=== PATIENT | female | born 1945 | race American Indian/Alaskan Native ===

== ENCOUNTER 2018-08-23 14:18 | Inpatient (IN) | payer MEDICARE ==
[2018-08-23] MEDS ORDERED: NACL 0.9% 1000 ML 1,000 ML IV ONE (15:11)
[2018-08-23] MEDS ORDERED: ZOFRAN IV ONE (15:11)
--- NOTE | 2018-08-23 15:31 | Emergency Department Report ---
HPI - General Chief Complaint: Weakness Time Seen by Provider: 08/23/18 15:10 - HPI HPI: Room 24 The patient is a 73-year-old female presenting with chief complaint of weakness. She states she has a history of taking hydrocodone for the past 30 years se condary to chronic back pain. The patient states in April 2018 she took herself off of the hydrocodone the final alternative methods of pain control. The patient states since then she has had nausea vomiting and diarrhea. Patient states the vomiting stopped approximately 3 weeks ago but she continues to have nausea occasionally. Patient states she has approximately 15 bloody stools daily. The patient saw a pillowcase sewer last week was given a stool kit and she states they were planning on performing a colonoscopy. The patient states she has been feeling progressively weaker since her symptoms began in April Location: [facility] Duration: [See above] Quality: [See above] Severity: [See above] Modifying factors: [see above] Context: [see above] Mode of transportation: [not driving] ED Past Medical Hx - Past Medical History Hx Hypertension: Yes Additional medical history: Graves' disease - Surgical History Additional Surgical History: Rectal polyp removal, cervical fusion, herniorrhaphy, thyroid biopsy, bilateral tubal ligation - Family History Family history: no significant - Social History Smoking Status: Former Smoker Substance Use Type: None - Medications Home Medications: Home Medications Medication Instructions Recorded Confirmed Last Taken Type DULoxetine [Cymbalta] 60 mg PO DAILY 08/23/18 08/23/18 Unknown History Levothyroxine [Synthroid] 125 mcg PO DAILY 08/23/18 08/23/18 Unknown History Loperamide [Imodium] 2 mg PO DAILY PRN 08/23/18 08/23/18 Unknown History Losartan/Hydrochlorothiazide 1 each PO DAILY 08/23/18 08/23/18 Unknown History [Losartan-Hctz 100-25 mg Tab] Sulindac 200 mg PO BID 08/23/18 08/23/18 Unknown History tiZANidine [Zanaflex] 4 mg PO BID 08/23/18 08/23/18 Unknown History ED Review of Systems ROS: Stated complaint: WEAK/DIZZY/FATIGUE Other details as noted in HPI Constitutional: weakness Eyes: denies: eye pain ENT: denies: throat pain Respiratory: no symptoms reported Cardiovascular: denies: chest pain Endocrine: no symptoms reported Gastrointestinal: nausea, vomiting, diarrhea, hematochezia. denies: abdominal pain Genitourinary: denies: dysuria Musculoskeletal: back pain (chronic) Neurological: denies: headache Physical Exam - Physical Exam Physical Exam: GENERAL: The patient is well-developed well-nourished female lying on stretcher not appear to be in acute distress. [] HEENT: Normocephalic. Atraumatic. Extraocular motions are intact. Patient has moist mucous membranes. NECK: Supple. Trachea midline CHEST/LUNGS: Clear to auscultation. There is no respiratory distress noted. HEART/CARDIOVASCULAR: Regular. There is no tachycardia. There is no gallop rub or murmur. ABDOMEN: Abdomen is soft, nontender. Patient has normal bowel sounds. There is no abdominal distention. SKIN: There is no rash. There is no edema. There is no diaphoresis. NEURO: The patient is awake, alert, and oriented. The patient is cooperative. The patient has normal speech MUSCULOSKELETAL: There is no evidence of acute injury. ED Course - Consultations Consultation #1: 08/23/18 16:51 GI paged 08/23/18 17:[address] Antoine - /Peripheral Line Neck L Time Out Performed: No Indications: nurses unable to establis Skin Cleansed in Sterile Fashion: Yes Size: 20 Dressing Placed: Tegaderm, tape Patient Tolerated Procedure: no complications ED Medical Decision Making - Lab Data Result diagrams: 08/23/18 15:29 08/23/18 15:29 Laboratory Tests 08/23/18 08/23/18 08/23/18 15:29 15:29 15:29 WBC 9.5 RBC 2.74 L Hgb 7.6 L Hct 22.3 L MCV 81 MCH 28 MCHC 34 RDW 16.8 H Plt Count 429 Lymph % (Auto) 14.2 [place] % (Auto) 11.6 H Eos % (Auto) 1.3 Baso % (Auto) 0.4 Lymph # 1.3 [place] # 1.1 H Eos # 0.1 Baso # 0.0 Seg Neutrophils % 72.5 H Seg Neutrophils # 6.9 PT INR APTT Sodium 133 L Potassium 3.3 L Chloride 96.4 L Carbon Dioxide 22 Anion Gap 18 BUN 32 H Creatinine 2.4 H Estimated GFR 24 BUN/Creatinine Ratio 13 Glucose 96 Calcium 7.7 L Total Bilirubin 0.40 AST 17 ALT 12 Alkaline Phosphatase 67 Total Protein 5.7 L Albumin 2.2 L Albumin/Globulin Ratio 0.6 Lipase 5 L Blood Type O NEGATIVE Antibody Screen Negative Crossmatch See Detail 08/23/18 15:36 WBC RBC Hgb Hct MCV MCH MCHC RDW Plt Count Lymph % (Auto) [place] % (Auto) Eos % (Auto) Baso % (Auto) Lymph # [place] # Eos # Baso # Seg Neutrophils % Seg Neutrophils # PT 14.1 INR 1.03 APTT 32.0 Sodium Potassium Chloride Carbon Dioxide Anion Gap BUN Creatinine Estimated GFR BUN/Creatinine Ratio Glucose Calcium Total Bilirubin AST ALT Alkaline Phosphatase Total Protein Albumin Albumin/Globulin Ratio Lipase Blood Type Antibody Screen Crossmatch - Differential Diagnosis opiate withdrawal, colitis, symptomatic anemia, dehydration Critical care attestation.: If time is entered above; I have spent that time in minutes in the direct care of this critically ill patient, excluding procedure time. ED Disposition Clinical Impression: Hematochezia, Symptomatic anemia, Nausea vomiting and diarrhea, Dehydration, Acute renal failure Disposition: OP ADMIT IP TO THIS HOSP Is pt being admited?: Yes Does the pt Need Aspirin: No Condition: Fair [facility]errals: [facility] SEL[facility] [Primary Care Provider] - 3-5 Days Time of Disposition: 16:50 (hospitalist paged (Dr Chester))
[2018-08-23 15:44] LABS: Basophils % (Auto) 0.4 % (0.0-1.8); Eosinophils # (Auto) 0.1 K/mm3 (0.0-0.4); Eosinophils % (Auto) 1.3 % (0.0-4.3); Hematocrit 22.3 % (30.3-42.9); Hemoglobin 7.6 gm/dl (10.1-14.3); Lymphocytes # (Auto) 1.3 K/mm3 (1.2-5.4); Lymphocytes % (Auto) 14.2 % (13.4-35.0); Mean Corpuscular HGB Conc 34 % (30-34); Mean Corpuscular Volume 81 fl (79-97); Monocytes # (Auto) 1.1 K/mm3 (0.0-0.8); Monocytes % (Auto) 11.6 % (0.0-7.3); Platelet Count 429 K/mm3 (140-440); Red Blood Count 2.74 M/mm3 (3.65-5.03); Red Cell Distribution Width 16.8 % (13.2-15.2)
[2018-08-23 15:55] LABS: INR 1.03 (0.87-1.13)
[2018-08-23] MEDS ORDERED: NACL 0.9% 500 ML 500 ML IV ONE (15:59)
[2018-08-23 16:07] LABS: Albumin 2.2 g/dL (3.9-5); Calcium 7.7 mg/dL (8.4-10.2)
[2018-08-23 18:15] LABS: Bacteria,Urine 2+ /HPF (Negative); Bilirubin,Urine NEG (Negative); Blood,Urine SM (Negative); Color,Urine Yellow (Yellow); Protein,Urine <15 mg/dL mg/dL (Negative); Urobilinogen,Urine < 2.0 mg/dL (<2.0)
[2018-08-23] MEDS ORDERED: NACL 0.9% 500 ML 500 ML ONE (18:24)
[2018-08-23] MEDS ORDERED: XYLOCAINE 1% 20 mL ONE (19:58)
[2018-08-23] MEDS ORDERED: LEVOPHED DRIP 4 MG/NS 250 ML 4 MG/250 ML BAG IV ONE (20:13)
[2018-08-23] MEDS ORDERED: GOLYTELY PO ONE (20:58)
[2018-08-24 00:25] LABS: Basophils # (Auto) 0.1 K/mm3 (0.0-0.1); Basophils % (Auto) 1.3 % (0.0-1.8); Eosinophils # (Auto) 0.3 K/mm3 (0.0-0.4); Eosinophils % (Auto) 2.7 % (0.0-4.3); Hematocrit 23.5 % (30.3-42.9); Hemoglobin 8.5 gm/dl (10.1-14.3); Lymphocytes # (Auto) 1.2 K/mm3 (1.2-5.4); Lymphocytes % (Auto) 13.3 % (13.4-35.0); Mean Corpuscular HGB Conc 36 % (30-34); Mean Corpuscular Volume 82 fl (79-97); Monocytes # (Auto) 1.1 K/mm3 (0.0-0.8); Monocytes % (Auto) 11.4 % (0.0-7.3); Platelet Count 416 K/mm3 (140-440); Red Blood Count 2.88 M/mm3 (3.65-5.03); Red Cell Distribution Width 16.7 % (13.2-15.2)
--- NOTE | 2018-08-24 00:54 | Event Note ---
Date: 08/23/18 See H/p in reports GI Bleed Hypotension Hypothyroidism arthritis
[2018-08-24] MEDS ORDERED: SODIUM CHLORIDE FLUSH SYRINGE 10 ML IV PRN (00:56)
[2018-08-24] MEDS ORDERED: DILAUDID IV PRN (00:56)
[2018-08-24] MEDS ORDERED: ZOFRAN IV PRN (00:56)
[2018-08-24] MEDS ORDERED: D5NS 1,000 ML IV SCH (01:00)
[2018-08-24] MEDS ORDERED: PROTONIX IV SCH (01:00)
[2018-08-24 01:44] LABS: Hematocrit 24.4 % (30.3-42.9); Hemoglobin 8.8 gm/dl (10.1-14.3)
--- NOTE | 2018-08-24 01:59 | History and Physical Report ---
CHIEF COMPLAINT: Bloody stools for the last 2 months. There is severe weakness today for one day. HISTORY OF PRESENT ILLNESS: A 73-year-old female with history of hypertension, hypothyroidism, arthritis, depression, chronic pain, comes in for severe weakness and also has been having nausea, vomiting, and diarrhea for the past 8 weeks. Vomiting stopped about 3 weeks ago. Diarrhea is persisting and bloody stools for the last couple of weeks. The patient was due for colonoscopy by [facility]. The patient states that she has been feeling progressively weaker since her symptoms began about 8 weeks ago. The patient attributes to stopping opiates. The patient is on sulindac for pain. NSAIDs are exacerbating factors. PAST MEDICAL HISTORY: Past medical history is significant for hypertension, hypothyroidism, arthritis, depression, Grave's disease. PAST SURGICAL HISTORY: Rectal polyp removal, cervical fusion, herniorrhaphy, thyroid biopsy, bilateral tubal ligation. FAMILY HISTORY: No hypertension. SOCIAL HISTORY: Former smoker. REVIEW OF SYSTEMS: Review of system is significant for feeling very weak, dizzy and lightheaded. Chronic diarrhea and vomiting. Vomiting subsided 3 weeks ago. Also, blood in the stools for the last couple of weeks. Occasionally, bright red blood per rectum. Intestinal cramps present. PHYSICAL EXAMINATION: GENERAL: Elderly female, cooperative during examination. VITAL SIGNS: Blood pressure was 87/45, temperature 98, pulse 86, respirations 17, sats are 99%. HEENT: Unremarkable. Mucous membranes are pale. NECK: Supple, no lymphadenopathy, no thyromegaly. LUNGS: Clear to auscultation and percussion. Good air entry. CARDIOVASCULAR: S1, S2 heard. No gallop, no murmur, no rub. Apical impulse in left fifth intercostal space and midclavicular line. ABDOMEN: Soft, slightly tender in the suprapubic region. Bowel sounds are normal. Occult blood is positive on the stool. CENTRAL NERVOUS SYSTEM: Alert and oriented x 4. Nonfocal examination. SKIN: Normal. LABORATORY DATA: White count is 9500, H and H is 7.6 and 22.3, platelet count is 432082. Sodium is 133, potassium is 3.3, chloride is 96.4, BUN and creatinine is ____ and 2.4, total protein 5.7, albumin is 2.2. Urine is negative. ASSESSMENT AND PLAN: 1. Acute anemia secondary to blood loss. Transfused 2 units of packed red blood cells. Check hemoglobin and hematocrit q. 6 hours for at least 4 times. 2. Hypokalemia, supplemented. 3. Gastrointestinal bleed. The patient to get colonoscopy tomorrow. Transfuse as necessary. IV Protonix initiated. 4. Chronic diarrhea, possible Clostridium difficile colitis. Clostridium difficile ordered. IV Flagyl ordered. 5. Hypertension. The patient is hypotensive with IV fluids. No antihypertensives. 6. Hypothyroidism. IV Synthroid. 7. Depression. We will hold the sertraline. 8. Arthritis. We will hold the sulindac. 9. Deep venous thrombosis prophylaxis. Sequential compression devices only. 10. In summary, the patient has gastrointestinal bleed, possible colitis, hypotension, hypothyroidism, arthritis, and depression. Off nonsteroidal antiinflammatory drugs. Transfuse as necessary. JOB# [id number] RONEL/ELISE
--- NOTE | 2018-08-24 03:43 | Consultation ---
REFERRING PHYSICIAN: Biju Chester MD INDICATION: Rectal bleeding. HISTORY OF PRESENT ILLNESS: The patient is a 73-year-old black female presents who for rectal bleeding. The patient has a history of hydrocodone use for years with chronic back pain and was stopped back in April. The patient reports she did have intermittent nausea, vomiting, diarrhea. The patient reports that she started having rectal bleeding with multiple bouts of bright red maroon stools today. She reports no hematemesis. She denies any epigastric pain. Denies any weight loss. The patient reports that she was due for colonoscopy. Denies any weight loss. Patient subsequently came to Emergency Room where she was evaluated and admitted and GI consulted. PAST MEDICAL HISTORY: Graves disease. MEDICATIONS: Reviewed, updated in chart. ALLERGIES: No known drug allergies. SOCIAL HISTORY: Denies alcohol, tobacco, or IV drug abuse. FAMILY HISTORY: Negative for colon cancer, IBD, or liver disease. REVIEW OF SYSTEMS: GENERAL: Reports mild weakness. HEENT: No visual complaints or tinnitus. PULMONARY: No shortness of breath or chest pain. GASTROINTESTINAL: Reports rectal bleeding. All points of a 13-point review of systems otherwise negative. PHYSICAL EXAMINATION: VITAL SIGNS: Temperature of 98.5, pulse 90, respirations 20, blood pressure 100/42. GENERAL: Fairly nourished female in mild distress. HEENT: Pupils equal, round, react to light and accommodation. Extraocular movements are intact. PULMONARY: Clear to auscultation bilaterally. CARDIOVASCULAR: Regular rate and rhythm. Normal S1 and S2. ABDOMEN: Positive bowel sounds, soft. SKIN: No rashes. LABORATORY DATA: Labs pertinent for white count of 9.5, hemoglobin and hematocrit of 7.6 and 22.3, platelet count of 429. Coags within normal limits. Chem-7, sodium of 133, potassium 3.3, chloride 96, CO2 24, BUN and creatinine of 32 and 2.4. LFTs within normal limits. ASSESSMENT: This is a 73-year-old black female with a history of Graves disease, now presents with one day of rectal bleeding. The patient does report occasional NSAID use. Most likely lower but cannot exclude upper gastrointestinal bleed. PLAN: 1. Follow hematocrit and transfuse as ordered. 2. Avoid NSAIDs and aspirin. 3. NPO after midnight. 4. We will plan for EGD, colonoscopy, and make further recommendation based on progress and results of the above. JOB# [id number] RENO/ELISE
[2018-08-24] MEDS: FLAGYL 500 MG/100 ML 500 MG/100 ML BAG IV SCH ×3 (07:16→23:02)
[2018-08-24] MEDS: SYNTHROID IV SCH (07:17)
[2018-08-24 07:33] LABS: Hematocrit 25.4 % (30.3-42.9); Hemoglobin 8.8 gm/dl (10.1-14.3)
[2018-08-24] MEDS: LEVOPHED DRIP 4 MG/NS 250 ML 4 MG/250 ML BAG IV SCH ×3 (07:34→23:03)
[2018-08-24] MEDS ORDERED: WATER FOR IRRIG STERILE IR ONE (08:20)
[2018-08-24] MEDS ORDERED: WATER FOR IRRIG STERILE ONE (08:21)
--- NOTE | 2018-08-24 08:28 | Progress Note ---
Assessment and Plan Assessment and plan: Patient is a 73 yo woman with a history of chronic pain syndome for LBP, Graves disease (then ?hypothyroidism), depression, OA and hypertension who presented to [facility] ED with n/v/d/bloody stools and weakness. Hypotension: treated with IVFs which did not work, now on Levophed 6mcg IV drip Normocytic Anemia with BRBPR/rectal bleeding: transfused 2 units of PRBC, for EGD/Colonoscopy, GI following, monitor h/h closely Hyponatremia hypovolemia: IVF with nss and monitor closely Hypokalemia; replete and daily bmp ARF, atn, no prior Cr in EMR: treat with IVF H/o hypertension: hold bp med h/o depression: antidepressant on hold due to NPO status, watch for withdrawals Severe Malnutrition, albumin 2.2; consult Nuclear Medical Technologist Chronic diarrhea: GI is following, for c-scopy Hypothyroidism/Graves: order TSH, free t4 Morbid obesity, bmi 43.5: lifestyle modifications discussed Right groin nickel size swallow ulcer, poa: consult Wound care Right Femoral TLC placed in ED 08/23/18: remove once stable DVT ppx with scd Full code CCT 32 minutes History Interval history: Patient was seen and examined. Follow-up on current diagnosis of GIB and hypot ension. Overnight uneventful. Patient denies any chest pain, shortness breath, nausea/vomiting or severe headaches. Imaging, nursing note, chart, labs and old chart reviewed. Discussed with patient. Hospitalist Physical - Physical exam Narrative exam: Gen: ill appearing NAD, Awake, Alert, Orientated x 3, bmi 43.5 HEENT: NCAT, EOMI, PERRL, OP Clear Neck: supple, no adenopathy, no thyromegaly, no JVD CVS/Heart: RRR, normal S1S2, pulses present bilaterally Chest/Lungs: CTA B, Symmetrical chest expansion, good air entry bilaterally GI/Abdomen: soft, NTND, good bowel sounds, no guarding or rebound /Bladder: no suprapubic tenderness, no CVA or paraspinal tenderness Extermity/Skin: leg edema bilateral, right nickel size swallow groin ulceration MSK: FROM x 4 Neuro: CN 2-12 grossly intact, no new focal deficits Psych: calm - Constitutional Vitals: Temp Pulse Resp BP Pulse Ox 98.6 F 93 H 15 92/42 100 08/24/18 04:00 08/24/18 06:00 08/24/18 06:00 08/24/18 06:00 08/24/18 06:00 Results - Labs CBC & Chem 7: 08/24/18 07:07 08/23/18 15:29 Labs: Laboratory Last Values WBC 9.2 K/mm3 (4.5-11.0) 08/24/18 00:08 RBC 2.88 M/mm3 (3.65-5.03) L 08/24/18 00:08 Hgb 8.8 gm/dl (10.1-14.3) L 08/24/18 07:07 Hct 25.4 % (30.3-42.9) L 08/24/18 07:07 MCV 82 fl (79-97) 08/24/18 00:08 MCH 30 pg (28-32) 08/24/18 00:08 MCHC 36 % (30-34) H 08/24/18 00:08 RDW 16.7 % (13.2-15.2) H 08/24/18 00:08 Plt Count 416 K/mm3 (140-440) 08/24/18 00:08 Lymph % (Auto) 13.3 % (13.4-35.0) L 08/24/18 00:08 [place] % (Auto) 11.4 % (0.0-7.3) H 08/24/18 00:08 Eos % (Auto) 2.7 % (0.0-4.3) 08/24/18 00:08 Baso % (Auto) 1.3 % (0.0-1.8) 08/24/18 00:08 Lymph # 1.2 K/mm3 (1.2-5.4) 08/24/18 00:08 [place] # 1.1 K/mm3 (0.0-0.8) H 08/24/18 00:08 Eos # 0.3 K/mm3 (0.0-0.4) 08/24/18 00:08 Baso # 0.1 K/mm3 (0.0-0.1) 08/24/18 00:08 Seg Neutrophils % 71.3 % (40.0-70.0) H 08/24/18 00:08 Seg Neutrophils # 6.6 K/mm3 (1.8-7.7) 08/24/18 00:08 PT 14.1 Sec. (12.2-14.9) 08/23/18 15:36 INR 1.03 (0.87-1.13) 08/23/18 15:36 APTT 32.0 Sec. (24.2-36.6) 08/23/18 15:36 Sodium 133 mmol/L (137-145) L 08/23/18 15:29 Potassium 3.3 mmol/L (3.6-5.0) L 08/23/18 15:29 Chloride 96.4 mmol/L (98-107) L 08/23/18 15:29 Carbon Dioxide 22 mmol/L (22-30) 08/23/18 15:29 Anion Gap 18 mmol/L 08/23/18 15:29 BUN 32 mg/dL (7-17) H 08/23/18 15:29 Creatinine 2.4 mg/dL (0.7-1.2) H 08/23/18 15:29 Estimated GFR 24 ml/min 08/23/18 15:29 BUN/Creatinine Ratio 13 % 08/23/18 15:29 Glucose 96 mg/dL (65-100) 08/23/18 15:29 Hemoglobin A1c 5.3 % (4-6) 08/24/18 00:08 Calcium 7.7 mg/dL (8.4-10.2) L 08/23/18 15:29 Total Bilirubin 0.40 mg/dL (0.1-1.2) 08/23/18 15:29 AST 17 units/L (5-40) 08/23/18 15:29 ALT 12 units/L (7-56) 08/23/18 15:29 Alkaline Phosphatase 67 units/L (35-129) 08/23/18 15:29 Total Protein 5.7 g/dL (6.3-8.2) L 08/23/18 15:29 Albumin 2.2 g/dL (3.9-5) L 08/23/18 15:29 Albumin/Globulin Ratio 0.6 % 08/23/18 15:29 Lipase 5 units/L (13-60) L 08/23/18 15:29 Urine Color Yellow (Yellow) 08/23/18 17:45 Urine Turbidity Clear (Clear) 08/23/18 17:45 Urine pH 5.0 (5.0-7.0) 08/23/18 17:45 Ur Specific [place] 1.008 (1.003-1.030) 08/23/18 17:45 Urine Protein <15 mg/dl mg/dL (Negative) 08/23/18 17:45 Urine Glucose (UA) Neg mg/dL (Negative) 08/23/18 17:45 Urine Ketones Neg mg/dL (Negative) 08/23/18 17:45 Urine Blood Sm (Negative) 08/23/18 17:45 Urine Nitrite Neg (Negative) 08/23/18 17:45 Urine Bilirubin Neg (Negative) 08/23/18 17:45 Urine Urobilinogen < 2.0 mg/dL (<2.0) 08/23/18 17:45 Ur Leukocyte Esterase Neg (Negative) 08/23/18 17:45 Urine WBC (Auto) 1.0 /HPF (0.0-6.0) 08/23/18 17:45 Urine RBC (Auto) 1.0 /HPF (0.0-6.0) 08/23/18 17:45 U Epithel Cells (Auto) 2.0 /HPF (0-13.0) 08/23/18 17:45 Urine Bacteria (Auto) 2+ /HPF (Negative) 08/23/18 17:45 Blood Type O NEGATIVE 08/23/18 15:29 Antibody Screen Negative 08/23/18 15:29 Crossmatch See Detail 08/23/18 15:29 Active Medications - Current Medications Current Medications: Generic Name Dose Route Start Last Admin Trade Name Freq PRN Reason Stop Dose Admin Acetaminophen 650 mg 08/24/18 00:56 Tylenol PO Q4H PRN Pain MILD(1-3)/Fever >100.5/VILLARREAL Hydromorphone HCl 0.5 mg 08/24/18 00:56 Dilaudid IV Q3H PRN Pain , Severe (7-10) Norepinephrine 4 mg in 250 mls @ 7.5 mls/hr 08/23/18 23:00 08/24/18 07:37 Levophed Drip 4 Mg/Ns 250 Ml IV 7 mcg/min TITR LAZARO 26.25 mls/hr Titration Protocol 2 MCG/MIN Dextrose/Sodium Chloride 1,000 mls @ 100 mls/hr 08/24/18 01:00 08/24/18 01:49 D5ns IV 100 mls/hr DIRECT LAZARO Administration Metronidazole 500 mg in 100 mls @ 100 mls/hr 08/24/18 06:00 08/24/18 07:16 Flagyl 500 Mg/100 Ml IV 100 mls/hr Q8HR LAZARO Administration Protocol Levothyroxine Sodium 100 mcg 08/24/18 06:00 08/24/18 07:17 Synthroid IV 100 mcg DAILY@0600 LAZARO Administration Ondansetron HCl 4 mg 08/24/18 00:56 Zofran IV Q8H PRN Nausea And Vomiting Pantoprazole Sodium 40 mg 08/24/18 01:00 08/24/18 01:49 Protonix IV 40 mg BID LAZARO Administration Sodium Chloride 10 ml 08/24/18 10:00 Sodium Chloride Flush Syringe 10 Ml IV BID LAZARO Sodium Chloride 10 ml 08/24/18 00:56 Sodium Chloride Flush Syringe 10 Ml IV PRN PRN LINE FLUSH
[2018-08-24] MEDS ORDERED: DIPRIVAN 10 MG/ML IV ONE ×2 (08:57)
--- NOTE | 2018-08-24 09:03 | Gastroenterology Consultation ---
History of Present Illness - Reason for Consult Consult date: 08/24/18 GI Bleed Requesting physician: JANIS BRICE - History of Present Illness The patient was recently seen in our clinic for acute onset diarrhea, with some trace rectal bleeding. This was in the setting of recent d/c of home narcotics (on for several years) because the patient wanted to "detox" and the diarrhea was presumed from withdrawal. She was scheduled for a colonoscopy and labwork (not completed). She came to the ER for weakness with diarrhea and worsened hematochezia over the last 48 hours. She denies severe abdominal pain (more c/o chronic back pain). She had no emesis nor hematemesis. Of note, she is now on chronic NSAIDs (sulindac) per home meds for her back pain; she is not sure of the date of her last narcotic pill. She has no hx of PUD and no hx of significant GI bleeding. She does have chronic constipation, and is unable to quantify how frequent her BMs are. Past History Past Medical History: hypertension, other (Graves; depression; obesity) Past Surgical History: Other (Neck (cervical); Tubal ligation) Social history: prescription drug abuse. denies: smoking, alcohol abuse Family history: no significant family history Medications and Allergies Allergies Allergy/AdvReac Type Severity Reaction Status Date / Time codeine Allergy Unknown Verified 08/23/18 17:07 Home Medications Medication Instructions Recorded Confirmed Last Taken Type DULoxetine [Cymbalta] 60 mg PO DAILY 08/23/18 08/23/18 Unknown History Levothyroxine [Synthroid] 125 mcg PO DAILY 08/23/18 08/23/18 Unknown History Loperamide [Imodium] 2 mg PO DAILY PRN 08/23/18 08/23/18 Unknown History Losartan/Hydrochlorothiazide 1 each PO DAILY 08/23/18 08/23/18 Unknown History [Losartan-Hctz 100-25 mg Tab] Sulindac 200 mg PO BID 08/23/18 08/23/18 Unknown History tiZANidine [Zanaflex] 4 mg PO BID 08/23/18 08/23/18 Unknown History Active Meds: Active Medications Acetaminophen (Tylenol) 650 mg PO Q4H PRN PRN Reason: Pain MILD(1-3)/Fever >100.5/VILLARREAL Hydromorphone HCl (Dilaudid) 0.5 mg IV Q3H PRN PRN Reason: Pain , Severe (7-10) Norepinephrine (Levophed Drip 4 Mg/Ns 250 Ml) 4 mg in 250 mls @ 7.5 mls/hr IV TITR [facility]; Protocol Last Titration: 08/24/18 08:30 Dose: 6 mcg/min, 22.5 mls/hr Documented by: Dextrose/Sodium Chloride (D5ns) 1,000 mls @ 100 mls/hr IV DIRECT [facility] Last Admin: 08/24/18 01:49 Dose: 100 mls/hr Documented by: Metronidazole (Flagyl 500 Mg/100 Ml) 500 mg in 100 mls @ 100 mls/hr IV Q8HR [facility]; Protocol Last Admin: 08/24/18 07:16 Dose: 100 mls/hr Documented by: Sodium Chloride (Nacl 0.9% 1000 Ml) 1,000 mls @ 50 mls/hr IV DIRECT [facility] Levothyroxine Sodium (Synthroid) 100 mcg IV DAILY@0600 [facility] Last Admin: 08/24/18 07:17 Dose: 100 mcg Documented by: Ondansetron HCl (Zofran) 4 mg IV Q8H PRN PRN Reason: Nausea And Vomiting Pantoprazole Sodium (Protonix) 40 mg IV BID [facility] Last Admin: 08/24/18 01:49 Dose: 40 mg Documented by: Sodium Chloride (Sodium Chloride Flush Syringe 10 Ml) 10 ml IV BID [facility] Sodium Chloride (Sodium Chloride Flush Syringe 10 Ml) 10 ml IV PRN PRN PRN Reason: LINE FLUSH I HAVE REVIEWED AND RECONCILED MEDICATIONS Review of Systems - Review of Systems All systems: negative (as noted in the HPI) Exam - Constitutional Vital Signs: Temp Pulse Resp BP Pulse Ox 98.6 F 93 H 15 92/42 100 08/24/18 04:00 08/24/18 06:00 08/24/18 06:00 08/24/18 06:00 08/24/18 06:00 General appearance: no acute distress - EENT Eyes: PERRL, EOM intact ENT: hearing intact, clear oral mucosa, no thrush, edentulous - Neck Neck: supple, normal ROM - Respiratory Respiratory effort: normal Respiratory: bilateral: CTA - Cardiovascular Rhythm: regular Heart Sounds: Present: S1 & S2 Extremities: no ischemia Extremity abnormal: edema (2+ pitting bilateral lower extremeties) - Gastrointestinal General gastrointestinal: Present: soft, non-tender, non-distended - Integumentary Integumentary: Present: warm (Groin ulcer as noted) - Neurologic Neurological: alert and oriented x3 - Labs CBC & Chem 7: 08/24/18 07:07 08/23/18 15:29 Lab Results: Laboratory Results - last 24 hr 08/23/18 08/23/18 08/23/18 15:29 15:29 15:29 WBC 9.5 RBC 2.74 L Hgb 7.6 L Hct 22.3 L MCV 81 MCH 28 MCHC 34 RDW 16.8 H Plt Count 429 Lymph % (Auto) 14.2 [place] % (Auto) 11.6 H Eos % (Auto) 1.3 Baso % (Auto) 0.4 Lymph # 1.3 [place] # 1.1 H Eos # 0.1 Baso # 0.0 Seg Neutrophils % 72.5 H Seg Neutrophils # 6.9 PT INR APTT Sodium 133 L Potassium 3.3 L Chloride 96.4 L Carbon Dioxide 22 Anion Gap 18 BUN 32 H Creatinine 2.4 H Estimated GFR 24 BUN/Creatinine Ratio 13 Glucose 96 Hemoglobin A1c Calcium 7.7 L Total Bilirubin 0.40 AST 17 ALT 12 Alkaline Phosphatase 67 Total Protein 5.7 L Albumin 2.2 L Albumin/Globulin Ratio 0.6 Lipase 5 L Urine Color Urine Turbidity Urine pH Ur Specific [place] Urine Protein Urine Glucose (UA) Urine Ketones Urine Blood Urine Nitrite Urine Bilirubin Urine Urobilinogen Ur Leukocyte Esterase Urine WBC (Auto) Urine RBC (Auto) U Epithel Cells (Auto) Urine Bacteria (Auto) Blood Type O NEGATIVE Antibody Screen Negative Crossmatch See Detail 08/23/18 08/23/18 08/24/18 15:36 17:45 00:08 WBC 9.2 RBC 2.88 L Hgb 8.5 L Hct 23.5 L MCV 82 MCH 30 MCHC 36 H RDW 16.7 H Plt Count 416 Lymph % (Auto) 13.3 L [place] % (Auto) 11.4 H Eos % (Auto) 2.7 Baso % (Auto) 1.3 Lymph # 1.2 [place] # 1.1 H Eos # 0.3 Baso # 0.1 Seg Neutrophils % 71.3 H Seg Neutrophils # 6.6 PT 14.1 INR 1.03 APTT 32.0 Sodium Potassium Chloride Carbon Dioxide Anion Gap BUN Creatinine Estimated GFR BUN/Creatinine Ratio Glucose Hemoglobin A1c Calcium Total Bilirubin AST ALT Alkaline Phosphatase Total Protein Albumin Albumin/Globulin Ratio Lipase Urine Color Yellow Urine Turbidity Clear Urine pH 5.0 Ur Specific [place] 1.008 Urine Protein <15 mg/dl Urine Glucose (UA) Neg Urine Ketones Neg Urine Blood Sm Urine Nitrite Neg Urine Bilirubin Neg Urine Urobilinogen < 2.0 Ur Leukocyte Esterase Neg Urine WBC (Auto) 1.0 Urine RBC (Auto) 1.0 U Epithel Cells (Auto) 2.0 Urine Bacteria (Auto) 2+ Blood Type Antibody Screen Crossmatch 08/24/18 08/24/18 08/24/18 00:08 01:31 07:07 WBC RBC Hgb 8.8 L 8.8 L Hct 24.4 L 25.4 L MCV MCH MCHC RDW Plt Count Lymph % (Auto) [place] % (Auto) Eos % (Auto) Baso % (Auto) Lymph # [place] # Eos # Baso # Seg Neutrophils % Seg Neutrophils # PT INR APTT Sodium Potassium Chloride Carbon Dioxide Anion Gap BUN Creatinine Estimated GFR BUN/Creatinine Ratio Glucose Hemoglobin A1c 5.3 Calcium Total Bilirubin AST ALT Alkaline Phosphatase Total Protein Albumin Albumin/Globulin Ratio Lipase Urine Color Urine Turbidity Urine pH Ur Specific [place] Urine Protein Urine Glucose (UA) Urine Ketones Urine Blood Urine Nitrite Urine Bilirubin Urine Urobilinogen Ur Leukocyte Esterase Urine WBC (Auto) Urine RBC (Auto) U Epithel Cells (Auto) Urine Bacteria (Auto) Blood Type Antibody Screen Crossmatch Assessment and Plan - Patient Problems (1) Acute blood loss anemia Current Visit: Yes Status: Acute Plan to address problem: - Given NSAID use, upper or lower ulcer most likely; no recent endoscopy so malignancy also in differential. - Will continue protonix, and plan EGD/colonoscopy. - Continue to transfuse. - Given hypotension and stable anemia, with edema, would consider TTE if no active bleeding noted at endoscopy. - MVI therapy.
--- NOTE | 2018-08-24 09:06 | Anesthesia Consultation ---
Anesthesia Consult and Med Hx Date of service: 08/24/18 - Airway Anesthetic Teeth Evaluation: Good Mental/Hyoid Distance: Adequate Mallampati Class: Class II Intubation Access Assessment: Good - Pulmonary Exam CTA: Yes - Cardiac Exam Cardiac Exam: RRR - Pre-Operative Health Status ASA Pre-Surgery Classification: ASA3 Proposed Anesthetic Plan: Sedation, Conscious, MAC - Pulmonary Hx Smoking: No Hx Asthma: No - Cardiovascular System Hx Hypertension: Yes Hx Coronary Artery Disease: No - Gastrointestinal Hx Ulcer: No Hx Gastroesophageal Reflux Disease: No - Other Systems Hx Alcohol Use: No Hx Substance Use: No Hx Cancer: No Hx Obesity: No - Additional Comments Anesthesia Medical History Comments: 73 yo woman with a history of chronic pain syndome for LBP, Graves disease (then ?hypothyroidism), depression, OA and hypertension who presented to [facility] ED with n/v/d/bloody stools and weakness. On contact precautions - C.diff r/o. Hypotension: treated with IVFs which did not work, now on Levophed 6mcg IV drip. Normocytic Anemia with BRBPR/rectal bleeding: transfused 1 units of PRBC, for EGD/Colonoscopy, GI following, monitor h/h closely. Hyponatremia hypovolemia: IVF with nss and monitor closely. Hypokalemia; replete and daily bmp ARF, atn, no prior Cr in EMR: treat with IVF. H/o hypertension: hold bp med. h/o depression: antidepressant on hold due to NPO status, watch for withdrawals. Severe Malnutrition, albumin 2.2; consult [facility] [employer]. Chronic diarrhea: GI is following, for c-scopy. Hypothyroidism/Graves: order TSH, free t4. Morbid obesity, bmi 43.5: lifestyle modifications discussed. Right groin nickel size swallow ulcer, poa: consult Wound care. Right Femoral TLC placed in ED 08/23/18: remove once stable. DVT p px with scd. Full code. Patient was seen and examined. Follow-up on current diagnosis of GIB and hypotension. Overnight uneventful. Imaging, nursing note, chart, labs and old chart reviewed. Psych: calm
--- NOTE | 2018-08-24 09:07 | Anesthesia Day of Surgery ---
Anesthesia Day of Surgery - Day of Surgery Patient Examined: Yes Patient H&P Reviewed: Yes Patient is NPO: Yes Beta Blockers: No Cardiac Clearance: No Pulmonary Clearance: No Jorgito's Test: N/A
[2018-08-24] MEDS ORDERED: SENOKOT S PO PRN (09:39)
[2018-08-24] MEDS ORDERED: LEVAQUIN 500MG/100ML 500 MG/100 ML BAG IV SCH (10:00)
--- NOTE | 2018-08-24 10:07 | Post Operative Note ---
Pre-op diagnosis: GI Bleed Post-op diagnosis: other (Colitis) Findings: 1. Normal upper GI tract without ulcer 2. Severe colitis in rectum/rectosigmoid; above the rectosigmoid the mucosa was normal, with copious solid brown stool; no bleeding noted proximal to the rectosigmoid; cold bx of rectum 3. Small hemorrhoids Procedure: EGD; Flex sig (incomplete colon 2nd prep) to mid-sigmoid with cold biopsy Anesthesia: MAC Surgeon: DAVIDSON TRUONG Estimated blood loss: minimal Pathology: list (1. Rectal mucosa) Specimen disposition: to lab Condition: stable Disposition: ICU (Recs: 1. The appearance would be most consistent with stercoral colitis given hx of narcotics/chronic constipation. IBD, ischemia of SONAL and infectious process (?STD) also in differential. 2. Will advance diet to full liquids, and start a bowel prep with miralax and senna. 3. Avoid all narcotics. 4. Empiric abx for colitis, and check RPR. 5. Convert protonix to PO, and avoid NSAIDs for now (tylenol only for pain).)
[2018-08-24] MEDS: SODIUM CHLORIDE FLUSH SYRINGE 10 ML IV SCH ×2 (10:14→23:07)
[2018-08-24] MEDS: PROTONIX PO SCH (10:14)
[2018-08-24] MEDS: MIRALAX 3350 PO SCH ×2 (10:14→23:02)
[2018-08-24] MEDS: THERAGRAN-M Tab PO SCH (10:14)
[2018-08-24] MEDS: NACL 0.9% 1000 ML 1,000 ML IV SCH (10:15)
[2018-08-24] MEDS ORDERED: NACL 0.9% 1000 ML 1,000 ML ONE (10:24)
[2018-08-24] MEDS ORDERED: LEVAQUIN 500MG/100ML 500 MG/100 ML BAG IV ONE (10:30)
--- NOTE | 2018-08-24 10:39 | Operative Report ---
PROCEDURE PERFORMED: Esophagogastroduodenoscopy and flexible sigmoidoscopy (aborted colonoscopy secondary to prep) to the midsigmoid colon with cold biopsy. PREOPERATIVE DIAGNOSIS: Acute blood loss anemia/gastrointestinal bleeding. POSTOPERATIVE DIAGNOSES: Focal colitis, but otherwise normal. ENDOSCOPIST: Alfred Rizvi MD INSTRUMENT: Dexterran video endoscope. MEDICATIONS: MAC anesthesia by Anesthesia [facility]. COMPLICATIONS: No apparent complications. ESTIMATED BLOOD LOSS: Minimal. SPECIMENS: Rectal mucosa, rule out inflammation. IMPLANTS: None. ASSISTANTS: None. CONDITION ON COMPLETION: Stable. TECHNIQUE: The patient was informed of the risks and benefits of the procedure. She signed the informed consent to proceed. She was placed in left lateral decubitus position. The above sedative medications were given. Her vital signs remained stable throughout the procedure. The instrument was advanced from the mouth to the second portion of the duodenum under direct visualization. At that point, the bowel was insufflated and the endoscope was slowly withdrawn. We then advanced the endoscope from the rectum to the midsigmoid colon. Under direct visualization, the procedure was terminated in the midst of the sigmoid colon due to poor preparation with copious amounts of solid green stool present. The endoscope was then withdrawn and the quality of preparation was poor. FINDINGS: 1. Normal upper GI tract without any evidence of mucosal disease, varices, or active gastrointestinal bleeding. 2. Severe colitis noted in the rectum/rectosigmoid area of the colon. Proximal to the rectosigmoid area, the mucosa was normal with copious amount of solid brown stool. A. No bleeding was noted proximal to the rectosigmoid, but there was significant friable mucosa in the rectum. B. Cold biopsy was taken of the rectal tissue. 3. Small hemorrhoids, but not well evaluated due to poor preparation. 4. The procedure was initially planned as a colonoscopy, but was aborted in the mid sigmoid colon due to poor preparation. RECOMMENDATIONS: 1. The appearance of the inflammation of the colon will be most consistent with stercoral colitis given the patient's history of narcotic use and chronic constipation. Inflammatory bowel disease, ischemia of the inferior mesenteric artery, and an infectious process such as a sexually transmitted disease, would also be in the differential. 2. We will advance the patient to a full liquid diet and start a bowel prep with MiraLax and Senokot. 3. Avoid all narcotics and nonsteroidal anti-inflammatory drugs. 4. Tylenol only for pain. 5. Empiric antibiotics for colitis and check on RPR. 6. Oral Protonix. 7. I would continue SCD hose for DVT prophylaxis and avoid heparin or Lovenox for the next [address] scan of the abdomen and pelvis when the patient's creatinine improves to assess the vasculature. JOB# [id number] DEVI/NTS
[2018-08-24] MEDS ORDERED: NACL 0.9% 500 ML 500 ML IV ONE (12:03)
--- NOTE | 2018-08-24 12:54 | Consultation ---
History of Present Illness - Reason for Consult Consult date: 08/24/18 GI Bleed Requesting physician: ESTHER MENDOZA - History of Present Illness 73 y/o female admitted with GI bleed. Given one unit of PRBC's overnight. Currently on vasopressor therapy as well. Scoped by GI this am and found to have severe colitis but no active bleeding. Patient currently sitting up in chair at bedside about to drink full liquids. No family present. Past History Past Medical History: hypertension, other (Graves; depression; obesity) Past Surgical History: Other (Neck (cervical); Tubal ligation) Social history: prescription drug abuse. denies: smoking, alcohol abuse Family history: no significant family history Medications and Allergies Allergies Allergy/AdvReac Type Severity Reaction Status Date / Time codeine Allergy Unknown Verified 08/23/18 17:07 Home Medications Medication Instructions Recorded Confirmed Last Taken Type DULoxetine [Cymbalta] 60 mg PO DAILY 08/23/18 08/23/18 Unknown History Levothyroxine [Synthroid] 125 mcg PO DAILY 08/23/18 08/23/18 Unknown History Loperamide [Imodium] 2 mg PO DAILY PRN 08/23/18 08/23/18 Unknown History Losartan/Hydrochlorothiazide 1 each PO DAILY 08/23/18 08/23/18 Unknown History [Losartan-Hctz 100-25 mg Tab] Sulindac 200 mg PO BID 08/23/18 08/23/18 Unknown History tiZANidine [Zanaflex] 4 mg PO BID 08/23/18 08/23/18 Unknown History Active Meds: Active Medications Acetaminophen (Tylenol) 650 mg PO Q4H PRN PRN Reason: Pain MILD(1-3)/Fever >100.5/VILLARREAL Norepinephrine (Levophed Drip 4 Mg/Ns 250 Ml) 4 mg in 250 mls @ 7.5 mls/hr IV TITR [facility]; Protocol Last Titration: 08/24/18 10:45 Dose: 10 mcg/min, 37.5 mls/hr Documented by: Dextrose/Sodium Chloride (D5ns) 1,000 mls @ 100 mls/hr IV DIRECT [facility] Last Admin: 08/24/18 01:49 Dose: 100 mls/hr Documented by: Metronidazole (Flagyl 500 Mg/100 Ml) 500 mg in 100 mls @ 100 mls/hr IV Q8HR [facility]; Protocol Last Admin: 08/24/18 07:16 Dose: 100 mls/hr Documented by: Sodium Chloride (Nacl 0.9% 1000 Ml) 1,000 mls @ 50 mls/hr IV DIRECT [facility] Last Admin: 08/24/18 10:15 Dose: 50 mls/hr Documented by: Levofloxacin/Dextrose (Levaquin 250mg/50ml) 250 mg in 50 mls @ 50 mls/hr IV Q24HR [facility] Levothyroxine Sodium (Synthroid) 100 mcg IV DAILY@0600 [facility] Last Admin: 08/24/18 07:17 Dose: 100 mcg Documented by: Multivitamins/Minerals (Theragran-M Tab) 1 each PO QDAY [facility] Last Admin: 08/24/18 10:14 Dose: 1 each Documented by: Ondansetron HCl (Zofran) 4 mg IV Q8H PRN PRN Reason: Nausea And Vomiting Pantoprazole Sodium (Protonix) 40 mg PO QDAY [facility] Last Admin: 08/24/18 10:14 Dose: 40 mg Documented by: Polyethylene Glycol (Miralax [id number]) 17 gm PO BID [facility] Last Admin: 08/24/18 10:14 Dose: 17 gm Documented by: Senna/Docusate Sodium (Senokot S) 2 tab PO Q12H PRN PRN Reason: Laxative Effect Sodium Chloride (Sodium Chloride Flush Syringe 10 Ml) 10 ml IV BID [facility] Last Admin: 08/24/18 10:14 Dose: 10 ml Documented by: Sodium Chloride (Sodium Chloride Flush Syringe 10 Ml) 10 ml IV PRN PRN PRN Reason: LINE FLUSH Review of Systems All systems: negative Exam - Constitutional Vitals: Temp Pulse Resp BP Pulse Ox 98.1 F 99 H 18 104/32 95 08/24/18 10:14 08/24/18 10:14 08/24/18 10:14 08/24/18 10:14 08/24/18 10:14 General appearance: Present: no acute distress, well-nourished, obese - EENT Eyes: Present: PERRL, EOM intact ENT: hearing intact, clear oral mucosa - Neck Neck: Present: supple, normal ROM - Respiratory Respiratory effort: normal Respiratory: bilateral: CTA - Cardiovascular Rhythm: regular (sinus tach secondary to vasopressor use) Results - Labs CBC & Chem 7: 08/24/18 07:07 08/23/18 15:29 Labs: Abnormal lab results 08/23/18 08/23/18 08/23/18 Range/Units 15:29 15:29 15:29 RBC 2.74 L (3.65-5.03) M/mm3 Hgb 7.6 L (10.1-14.3) gm/dl Hct 22.3 L (30.3-42.9) % MCHC (30-34) % RDW 16.8 H (13.2-15.2) % Lymph % (Auto) (13.4-35.0) % [place] % (Auto) 11.6 H (0.0-7.3) % [place] # 1.1 H (0.0-0.8) K/mm3 Seg Neutrophils % 72.5 H (40.0-70.0) % Sodium 133 L (137-145) mmol/L Potassium 3.3 L (3.6-5.0) mmol/L Chloride 96.4 L (98-107) mmol/L BUN 32 H (7-17) mg/dL Creatinine 2.4 H (0.7-1.2) mg/dL Calcium 7.7 L (8.4-10.2) mg/dL Total Protein 5.7 L (6.3-8.2) g/dL Albumin 2.2 L (3.9-5) g/dL Lipase 5 L (13-60) units/L Free T4 (0.76-1.46) ng/dL Crossmatch See Detail 08/24/18 08/24/18 08/24/18 Range/Units 00:08 01:31 07:07 RBC 2.88 L (3.65-5.03) M/mm3 Hgb 8.5 L 8.8 L 8.8 L (10.1-14.3) gm/dl Hct 23.5 L 24.4 L 25.4 L (30.3-42.9) % MCHC 36 H (30-34) % RDW 16.7 H (13.2-15.2) % Lymph % (Auto) 13.3 L (13.4-35.0) % [place] % (Auto) 11.4 H (0.0-7.3) % [place] # 1.1 H (0.0-0.8) K/mm3 Seg Neutrophils % 71.3 H (40.0-70.0) % Sodium (137-145) mmol/L Potassium (3.6-5.0) mmol/L Chloride (98-107) mmol/L BUN (7-17) mg/dL Creatinine (0.7-1.2) mg/dL Calcium (8.4-10.2) mg/dL Total Protein (6.3-8.2) g/dL Albumin (3.9-5) g/dL Lipase (13-60) units/L Free T4 (0.76-1.46) ng/dL Crossmatch 08/24/18 Range/Units Unknown RBC (3.65-5.03) M/mm3 Hgb (10.1-14.3) gm/dl Hct (30.3-42.9) % MCHC (30-34) % RDW (13.2-15.2) % Lymph % (Auto) (13.4-35.0) % [place] % (Auto) (0.0-7.3) % [place] # (0.0-0.8) K/mm3 Seg Neutrophils % (40.0-70.0) % Sodium (137-145) mmol/L Potassium (3.6-5.0) mmol/L Chloride (98-107) mmol/L BUN (7-17) mg/dL Creatinine (0.7-1.2) mg/dL Calcium (8.4-10.2) mg/dL Total Protein (6.3-8.2) g/dL Albumin (3.9-5) g/dL Lipase (13-60) units/L Free T4 1.90 H (0.76-1.46) ng/dL Crossmatch Assessment and Plan 73 y/o female admitted with lower GI Bleed, found to have severe colitis thought secondary to narcotic and pain med use with chronic constipation. 1. Appreciate GI help and recs. Bowel regimen 2. Will transfuse 2 more Units of PRBC's to see if this can help to wean down the pressors to off 3. Full liquid diet per GI 4. Hold all BP meds and narcotic pain meds as well as NSAIDs. Tylenol only. CCT 31 minutes.
[2018-08-25 04:30] LABS: Basophils % (Auto) 0.2 % (0.0-1.8); Eosinophils % (Auto) 0.4 % (0.0-4.3); Hematocrit 29.3 % (30.3-42.9); Lymphocytes # (Auto) 1.1 K/mm3 (1.2-5.4); Lymphocytes % (Auto) 15.1 % (13.4-35.0); Mean Corpuscular HGB Conc 34 % (30-34); Mean Corpuscular Volume 82 fl (79-97); Monocytes % (Auto) 13.4 % (0.0-7.3); Platelet Count 414 K/mm3 (140-440); Red Blood Count 3.56 M/mm3 (3.65-5.03); Red Cell Distribution Width 16.9 % (13.2-15.2)
[2018-08-25 04:42] LABS: Calcium 7.6 mg/dL (8.4-10.2)
[2018-08-25] MEDS: SYNTHROID IV SCH (07:37)
[2018-08-25] MEDS: FLAGYL 500 MG/100 ML 500 MG/100 ML BAG IV SCH ×3 (07:37→22:05)
[2018-08-25] MEDS: LEVOPHED DRIP 4 MG/NS 250 ML 4 MG/250 ML BAG IV SCH ×2 (08:30→18:15)
[2018-08-25] MEDS ORDERED: POTASSIUM CHLORIDE PO ONE (08:56)
[2018-08-25] MEDS: PROTONIX PO SCH (09:00)
[2018-08-25] MEDS: THERAGRAN-M Tab PO SCH (09:00)
[2018-08-25] MEDS: LEVAQUIN 250MG/50ML 250 MG/50 ML BAG IV SCH (09:01)
[2018-08-25] MEDS: MIRALAX 3350 PO SCH ×2 (09:01→22:06)
--- NOTE | 2018-08-25 09:02 | Progress Note ---
Assessment and Plan Assessment and plan: Patient is a 73 yo woman with a history of chronic pain syndome for LBP, Graves disease (then ?hypothyroidism), depression, OA and hypertension who presented to [facility] ED with n/v/d/bloody stools and weakness. Hypotension: treated with IVFs which did not work, now on Levophed 6mcg IV drip Normocytic Anemia with BRBPR/rectal bleeding with severe Colitis, proctitis: transfused 2 units of PRBC, for complete Colonoscopy on Sunday, GI following, monitor h/h closely Hyponatremia hypovolemia: IVF with nss and monitor closely Hypokalemia; replete and daily bmp ARF, atn, no prior Cr in EMR: treat with IVF, cr went from 2.4 to 1.2 H/o hypertension: hold bp med h/o depression: antidepressant on hold due to NPO status, watch for withdrawals Severe Malnutrition, albumin 2.2; consult [employer] Chronic diarrhea: GI is following, for c-scopy Hypothyroidism/Graves: order TSH, free t4==>with normal TSH and slightly high free T4, continue management Morbid obesity, bmi 43.5: lifestyle modifications discussed Right groin nickel size swallow ulcer, poa: consult Wound care Right Femoral TLC placed in ED 08/23/18: remove once stable DVT ppx with scd Full code 08/25/18: still on 8mcg of levophed, trying to wean down, on nss at 50ml/hr but ECHO pending, received blood transfusion overnight, will replace potassium, tolerating liquid diet, still leg edema and ECHO pending (denies history of chf), c.diffe still pending, patient says she has diarrhea CCT 31 minutes History Interval history: Patient was seen and examined. Follow-up on current diagnosis of GIB and hypotension. Overnight uneventful. Patient denies any chest pain, shortness br eath, nausea/vomiting or severe headaches. Imaging, nursing note, chart, labs and old chart reviewed. Discussed with patient. Hospitalist Physical - Physical exam Narrative exam: Gen: ill appearing NAD, Awake, Alert, Orientated x 3, bmi 43.5 HEENT: NCAT, EOMI, PERRL, OP Clear Neck: supple, no adenopathy, no thyromegaly, no JVD CVS/Heart: RRR, normal S1S2, pulses present bilaterally Chest/Lungs: CTA B, Symmetrical chest expansion, good air entry bilaterally GI/Abdomen: soft, NTND, good bowel sounds, no guarding or rebound /Bladder: no suprapubic tenderness, no CVA or paraspinal tenderness Extermity/Skin: leg edema bilateral, right nickel size swallow groin ulceration MSK: FROM x 4 Neuro: CN 2-12 grossly intact, no new focal deficits Psych: calm - Constitutional Vitals: Temp Pulse Resp BP Pulse Ox 98.0 F 84 15 109/58 99 08/25/18 08:00 08/25/18 08:21 08/25/18 08:21 08/25/18 08:21 08/25/18 08:21 General appearance: Present: no acute distress, well-nourished, obese Results - Labs CBC & Chem 7: 08/25/18 03:45 08/25/18 03:45 Labs: Laboratory Last Values WBC 7.5 K/mm3 (4.5-11.0) 08/25/18 03:45 RBC 3.56 M/mm3 (3.65-5.03) L 08/25/18 03:45 Hgb 10.0 gm/dl (10.1-14.3) L 08/25/18 03:45 Hct 29.3 % (30.3-42.9) L 08/25/18 03:45 MCV 82 fl (79-97) 08/25/18 03:45 MCH 28 pg (28-32) 08/25/18 03:45 MCHC 34 % (30-34) 08/25/18 03:45 RDW 16.9 % (13.2-15.2) H 08/25/18 03:45 Plt Count 414 K/mm3 (140-440) 08/25/18 03:45 Lymph % (Auto) 15.1 % (13.4-35.0) 08/25/18 03:45 [place] % (Auto) 13.4 % (0.0-7.3) H 08/25/18 03:45 Eos % (Auto) 0.4 % (0.0-4.3) 08/25/18 03:45 Baso % (Auto) 0.2 % (0.0-1.8) 08/25/18 03:45 Lymph # 1.1 K/mm3 (1.2-5.4) L 08/25/18 03:45 [place] # 1.0 K/mm3 (0.0-0.8) H 08/25/18 03:45 Eos # 0.0 K/mm3 (0.0-0.4) 08/25/18 03:45 Baso # 0.0 K/mm3 (0.0-0.1) 08/25/18 03:45 Seg Neutrophils % 70.9 % (40.0-70.0) H 08/25/18 03:45 Seg Neutrophils # 5.3 K/mm3 (1.8-7.7) 08/25/18 03:45 PT 14.1 Sec. (12.2-14.9) 08/23/18 15:36 INR 1.03 (0.87-1.13) 08/23/18 15:36 APTT 32.0 Sec. (24.2-36.6) 08/23/18 15:36 Sodium 141 mmol/L (137-145) D 08/25/18 03:45 Potassium 3.0 mmol/L (3.6-5.0) L 08/25/18 03:45 Chloride 104.7 mmol/L (98-107) 08/25/18 03:45 Carbon Dioxide 24 mmol/L (22-30) 08/25/18 03:45 Anion Gap 15 mmol/L 08/25/18 03:45 BUN 18 mg/dL (7-17) H 08/25/18 03:45 Creatinine 1.2 mg/dL (0.7-1.2) 08/25/18 03:45 Estimated GFR 53 ml/min 08/25/18 03:45 BUN/Creatinine Ratio 15 % 08/25/18 03:45 Glucose 141 mg/dL (65-100) H 08/25/18 03:45 POC Glucose 127 (70-105) H 08/24/18 23:14 Hemoglobin A1c 5.3 % (4-6) 08/24/18 00:08 Calcium 7.6 mg/dL (8.4-10.2) L 08/25/18 03:45 Total Bilirubin 0.70 mg/dL (0.1-1.2) 08/25/18 03:45 AST 13 units/L (5-40) 08/25/18 03:45 ALT 12 units/L (7-56) 08/25/18 03:45 Alkaline Phosphatase 65 units/L (35-129) 08/25/18 03:45 Total Protein 5.1 g/dL (6.3-8.2) L 08/25/18 03:45 Albumin 2.0 g/dL (3.9-5) L 08/25/18 03:45 Albumin/Globulin Ratio 0.6 % 08/25/18 03:45 Lipase 5 units/L (13-60) L 08/23/18 15:29 TSH 0.547 mlU/mL (0.270-4.200) 08/24/18 Unknown Free T4 1.90 ng/dL (0.76-1.46) H 08/24/18 Unknown Urine Color Yellow (Yellow) 08/23/18 17:45 Urine Turbidity Clear (Clear) 08/23/18 17:45 Urine pH 5.0 (5.0-7.0) 08/23/18 17:45 Ur Specific [place] 1.008 (1.003-1.030) 08/23/18 17:45 Urine Protein <15 mg/dl mg/dL (Negative) 08/23/18 17:45 Urine Glucose (UA) Neg mg/dL (Negative) 08/23/18 17:45 Urine Ketones Neg mg/dL (Negative) 08/23/18 17:45 Urine Blood Sm (Negative) 08/23/18 17:45 Urine Nitrite Neg (Negative) 08/23/18 17:45 Urine Bilirubin Neg (Negative) 08/23/18 17:45 Urine Urobilinogen < 2.0 mg/dL (<2.0) 08/23/18 17:45 Ur Leukocyte Esterase Neg (Negative) 08/23/18 17:45 Urine WBC (Auto) 1.0 /HPF (0.0-6.0) 08/23/18 17:45 Urine RBC (Auto) 1.0 /HPF (0.0-6.0) 08/23/18 17:45 U Epithel Cells (Auto) 2.0 /HPF (0-13.0) 08/23/18 17:45 Urine Bacteria (Auto) 2+ /HPF (Negative) 08/23/18 17:45 Blood Type O NEGATIVE 08/23/18 15:29 Antibody Screen Negative 08/23/18 15:29 Crossmatch See Detail 08/23/18 15:29 Active Medications - Current Medications Current Medications: Generic Name Dose Route Start Last Admin Trade Name Freq PRN Reason Stop Dose Admin Acetaminophen 650 mg 08/24/18 00:56 Tylenol PO Q4H PRN Pain MILD(1-3)/Fever >100.5/VILLARREAL Norepinephrine 4 mg in 250 mls @ 7.5 mls/hr 08/23/18 23:00 08/25/18 08:30 Levophed Drip 4 Mg/Ns 250 Ml IV 8 mcg/min TITR LAZARO 30 mls/hr Administration Protocol 2 MCG/MIN Metronidazole 500 mg in 100 mls @ 100 mls/hr 08/24/18 06:00 08/25/18 07:37 Flagyl 500 Mg/100 Ml IV 100 mls/hr Q8HR LAZARO Administration Protocol Sodium Chloride 1,000 mls @ 50 mls/hr 08/24/18 10:00 08/24/18 10:15 Nacl 0.9% 1000 Ml IV 50 mls/hr DIRECT LAZARO Administration Levofloxacin/Dextrose 250 mg in 50 mls @ 50 mls/hr 08/25/18 10:00 Levaquin 250mg/50ml IV Q24HR LAZARO Levothyroxine Sodium 100 mcg 08/24/18 06:00 08/25/18 07:37 Synthroid IV 100 mcg DAILY@0600 LAZARO Administration Multivitamins/Minerals 1 each 08/24/18 10:00 08/24/18 10:14 Theragran-M Tab PO 1 each QDAY LAZARO Administration Ondansetron HCl 4 mg 08/24/18 00:56 Zofran IV Q8H PRN Nausea And Vomiting Pantoprazole Sodium 40 mg 08/24/18 10:00 08/24/18 10:14 Protonix PO 40 mg QDAY LAZARO Administration Polyethylene Glycol 17 gm 08/24/18 10:00 08/24/18 23:02 Miralax 3350 PO 17 gm BID LAZARO Administration Potassium Chloride 60 meq 08/25/18 08:56 Potassium Chloride PO 08/25/18 08:57 ONCE ONE Senna/Docusate Sodium 2 tab 08/24/18 09:39 08/24/18 19:09 Senokot S PO 2 tab Q12H PRN Administration Laxative Effect Sodium Chloride 10 ml 08/24/18 10:00 08/24/18 23:07 Sodium Chloride Flush Syringe 10 Ml IV 10 ml BID LAZARO Administration Sodium Chloride 10 ml 08/24/18 00:56 Sodium Chloride Flush Syringe 10 Ml IV PRN PRN LINE FLUSH
--- NOTE | 2018-08-25 09:51 | Gastroenterology Progress Note ---
Assessment and Plan - Patient Problems (1) Acute blood loss anemia Current Visit: Yes Status: Acute Plan to address problem: - Chronic NSAID use, but EGD 08/24 negative. - Flex sig with severe proctitis (see below) but mucosa in sigmoid (obscured by stool) appeared normal. - Will complete colonoscopy tomorrow and offer further recs. - Continue MVI and daily protonix. - Patient to avoid all narcotics at present. (2) Proctitis Current Visit: Yes Status: Acute Plan to address problem: - Unclear if stercoral, ischemic (SONAL), infections, IBD. - Will plan full colonoscopy tomorrow after completing prep. - Continue current abx regimen. - C diff collected yesterday at flex sig. Subjective Date of service: 08/25/18 Principal diagnosis: GI Bleed Interval history: The patient has clinically improved; multiple liquid and solid BMs, and only a trace of blood in the stool. BP is also much improved. No N/V/abdominal pain with liquids. Objective - Constitutional Vitals: Temp Pulse Resp BP Pulse Ox 98.0 F 84 15 109/58 99 08/25/18 08:00 08/25/18 08:21 08/25/18 08:21 08/25/18 08:21 08/25/18 08:21 General appearance: no acute distress - Respiratory Respiratory effort: normal Respiratory: bilateral: CTA - Cardiovascular Rhythm: regular Heart Sounds: Present: S1 & S2 - Gastrointestinal General gastrointestinal: Present: soft, non-tender, non-distended - Labs CBC & Chem 7: 08/25/18 03:45 08/25/18 03:45 Labs: Laboratory Results - last 24 hr 08/23/18 08/24/18 08/24/18 15:29 23:14 Unknown WBC RBC Hgb Hct MCV MCH MCHC RDW Plt Count Lymph % (Auto) [place] % (Auto) Eos % (Auto) Baso % (Auto) Lymph # [place] # Eos # Baso # Seg Neutrophils % Seg Neutrophils # Sodium Potassium Chloride Carbon Dioxide Anion Gap BUN Creatinine Estimated GFR BUN/Creatinine Ratio Glucose POC Glucose 127 H Calcium Total Bilirubin AST ALT Alkaline Phosphatase Total Protein Albumin Albumin/Globulin Ratio Free T4 1.90 H Blood Type O NEGATIVE Antibody Screen Negative Crossmatch See Detail 08/25/18 08/25/18 03:45 03:45 WBC 7.5 RBC 3.56 L Hgb 10.0 L Hct 29.3 L MCV 82 MCH 28 MCHC 34 RDW 16.9 H Plt Count 414 Lymph % (Auto) 15.1 [place] % (Auto) 13.4 H Eos % (Auto) 0.4 Baso % (Auto) 0.2 Lymph # 1.1 L [place] # 1.0 H Eos # 0.0 Baso # 0.0 Seg Neutrophils % 70.9 H Seg Neutrophils # 5.3 Sodium 141 D Potassium 3.0 L Chloride 104.7 Carbon Dioxide 24 Anion Gap 15 BUN 18 H Creatinine 1.2 Estimated GFR 53 BUN/Creatinine Ratio 15 Glucose 141 H POC Glucose Calcium 7.6 L Total Bilirubin 0.70 AST 13 ALT 12 Alkaline Phosphatase 65 Total Protein 5.1 L Albumin 2.0 L Albumin/Globulin Ratio 0.6 Free T4 Blood Type Antibody Screen Crossmatch
--- NOTE | 2018-08-25 13:33 | Progress Note ---
Assessment and Plan 73 y/o female admitted with lower GI Bleed, found to have severe colitis thought secondary to narcotic and pain med use with chronic constipation, now with persistent hypotension of unknown etiology 1. Blood helped some but still on pressors. Will given a liter bolus now. 2. No evidence of further bleeding. Hold on further transfusions for now. 3. Diet is now advanced 4. Hold all BP meds and narcotic pain meds as well as NSAIDs. Tylenol only. 5. Agree with echo and await read. If low EF, may be able to except lower MAPS for weaning CCT 31 minutes. Subjective Date of service: 08/25/18 Principal diagnosis: GI Bleed Interval history: patient remains hypotensive. down to 8 mcgs of levophed. Still sitting up in chair. Diet has been advanced. Objective - Constitutional Vitals: Vital Signs - 12hr 08/25/18 08/25/18 08/25/18 01:31 01:41 01:51 Temperature Pulse Rate 66 67 62 Pulse Rate [ From Monitor] Respiratory 19 16 16 Rate Blood Pressure 126/42 126/42 110/44 O2 Sat by Pulse 98 97 98 Oximetry 08/25/18 08/25/18 08/25/18 02:00 02:11 02:21 Temperature Pulse Rate 63 63 63 Pulse Rate [ From Monitor] Respiratory 15 16 15 Rate Blood Pressure 130/45 130/44 126/42 O2 Sat by Pulse 96 96 97 Oximetry 08/25/18 08/25/18 08/25/18 02:31 02:41 02:51 Temperature Pulse Rate 62 64 63 Pulse Rate [ From Monitor] Respiratory 12 16 15 Rate Blood Pressure 135/48 135/48 128/46 O2 Sat by Pulse 97 96 97 Oximetry 08/25/18 08/25/18 08/25/18 03:01 03:11 03:21 Temperature Pulse Rate 62 62 62 Pulse Rate [ From Monitor] Respiratory 13 15 14 Rate Blood Pressure 135/50 135/50 136/49 O2 Sat by Pulse 96 96 96 Oximetry 08/25/18 08/25/18 08/25/18 03:31 03:41 03:51 Temperature Pulse Rate 62 64 121 H Pulse Rate [ From Monitor] Respiratory 14 17 21 Rate Blood Pressure 138/49 138/49 138/49 O2 Sat by Pulse 96 97 97 Oximetry 08/25/18 08/25/18 08/25/18 04:00 04:01 04:11 Temperature 98.6 F Pulse Rate 110 H 107 H Pulse Rate [ 96 H From Monitor] Respiratory 15 12 13 Rate Blood Pressure 138/49 138/49 O2 Sat by Pulse 99 100 99 Oximetry 08/25/18 08/25/18 08/25/18 04:21 04:31 04:41 Temperature Pulse Rate 104 H 105 H 107 H Pulse Rate [ From Monitor] Respiratory 13 13 14 Rate Blood Pressure 138/49 138/49 138/49 O2 Sat by Pulse 99 98 98 Oximetry 08/25/18 08/25/18 08/25/18 04:51 05:01 05:11 Temperature Pulse Rate 106 H 105 H 114 H Pulse Rate [ From Monitor] Respiratory 10 L 12 15 Rate Blood Pressure 138/49 138/49 138/49 O2 Sat by Pulse 99 98 99 Oximetry 08/25/18 08/25/18 08/25/18 05:21 05:31 05:40 Temperature Pulse Rate 101 H 102 H 116 H Pulse Rate [ From Monitor] Respiratory 15 11 L 25 H Rate Blood Pressure 138/49 138/49 116/79 O2 Sat by Pulse 99 99 100 Oximetry 08/25/18 08/25/18 08/25/18 05:51 06:00 06:11 Temperature Pulse Rate 65 64 64 Pulse Rate [ From Monitor] Respiratory 13 16 15 Rate Blood Pressure 99/34 99/34 112/37 O2 Sat by Pulse 100 100 98 Oximetry 08/25/18 08/25/18 08/25/18 06:21 06:31 06:41 Temperature Pulse Rate 63 63 62 Pulse Rate [ From Monitor] Respiratory 13 14 15 Rate Blood Pressure 121/41 121/42 121/42 O2 Sat by Pulse 98 98 98 Oximetry 08/25/18 08/25/18 08/25/18 06:51 07:01 07:11 Temperature Pulse Rate 63 65 100 H Pulse Rate [ From Monitor] Respiratory 14 13 14 Rate Blood Pressure 124/42 127/41 127/41 O2 Sat by Pulse 99 98 98 Oximetry 08/25/18 08/25/18 08/25/18 07:21 07:30 07:40 Temperature Pulse Rate 98 H 96 H 74 Pulse Rate [ From Monitor] Respiratory 10 L 14 15 Rate Blood Pressure 55/25 67/29 95/34 O2 Sat by Pulse 100 100 100 Oximetry 0408/25/18 08/25/18 07:51 08:00 08:01 Temperature 98.0 F Pulse Rate 98 H 90 Pulse Rate [ 90 From Monitor] Respiratory 23 13 13 Rate Blood Pressure 115/44 110/50 O2 Sat by Pulse 99 100 100 Oximetry 08/25/18 08/25/18 08/25/18 08:11 08:21 08:31 Temperature Pulse Rate 96 H 84 95 H Pulse Rate [ From Monitor] Respiratory 13 15 14 Rate Blood Pressure 110/50 109/58 91/55 O2 Sat by Pulse 99 99 98 Oximetry 08/25/18 08/25/18 08/25/18 08:41 08:51 09:01 Temperature Pulse Rate 94 H 108 H 99 H Pulse Rate [ From Monitor] Respiratory 12 11 L 17 Rate Blood Pressure 91/55 99/48 106/76 O2 Sat by Pulse 99 98 100 Oximetry 08/25/18 08/25/18 08/25/18 09:11 09:21 09:30 Temperature Pulse Rate 95 H 105 H 99 H Pulse Rate [ From Monitor] Respiratory 14 14 14 Rate Blood Pressure 106/76 96/50 83/46 O2 Sat by Pulse 100 98 100 Oximetry 08/25/18 08/25/18 08/25/18 09:41 09:51 10:01 Temperature Pulse Rate 103 H 124 H 106 H Pulse Rate [ From Monitor] Respiratory 12 17 15 Rate Blood Pressure 99/48 89/49 75/47 O2 Sat by Pulse 99 99 96 Oximetry 08/25/18 08/25/18 08/25/18 10:11 10:21 10:31 Temperature Pulse Rate 106 H 102 H 109 H Pulse Rate [ From Monitor] Respiratory 8 L 15 15 Rate Blood Pressure 75/47 94/52 86/53 O2 Sat by Pulse 99 99 98 Oximetry 08/25/18 08/25/18 08/25/18 10:41 10:51 11:01 Temperature Pulse Rate 129 H 108 H 108 H Pulse Rate [ From Monitor] Respiratory 26 H 17 20 Rate Blood Pressure 86/53 77/54 78/45 O2 Sat by Pulse 98 98 99 Oximetry 08/25/18 08/25/18 08/25/18 11:11 11:21 11:30 Temperature Pulse Rate 101 H 98 H 94 H Pulse Rate [ From Monitor] Respiratory 11 L 18 16 Rate Blood Pressure 86/53 85/41 88/49 O2 Sat by Pulse 99 98 98 Oximetry 08/25/18 08/25/18 08/25/18 11:41 11:51 12:00 Temperature 97.9 F Pulse Rate 98 H 100 H 96 H Pulse Rate [ 92 H From Monitor] Respiratory 16 12 17 Rate Blood Pressure 78/45 97/49 106/49 O2 Sat by Pulse 90 97 100 Oximetry General appearance: Present: no acute distress, well-nourished, obese - EENT Eyes: PERRL ENT: hearing intact, clear oral mucosa - Neck Neck: supple, normal ROM - Respiratory Respiratory effort: normal Respiratory: bilateral: CTA - Breasts Breasts: deferred - Cardiovascular Rhythm: regular Heart Sounds: Present: S1 & S2 - Gastrointestinal General gastrointestinal: Present: soft, non-tender, normal bowel sounds - Labs CBC & Chem 7: 08/25/18 03:45 08/25/18 03:45 Labs: Abnormal lab results 08/23/18 08/24/18 08/25/18 Range/Units 15:29 23:14 03:45 RBC (3.65-5.03) M/mm3 Hgb (10.1-14.3) gm/dl Hct (30.3-42.9) % RDW (13.2-15.2) % Carbon % (Auto) (0.0-7.3) % Lymph # (1.2-5.4) K/mm3 Carbon # (0.0-0.8) K/mm3 Seg Neutrophils % (40.0-70.0) % Potassium 3.0 L (3.6-5.0) mmol/L BUN 18 H (7-17) mg/dL Glucose 141 H (65-100) mg/dL POC Glucose 127 H (70-105) Calcium 7.6 L (8.4-10.2) mg/dL Total Protein 5.1 L (6.3-8.2) g/dL Albumin 2.0 L (3.9-5) g/dL Crossmatch See Detail 08/25/18 Range/Units 03:45 RBC 3.56 L (3.65-5.03) M/mm3 Hgb 10.0 L (10.1-14.3) gm/dl Hct 29.3 L (30.3-42.9) % RDW 16.9 H (13.2-15.2) % Carbon % (Auto) 13.4 H (0.0-7.3) % Lymph # 1.1 L (1.2-5.4) K/mm3 Carbon # 1.0 H (0.0-0.8) K/mm3 Seg Neutrophils % 70.9 H (40.0-70.0) % Potassium (3.6-5.0) mmol/L BUN (7-17) mg/dL Glucose (65-100) mg/dL POC Glucose (70-105) Calcium (8.4-10.2) mg/dL Total Protein (6.3-8.2) g/dL Albumin (3.9-5) g/dL Crossmatch Medications & Allergies - Medications Allergies/Adverse Reactions: Allergies codeine Allergy (Verified 08/23/18 17:07) Unknown Home Medications: Home Medications Medication Instructions Recorded Confirmed Last Taken Type DULoxetine [Cymbalta] 60 mg PO DAILY 08/23/18 08/23/18 Unknown History Levothyroxine [Synthroid] 125 mcg PO DAILY 08/23/18 08/23/18 Unknown History Loperamide [Imodium] 2 mg PO DAILY PRN 08/23/18 08/23/18 Unknown History Losartan/Hydrochlorothiazide 1 each PO DAILY 08/23/18 08/23/18 Unknown History [Losartan-Hctz 100-25 mg Tab] Sulindac 200 mg PO BID 08/23/18 08/23/18 Unknown History tiZANidine [Zanaflex] 4 mg PO BID 08/23/18 08/23/18 Unknown History Active Medications: Generic Name Dose Route Start Last Admin Trade Name Freq PRN Reason Stop Dose Admin Acetaminophen 650 mg 08/24/18 00:56 Tylenol PO Q4H PRN Pain MILD(1-3)/Fever >100.5/VILLARREAL Norepinephrine 4 mg in 250 mls @ 7.5 mls/hr 08/23/18 23:00 08/25/18 12:00 Levophed Drip 4 Mg/Ns 250 Ml IV 8 mcg/min TITR LAZARO 30 mls/hr Titration Protocol 2 MCG/MIN Metronidazole 500 mg in 100 mls @ 100 mls/hr 08/24/18 06:00 08/25/18 07:37 Flagyl 500 Mg/100 Ml IV 100 mls/hr Q8HR LAZARO Administration Protocol Sodium Chloride 1,000 mls @ 50 mls/hr 08/24/18 10:00 08/24/18 10:15 Nacl 0.9% 1000 Ml IV 50 mls/hr DIRECT LAZARO Administration Levofloxacin/Dextrose 250 mg in 50 mls @ 50 mls/hr 08/25/18 10:00 08/25/18 09:01 Levaquin 250mg/50ml IV 50 mls/hr Q24HR LAZARO Administration Sodium Chloride 1,000 mls @ 999 mls/hr 08/25/18 13:28 Nacl 0.9% 1000 Ml IV 08/25/18 14:28 BOLUS ONE Levothyroxine Sodium 100 mcg 08/24/18 06:00 08/25/18 07:37 Synthroid IV 100 mcg DAILY@0600 LAZARO Administration Multivitamins/Minerals 1 each 08/24/18 10:00 08/25/18 09:00 Theragran-M Tab PO 1 each QDAY LAZARO Administration Ondansetron HCl 4 mg 08/24/18 00:56 Zofran IV Q8H PRN Nausea And Vomiting Pantoprazole Sodium 40 mg 08/24/18 10:00 08/25/18 09:00 Protonix PO 40 mg QDAY LAZARO Administration Polyethylene Glycol 17 gm 08/24/18 10:00 08/25/18 09:01 Miralax 3350 PO 17 gm BID LAZARO Administration Senna/Docusate Sodium 2 tab 08/24/18 09:39 08/24/18 19:09 Senokot S PO 2 tab Q12H PRN Administration Laxative Effect Sodium Chloride 10 ml 08/24/18 10:00 08/24/18 23:07 Sodium Chloride Flush Syringe 10 Ml IV 10 ml BID LAZARO Administration Sodium Chloride 10 ml 08/24/18 00:56 Sodium Chloride Flush Syringe 10 Ml IV PRN PRN LINE FLUSH
--- NOTE | 2018-08-25 14:03 | Consultation ---
History of Present Illness Consult date: 08/25/18 Requesting physician: ESTHER MENDOZA Consult reason: hypotension History of present illness: The patient claims that she has chronic low back pain for which she was on hydrocodone for many years. She claims that she took herself off the analgesic on 05/23/2018. Since about that time, she has been experiencing nausea, vomiting and diarrhea. She also describes chronic intermittent rectal bleeding since she had a polypectomy a while ago. She claims that initially, the rectal bleeding consisted of intermittent passage of blood clots. However, since her diarrhea began, it has become more liquid. Over the past few weeks, she has experienced generalized weakness with intermittent presyncope. She also describes worsening of chronic mild leg edema over the past 1 week. She presented to the emergency department due to generalized weakness and worsening of rectal bleeding. She was noted to be hypotensive at presentation with evidence of ELISEO. She had an EGD and flexible sigmoidoscopy which revealed normal upper GI tract with severe colitis. Past History Past Medical History: arthritis (lumbar spine), hypertension, hypothyroidism, other (Graves disease, status post radioiodine thyroid ablation) Past Surgical History: Other (cervical fusion) Social history: prescription drug abuse. denies: smoking, alcohol abuse Family history: no significant family history Medications and Allergies Allergies Allergy/AdvReac Type Severity Reaction Status Date / Time codeine Allergy Unknown Verified 08/23/18 17:07 Home Medications Medication Instructions Recorded Confirmed Last Taken Type DULoxetine [Cymbalta] 60 mg PO DAILY 08/23/18 08/23/18 Unknown History Levothyroxine [Synthroid] 125 mcg PO DAILY 08/23/18 08/23/18 Unknown History Loperamide [Imodium] 2 mg PO DAILY PRN 08/23/18 08/23/18 Unknown History Losartan/Hydrochlorothiazide 1 each PO DAILY 08/23/18 08/23/18 Unknown History [Losartan-Hctz 100-25 mg Tab] Sulindac 200 mg PO BID 08/23/18 08/23/18 Unknown History tiZANidine [Zanaflex] 4 mg PO BID 08/23/18 08/23/18 Unknown History Active Meds: Active Medications Acetaminophen (Tylenol) 650 mg PO Q4H PRN PRN Reason: Pain MILD(1-3)/Fever >100.5/VILLARREAL Norepinephrine (Levophed Drip 4 Mg/Ns 250 Ml) 4 mg in 250 mls @ 7.5 mls/hr IV TITR [facility]; Protocol Last Titration: 08/25/18 12:00 Dose: 8 mcg/min, 30 mls/hr Documented by: Metronidazole (Flagyl 500 Mg/100 Ml) 500 mg in 100 mls @ 100 mls/hr IV Q8HR [facility]; Protocol Last Admin: 08/25/18 07:37 Dose: 100 mls/hr Documented by: Sodium Chloride (Nacl 0.9% 1000 Ml) 1,000 mls @ 50 mls/hr IV DIRECT [facility] Last Admin: 08/24/18 10:15 Dose: 50 mls/hr Documented by: Levofloxacin/Dextrose (Levaquin 250mg/50ml) 250 mg in 50 mls @ 50 mls/hr IV Q24HR [facility] Last Admin: 08/25/18 09:01 Dose: 50 mls/hr Documented by: Sodium Chloride (Nacl 0.9% 1000 Ml) 1,000 mls @ 999 mls/hr IV BOLUS ONE Stop: 08/25/18 15:28 Levothyroxine Sodium (Synthroid) 100 mcg IV DAILY@0600 [facility] Last Admin: 08/25/18 07:37 Dose: 100 mcg Documented by: Multivitamins/Minerals (Theragran-M Tab) 1 each PO QDAY [facility] Last Admin: 08/25/18 09:00 Dose: 1 each Documented by: Ondansetron HCl (Zofran) 4 mg IV Q8H PRN PRN Reason: Nausea And Vomiting Pantoprazole Sodium (Protonix) 40 mg PO QDAY [facility] Last Admin: 08/25/18 09:00 Dose: 40 mg Documented by: Polyethylene Glycol (Miralax 3350) 17 gm PO BID [facility] Last Admin: 08/25/18 09:01 Dose: 17 gm Documented by: Senna/Docusate Sodium (Senokot S) 2 tab PO Q12H PRN PRN Reason: Laxative Effect Last Admin: 08/24/18 19:09 Dose: 2 tab Documented by: Sodium Chloride (Sodium Chloride Flush Syringe 10 Ml) 10 ml IV BID [facility] Last Admin: 08/24/18 23:07 Dose: 10 ml Documented by: Sodium Chloride (Sodium Chloride Flush Syringe 10 Ml) 10 ml IV PRN PRN PRN Reason: LINE FLUSH Review of Systems Constitutional: no fever, no chills Ears, nose, mouth and throat: no ear pain, no ear discharge, no sore throat Cardiovascular: edema, lightheadedness, no chest pain, no orthopnea, no palpitations, no shortness of breath Respiratory: no cough, no hemoptysis, no shortness of breath Gastrointestinal: nausea, vomiting, diarrhea, BRBPR, no abdominal pain Genitourinary Female: no dysuria, no urinary frequency Rectal: bleeding, no pain Musculoskeletal: no neck stiffness, no neck pain, no myalgias Integumentary: no rash, no pruritis Neurological: no parathesias, no numbness, no headaches Endocrine: no cold intolerance, no heat intolerance Hematologic/Lymphatic: no easy bruising, no easy bleeding Allergic/Immunologic: no urticaria, no angioedema Physical Examination Vital Signs Last Vital Signs Temp 97.9 F 08/25/18 12:00 Pulse 92 H 08/25/18 12:00 Resp 16 08/25/18 12:00 BP 106/49 08/25/18 12:00 Pulse Ox 99 08/25/18 12:00 General appearance: no acute distress HEENT: Positive: EOMI, Normocephaly, Mucus Membranes Moist Neck: Positive: neck supple, trachea midline Cardiac: Positive: Reg Rate and Rhythm, S1/S2 Lungs: Positive: clear to auscultation Neuro: Positive: Grossly Intact Abdomen: Positive: Soft, Active Bowel Sounds. Negative: Tender Skin: Positive: Clear. Negative: Rash Musculoskeletal: Normal Range of Motion Extremities: Present: +3 Edema (bilateral leg edema) Results 08/25/18 03:45 08/25/18 03:45 Cardiac Enzymes 08/25/18 Range/Units 03:45 AST 13 (5-40) units/L CBC 08/25/18 Range/Units 03:45 WBC 7.5 (4.5-11.0) K/mm3 RBC 3.56 L (3.65-5.03) M/mm3 Hgb 10.0 L (10.1-14.3) gm/dl Hct 29.3 L (30.3-42.9) % Plt Count 414 (140-440) K/mm3 Lymph # 1.1 L (1.2-5.4) K/mm3 Iron # 1.0 H (0.0-0.8) K/mm3 Eos # 0.0 (0.0-0.4) K/mm3 Baso # 0.0 (0.0-0.1) K/mm3 Comprehensive Metabolic Panel 08/25/18 Range/Units 03:45 Sodium 141 D (137-145) mmol/L Potassium 3.0 L (3.6-5.0) mmol/L Chloride 104.7 (98-107) mmol/L Carbon Dioxide 24 (22-30) mmol/L BUN 18 H (7-17) mg/dL Creatinine 1.2 (0.7-1.2) mg/dL Glucose 141 H (65-100) mg/dL Calcium 7.6 L (8.4-10.2) mg/dL AST 13 (5-40) units/L ALT 12 (7-56) units/L Alkaline Phosphatase 65 (35-129) units/L Total Protein 5.1 L (6.3-8.2) g/dL Albumin 2.0 L (3.9-5) g/dL - Imaging and Cardiology EKG: pending Assessment and Plan I agree with her current regimen utilizing levophed drip/PRBCs/IVF. Obtain echocardiogram. - Patient Problems (1) Rectal bleeding Current Visit: Yes Status: Acute (2) Hypotension Current Visit: Yes Status: Acute Qualifiers: Hypotension type: hypotension due to hypovolemia Qualified Code(s): I95.89 - Other hypotension; E86.1 - Hypovolemia (3) Acute blood loss anemia Current Visit: Yes Status: Acute (4) ELISEO (acute kidney injury) Current Visit: Yes Status: Acute (5) Nausea vomiting and diarrhea Current Visit: Yes Status: Acute (6) Colitis Current Visit: Yes Status: Acute (7) Leg edema Current Visit: Yes Status: Acute (8) Hypoalbuminemia Current Visit: Yes Status: Acute
[2018-08-25] MEDS ORDERED: NACL 0.9% 1000 ML 1,000 ML IV ONE (14:28)
--- NOTE | 2018-08-25 17:29 | XRay Report ---
PROCEDURE: XR CHEST 1V AP TECHNIQUE: Chest radiograph , single frontal view. HISTORY: PICC line placement COMPARISONS: None . FINDINGS: Heart: Enlarged. Mediastinum/Vessels: Normal. Lungs/Pleural space: Normal. Bony thorax: No acute osseous abnormality. Plate and screw device is present in the lower cervical sp ine Life support devices: Right subclavian venous catheter terminates in the proximal superior vena cava. IMPRESSION: No acute cardiopulmonary abnormality. Cardiomegaly. Satisfactory PICC line placement This document is electronically signed by Courtney Pena MD., August 25 2018 05:27:19 PM ET
[2018-08-25] MEDS: SODIUM CHLORIDE FLUSH SYRINGE 10 ML IV SCH (22:00)
[2018-08-26] MEDS: NACL 0.9% 1000 ML 1,000 ML IV SCH (03:03)
[2018-08-26] MEDS: SYNTHROID IV SCH (05:57)
[2018-08-26] MEDS: FLAGYL 500 MG/100 ML 500 MG/100 ML BAG IV SCH ×3 (05:57→21:32)
[2018-08-26] MEDS: LEVOPHED DRIP 4 MG/NS 250 ML 4 MG/250 ML BAG IV SCH (05:58)
[2018-08-26 06:02] LABS: BUN/Creatinine Ratio 12; Blood Urea Nitrogen 11 mg/dL (7-17); Hemolysis Index 4
[2018-08-26 06:03] LABS: Hematocrit 27.2 % (30.3-42.9); Hemoglobin 9.4 gm/dl (10.1-14.3); Mean Platelet Volume 7.3 fl (6-12); Red Blood Count 3.29 M/mm3 (3.65-5.03); Red Cell Distribution Width 17.2 % (13.2-15.2)
[2018-08-26] MEDS ORDERED: NACL 0.9% 1000 ML 1,000 ML IV ONE (08:41)
--- NOTE | 2018-08-26 08:41 | Progress Note ---
Assessment and Plan Assessment and plan: Patient is a 73 yo woman with a history of chronic pain syndome due to OA/LBP, Graves disease then hypothyroidism, depression, OA and hypertension who presented to [facility] ED with n/v/d/bloody stools and weakness. Hypotension: treated with IVFs which did not work, now on Levophed 6mcg IV drip Normocytic Anemia with BRBPR/rectal bleeding with severe Colitis, proctitis: transfused 2 units of PRBC, for complete Colonoscopy on Sunday, GI following, monitor h/h closely Hyponatremia hypovolemia: IVF with nss and monitor closely Hypokalemia; replete and daily bmp ARF, atn, no prior Cr in EMR: treat with IVF, cr went from 2.4 to 1.2 H/o hypertension: hold bp med h/o depression: antidepressant on hold due to NPO status, watch for withdrawals Severe Malnutrition, albumin 2.2; consult Tax Accounting Assistant Chronic diarrhea: GI is following, for c-scopy Hypothyroidism/Graves: order TSH, free t4==>with normal TSH and slightly high free T4, continue management Morbid obesity, bmi 43.5: lifestyle modifications discussed Right groin nickel size swallow ulcer, poa: consult Wound care Right Femoral TLC placed in ED 08/23/18: remove once stable DVT ppx with scd Full code 08/25/18: still on 8mcg of levophed, trying to wean down, on nss at 50ml/hr but ECHO pending, received blood transfusion overnight, will replace potassium, tolerating liquid diet, still leg edema and ECHO pending (denies history of chf), c.diffe still pending, patient says she has diarrhea 08/26/18: 2D ECHO is trace TR, estimated EF 60-65%, right ventricle not well visulized, normal diastolic filling, back on 8mcg Levophed. Will increase NS and give boluses, repeat Colonoscopy today CCT 33 minutes History Interval history: Patient was seen and examined. Follow-up on current diagnosis of GIB and hypotension, she feel better but still weak. Overnight uneventful. Patient den ies any chest pain, shortness breath, nausea/vomiting or severe headaches. Imaging, nursing note, chart, labs and old chart reviewed. Discussed with patient. Hospitalist Physical - Physical exam Narrative exam: Gen: ill appearing NAD, Awake, Alert, Orientated x 3, bmi 43.5 HEENT: NCAT, EOMI, PERRL, OP Clear Neck: supple, no adenopathy, no thyromegaly, no JVD CVS/Heart: RRR, normal S1S2, pulses present bilaterally Chest/Lungs: CTA B, Symmetrical chest expansion, good air entry bilaterally GI/Abdomen: soft, NTND, good bowel sounds, no guarding or rebound /Bladder: no suprapubic tenderness, no CVA or paraspinal tenderness Extermity/Skin: leg edema bilateral reduced, right nickel size swallow groin ulceration MSK: FROM x 4 Neuro: CN 2-12 grossly intact, no new focal deficits Psych: calm - Constitutional Vitals: Temp Pulse Resp BP Pulse Ox 97.8 F 101 H 13 126/81 78 L 08/26/18 08:00 08/26/18 06:31 08/26/18 06:31 08/26/18 06:31 08/26/18 06:31 General appearance: Present: no acute distress Results - Labs CBC & Chem 7: 08/26/18 04:45 08/26/18 04:45 Labs: Laboratory Last Values WBC 6.4 K/mm3 (4.5-11.0) 08/26/18 04:45 RBC 3.29 M/mm3 (3.65-5.03) L 08/26/18 04:45 Hgb 9.4 gm/dl (10.1-14.3) L 08/26/18 04:45 Hct 27.2 % (30.3-42.9) L 08/26/18 04:45 MCV 83 fl (79-97) 08/26/18 04:45 MCH 29 pg (28-32) 08/26/18 04:45 MCHC 35 % (30-34) H 08/26/18 04:45 RDW 17.2 % (13.2-15.2) H 08/26/18 04:45 Plt Count 386 K/mm3 (140-440) 08/26/18 04:45 Lymph % (Auto) 15.1 % (13.4-35.0) 08/25/18 03:45 [place] % (Auto) 13.4 % (0.0-7.3) H 08/25/18 03:45 Eos % (Auto) 0.4 % (0.0-4.3) 08/25/18 03:45 Baso % (Auto) 0.2 % (0.0-1.8) 08/25/18 03:45 Lymph # 1.1 K/mm3 (1.2-5.4) L 08/25/18 03:45 [place] # 1.0 K/mm3 (0.0-0.8) H 08/25/18 03:45 Eos # 0.0 K/mm3 (0.0-0.4) 08/25/18 03:45 Baso # 0.0 K/mm3 (0.0-0.1) 08/25/18 03:45 Seg Neutrophils % 70.9 % (40.0-70.0) H 08/25/18 03:45 Seg Neutrophils # 5.3 K/mm3 (1.8-7.7) 08/25/18 03:45 PT 14.1 Sec. (12.2-14.9) 08/23/18 15:36 INR 1.03 (0.87-1.13) 08/23/18 15:36 APTT 32.0 Sec. (24.2-36.6) 08/23/18 15:36 Sodium 143 mmol/L (137-145) 08/26/18 04:45 Potassium 3.1 mmol/L (3.6-5.0) L 08/26/18 04:45 Chloride 109.8 mmol/L (98-107) H 08/26/18 04:45 Carbon Dioxide 22 mmol/L (22-30) 08/26/18 04:45 Anion Gap 14 mmol/L 08/26/18 04:45 BUN 11 mg/dL (7-17) 08/26/18 04:45 Creatinine 0.9 mg/dL (0.7-1.2) 08/26/18 04:45 Estimated GFR > 60 ml/min 08/26/18 04:45 BUN/Creatinine Ratio 12 % 08/26/18 04:45 Glucose 119 mg/dL (65-100) H 08/26/18 04:45 POC Glucose 127 (70-105) H 08/24/18 23:14 Hemoglobin A1c 5.3 % (4-6) 08/24/18 00:08 Calcium 7.0 mg/dL (8.4-10.2) L 08/26/18 04:45 Magnesium 1.60 mg/dL (1.7-2.3) L 08/25/18 13:53 Total Bilirubin 0.70 mg/dL (0.1-1.2) 08/25/18 03:45 AST 13 units/L (5-40) 08/25/18 03:45 ALT 12 units/L (7-56) 08/25/18 03:45 Alkaline Phosphatase 65 units/L (35-129) 08/25/18 03:45 Total Protein 5.1 g/dL (6.3-8.2) L 08/25/18 03:45 Albumin 2.0 g/dL (3.9-5) L 08/25/18 03:45 Albumin/Globulin Ratio 0.6 % 08/25/18 03:45 Lipase 5 units/L (13-60) L 08/23/18 15:29 TSH 0.547 mlU/mL (0.270-4.200) 08/24/18 Unknown Free T4 1.90 ng/dL (0.76-1.46) H 08/24/18 Unknown Urine Color Yellow (Yellow) 08/23/18 17:45 Urine Turbidity Clear (Clear) 08/23/18 17:45 Urine pH 5.0 (5.0-7.0) 08/23/18 17:45 Ur Specific [place] 1.008 (1.003-1.030) 08/23/18 17:45 Urine Protein <15 mg/dl mg/dL (Negative) 08/23/18 17:45 Urine Glucose (UA) Neg mg/dL (Negative) 08/23/18 17:45 Urine Ketones Neg mg/dL (Negative) 08/23/18 17:45 Urine Blood Sm (Negative) 08/23/18 17:45 Urine Nitrite Neg (Negative) 08/23/18 17:45 Urine Bilirubin Neg (Negative) 08/23/18 17:45 Urine Urobilinogen < 2.0 mg/dL (<2.0) 08/23/18 17:45 Ur Leukocyte Esterase Neg (Negative) 08/23/18 17:45 Urine WBC (Auto) 1.0 /HPF (0.0-6.0) 08/23/18 17:45 Urine RBC (Auto) 1.0 /HPF (0.0-6.0) 08/23/18 17:45 U Epithel Cells (Auto) 2.0 /HPF (0-13.0) 08/23/18 17:45 Urine Bacteria (Auto) 2+ /HPF (Negative) 08/23/18 17:45 RPR Nonreactive (Nonreactive) 08/25/18 03:45 Blood Type O NEGATIVE 08/23/18 15:29 Antibody Screen Negative 08/23/18 15:29 Crossmatch See Detail 08/23/18 15:29 Active Medications - Current Medications Current Medications: Generic Name Dose Route Start Last Admin Trade Name Freq PRN Reason Stop Dose Admin Acetaminophen 650 mg 08/24/18 00:56 Tylenol PO Q4H PRN Pain MILD(1-3)/Fever >100.5/VILLARREAL Norepinephrine 4 mg in 250 mls @ 7.5 mls/hr 08/23/18 23:00 08/26/18 05:58 Levophed Drip 4 Mg/Ns 250 Ml IV 7 mcg/min TITR [facility] 26.25 mls/hr Administration Protocol 2 MCG/MIN Metronidazole 500 mg in 100 mls @ 100 mls/hr 08/24/18 06:00 08/26/18 05:57 Flagyl 500 Mg/100 Ml IV 100 mls/hr Q8HR [facility] Administration Protocol Sodium Chloride 1,000 mls @ 50 mls/hr 08/24/18 10:00 08/26/18 03:03 Nacl 0.9% 1000 Ml IV 50 mls/hr DIRECT [facility] Administration Levofloxacin/Dextrose 250 mg in 50 mls @ 50 mls/hr 08/25/18 10:00 08/25/18 09:01 Levaquin 250mg/50ml IV 50 mls/hr Q24HR [facility] Administration Levothyroxine Sodium 100 mcg 08/24/18 06:00 08/26/18 05:57 Synthroid IV 100 mcg DAILY@0600 [facility] Administration Multivitamins/Minerals 1 each 08/24/18 10:00 08/25/18 09:00 Theragran-M Tab PO 1 each QDAY [facility] Administration Ondansetron HCl 4 mg 08/24/18 00:56 Zofran IV Q8H PRN Nausea And Vomiting Pantoprazole Sodium 40 mg 08/24/18 10:00 08/25/18 09:00 Protonix PO 40 mg QDAY [facility] Administration Polyethylene Glycol 17 gm 08/24/18 10:00 08/25/18 22:06 Miralax 3350 PO 17 gm BID [facility] Administration Senna/Docusate Sodium 2 tab 08/24/18 09:39 08/24/18 19:09 Senokot S PO 2 tab Q12H PRN Administration Laxative Effect Sodium Chloride 10 ml 08/24/18 10:00 08/25/18 22:00 Sodium Chloride Flush Syringe 10 Ml IV 10 ml BID [facility] Administration Sodium Chloride 10 ml 08/24/18 00:56 Sodium Chloride Flush Syringe 10 Ml IV PRN PRN LINE FLUSH
[2018-08-26] MEDS: SODIUM CHLORIDE FLUSH SYRINGE 10 ML IV SCH ×2 (09:26→11:03)
--- NOTE | 2018-08-26 09:29 | Progress Note ---
Assessment and Plan Suspected lower GI bleeding, severe colitis thought secondary to narcotic and pain med use with chronic constipation Hypotension on pressors. Improved Recommendations Serial BP monitoring Keep MAP > 65 Monitor UO, keep > 30 cc/ hr NSS bolus 500 cc as needed to keep MAP > 65 or to max. of 2 L. Reportedly getting only 1 L so far PRBC if Hgb < 7 monitor for any bleeding Scheduled for follow-up colonoscopy today by GI Discussed with patient detail. All questions answered. Critical care time was 31 minutes of [id number] evaluation and coordination of care Subjective Date of service: 08/26/18 Principal diagnosis: GI Bleed Interval history: No respiratory complaints. All minimal pressors, being weaned. Able to sit up in bed without difficulty Objective Vital Signs - 12hr 08/25/18 08/25/18 08/25/18 21:31 21:41 21:51 Temperature Pulse Rate 90 94 H 89 Respiratory 18 14 20 Rate Blood Pressure 96/43 92/42 79/50 O2 Sat by Pulse 91 87 99 Oximetry 08/25/18 08/25/18 08/25/18 22:00 22:01 22:11 Temperature Pulse Rate 104 H 97 H 100 H Respiratory 18 18 Rate Blood Pressure 83/50 97/41 O2 Sat by Pulse 96 99 Oximetry 08/25/18 08/25/18 08/25/18 22:21 22:31 22:41 Temperature Pulse Rate 104 H 113 H 104 H Respiratory 25 H 20 18 Rate Blood Pressure 94/46 96/38 96/38 O2 Sat by Pulse 99 85 98 Oximetry 08/25/18 08/25/18 08/25/18 22:51 23:01 23:11 Temperature Pulse Rate 109 H 100 H 102 H Respiratory 19 20 14 Rate Blood Pressure 94/45 99/43 94/45 O2 Sat by Pulse 98 69 L 95 Oximetry 08/25/18 08/25/18 08/25/18 23:12 23:16 23:21 Temperature 98.8 F Pulse Rate 103 H 101 H Respiratory 17 12 Rate Blood Pressure 94/45 99/42 O2 Sat by Pulse 96 100 Oximetry 08/25/18 08/25/18 08/25/18 23:29 23:31 23:41 Temperature Pulse Rate 104 H 101 H 108 H Respiratory 12 17 18 Rate Blood Pressure 99/42 90/45 99/42 O2 Sat by Pulse 98 90 100 Oximetry 08/25/18 08/26/18 08/26/18 23:51 00:01 00:11 Temperature Pulse Rate 105 H 105 H 101 H Respiratory 22 21 19 Rate Blood Pressure 85/44 93/48 93/48 O2 Sat by Pulse 100 97 98 Oximetry 08/26/18 08/26/18 08/26/18 00:21 00:31 00:41 Temperature Pulse Rate 100 H 91 H 93 H Respiratory 16 16 17 Rate Blood Pressure 107/58 98/48 93/48 O2 Sat by Pulse 83 L 100 98 Oximetry 08/26/18 08/26/18 08/26/18 00:51 01:01 01:11 Temperature Pulse Rate 89 107 H 74 Respiratory 15 25 H 16 Rate Blood Pressure 93/49 70/47 92/29 O2 Sat by Pulse 100 88 95 Oximetry 08/26/18 08/26/18 08/26/18 01:21 01:31 01:41 Temperature Pulse Rate 75 73 72 Respiratory 17 17 19 Rate Blood Pressure 98/32 93/39 93/39 O2 Sat by Pulse 97 98 98 Oximetry 08/26/18 08/26/18 08/26/18 01:51 02:01 02:11 Temperature Pulse Rate 83 79 72 Respiratory 17 16 17 Rate Blood Pressure 104/48 97/42 97/42 O2 Sat by Pulse 98 99 98 Oximetry 08/26/18 08/26/18 08/26/18 02:21 02:31 02:41 Temperature Pulse Rate 71 68 69 Respiratory 17 18 15 Rate Blood Pressure 101/32 102/40 102/40 O2 Sat by Pulse 98 98 97 Oximetry 08/26/18 08/26/18 08/26/18 02:51 03:01 03:04 Temperature 97.8 F Pulse Rate 69 115 H Respiratory 14 17 Rate Blood Pressure 104/35 94/43 O2 Sat by Pulse 96 78 L Oximetry 08/26/18 08/26/18 08/26/18 03:11 03:21 03:31 Temperature Pulse Rate 96 H 95 H 92 H Respiratory 13 13 14 Rate Blood Pressure 94/43 93/44 89/46 O2 Sat by Pulse 94 96 79 L Oximetry 08/26/18 08/26/18 08/26/18 03:41 03:51 04:01 Temperature Pulse Rate 107 H 70 69 Respiratory 21 12 17 Rate Blood Pressure 89/46 97/52 111/41 O2 Sat by Pulse 78 L 100 99 Oximetry 08/26/18 08/26/18 08/26/18 04:11 04:21 04:31 Temperature Pulse Rate 67 66 65 Respiratory 14 14 13 Rate Blood Pressure 111/41 112/41 117/42 O2 Sat by Pulse 98 99 97 Oximetry 08/26/18 08/26/18 08/26/18 04:40 04:50 05:01 Temperature Pulse Rate 66 66 66 Respiratory 15 15 14 Rate Blood Pressure 117/42 114/40 115/41 O2 Sat by Pulse 99 99 99 Oximetry 08/26/18 08/26/18 08/26/18 05:11 05:21 05:31 Temperature Pulse Rate 67 66 65 Respiratory 13 14 13 Rate Blood Pressure 115/41 114/40 114/44 O2 Sat by Pulse 97 99 96 Oximetry 08/26/18 08/26/18 08/26/18 05:41 05:51 06:01 Temperature Pulse Rate 67 65 65 Respiratory 14 13 13 Rate Blood Pressure 114/44 116/43 116/39 O2 Sat by Pulse 97 100 99 Oximetry 08/26/18 08/26/18 08/26/18 06:11 06:21 06:31 Temperature Pulse Rate 67 106 H 101 H Respiratory 14 16 13 Rate Blood Pressure 116/39 116/53 126/81 O2 Sat by Pulse 98 100 78 L Oximetry 08/26/18 08:00 Temperature 97.8 F Pulse Rate Respiratory Rate Blood Pressure O2 Sat by Pulse Oximetry Constitutional: no acute distress, appears uncomfortable, other (obese) Eyes: non-icteric ENT: oropharynx moist Neck: supple Ascultation: Bilateral: clear Cardiovascular: regular rate and rhythm Gastrointestinal: normoactive bowel sounds, tender (mild), non-distended Integumentary: normal Extremities: no cyanosis, no cyanosis, no cyanosis Neurologic: normal mental status, non-focal exam, pupils equal and round, CN II- XII normal CBC and BMP: 08/27/18 04:34 08/27/18 04:34 ABG, PT/INR, D-dimer: PT/INR, D-dimer PT 14.1 Sec. (12.2-14.9) 08/23/18 15:36 INR 1.03 (0.87-1.13) 08/23/18 15:36 Abnormal lab findings: Abnormal Labs 08/23/18 08/23/18 08/23/18 15:29 15:29 15:29 RBC 2.74 L Hgb 7.6 L Hct 22.3 L MCHC RDW 16.8 H Lymph % (Auto) [place] % (Auto) 11.6 H Lymph # [place] # 1.1 H Seg Neutrophils % 72.5 H Sodium 133 L Potassium 3.3 L Chloride 96.4 L BUN 32 H Creatinine 2.4 H Glucose POC Glucose Calcium 7.7 L Magnesium Total Protein 5.7 L Albumin 2.2 L Lipase 5 L Free T4 Crossmatch See Detail 08/24/18 08/24/18 08/24/18 00:08 01:31 07:07 RBC 2.88 L Hgb 8.5 L 8.8 L 8.8 L Hct 23.5 L 24.4 L 25.4 L MCHC 36 H RDW 16.7 H Lymph % (Auto) 13.3 L [place] % (Auto) 11.4 H Lymph # [place] # 1.1 H Seg Neutrophils % 71.3 H Sodium Potassium Chloride BUN Creatinine Glucose POC Glucose Calcium Magnesium Total Protein Albumin Lipase Free T4 Crossmatch 08/24/18 08/24/18 08/25/18 23:14 Unknown 03:45 RBC Hgb Hct MCHC RDW Lymph % (Auto) [place] % (Auto) Lymph # [place] # Seg Neutrophils % Sodium Potassium 3.0 L Chloride BUN 18 H Creatinine Glucose 141 H POC Glucose 127 H Calcium 7.6 L Magnesium Total Protein 5.1 L Albumin 2.0 L Lipase Free T4 1.90 H Crossmatch 08/25/18 08/25/18 08/26/18 03:45 13:53 04:45 RBC 3.56 L 3.29 L Hgb 10.0 L 9.4 L Hct 29.3 L 27.2 L MCHC 35 H RDW 16.9 H 17.2 H Lymph % (Auto) [place] % (Auto) 13.4 H Lymph # 1.1 L [place] # 1.0 H Seg Neutrophils % 70.9 H Sodium Potassium Chloride BUN Creatinine Glucose POC Glucose Calcium Magnesium 1.60 L Total Protein Albumin Lipase Free T4 Crossmatch 08/26/18 04:45 RBC Hgb Hct MCHC RDW Lymph % (Auto) [place] % (Auto) Lymph # [place] # Seg Neutrophils % Sodium Potassium 3.1 L Chloride 109.8 H BUN Creatinine Glucose 119 H POC Glucose Calcium 7.0 L Magnesium Total Protein Albumin Lipase Free T4 Crossmatch
[2018-08-26] MEDS ORDERED: MAGNESIUM SULFATE 4GM/100ML 4 GM/100 ML BAG IV ONE (10:00)
[2018-08-26] MEDS: KCL 20MEQ/100ML 20 MEQ/100 ML BAG IV SCH ×3 (10:00→12:40)
[2018-08-26] MEDS ORDERED: WATER FOR IRRIG STERILE IR ONE (10:26)
[2018-08-26] MEDS ORDERED: WATER FOR IRRIG STERILE ONE (10:27)
--- NOTE | 2018-08-26 10:55 | Progress Note ---
Assessment and Plan Agree with present regimen of levophed drip/PRBCs/IVF. Wean levophed as tolerated. Replete electrolytes. Await echocardiogram. F/u GI recs - pt for colonoscopy today. The patient has been seen in conjunction with Dr. Abebe who agrees with the assessment and plan of care. - Patient Problems (1) GI bleed Current Visit: Yes Status: Acute (2) Rectal bleeding Current Visit: Yes Status: Acute (3) Hypotension Current Visit: Yes Status: Acute Qualifiers: Hypotension type: hypotension due to hypovolemia Qualified Code(s): I95.89 - Other hypotension; E86.1 - Hypovolemia (4) Symptomatic anemia Current Visit: Yes Status: Acute (5) ELISEO (acute kidney injury) Current Visit: Yes Status: Acute (6) Nausea vomiting and diarrhea Current Visit: Yes Status: Acute (7) Colitis Current Visit: Yes Status: Acute (8) Leg edema Current Visit: Yes Status: Acute (9) Hypoalbuminemia Current Visit: Yes Status: Acute (10) Hypokalemia Current Visit: Yes Status: Acute (11) Hypomagnesemia Current Visit: Yes Status: Acute Subjective Date of service: 08/26/18 Principal diagnosis: hypotension; GIB; ELISEO Interval history: pt resting in bed, no current cardiac complaints. c/o diarrhea overnight. in SR on tele. on levophed gtt. Objective Last Vital Signs Temp 97.8 F 08/26/18 08:00 Pulse 68 08/26/18 09:31 Resp 10 L 08/26/18 09:31 BP 123/48 08/26/18 09:31 Pulse Ox 99 08/26/18 09:31 - Physical Examination General: No Apparent Distress HEENT: Positive: EOMI, Normocephaly, Mucus Membranes Moist Neck: Positive: neck supple, trachea midline Cardiac: Positive: Reg Rate and Rhythm, S1/S2 Lungs: Positive: Decreased Breath Sounds Neuro: Positive: Grossly Intact Abdomen: Positive: Soft, Active Bowel Sounds. Negative: Tender Skin: Positive: Clear. Negative: Rash Musculoskeletal: Normal Range of Motion Extremities: Present: +3 Edema (bilateral leg edema) - Labs and Meds CBC 08/26/18 Range/Units 04:45 WBC 6.4 (4.5-11.0) K/mm3 RBC 3.29 L (3.65-5.03) M/mm3 Hgb 9.4 L (10.1-14.3) gm/dl Hct 27.2 L (30.3-42.9) % Plt Count 386 (140-440) K/mm3 Comprehensive Metabolic Panel 08/26/18 Range/Units 04:45 Sodium 143 (137-145) mmol/L Potassium 3.1 L (3.6-5.0) mmol/L Chloride 109.8 H (98-107) mmol/L Carbon Dioxide 22 (22-30) mmol/L BUN 11 (7-17) mg/dL Creatinine 0.9 (0.7-1.2) mg/dL Glucose 119 H (65-100) mg/dL Calcium 7.0 L (8.4-10.2) mg/dL - Imaging and Cardiology EKG: report reviewed, image reviewed Echo: pending - Telemetry EKG Rhythm: Sinus Rhythm - EKG Sinus rhythms and dysrhythmias: sinus rhythm
[2018-08-26] MEDS: LEVAQUIN 250MG/50ML 250 MG/50 ML BAG IV SCH (11:00)
[2018-08-26] MEDS ORDERED: NACL 0.9% 1000 ML 1,000 ML IV SCH (11:00)
[2018-08-26] MEDS: MIRALAX 3350 PO SCH ×2 (11:02→21:33)
[2018-08-26] MEDS: THERAGRAN-M Tab PO SCH (11:03)
[2018-08-26] MEDS: PROTONIX PO SCH (11:06)
[2018-08-26] MEDS: TYLENOL PO PRN ×2 (11:35→21:32)
[2018-08-26] MEDS ORDERED: PROTONIX IV ONE (12:00)
--- NOTE | 2018-08-26 12:53 | Anesthesia Consultation ---
Anesthesia Consult and Med Hx Date of service: 08/26/18 - Airway Anesthetic Teeth Evaluation: Good ROM Head & Neck: Adequate Mental/Hyoid Distance: Adequate Mallampati Class: Class II Intubation Access Assessment: Probably Good - Pulmonary Exam CTA: Yes - Cardiac Exam Cardiac Exam: RRR - Pre-Operative Health Status ASA Pre-Surgery Classification: ASA4 Proposed Anesthetic Plan: MAC - Cardiovascular System Hx Hypertension: Yes - Gastrointestinal Hx Ulcer: No Hx Gastroesophageal Reflux Disease: No - Endocrine Hx Hypothyroidism: Yes - Other Systems Hx Alcohol Use: No Hx Substance Use: No Hx Cancer: No Hx Obesity: Yes - Additional Comments Anesthesia Medical History Comments: 73 yo woman with a history of chronic pain syndome for LBP, Graves disease (then ?hypothyroidism), depression, OA and hypertension who presented to [facility] ED with n/v/d/bloody stools and weakness. On contact precautions - C.diff r/o. Hypotension: treated with IVFs which did not work, now on Levophed 6mcg IV drip. Normocytic Anemia with BRBPR/rectal bleeding: transfused 1 units of PRBC, for EGD/Colonoscopy, GI following, monitor h/h closely. Hyponatremia hypovolemia: IVF with nss and monitor closely. Hypokalemia; replete and daily bmp ARF, atn, no prior Cr in EMR: treat with IVF. H/o hypertension: hold bp med. h/o depression: antidepressant on hold due to NPO status, watch for withdrawals. Severe Malnutrition, albumin 2.2; consult [facility]. Chronic diarrhea: GI is following, for c-scopy. Hypothyroidism/Graves: order TSH, free t4. Morbid obesity, bmi 43.5: lifestyle modifications discussed. Right groin nickel size swallow ulcer, poa: consult Wound care. Right Femoral TLC placed in ED 08/23/18: remove once stable. DVT ppx with scd. Full code. Patient was seen and examined. Follow-up on current diagnosis of GIB and hypotension. Overnight uneventful. Imaging, nursing note, chart, labs and old chart reviewed. Psych: calm
[2018-08-26] MEDS ORDERED: NACL 0.9% 1000 ML 1,000 ML ONE (14:04)
--- NOTE | 2018-08-26 16:05 | Progress Note ---
Assessment and Plan 1. Colitis - on incomplete colonoscopy. Stool + for WBCs. On empiric abx. Light pinkish tinge on wiping, but stool looks liquid brown. - colonoscopy cancelled due to need for ongoing pressor support. - await stool studies - may consider CT - if continues to improve, and no ongoing bleed, may delay colonoscopy for several weeks. Subjective Date of service: 08/26/18 Principal diagnosis: hypotension; GIB; ELISEO Interval history: Pt states she feels much better, still has lower abd cramping and gas. Attempting to wean off Levophed, but still on it. Objective - Constitutional Vitals: Vital Signs - 12hr 08/26/18 08/26/18 08/26/18 04:11 04:21 04:31 Temperature Pulse Rate 67 66 65 Respiratory 14 14 13 Rate Blood Pressure 111/41 112/41 117/42 O2 Sat by Pulse 98 99 97 Oximetry 08/26/18 08/26/18 08/26/18 04:40 04:50 05:01 Temperature Pulse Rate 66 66 66 Respiratory 15 15 14 Rate Blood Pressure 117/42 114/40 115/41 O2 Sat by Pulse 99 99 99 Oximetry 08/26/18 08/26/18 08/26/18 05:11 05:21 05:31 Temperature Pulse Rate 67 66 65 Respiratory 13 14 13 Rate Blood Pressure 115/41 114/40 114/44 O2 Sat by Pulse 97 99 96 Oximetry 08/26/18 08/26/18 08/26/18 05:41 05:51 06:01 Temperature Pulse Rate 67 65 65 Respiratory 14 13 13 Rate Blood Pressure 114/44 116/43 116/39 O2 Sat by Pulse 97 100 99 Oximetry 08/26/18 08/26/18 08/26/18 06:11 06:21 06:31 Temperature Pulse Rate 67 106 H 101 H Respiratory 14 16 13 Rate Blood Pressure 116/39 116/53 126/81 O2 Sat by Pulse 98 100 78 L Oximetry 08/26/18 08/26/18 08/26/18 06:41 06:51 07:01 Temperature Pulse Rate 86 92 H 93 H Respiratory 10 L 10 L 12 Rate Blood Pressure 126/81 126/81 126/81 O2 Sat by Pulse 99 99 99 Oximetry 08/26/18 08/26/18 08/26/18 07:11 07:21 07:30 Temperature Pulse Rate 103 H 116 H 93 H Respiratory 10 L 17 16 Rate Blood Pressure 126/81 92/52 85/47 O2 Sat by Pulse 99 76 L 84 Oximetry 08/26/18 08/26/18 08/26/18 07:41 07:51 08:00 Temperature 97.8 F Pulse Rate 94 H 79 Respiratory 10 L 14 Rate Blood Pressure 85/47 86/50 O2 Sat by Pulse 99 99 100 Oximetry 08/26/18 08/26/18 08/26/18 08:01 08:11 08:21 Temperature Pulse Rate 73 77 80 Respiratory 15 16 13 Rate Blood Pressure 115/57 115/57 117/52 O2 Sat by Pulse 98 98 95 Oximetry 08/26/18 08/26/18 08/26/18 08:31 08:41 08:51 Temperature Pulse Rate 73 72 73 Respiratory 13 14 13 Rate Blood Pressure 131/53 131/53 134/52 O2 Sat by Pulse 100 98 99 Oximetry 08/26/18 08/26/18 08/26/18 09:01 09:11 09:21 Temperature Pulse Rate 86 82 67 Respiratory 14 15 15 Rate Blood Pressure 133/55 133/55 111/44 O2 Sat by Pulse 97 100 Oximetry 08/26/18 08/26/18 08/26/18 09:31 09:41 09:51 Temperature Pulse Rate 68 79 77 Respiratory 10 L 13 12 Rate Blood Pressure 123/48 123/48 110/44 O2 Sat by Pulse 99 98 89 Oximetry 08/26/18 08/26/18 08/26/18 10:00 10:01 10:11 Temperature Pulse Rate 83 91 H 88 Respiratory 14 12 Rate Blood Pressure 110/44 78/59 O2 Sat by Pulse 100 100 Oximetry 08/26/18 08/26/18 08/26/18 10:21 10:31 10:41 Temperature Pulse Rate 89 89 89 Respiratory 17 14 9 L Rate Blood Pressure 90/47 96/50 96/50 O2 Sat by Pulse 99 100 97 Oximetry 08/26/18 08/26/18 08/26/18 10:51 11:01 11:11 Temperature Pulse Rate 106 H 91 H 90 Respiratory 11 L 16 14 Rate Blood Pressure 92/53 86/51 86/51 O2 Sat by Pulse 99 98 98 Oximetry 08/26/18 08/26/18 08/26/18 11:21 11:31 11:41 Temperature Pulse Rate 102 H 64 63 Respiratory 17 13 13 Rate Blood Pressure 88/52 109/49 109/49 O2 Sat by Pulse 58 L 100 100 Oximetry 08/26/18 08/26/18 08/26/18 11:51 12:00 12:11 Temperature 97.4 F L Pulse Rate 62 62 68 Respiratory 14 14 15 Rate Blood Pressure 110/51 110/51 113/48 O2 Sat by Pulse 100 100 100 Oximetry 08/26/18 08/26/18 08/26/18 12:21 12:31 12:41 Temperature Pulse Rate 81 92 H 82 Respiratory 13 14 16 Rate Blood Pressure 113/45 112/62 112/62 O2 Sat by Pulse 99 Oximetry 08/26/18 08/26/18 08/26/18 12:51 13:01 13:11 Temperature Pulse Rate 72 70 69 Respiratory 12 12 12 Rate Blood Pressure 97/49 97/48 97/48 O2 Sat by Pulse Oximetry 08/26/18 08/26/18 08/26/18 13:21 13:30 13:41 Temperature Pulse Rate 80 60 64 Respiratory 14 13 12 Rate Blood Pressure 89/45 110/50 97/49 O2 Sat by Pulse Oximetry 08/26/18 08/26/18 08/26/18 13:51 14:00 14:11 Temperature Pulse Rate 85 84 118 H Respiratory 16 15 25 H Rate Blood Pressure 113/50 113/50 110/50 O2 Sat by Pulse Oximetry 08/26/18 08/26/18 08/26/18 14:21 14:31 14:41 Temperature Pulse Rate 78 83 72 Respiratory 13 20 12 Rate Blood Pressure 106/51 104/56 111/57 O2 Sat by Pulse 100 96 100 Oximetry 08/26/18 08/26/18 14:51 15:00 Temperature Pulse Rate 72 71 Respiratory 15 13 Rate Blood Pressure 96/50 107/49 O2 Sat by Pulse 99 100 Oximetry General appearance: Present: no acute distress - EENT Eyes: PERRL, EOM intact ENT: hearing intact - Respiratory Respiratory effort: normal - Gastrointestinal General gastrointestinal: Present: soft, non-tender - Labs CBC & Chem 7: 08/26/18 04:45 08/26/18 04:45 Labs: Abnormal lab results 08/25/18 08/26/18 08/26/18 Range/Units 13:53 04:45 04:45 RBC 3.29 L (3.65-5.03) M/mm3 Hgb 9.4 L (10.1-14.3) gm/dl Hct 27.2 L (30.3-42.9) % MCHC 35 H (30-34) % RDW 17.2 H (13.2-15.2) % Potassium 3.1 L (3.6-5.0) mmol/L Chloride 109.8 H (98-107) mmol/L Glucose 119 H (65-100) mg/dL Calcium 7.0 L (8.4-10.2) mg/dL Magnesium 1.60 L (1.7-2.3) mg/dL Medications & Allergies - Medications Allergies/Adverse Reactions: Allergies codeine Allergy (Verified 08/23/18 17:07) Unknown Home Medications: Home Medications Medication Instructions Recorded Confirmed Last Taken Type DULoxetine [Cymbalta] 60 mg PO DAILY 08/23/18 08/23/18 Unknown History Levothyroxine [Synthroid] 125 mcg PO DAILY 08/23/18 08/23/18 Unknown History Loperamide [Imodium] 2 mg PO DAILY PRN 08/23/18 08/23/18 Unknown History Losartan/Hydrochlorothiazide 1 each PO DAILY 08/23/18 08/23/18 Unknown History [Losartan-Hctz 100-25 mg Tab] Sulindac 200 mg PO BID 08/23/18 08/23/18 Unknown History tiZANidine [Zanaflex] 4 mg PO BID 08/23/18 08/23/18 Unknown History Active Medications: Generic Name Dose Route Start Last Admin Trade Name Kwesi PRN Reason Stop Dose Admin Acetaminophen 650 mg 08/24/18 00:56 08/26/18 11:35 Tylenol PO 650 mg Q4H PRN Administration Pain MILD(1-3)/Fever >100.5/VILLARREAL Norepinephrine 4 mg in 250 mls @ 7.5 mls/hr 08/23/18 23:00 08/26/18 14:15 Levophed Drip 4 Mg/Ns 250 Ml IV 2 mcg/min TITR LAZARO 7.5 mls/hr Titration Protocol 2 MCG/MIN Metronidazole 500 mg in 100 mls @ 100 mls/hr 08/24/18 06:00 08/26/18 15:12 Flagyl 500 Mg/100 Ml IV 100 mls/hr Q8HR LAZARO Administration Protocol Levofloxacin/Dextrose 250 mg in 50 mls @ 50 mls/hr 08/25/18 10:00 08/26/18 11:00 Levaquin 250mg/50ml IV 50 mls/hr Q24HR LAZARO Administration Levothyroxine Sodium 100 mcg 08/24/18 06:00 08/26/18 05:57 Synthroid IV 100 mcg DAILY@0600 [facility] Administration Multivitamins/Minerals 1 each 08/24/18 10:00 08/26/18 11:03 Theragran-M Tab PO Not Given QDAY [facility] Ondansetron HCl 4 mg 08/24/18 00:56 Zofran IV Q8H PRN Nausea And Vomiting Pantoprazole Sodium 40 mg 08/24/18 10:00 08/26/18 11:06 Protonix PO Not Given QDAY [facility] Polyethylene Glycol 17 gm 08/24/18 10:00 08/26/18 11:02 Miralax 3350 PO Not Given BID [facility] Senna/Docusate Sodium 2 tab 08/24/18 09:39 08/24/18 19:09 Senokot S PO 2 tab Q12H PRN Administration Laxative Effect Sodium Chloride 10 ml 08/24/18 10:00 08/26/18 11:03 Sodium Chloride Flush Syringe 10 Ml IV 10 ml BID LAZARO Administration Sodium Chloride 10 ml 08/24/18 00:56 Sodium Chloride Flush Syringe 10 Ml IV PRN PRN LINE FLUSH
[2018-08-27 05:25] LABS: Hemoglobin 9.9 gm/dl (10.1-14.3); Mean Corpuscular HGB Conc 34 % (30-34); Mean Corpuscular Volume 83 fl (79-97); Platelet Count 382 K/mm3 (140-440); Red Blood Count 3.48 M/mm3 (3.65-5.03); Red Cell Distribution Width 17.4 % (13.2-15.2)
[2018-08-27 05:40] LABS: Alanine Aminotransferase 15 units/L (7-56); Albumin 2.1 g/dL (3.9-5); BUN/Creatinine Ratio 10; Blood Urea Nitrogen 9 mg/dL (7-17); Calcium 7.7 mg/dL (8.4-10.2); Hemolysis Index 2
[2018-08-27] MEDS: SYNTHROID IV SCH (06:38)
[2018-08-27] MEDS: FLAGYL 500 MG/100 ML 500 MG/100 ML BAG IV SCH ×3 (06:40→22:43)
[2018-08-27] MEDS: LEVOPHED DRIP 4 MG/NS 250 ML 4 MG/250 ML BAG IV SCH (07:35)
[2018-08-27] MEDS: SODIUM CHLORIDE FLUSH SYRINGE 10 ML IV SCH ×3 (09:00→22:29)
[2018-08-27] MEDS: PROTONIX PO SCH (09:23)
[2018-08-27] MEDS: THERAGRAN-M Tab PO SCH (09:23)
[2018-08-27] MEDS: MIRALAX 3350 PO SCH ×2 (09:23→22:26)
--- NOTE | 2018-08-27 09:44 | Progress Note ---
Assessment and Plan Suspected lower GI bleeding, severe colitis. Could not get follow-up colonoscopy yesterday. CGI recommendations Hypotension on pressors. Improved. No Sx's,MAP's adequate Recommendations Serial BP monitoring Keep MAP > 60-65 Monitor UO, keep > 30 cc/ hr wean,DC Levophed Increase PO fluid,monitor diarrhea PRBC if Hgb < 7 monitor for any bleeding We'll schedule CT versus follow-up colonoscopy, depending on GI recommendations if off pressors, could be moved out with monitoring Discussed with patient detail. All questions answered. Critical care time was 31 minutes of [id number] evaluation and coordination of care Subjective Date of service: 08/27/18 Principal diagnosis: GI Bleed Interval history: No complains. Used commode earlier- no dizziness Objective Vital Signs - 12hr 08/26/18 08/26/18 08/26/18 22:01 22:13 22:31 Temperature Pulse Rate 86 75 73 Respiratory 16 13 13 Rate Blood Pressure 104/47 104/47 103/41 O2 Sat by Pulse 100 100 88 Oximetry 08/26/18 08/26/18 08/26/18 22:37 23:01 23:31 Temperature Pulse Rate 70 63 94 H Respiratory 17 13 15 Rate Blood Pressure 104/47 100/42 58/43 O2 Sat by Pulse 99 99 95 Oximetry 08/27/18 08/27/18 08/27/18 00:00 00:01 00:31 Temperature 98.8 F Pulse Rate 69 67 Respiratory 13 18 Rate Blood Pressure 99/40 96/40 O2 Sat by Pulse 99 99 Oximetry 08/27/18 08/27/18 08/27/18 01:01 01:31 02:00 Temperature Pulse Rate 76 61 64 Respiratory 23 12 12 Rate Blood Pressure 88/37 103/37 103/37 O2 Sat by Pulse 99 100 99 Oximetry 08/27/18 08/27/18 08/27/18 02:31 03:01 03:12 Temperature 98.4 F Pulse Rate 67 69 Respiratory 12 12 Rate Blood Pressure 104/40 108/36 O2 Sat by Pulse 97 98 Oximetry 08/27/18 08/27/18 08/27/18 03:31 04:01 04:31 Temperature Pulse Rate 64 116 H 103 H Respiratory 11 L 15 24 Rate Blood Pressure 102/42 104/66 102/79 O2 Sat by Pulse 99 97 100 Oximetry 08/27/18 08/27/18 08/27/18 05:01 05:31 06:00 Temperature Pulse Rate 84 72 74 Respiratory 14 11 L 12 Rate Blood Pressure 102/72 96/47 102/55 O2 Sat by Pulse 100 100 99 Oximetry 08/27/18 08/27/18 08/27/18 06:31 07:01 07:31 Temperature Pulse Rate 74 73 73 Respiratory 12 13 15 Rate Blood Pressure 101/49 122/61 110/53 O2 Sat by Pulse 100 99 99 Oximetry 08/27/18 08/27/18 08/27/18 08:00 08:01 08:31 Temperature 98.0 F Pulse Rate 82 85 Respiratory 17 16 Rate Blood Pressure 110/53 102/56 O2 Sat by Pulse 100 100 Oximetry Constitutional: no acute distress, appears uncomfortable, other (obese) Eyes: non-icteric ENT: oropharynx moist Neck: supple Ascultation: Bilateral: clear, diminished breath sounds Cardiovascular: regular rate and rhythm Gastrointestinal: normoactive bowel sounds, tender (mild), non-distended Integumentary: normal Extremities: no cyanosis, no cyanosis, no cyanosis Neurologic: normal mental status, non-focal exam, pupils equal and round, CN II- XII normal CBC and BMP: 08/27/18 04:34 08/27/18 04:34 ABG, PT/INR, D-dimer: PT/INR, D-dimer PT 14.1 Sec. (12.2-14.9) 08/23/18 15:36 INR 1.03 (0.87-1.13) 08/23/18 15:36 Abnormal lab findings: Abnormal Labs 08/23/18 08/23/18 08/23/18 15:29 15:29 15:29 RBC 2.74 L Hgb 7.6 L Hct 22.3 L MCHC RDW 16.8 H Lymph % (Auto) Wayne % (Auto) 11.6 H Lymph # Wayne # 1.1 H Seg Neutrophils % 72.5 H Sodium 133 L Potassium 3.3 L Chloride 96.4 L BUN 32 H Creatinine 2.4 H Glucose POC Glucose Calcium 7.7 L Magnesium Total Protein 5.7 L Albumin 2.2 L Lipase 5 L Free T4 Crossmatch See Detail 08/24/18 08/24/18 08/24/18 00:08 01:31 07:07 RBC 2.88 L Hgb 8.5 L 8.8 L 8.8 L Hct 23.5 L 24.4 L 25.4 L MCHC 36 H RDW 16.7 H Lymph % (Auto) 13.3 L Wayne % (Auto) 11.4 H Lymph # Wayne # 1.1 H Seg Neutrophils % 71.3 H Sodium Potassium Chloride BUN Creatinine Glucose POC Glucose Calcium Magnesium Total Protein Albumin Lipase Free T4 Crossmatch 08/24/18 08/24/18 08/25/18 23:14 Unknown 03:45 RBC Hgb Hct MCHC RDW Lymph % (Auto) Wayne % (Auto) Lymph # Wayne # Seg Neutrophils % Sodium Potassium 3.0 L Chloride BUN 18 H Creatinine Glucose 141 H POC Glucose 127 H Calcium 7.6 L Magnesium Total Protein 5.1 L Albumin 2.0 L Lipase Free T4 1.90 H Crossmatch 08/25/18 08/25/18 08/26/18 03:45 13:53 04:45 RBC 3.56 L 3.29 L Hgb 10.0 L 9.4 L Hct 29.3 L 27.2 L MCHC 35 H RDW 16.9 H 17.2 H Lymph % (Auto) Wayne % (Auto) 13.4 H Lymph # 1.1 L Wayne # 1.0 H Seg Neutrophils % 70.9 H Sodium Potassium Chloride BUN Creatinine Glucose POC Glucose Calcium Magnesium 1.60 L Total Protein Albumin Lipase Free T4 Crossmatch 08/26/18 08/27/18 08/27/18 04:45 04:34 04:34 RBC 3.48 L Hgb 9.9 L Hct 29.0 L MCHC RDW 17.4 H Lymph % (Auto) Wayne % (Auto) Lymph # Wayne # Seg Neutrophils % Sodium Potassium 3.1 L Chloride 109.8 H 109.8 H BUN Creatinine Glucose 119 H POC Glucose Calcium 7.0 L 7.7 L Magnesium Total Protein 5.0 L Albumin 2.1 L Lipase Free T4 Crossmatch
[2018-08-27] MEDS ORDERED: LEVAQUIN 500MG/100ML 500 MG/100 ML BAG IV SCH (10:00)
[2018-08-27] MEDS: PROAMATINE PO SCH ×3 (11:04→20:20)
--- NOTE | 2018-08-27 11:07 | Progress Note ---
Assessment and Plan Echo reviewed - trace TR, EF 60-65%. Currently stable cardiac status. Levophed weaned off, BPs low normal. Pt in ST on tele - suspect sinus tachycardia is physiologic secondary to anemia, dehydration, etc. Cont IVF per primary. Per GI team, colonoscopy cancelled due to need for ongoing pressor support, stool studies pending, if continues to improve, and no ongoing bleed, may delay colonoscopy for several weeks. The patient has been seen in conjunction with Dr. Abebe who agrees with the assessment and plan of care. - Patient Problems (1) GI bleed Current Visit: Yes Status: Acute (2) Rectal bleeding Current Visit: Yes Status: Acute (3) Hypotension Current Visit: Yes Status: Acute Qualifiers: Hypotension type: hypotension due to hypovolemia Qualified Code(s): I95.89 - Other hypotension; E86.1 - Hypovolemia (4) Symptomatic anemia Current Visit: Yes Status: Acute (5) ELISEO (acute kidney injury) Current Visit: Yes Status: Acute (6) Nausea vomiting and diarrhea Current Visit: Yes Status: Acute (7) Colitis Current Visit: Yes Status: Acute (8) Leg edema Current Visit: Yes Status: Acute (9) Hypoalbuminemia Current Visit: Yes Status: Acute (10) Hypokalemia Current Visit: Yes Status: Acute (11) Hypomagnesemia Current Visit: Yes Status: Acute Subjective Date of service: 08/27/18 Principal diagnosis: GI Bleed Interval history: pt sitting up in chair, no current cardiac complaints. states diarrhea is slight ly improved. in ST on tele with HR 115. weaned off levophed. Objective Last Vital Signs Temp 98.0 F 08/27/18 08:00 Pulse 85 08/27/18 08:31 Resp 16 08/27/18 08:31 BP 102/56 08/27/18 08:31 Pulse Ox 100 08/27/18 08:31 - Physical Examination General: No Apparent Distress HEENT: Positive: EOMI, Normocephaly, Mucus Membranes Moist Neck: Positive: neck supple, trachea midline Cardiac: Positive: Regular Rhythm, S1/S2, Tachycardia Lungs: Positive: Decreased Breath Sounds Neuro: Positive: Grossly Intact Abdomen: Positive: Soft, Active Bowel Sounds. Negative: Tender Skin: Positive: Clear. Negative: Rash Musculoskeletal: Normal Range of Motion Extremities: Present: +3 Edema (bilateral leg edema) - Labs and Meds Cardiac Enzymes 08/27/18 Range/Units 04:34 AST 17 (5-40) units/L CBC 08/27/18 Range/Units 04:34 WBC 5.2 (4.5-11.0) K/mm3 RBC 3.48 L (3.65-5.03) M/mm3 Hgb 9.9 L (10.1-14.3) gm/dl Hct 29.0 L (30.3-42.9) % Plt Count 382 (140-440) K/mm3 Comprehensive Metabolic Panel 08/27/18 Range/Units 04:34 Sodium 143 (137-145) mmol/L Potassium 4.0 D (3.6-5.0) mmol/L Chloride 109.8 H (98-107) mmol/L Carbon Dioxide 23 (22-30) mmol/L BUN 9 (7-17) mg/dL Creatinine 0.9 (0.7-1.2) mg/dL Glucose 87 (65-100) mg/dL Calcium 7.7 L (8.4-10.2) mg/dL AST 17 (5-40) units/L ALT 15 (7-56) units/L Alkaline Phosphatase 58 (35-129) units/L Total Protein 5.0 L (6.3-8.2) g/dL Albumin 2.1 L (3.9-5) g/dL - Imaging and Cardiology EKG: report reviewed, image reviewed Echo: pending - EKG Sinus rhythms and dysrhythmias: sinus rhythm
--- NOTE | 2018-08-27 12:21 | Gastroenterology Progress Note ---
<KARLA MICHAEL - Last Filed: 08/27/18 12:24> Assessment and Plan 1. Colitis -afebrile -WBC WNL -stool + for WBCs -stool culture and C-diff pending -H/H stable (9.9/29.0) -s/p EGD with negative results -s/p flex sig (incomplete colonoscopy) with severe proctitis -bx result pending -etiology unclear- stercoral vs ischemic vs infection vs IBD -clinically, patient is now weaned off pressor support with BP low normal. Reports BMs x3 overnight this am with liquid blood tinged stool. Admits to intermittent abd cramping but no N/V. Tolerating clears. -continue empiric antibiotics and supportive care -consider CT based on progress -if continues to improve, may delay colonoscopy for several weeks -further recommendations to follow Subjective Date of service: 08/27/18 Principal diagnosis: GI Bleed Interval history: Patient w/o acute distress. Levophed now weaned off with BP low normal. Reports BMs x 2 overnight and 1 this am with liquid blood tinged stool. Admits to intermittent abd cramping. No N/V. Objective - Constitutional Vitals: Temp Pulse Resp BP Pulse Ox 98.0 F 85 16 102/56 100 08/27/18 08:00 08/27/18 08:31 08/27/18 08:31 08/27/18 08:31 08/27/18 08:31 General appearance: no acute distress - Respiratory Respiratory: bilateral: diminished - Cardiovascular Rhythm: other (tachycardia) - Gastrointestinal General gastrointestinal: Present: soft, non-tender, non-distended, normal bowel sounds - Neurologic Neurological: alert and oriented x3 - Labs CBC & Chem 7: 08/27/18 04:34 08/27/18 04:34 Labs: Laboratory Results - last 24 hr 08/27/18 08/27/18 04:34 04:34 WBC 5.2 RBC 3.48 L Hgb 9.9 L Hct 29.0 L MCV 83 MCH 28 MCHC 34 RDW 17.4 H Plt Count 382 Sodium 143 Potassium 4.0 D Chloride 109.8 H Carbon Dioxide 23 Anion Gap 14 BUN 9 Creatinine 0.9 Estimated GFR > 60 BUN/Creatinine Ratio 10 Glucose 87 Calcium 7.7 L Magnesium 1.80 Total Bilirubin 0.30 AST 17 ALT 15 Alkaline Phosphatase 58 Total Protein 5.0 L Albumin 2.1 L Albumin/Globulin Ratio 0.7 <GARCÍA COLBERT R - Last Filed: 08/27/18 15:38> Assessment and Plan Pt feels better. Still has diarrhea, but much improved, with 3 loose urgent squirty BMs over the last 8 hours. No abd pain. - continue empiric abx - f/u labs and biopsy - august D/C to home soon on oral abx, and do outpatient colonoscopy after resolution. Objective - Constitutional Vitals: Temp Pulse Resp BP Pulse Ox 97.1 F L 84 16 100/53 100 08/27/18 12:00 08/27/18 15:01 08/27/18 15:01 08/27/18 15:01 08/27/18 15:01 - Labs CBC & Chem 7: 08/27/18 04:34 08/27/18 04:34 Labs: Laboratory Results - last 24 hr 08/27/18 08/27/18 04:34 04:34 WBC 5.2 RBC 3.48 L Hgb 9.9 L Hct 29.0 L MCV 83 MCH 28 MCHC 34 RDW 17.4 H Plt Count 382 Sodium 143 Potassium 4.0 D Chloride 109.8 H Carbon Dioxide 23 Anion Gap 14 BUN 9 Creatinine 0.9 Estimated GFR > 60 BUN/Creatinine Ratio 10 Glucose 87 Calcium 7.7 L Magnesium 1.80 Total Bilirubin 0.30 AST 17 ALT 15 Alkaline Phosphatase 58 Total Protein 5.0 L Albumin 2.1 L Albumin/Globulin Ratio 0.7
--- NOTE | 2018-08-27 14:58 | Consultation ---
History of Present Illness - Reason for Consult Consult date: 08/27/18 sepsis Requesting physician: NICHOLAS WOOD - History of Present Illness 73 y/o female with history of chronic lower back pain syndrome, Graves disease, depression, OA and hypertension; admitted on due to 2-month history of bloody diarrhea, most recently associated with nausea, worsening bloody stools, generalized weakness and dizziness for 48 hours. Blood in stool was initially minimal, but several times a day. She stopped oral opioids meds 2 months ago and she thought that diarrhea was part of opioids withdraw syndrome. She was seen by GI med as an outpatient and scheduled for a colonoscopy and labwork (not completed). She also reports crampy abdominal pain daily. Also states worsening bilateral leg edema. In the ED, temp 97.7, HR 87, R 15, O2 sat 100%, BP 74/31. WBC 9.5, Hg 7.6, Plat 429. Creat 2.4. LFTs normal. Blood culture 08/26/2018 no growth today. CXR showed no acute cardiopulmonary process. Stool WBC many. Underwent flex sigmoidoscopy with severe proctitis, showed marked colitis with ulceration, atypia with focal dysplasia no granuloma, no malignancy. EGD with negative results. Initially on IV pressors. Review of Systems: General: no fever, chills, nightsweats, unintentional weight change, +generalized weakness Cutaneous: no rash, pruritus Head: no headaches or injury Eyes: no changes in vision, eye pain, double vision Ears: no ear pain, ear discharge, ringing or hearing loss Nose: no nose bleeding, stuffiness Mouth & throat: no bleeding gums, no horseness, no dental problems, or swollen glands Neck: no pain, node enlargement/lumps, tyroid enlargement or tenderness Respiratory: no cough, wheezing, sputum, hemoptysis, pleuritic chest pain Cardiovascular: no chest pain, leg edema, cyanosis, [place], orthopnea Musculoskeletal: + bilateral leg edema Gastrointestinal: no nausea, vomiting, hematemesis, +diarrhea, +constipation, + abdominal pain. Genitourinary/Reproductive: no frequent urination, dysuria, hematuria, incontinence Neurogical: no seizures, no headaches, no weakness, no paresthesias, no loss of speech or vision; no memory loss, no vertigo, no tremors, no numbness Psychiatric: stable mood; no excessive anxiety, sadness or moodiness Past History Past Medical History: arthritis (lumbar spine), hypertension, hypothyroidism, other (Graves disease, status post radioiodine thyroid ablation) Past Surgical History: Other (cervical fusion) Social history: prescription drug abuse. denies: smoking, alcohol abuse Family history: no significant family history Medications and Allergies Allergies Allergy/AdvReac Type Severity Reaction Status Date / Time codeine Allergy Unknown Verified 08/23/18 17:07 Home Medications Medication Instructions Recorded Confirmed Last Taken Type DULoxetine [Cymbalta] 60 mg PO DAILY 08/23/18 08/23/18 Unknown History Levothyroxine [Synthroid] 125 mcg PO DAILY 08/23/18 08/23/18 Unknown History Loperamide [Imodium] 2 mg PO DAILY PRN 08/23/18 08/23/18 Unknown History Losartan/Hydrochlorothiazide 1 each PO DAILY 08/23/18 08/23/18 Unknown History [Losartan-Hctz 100-25 mg Tab] Sulindac 200 mg PO BID 08/23/18 08/23/18 Unknown History tiZANidine [Zanaflex] 4 mg PO BID 08/23/18 08/23/18 Unknown History Active Meds: Active Medications Acetaminophen (Tylenol) 650 mg PO Q4H PRN PRN Reason: Pain MILD(1-3)/Fever >100.5/VILLARREAL Last Admin: 08/26/18 21:32 Dose: 650 mg Documented by: Norepinephrine (Levophed Drip 4 Mg/Ns 250 Ml) 4 mg in 250 mls @ 7.5 mls/hr IV TITR LAZARO; Protocol Last Titration: 08/27/18 09:28 Dose: 0 mcg/min, 0 mls/hr Documented by: Metronidazole (Flagyl 500 Mg/100 Ml) 500 mg in 100 mls @ 100 mls/hr IV Q8HR LAZARO; Protocol Last Admin: 08/27/18 13:52 Dose: 100 mls/hr Documented by: Levofloxacin/Dextrose (Levaquin 500mg/100ml) 500 mg in 100 mls @ 100 mls/hr IV Q24HR LAZARO; Protocol Last Admin: 08/27/18 09:23 Dose: 100 mls/hr Documented by: Levothyroxine Sodium (Synthroid) 100 mcg IV DAILY@0600 LAZARO Last Admin: 08/27/18 06:38 Dose: 100 mcg Documented by: Midodrine (Proamatine) 5 mg PO TID [facility] [place] Last Admin: 08/27/18 11:04 Dose: 5 mg Documented by: Multivitamins/Minerals (Theragran-M Tab) 1 each PO QDAY [facility] [place] Last Admin: 08/27/18 09:23 Dose: 1 each Documented by: Ondansetron HCl (Zofran) 4 mg IV Q8H PRN PRN Reason: Nausea And Vomiting Pantoprazole Sodium (Protonix) 40 mg PO QDAY [facility] [place] Last Admin: 08/27/18 09:23 Dose: 40 mg Documented by: Polyethylene Glycol (Miralax [id number]) 17 gm PO BID [facility] [place] Last Admin: 08/27/18 09:23 Dose: 17 gm Documented by: Senna/Docusate Sodium (Senokot S) 2 tab PO Q12H PRN PRN Reason: Laxative Effect Last Admin: 08/24/18 19:09 Dose: 2 tab Documented by: Sodium Chloride (Sodium Chloride Flush Syringe 10 Ml) 10 ml IV BID [facility] [place] Last Admin: 08/27/18 09:23 Dose: 10 ml Documented by: Sodium Chloride (Sodium Chloride Flush Syringe 10 Ml) 10 ml IV PRN PRN PRN Reason: LINE FLUSH Physical Examination - Physical Exam Narrative exam: General appearance: Alert in NAD, conversant, obese Eyes: anicteric sclerae, moist conjunctivae; no lid-lag; PERRLA HENT: Atraumatic; oropharynx clear with moist mucous membranes and no mucosal ulcerations/no oral thrush; normal hard and soft palate. Normal external ears. Neck: Trachea midline; supple, no thyromegaly or lymphadenopathy Lungs: CTA CV: RRR Abdomen: Soft, obese, mild tenderness Extremities: bilateral marked bilateral leg edema Skin: Normal temperature, turgor and texture; no rash, ulcers or subcutaneous nodules Psych: Appropriate affect, alert and oriented to person, place and time. Neuro: alert and oriented x 3. Moving all extermities - Constitutional Vitals: Vital Signs Temp Pulse Resp BP Pulse Ox 98.0 F 96 H 13 105/63 88 08/27/18 08:00 08/27/18 14:31 08/27/18 14:31 08/27/18 14:31 08/27/18 14:31 Temperature -Last 24 Hours Temperature 98.0 F Temperature 98.4 F Temperature 98.8 F Temperature 97.9 F Temperature 97.6 F Results - Labs CBC & Chem 7: 08/27/18 04:34 08/27/18 04:34 Labs: Abnormal lab results 08/27/18 08/27/18 Range/Units 04:34 04:34 RBC 3.48 L (3.65-5.03) M/mm3 Hgb 9.9 L (10.1-14.3) gm/dl Hct 29.0 L (30.3-42.9) % RDW 17.4 H (13.2-15.2) % Chloride 109.8 H (98-107) mmol/L Calcium 7.7 L (8.4-10.2) mg/dL Total Protein 5.0 L (6.3-8.2) g/dL Albumin 2.1 L (3.9-5) g/dL Assessment and Plan Cultures: Blood culture 08/26/2018 no growth today Assessment: 73 y/o female with history of chronic lower back pain syndrome, Graves disease, depression, OA and hypertension; admitted on due to 2-month history of bloody diarrhea, most recently associated with nausea, worsening bloody stools, generalized weakness and dizziness for 48 hours: 1) Shock ?hemorragic ?: Present on admission, manifested by hypotension not responding to IV fluids, placed on pressors and received blood transfusion. Etiology most likely GI bleed. Blood cultures negative. UA negative. CXR negative. 2) GI bleed: unclear etiology, likely colitis. EGD negative. Stool WBC many. Underwent flex sigmoidoscopy with severe proctitis, showed marked colitis with u lceration, atypia with focal dysplasia no granuloma, no malignancy. EGD with negative results. Colitis DDx. inflammatory (IBD) v/s infectious less likely including C diff. RPR negative. 3) Anemia: s/p transfusion 4) Bilateral leg edema. Recommendations: - follow-up blood cultures and C diff. - obtain procalcitonin, C-reactive protein (CRP) - agree with CT abdomen when stable - agree with colonscopy when stable - stop levaquin - continue IV flagyl - add po vancomycin until C diff is ruled out Will follow. Audrey Fritz MD Infectious Diseases Graphic Manager [facility], [place], [facility] M [phone] O [phone]
--- NOTE | 2018-08-27 15:34 | Progress Note ---
<MATTIE MANDEL - Last Filed: 08/27/18 15:55> Assessment and Plan Assessment and plan: 73 yo -[place] woman with a history of chronic pain syndome due to OA/LBP, Graves disease then hypothyroidism, depression, OA and hypertension who presented to [facility] ED with n/v/d/bloody stools and weakness. Hypotension-resolving Weaned off Levophed gtt On by mouth Midodrine Normocytic Anemia with BRBPR/rectal bleeding with severe Colitis, proctitis Hemoglobin on admission 7.6 Transfused 2 units of PRBC Hemoglobin this a.m. 9.9 S/P flex sig (incomplete colonoscopy) with severe proctitis- per GI if patient continues to improve may delay colonoscopy for several weeks stool positive for WBCs stool culture and C-diff pending GI following and managing Chronic diarrhea stool culture and C-diff pending On Levaquin and Flagyl ID consulted GI following and managing History of Hypertension Continue to monitor BP Continue to hold antihypertensive medicine History of Depression Resume Cymbalta 60 mg daily- previously held antidepressant due to NPO status Hyponatremia hypovolemia-resolved Treated with IVF Hypokalemia- resolved Repleted Potassium this a.m. 4.0 Monitor electrolytes History of Hypothyroidism/Graves: TSH 0.57, Free T4 1.90 slightly elevated Continue Synthroid 125mcg daily Severe Malnutrition Albumin 2.2 Compensation And Benefits Analyst consult dependant Morbid obesity, bmi 43.5 Lifestyle modifications discussed Benefit from outpatient weight management program History Interval history: Pt is seen today in ICU. She is sitting up in chair and pressors have been weaned off. There were no acute overnight events. Hospitalist Physical - Constitutional Vitals: Temp Pulse Resp BP Pulse Ox 97.1 F L 84 16 100/53 100 08/27/18 12:00 08/27/18 15:01 08/27/18 15:01 08/27/18 15:01 08/27/18 15:01 General appearance: Present: no acute distress, well-nourished - EENT Eyes: Present: PERRL, EOM intact ENT: hearing intact, clear oral mucosa - Neck Neck: Present: supple, normal ROM - Respiratory Respiratory effort: normal Respiratory: bilateral: diminished (bases) - Cardiovascular Heart rate: 84 (beats per minute) Rhythm: regular Heart Sounds: Present: S1 & S2. Absent: rub, click - Extremities Extremities: pulses intact, pulses symmetrical, normal temperature Extremity abnormal: edema - Peripheral Assessment Lower Extremity Edema Degree: 2+ Capillary Refill: < 3 seconds Skin Temperature: Warm - Abdominal General gastrointestinal: soft, non-tender, normal bowel sounds - Integumentary Integumentary: Present: warm, dry - Psychiatric Psychiatric: appropriate mood/affect, cooperative - Neurologic Neurologic: CNII-XII intact - Allied Health Allied health notes reviewed: nursing, case management Results - Labs CBC & Chem 7: 08/27/18 04:34 08/27/18 04:34 Labs: Laboratory Last Values WBC 5.2 K/mm3 (4.5-11.0) 08/27/18 04:34 RBC 3.48 M/mm3 (3.65-5.03) L 08/27/18 04:34 Hgb 9.9 gm/dl (10.1-14.3) L 08/27/18 04:34 Hct 29.0 % (30.3-42.9) L 08/27/18 04:34 MCV 83 fl (79-97) 08/27/18 04:34 MCH 28 pg (28-32) 08/27/18 04:34 MCHC 34 % (30-34) 08/27/18 04:34 RDW 17.4 % (13.2-15.2) H 08/27/18 04:34 Plt Count 382 K/mm3 (140-440) 08/27/18 04:34 Lymph % (Auto) 15.1 % (13.4-35.0) 08/25/18 03:45 [place] % (Auto) 13.4 % (0.0-7.3) H 08/25/18 03:45 Eos % (Auto) 0.4 % (0.0-4.3) 08/25/18 03:45 Baso % (Auto) 0.2 % (0.0-1.8) 08/25/18 03:45 Lymph # 1.1 K/mm3 (1.2-5.4) L 08/25/18 03:45 [place] # 1.0 K/mm3 (0.0-0.8) H 08/25/18 03:45 Eos # 0.0 K/mm3 (0.0-0.4) 08/25/18 03:45 Baso # 0.0 K/mm3 (0.0-0.1) 08/25/18 03:45 Seg Neutrophils % 70.9 % (40.0-70.0) H 08/25/18 03:45 Seg Neutrophils # 5.3 K/mm3 (1.8-7.7) 08/25/18 03:45 PT 14.1 Sec. (12.2-14.9) 08/23/18 15:36 INR 1.03 (0.87-1.13) 08/23/18 15:36 APTT 32.0 Sec. (24.2-36.6) 08/23/18 15:36 Sodium 143 mmol/L (137-145) 08/27/18 04:34 Potassium 4.0 mmol/L (3.6-5.0) D 08/27/18 04:34 Chloride 109.8 mmol/L (98-107) H 08/27/18 04:34 Carbon Dioxide 23 mmol/L (22-30) 08/27/18 04:34 Anion Gap 14 mmol/L 08/27/18 04:34 BUN 9 mg/dL (7-17) 08/27/18 04:34 Creatinine 0.9 mg/dL (0.7-1.2) 08/27/18 04:34 Estimated GFR > 60 ml/min 08/27/18 04:34 BUN/Creatinine Ratio 10 % 08/27/18 04:34 Glucose 87 mg/dL (65-100) 08/27/18 04:34 POC Glucose 127 (70-105) H 08/24/18 23:14 Hemoglobin A1c 5.3 % (4-6) 08/24/18 00:08 Calcium 7.7 mg/dL (8.4-10.2) L 08/27/18 04:34 Magnesium 1.80 mg/dL (1.7-2.3) 08/27/18 04:34 Total Bilirubin 0.30 mg/dL (0.1-1.2) 08/27/18 04:34 AST 17 units/L (5-40) 08/27/18 04:34 ALT 15 units/L (7-56) 08/27/18 04:34 Alkaline Phosphatase 58 units/L (35-129) 08/27/18 04:34 Total Protein 5.0 g/dL (6.3-8.2) L 08/27/18 04:34 Albumin 2.1 g/dL (3.9-5) L 08/27/18 04:34 Albumin/Globulin Ratio 0.7 % 08/27/18 04:34 Lipase 5 units/L (13-60) L 08/23/18 15:29 TSH 0.547 mlU/mL (0.270-4.200) 08/24/18 Unknown Free T4 1.90 ng/dL (0.76-1.46) H 08/24/18 Unknown Urine Color Yellow (Yellow) 08/23/18 17:45 Urine Turbidity Clear (Clear) 08/23/18 17:45 Urine pH 5.0 (5.0-7.0) 08/23/18 17:45 Ur Specific [place] 1.008 (1.003-1.030) 08/23/18 17:45 Urine Protein <15 mg/dl mg/dL (Negative) 08/23/18 17:45 Urine Glucose (UA) Neg mg/dL (Negative) 08/23/18 17:45 Urine Ketones Neg mg/dL (Negative) 08/23/18 17:45 Urine Blood Sm (Negative) 08/23/18 17:45 Urine Nitrite Neg (Negative) 08/23/18 17:45 Urine Bilirubin Neg (Negative) 08/23/18 17:45 Urine Urobilinogen < 2.0 mg/dL (<2.0) 08/23/18 17:45 Ur Leukocyte Esterase Neg (Negative) 08/23/18 17:45 Urine WBC (Auto) 1.0 /HPF (0.0-6.0) 08/23/18 17:45 Urine RBC (Auto) 1.0 /HPF (0.0-6.0) 08/23/18 17:45 U Epithel Cells (Auto) 2.0 /HPF (0-13.0) 08/23/18 17:45 Urine Bacteria (Auto) 2+ /HPF (Negative) 08/23/18 17:45 RPR Nonreactive (Nonreactive) 08/25/18 03:45 Blood Type O NEGATIVE 08/23/18 15:29 Antibody Screen Negative 08/23/18 15:29 Crossmatch See Detail 08/23/18 15:29 Active Medications - Current Medications Current Medications: Generic Name Dose Route Start Last Admin Trade Name Freq PRN Reason Stop Dose Admin Acetaminophen 650 mg 08/24/18 00:56 08/26/18 21:32 Tylenol PO 650 mg Q4H PRN Administration Pain MILD(1-3)/Fever >100.5/VILLARREAL Norepinephrine 4 mg in 250 mls @ 7.5 mls/hr 08/23/18 23:00 08/27/18 09:28 Levophed Drip 4 Mg/Ns 250 Ml IV 0 mcg/min TITR LAZARO 0 mls/hr Titration Protocol 2 MCG/MIN Metronidazole 500 mg in 100 mls @ 100 mls/hr 08/24/18 06:00 08/27/18 13:52 Flagyl 500 Mg/100 Ml IV 100 mls/hr Q8HR LAZARO Administration Protocol Levofloxacin/Dextrose 500 mg in 100 mls @ 100 mls/hr 08/27/18 10:00 08/27/18 09:23 Levaquin 500mg/100ml IV 100 mls/hr Q24HR LAZARO Administration Protocol Levothyroxine Sodium 100 mcg 08/24/18 06:00 08/27/18 06:38 Synthroid IV 100 mcg DAILY@0600 LAZARO Administration Midodrine 5 mg 08/27/18 11:00 08/27/18 11:04 Proamatine PO 5 mg TID LAZARO Administration Multivitamins/Minerals 1 each 08/24/18 10:00 08/27/18 09:23 Theragran-M Tab PO 1 each QDAY LAZARO Administration Ondansetron HCl 4 mg 08/24/18 00:56 Zofran IV Q8H PRN Nausea And Vomiting Pantoprazole Sodium 40 mg 08/24/18 10:00 08/27/18 09:23 Protonix PO 40 mg QDAY LAZARO Administration Polyethylene Glycol 17 gm 08/24/18 10:00 08/27/18 09:23 Miralax 3350 PO 17 gm BID LAZARO Administration Senna/Docusate Sodium 2 tab 08/24/18 09:39 08/24/18 19:09 Senokot S PO 2 tab Q12H PRN Administration Laxative Effect Sodium Chloride 10 ml 08/24/18 10:00 08/27/18 09:23 Sodium Chloride Flush Syringe 10 Ml IV 10 ml BID LAZARO Administration Sodium Chloride 10 ml 08/24/18 00:56 Sodium Chloride Flush Syringe 10 Ml IV PRN PRN LINE FLUSH Temazepam 15 mg 08/27/18 22:00 Restoril PO QHS [facility] Nutrition/Malnutrition Assess - Dietary Evaluation Nutrition/Malnutrition Findings: Nutrition Notes Start: 08/27/18 13:40 Freq: Status: Active Protocol: Document 08/27/18 13:40 EB (Rec: 08/27/18 14:03 EB [id number]) Co-Sign 08/27/18 13:40 RM Nutrition Notes 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 Pt sitting up in chair at bedside at time of visit. Pt on cl liq diet and consumed about 25% of meal this am. Pt complains of consistent diarrhea, and mentioned she is trying to drink as much as she can of the cl liq diet. Pt stated she was not interested in Ensure Clear to supplement her diet. Percent of energy/protein needs met: 8%/4% Burn Absent Trauma Absent GI Symptoms Diarrhea Current % PO Poor (25-49%) #1 Nutrition Diagnosis Inadequate oral intake Etiology colitis As Evidenced by Signs and Symptoms on cl liq diet Is patient on ventilator? No Is Patient Ambulatory and/or Out of Bed Yes REE-([facility]-ambulatory/OOB) [ 1924.884 NUTR.MSJOOB] Kcal/Kg value to use for calculation 14 Approximate Energy Requirements Using 1461 kcal/Kg Calculation Used for Recommendations Kcal/kg Additional Notes PRO: 2.5 g/kg IBW of 47.72 kg (119 g/day) Fluid: 1 mL/kcal Nutrition Intervention Change Diet Order: advance when medically feasible Goal #1 advance diet when medically feasible Anticipated Discharge Needs: unable to determine at this time Follow-Up By: 08/29/18 Additional Comments F/u: PO intake and diet advancement <NICHOLAS WOOD M - Last Filed: 08/30/18 14:02> Assessment and Plan Assessment and plan: I saw and evaluated the patient. I agree with the findings and the plan of care as documented in the Nurse Practitioner's~note, with the following corrections and additions. The patient has fluid overload with bilateral lower extremity edema, but due to hypotension unable to tolerate diuretics at this time Colonoscopy was negative, Antibiotics per ID -Continue pressors, wean as tolerated Critical care time 35 minutes History Interval history: Patient denies diarrhea, denies shortness of breath presently She is complaining of bilateral lower extremity edema Hospitalist Physical - Constitutional Vitals: Temp Pulse Resp BP Pulse Ox 98.0 F 59 L 14 100/45 98 08/30/18 12:00 08/30/18 08:00 08/30/18 08:00 08/30/18 08:00 08/30/18 08:00 Results - Labs CBC & Chem 7: 08/29/18 13:15 08/29/18 13:15 Labs: Laboratory Last Values WBC 6.7 K/mm3 (4.5-11.0) 08/29/18 13:15 RBC 3.09 M/mm3 (3.65-5.03) L 08/29/18 13:15 Hgb 8.7 gm/dl (10.1-14.3) L 08/29/18 13:15 Hct 25.9 % (30.3-42.9) L 08/29/18 13:15 MCV 84 fl (79-97) 08/29/18 13:15 MCH 28 pg (28-32) 08/29/18 13:15 MCHC 34 % (30-34) 08/29/18 13:15 RDW 18.5 % (13.2-15.2) H 08/29/18 13:15 Plt Count 279 K/mm3 (140-440) 08/29/18 13:15 Lymph % (Auto) 11.9 % (13.4-35.0) L 08/29/18 13:15 [place] % (Auto) 11.3 % (0.0-7.3) H 08/29/18 13:15 Eos % (Auto) 1.1 % (0.0-4.3) 08/29/18 13:15 Baso % (Auto) 0.2 % (0.0-1.8) 08/29/18 13:15 Lymph # 0.8 K/mm3 (1.2-5.4) L 08/29/18 13:15 [place] # 0.8 K/mm3 (0.0-0.8) 08/29/18 13:15 Eos # 0.1 K/mm3 (0.0-0.4) 08/29/18 13:15 Baso # 0.0 K/mm3 (0.0-0.1) 08/29/18 13:15 Seg Neutrophils % 75.5 % (40.0-70.0) H 08/29/18 13:15 Seg Neutrophils # 5.1 K/mm3 (1.8-7.7) 08/29/18 13:15 PT 14.1 Sec. (12.2-14.9) 08/23/18 15:36 INR 1.03 (0.87-1.13) 08/23/18 15:36 APTT 32.0 Sec. (24.2-36.6) 08/23/18 15:36 Sodium 141 mmol/L (137-145) 08/29/18 13:15 Potassium 3.6 mmol/L (3.6-5.0) 08/29/18 13:15 Chloride 111.0 mmol/L (98-107) H 08/29/18 13:15 Carbon Dioxide 23 mmol/L (22-30) 08/29/18 13:15 Anion Gap 11 mmol/L 08/29/18 13:15 BUN 11 mg/dL (7-17) 08/29/18 13:15 Creatinine 1.0 mg/dL (0.7-1.2) 08/29/18 13:15 Estimated GFR > 60 ml/min 08/29/18 13:15 BUN/Creatinine Ratio 11 % 08/29/18 13:15 Glucose 115 mg/dL (65-100) H 08/29/18 13:15 POC Glucose 127 (70-105) H 08/24/18 23:14 Hemoglobin A1c 5.3 % (4-6) 08/24/18 00:08 Calcium 7.2 mg/dL (8.4-10.2) L 08/29/18 13:15 Phosphorus 2.70 mg/dL (2.5-4.5) 08/29/18 13:15 Magnesium 1.60 mg/dL (1.7-2.3) L 08/29/18 13:15 Total Bilirubin 0.30 mg/dL (0.1-1.2) 08/27/18 04:34 AST 17 units/L (5-40) 08/27/18 04:34 ALT 15 units/L (7-56) 08/27/18 04:34 Alkaline Phosphatase 58 units/L (35-129) 08/27/18 04:34 C-Reactive Protein 6.60 mg/dL (0.00-1.30) H 08/27/18 18:30 Total Protein 5.0 g/dL (6.3-8.2) L 08/27/18 04:34 Albumin 2.1 g/dL (3.9-5) L 08/27/18 04:34 Albumin/Globulin Ratio 0.7 % 08/27/18 04:34 Lipase 5 units/L (13-60) L 08/23/18 15:29 TSH 0.482 mlU/mL (0.270-4.200) 08/28/18 09:00 Free T4 1.90 ng/dL (0.76-1.46) H 08/24/18 Unknown Thyroxine (T4) 5.7 ug/dL (4.0-12.0) 08/29/18 13:15 Urine Color Yellow (Yellow) 08/23/18 17:45 Urine Turbidity Clear (Clear) 08/23/18 17:45 Urine pH 5.0 (5.0-7.0) 08/23/18 17:45 Ur Specific [place] 1.008 (1.003-1.030) 08/23/18 17:45 Urine Protein <15 mg/dl mg/dL (Negative) 08/23/18 17:45 Urine Glucose (UA) Neg mg/dL (Negative) 08/23/18 17:45 Urine Ketones Neg mg/dL (Negative) 08/23/18 17:45 Urine Blood Sm (Negative) 08/23/18 17:45 Urine Nitrite Neg (Negative) 08/23/18 17:45 Urine Bilirubin Neg (Negative) 08/23/18 17:45 Urine Urobilinogen < 2.0 mg/dL (<2.0) 08/23/18 17:45 Ur Leukocyte Esterase Neg (Negative) 08/23/18 17:45 Urine WBC (Auto) 1.0 /HPF (0.0-6.0) 08/23/18 17:45 Urine RBC (Auto) 1.0 /HPF (0.0-6.0) 08/23/18 17:45 U Epithel Cells (Auto) 2.0 /HPF (0-13.0) 08/23/18 17:45 Urine Bacteria (Auto) 2+ /HPF (Negative) 08/23/18 17:45 RPR Nonreactive (Nonreactive) 08/25/18 03:45 C. difficile Tox (PCR) Negative (Negative) 08/24/18 06:40 Blood Type O NEGATIVE 08/23/18 15:29 Antibody Screen Negative 08/23/18 15:29 Crossmatch See Detail 08/23/18 15:29 Active Medications - Current Medications Current Medications: Generic Name Dose Route Start Last Admin Trade Name Freq PRN Reason Stop Dose Admin Acetaminophen 650 mg 08/24/18 00:56 08/27/18 18:17 Tylenol PO 650 mg Q4H PRN Administration Pain MILD(1-3)/Fever >100.5/VILLARREAL Duloxetine HCl 60 mg 08/27/18 16:00 08/30/18 10:41 Cymbalta PO 60 mg DAILY LAZARO Administration Hydrocortisone Acetate 20 mg 08/30/18 11:00 08/30/18 13:43 Cortef PO 20 mg QDAY LAZARO Administration Cefepime HCl 2 gm in 100 mls @ 200 mls/hr 08/28/18 09:00 08/30/18 13:28 Maxipime/Ns 2 Gm/100 Ml IV 200 mls/hr Q8HR LAZARO Administration Protocol Metronidazole 500 mg in 100 mls @ 100 mls/hr 08/30/18 14:00 08/30/18 13:29 Flagyl 500 Mg/100 Ml IV 100 mls/hr Q8HR LAZARO Administration Protocol Levothyroxine Sodium 125 mcg 08/27/18 16:00 08/30/18 10:42 Synthroid PO 125 mcg DAILY LAZARO Administration Midodrine 10 mg 08/28/18 09:00 08/30/18 13:29 Proamatine PO 10 mg TID LAZARO Administration Multivitamins/Minerals 1 each 08/24/18 10:00 08/30/18 10:42 Theragran-M Tab PO 1 each QDAY LAZARO Administration Ondansetron HCl 4 mg 08/24/18 00:56 Zofran IV Q8H PRN Nausea And Vomiting Pantoprazole Sodium 40 mg 08/24/18 10:00 08/30/18 10:42 Protonix PO 40 mg QDAY LAZARO Administration Polyethylene Glycol 17 gm 08/24/18 10:00 08/30/18 10:41 Miralax 3350 PO Not Given BID LAZARO Senna/Docusate Sodium 2 tab 08/24/18 09:39 08/24/18 19:09 Senokot S PO 2 tab Q12H PRN Administration Laxative Effect Sodium Chloride 10 ml 08/24/18 10:00 08/30/18 10:42 Sodium Chloride Flush Syringe 10 Ml IV 10 ml BID LAZARO Administration Sodium Chloride 10 ml 08/24/18 00:56 Sodium Chloride Flush Syringe 10 Ml IV PRN PRN LINE FLUSH Temazepam 15 mg 08/27/18 22:00 08/29/18 21:14 Restoril PO 15 mg QHS LAZARO Administration Tizanidine HCl 4 mg 08/27/18 16:00 08/30/18 10:42 Zanaflex PO 4 mg BID LAZARO Administration Nutrition/Malnutrition Assess - Dietary Evaluation Nutrition/Malnutrition Findings: Nutrition Notes Start: 08/27/18 13:40 Freq: Status: Active Protocol: Document 08/29/18 10:35 EB (Rec: 08/29/18 10:41 [id number]) Co-Sign 08/29/18 10:35 LP Nutrition Notes 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 Pt consumed about 50% of new gi soft diet this am and for dinner last night and continues to report consistent diarrhea that occurs about 15 minutes after eating foods. Percent of energy/protein needs met: 71%/34% Burn Absent Trauma Absent GI Symptoms Diarrhea Current % PO Fair (50-74%) #1 Nutrition Diagnosis Inadequate oral intake As Evidenced by Signs and Symptoms diet advanced to gi soft and meeting 71% and 34% of axel and pro needs respectively Diagnosis Progress(for reassessment Improved documentation) Is patient on ventilator? No Is Patient Ambulatory and/or Out of Bed Yes REE-([facility]-ambulatory/OOB) [ 1924.884 NUTR.MSJOOB] Kcal/Kg value to use for calculation 14 Approximate Energy Requirements Using 1461 kcal/Kg Calculation Used for Recommendations Kcal/kg Additional Notes PRO: 2.5 g/kg IBW of 47.72 kg (119 g/day) Fluid: 1 mL/kcal Nutrition Intervention Change Diet Order: advance when medically feasible Goal #1 advance diet when medically feasible Goal #2 meet at least 75% axel and pro needs Anticipated Discharge Needs: unable to determine at this time Follow-Up By: 09/03/18 Additional Comments F/u: PO intake and diet advancement
[2018-08-27] MEDS: TYLENOL PO PRN (18:17)
[2018-08-27] MEDS: VANCOMYCIN PO PO SCH (18:22)
[2018-08-27] MEDS: ZANAFLEX PO SCH ×2 (18:22→22:28)
[2018-08-27] MEDS: CYMBALTA PO SCH (18:24)
[2018-08-27] MEDS: SYNTHROID PO SCH (18:25)
[2018-08-27 20:29] LABS: Hematocrit 24.6 % (30.3-42.9); Hemoglobin 8.4 gm/dl (10.1-14.3)
--- NOTE | 2018-08-27 21:21 | Cat Scan Report ---
PROCEDURE: CT abdomen and pelvis without contrast. TECHNIQUE: Computerized axial tomography of the abdomen and pelvis was performed without intravenous contrast. This study is performed without intravascular contrast material and its sensitivity for ab dominal and pelvic pathology, including neoplasms, inflammation, abscess, free fluid, thrombosis, art erial dissection and infarction, is reduced compared with a contrast enhanced study. CT DOSE LENGTH PRODUCT: 1445.6 mGycm HISTORY: Gastrointestinal hemorrhage. COMPARISONS: None. FINDINGS: The lung bases are clear. There are no pleural effusions. The heart size is normal. There are several focal, poorly defined masses of low-attenuation within the liver. These would be better evaluated wi th a contrast enhanced study. I am concerned about the possibility of metastatic disease. The gallbla dder is present. There is no biliary dilatation. The pancreas and spleen are grossly normal. The adre nal glands are not enlarged. Both kidneys appear normal in size and configuration. The abdominal aort a has a normal caliber. There is atherosclerotic calcification in the abdominal aorta and common akosua c arteries. There is no retroperitoneal adenopathy. The unopacified gastrointestinal tract is unremar kable. A normal appendix is visible. There are dense calcifications in the uterus consistent with deg enerating leiomyomas. The bladder is unremarkable. There are 2 periumbilical hernias containing fat. The regional skeleton appears intact. There is severe osteoarthritis involving the facet joints in th e lower lumbar spine. There is degenerative disc disease throughout the lumbar spine. IMPRESSION: Indeterminate focal masses in the liver which could represent metastatic disease. Furthe r evaluation recommended. Uterine leiomyomas. Two periumbilical hernias containing fat. Degenerative disease throughout the lumbar spine. This document is electronically signed by Skyler Ballesteros MD., August 27 2018 09:19:01 PM ET
[2018-08-27] MEDS ORDERED: NACL 0.9% 500 ML 500 ML ONE (22:47)
[2018-08-28] MEDS: VANCOMYCIN PO PO SCH ×2 (00:07→05:45)
[2018-08-28 00:52] LABS: Hematocrit 26.7 % (30.3-42.9)
[2018-08-28] MEDS: FLAGYL 500 MG/100 ML 500 MG/100 ML BAG IV SCH ×3 (05:45→22:31)
[2018-08-28] MEDS: SYNTHROID IV SCH (05:45)
[2018-08-28 06:18] LABS: Hematocrit 25.9 % (30.3-42.9); Hemoglobin 8.8 gm/dl (10.1-14.3)
--- NOTE | 2018-08-28 07:51 | Progress Note ---
Assessment and Plan Suspected lower GI bleeding, severe colitis. Could not get follow-up colonoscopy yesterday. CGI recommendations Liver mets suggested on Abd pelvic CT Hypotension .Improved but still needing intervention. H/H adequate. Anemia Afib Sepsis? Recommendations Add Midodrine, BP monitoring Off Levophed. Bedside avaluation fails to show any orthostatism Sx's,pt seating up, using commode Appreciate ID input GI f/u Monitor UO, keep > 30 cc/ hr Could be moved out with monitoring,if VS stable , off support drips Discussed with patient detail. All questions answered. Critical care time was 31 minutes of [id number] evaluation and coordination of care Subjective Date of service: 08/28/18 Principal diagnosis: GI Bleed Interval history: No complains. States her BP has been low in recent months, been TX for her thyroid Objective Vital Signs - 12hr 08/27/18 08/27/18 08/27/18 20:00 20:31 21:03 Temperature 98.3 F Pulse Rate 66 58 L 64 Respiratory 14 12 9 L Rate Blood Pressure 85/44 87/38 89/41 O2 Sat by Pulse 96 100 98 Oximetry 08/27/18 08/27/18 08/27/18 21:31 22:00 22:01 Temperature Pulse Rate 70 60 63 Respiratory 12 12 Rate Blood Pressure 63/28 71/31 O2 Sat by Pulse 98 99 Oximetry 08/27/18 08/27/18 08/27/18 22:31 23:01 23:31 Temperature Pulse Rate 48 L 60 50 L Respiratory 13 11 L 11 L Rate Blood Pressure 76/35 71/31 71/31 O2 Sat by Pulse 99 99 99 Oximetry 08/27/18 08/28/18 08/28/18 23:33 00:00 00:01 Temperature 98.0 F Pulse Rate 48 L 54 L Respiratory 16 10 L Rate Blood Pressure 109/46 109/46 O2 Sat by Pulse 97 Oximetry 08/28/18 08/28/18 08/28/18 00:31 01:01 01:31 Temperature Pulse Rate 49 L 51 L 54 L Respiratory 12 13 12 Rate Blood Pressure 130/55 120/49 113/46 O2 Sat by Pulse 96 94 96 Oximetry 08/28/18 08/28/18 08/28/18 02:00 02:31 03:01 Temperature Pulse Rate 61 47 L 52 L Respiratory 13 15 14 Rate Blood Pressure 115/53 126/58 114/54 O2 Sat by Pulse 97 97 96 Oximetry 08/28/18 08/28/18 08/28/18 03:31 04:00 04:01 Temperature 99.0 F Pulse Rate 50 L 50 L Respiratory 14 13 13 Rate Blood Pressure 116/53 117/49 117/49 O2 Sat by Pulse 97 99 97 Oximetry 08/28/18 08/28/18 08/28/18 04:31 05:01 05:30 Temperature Pulse Rate 61 54 L 55 L Respiratory 17 15 14 Rate Blood Pressure 117/49 121/54 113/40 O2 Sat by Pulse 97 98 95 Oximetry 08/28/18 08/28/18 06:00 06:31 Temperature Pulse Rate 51 L 51 L Respiratory 13 13 Rate Blood Pressure 110/53 101/39 O2 Sat by Pulse 97 94 Oximetry Constitutional: no acute distress, appears uncomfortable, other (obese) Eyes: non-icteric ENT: oropharynx moist Neck: supple, no JVD Ascultation: Bilateral: clear, diminished breath sounds Cardiovascular: regular rate and rhythm Gastrointestinal: normoactive bowel sounds, tender (mild), non-distended Integumentary: normal Extremities: no cyanosis, no cyanosis, no cyanosis Neurologic: normal mental status, non-focal exam, pupils equal and round, CN II- XII normal CBC and BMP: 08/28/18 06:00 08/27/18 04:34 ABG, PT/INR, D-dimer: PT/INR, D-dimer PT 14.1 Sec. (12.2-14.9) 08/23/18 15:36 INR 1.03 (0.87-1.13) 08/23/18 15:36 Abnormal lab findings: Abnormal Labs 08/23/18 08/23/18 08/23/18 15:29 15:29 15:29 RBC 2.74 L Hgb 7.6 L Hct 22.3 L MCHC RDW 16.8 H Lymph % (Auto) [place] % (Auto) 11.6 H Lymph # [place] # 1.1 H Seg Neutrophils % 72.5 H Sodium 133 L Potassium 3.3 L Chloride 96.4 L BUN 32 H Creatinine 2.4 H Glucose POC Glucose Calcium 7.7 L Magnesium C-Reactive Protein Total Protein 5.7 L Albumin 2.2 L Lipase 5 L Free T4 Crossmatch See Detail 08/24/18 08/24/18 08/24/18 00:08 01:31 07:07 RBC 2.88 L Hgb 8.5 L 8.8 L 8.8 L Hct 23.5 L 24.4 L 25.4 L MCHC 36 H RDW 16.7 H Lymph % (Auto) 13.3 L [place] % (Auto) 11.4 H Lymph # [place] # 1.1 H Seg Neutrophils % 71.3 H Sodium Potassium Chloride BUN Creatinine Glucose POC Glucose Calcium Magnesium C-Reactive Protein Total Protein Albumin Lipase Free T4 Crossmatch 08/24/18 08/24/18 08/25/18 23:14 Unknown 03:45 RBC Hgb Hct MCHC RDW Lymph % (Auto) [place] % (Auto) Lymph # [place] # Seg Neutrophils % Sodium Potassium 3.0 L Chloride BUN 18 H Creatinine Glucose 141 H POC Glucose 127 H Calcium 7.6 L Magnesium C-Reactive Protein Total Protein 5.1 L Albumin 2.0 L Lipase Free T4 1.90 H Crossmatch 08/25/18 08/25/18 08/26/18 03:45 13:53 04:45 RBC 3.56 L 3.29 L Hgb 10.0 L 9.4 L Hct 29.3 L 27.2 L MCHC 35 H RDW 16.9 H 17.2 H Lymph % (Auto) [place] % (Auto) 13.4 H Lymph # 1.1 L [place] # 1.0 H Seg Neutrophils % 70.9 H Sodium Potassium Chloride BUN Creatinine Glucose POC Glucose Calcium Magnesium 1.60 L C-Reactive Protein Total Protein Albumin Lipase Free T4 Crossmatch 08/26/18 08/27/18 08/27/18 04:45 04:34 04:34 RBC 3.48 L Hgb 9.9 L Hct 29.0 L MCHC RDW 17.4 H Lymph % (Auto) [place] % (Auto) Lymph # [place] # Seg Neutrophils % Sodium Potassium 3.1 L Chloride 109.8 H 109.8 H BUN Creatinine Glucose 119 H POC Glucose Calcium 7.0 L 7.7 L Magnesium C-Reactive Protein Total Protein 5.0 L Albumin 2.1 L Lipase Free T4 Crossmatch 08/27/18 08/27/18 08/28/18 18:30 20:20 00:40 RBC Hgb 8.4 L 9.0 L Hct 24.6 L 26.7 L MCHC RDW Lymph % (Auto) [place] % (Auto) Lymph # [place] # Seg Neutrophils % Sodium Potassium Chloride BUN Creatinine Glucose POC Glucose Calcium Magnesium C-Reactive Protein 6.60 H Total Protein Albumin Lipase Free T4 Crossmatch 08/28/18 06:00 RBC Hgb 8.8 L Hct 25.9 L MCHC RDW Lymph % (Auto) [place] % (Auto) Lymph # [place] # Seg Neutrophils % Sodium Potassium Chloride BUN Creatinine Glucose POC Glucose Calcium Magnesium C-Reactive Protein Total Protein Albumin Lipase Free T4 Crossmatch
[2018-08-28] MEDS: PROAMATINE PO SCH ×4 (08:10→22:17)
--- NOTE | 2018-08-28 08:23 | Progress Note ---
Assessment and Plan Cultures: Blood culture 08/26/2018 no growth today C diff 08/24/2018 negative Assessment: 73 y/o female with history of chronic lower back pain syndrome, Graves disease, depression, OA and hypertension; admitted on due to 2-month history of bloody diarrhea, most recently associated with nausea, worsening bloody stools, generalized weakness and dizziness for 48 hours: 1) Shock ?hemorrhagic v/s septic: back on pressors this morning. Etiology most likely GI bleed +/- colitis +/- liver lesions. Blood cultures negative. UA negative. CXR negative. Should r/o hypothyroidism, low cortisol. 2) GI bleed: unclear etiology, likely colitis. EGD negative. C diff negative. Stool WBC many. CRP 6.6. Underwent flex sigmoidoscopy with severe proctitis, showed marked colitis with ulceration, atypia with focal dysplasia no granuloma, no malignancy. EGD with negative results. Colitis DDx. inflammatory (IBD) v/s infectious. 3) Anemia: s/p transfusion 4) Bilateral leg edema. 5) Liver lesions: ?unclear etiology -likely metastasis per radiology, should r/o abscesses. Recommendations: - follow-up blood cultures, procalcitonin - consider IR liver biopsy please 2 specimen for path and cultures - stop po vancomycin ( C diff negative) - start cefepime 2 gm IV q 8h - continue flagyl IV - check cortisol/TSH - agree with colonscopy when stable Discussed with Dr Smith and pharmacy Will follow. Audrey Fritz MD Infectious Diseases Cancer Program Coordinator [facility] ([facility]) M [phone] O [phone] Subjective Date of service: 08/28/18 Principal diagnosis: GI Bleed Interval history: Feels ok but back on pressors-levophed at 4. No fever, had some diarrhea overnight. Objective - Exam Narrative Exam: General appearance: Alert in NAD, conversant, obese Eyes: anicteric sclerae, moist conjunctivae; no lid-lag; PERRLA HENT: Atraumatic; oropharynx clear with moist mucous membranes and no mucosal ulcerations/no oral thrush; normal hard and soft palate. Normal external ears. Neck: Trachea midline; supple, no thyromegaly or lymphadenopathy Lungs: CTA CV: RRR Abdomen: Soft, obese, mild tenderness Extremities: bilateral marked bilateral leg edema Skin: Normal temperature, turgor and texture; no rash, ulcers or subcutaneous nodules Psych: Appropriate affect, alert and oriented to person, place and time. Neuro: alert and oriented x 3. Moving all extermities - Constitutional Vitals: Vital Signs Temp Pulse Resp BP Pulse Ox 97.5 F L 51 L 13 101/39 94 08/28/18 08:00 08/28/18 06:31 08/28/18 06:31 08/28/18 06:31 08/28/18 06:31 Temperature -Last 24 Hours Temperature 97.5 F Temperature 99.0 F Temperature 98.0 F Temperature 98.0 F Temperature 98.3 F Temperature 98.3 F Temperature 97.1 F - Labs CBC & Chem 7: 08/28/18 06:00 08/27/18 04:34 Labs: Abnormal lab results 08/27/18 08/27/18 08/28/18 Range/Units 18:30 20:20 00:40 Hgb 8.4 L 9.0 L (10.1-14.3) gm/dl Hct 24.6 L 26.7 L (30.3-42.9) % C-Reactive Protein 6.60 H (0.00-1.30) mg/dL 08/28/18 Range/Units 06:00 Hgb 8.8 L (10.1-14.3) gm/dl Hct 25.9 L (30.3-42.9) % C-Reactive Protein (0.00-1.30) mg/dL
[2018-08-28] MEDS: SYNTHROID PO SCH (10:21)
[2018-08-28] MEDS: PROTONIX PO SCH (10:21)
[2018-08-28] MEDS: CYMBALTA PO SCH (10:21)
[2018-08-28] MEDS: THERAGRAN-M Tab PO SCH (10:21)
[2018-08-28] MEDS: MIRALAX 3350 PO SCH ×2 (10:22→22:33)
[2018-08-28] MEDS: SODIUM CHLORIDE FLUSH SYRINGE 10 ML IV SCH ×2 (10:22→22:20)
[2018-08-28] MEDS: ZANAFLEX PO SCH ×2 (10:22→22:17)
--- NOTE | 2018-08-28 10:54 | Progress Note ---
Assessment and Plan Currently stable cardiac status. Levophed weaned off, BPs improving, on PO midodrine. Nothing further to add from cardiac perspective at this time. Will follow on as needed basis. The patient has been seen in conjunction with Dr. Abebe who agrees with the assessment and plan of care. - Patient Problems (1) GI bleed Current Visit: Yes Status: Acute (2) Rectal bleeding Current Visit: Yes Status: Acute (3) Hypotension Current Visit: Yes Status: Acute Qualifiers: Hypotension type: hypotension due to hypovolemia Qualified Code(s): I95.89 - Other hypotension; E86.1 - Hypovolemia (4) Symptomatic anemia Current Visit: Yes Status: Acute (5) ELISEO (acute kidney injury) Current Visit: Yes Status: Acute (6) Nausea vomiting and diarrhea Current Visit: Yes Status: Acute (7) Colitis Current Visit: Yes Status: Acute (8) Leg edema Current Visit: Yes Status: Acute (9) Hypoalbuminemia Current Visit: Yes Status: Acute (10) Hypokalemia Current Visit: Yes Status: Acute (11) Hypomagnesemia Current Visit: Yes Status: Acute Subjective Date of service: 08/28/18 Principal diagnosis: GI Bleed Interval history: pt resting in bed, no current cardiac complaints. states she is feeling better every day. in SR on tele. weaned off levophed. Objective Last Vital Signs Temp 97.5 F L 08/28/18 08:00 Pulse 77 08/28/18 10:31 Resp 15 08/28/18 10:31 BP 91/52 08/28/18 10:31 Pulse Ox 95 08/28/18 10:31 - Physical Examination General: No Apparent Distress HEENT: Positive: EOMI, Normocephaly, Mucus Membranes Moist Neck: Positive: neck supple, trachea midline Cardiac: Positive: Reg Rate and Rhythm, S1/S2 Lungs: Positive: Decreased Breath Sounds Neuro: Positive: Grossly Intact Abdomen: Positive: Soft, Active Bowel Sounds. Negative: Tender Skin: Positive: Clear. Negative: Rash Musculoskeletal: Normal Range of Motion Extremities: Present: +3 Edema (bilateral leg edema) - Labs and Meds CBC 08/27/18 08/28/18 08/28/18 Range/Units 20:20 00:40 06:00 Hgb 8.4 L 9.0 L 8.8 L (10.1-14.3) gm/dl Hct 24.6 L 26.7 L 25.9 L (30.3-42.9) % - Imaging and Cardiology EKG: report reviewed, image reviewed Echo: report reviewed (trace TR, EF 60-65%. ) - Telemetry EKG Rhythm: Sinus Rhythm - EKG Sinus rhythms and dysrhythmias: sinus rhythm
--- NOTE | 2018-08-28 11:19 | Progress Note ---
<MATTIE MANDEL - Last Filed: 08/28/18 14:05> Assessment and Plan Assessment and plan: 73 yo -H[place] woman with a history of chronic pain syndome due to OA/LBP, Graves disease then hypothyroidism, depression, OA and hypertension who presented to [facility] ED with n/v/d/bloody stools and weakness. Hypotension-resolving Weaned off Levophed gtt on 08/20; then placed back on gtt overnight; weaned off again this am On by mouth Midodrine Normocytic Anemia with BRBPR/rectal bleeding with severe Colitis, proctitis Hemoglobin on admission 7.6 Transfused 2 units of PRBC Hemoglobin this a.m. 8.8 S/P flex sig (incomplete colonoscopy) with severe proctitis- per GI if patient continues to improve may delay colonoscopy for several weeks stool culture positive for WBCs C-diff negative; Stop po Vancomycin Start cefepime 2 gm IV q 8h per ID Continue flagyl IV- per ID GI following and managing Abnormal CT Abd/Pelvis CT Abd/Pelvis on 08/27 revealed: indeterminate focal masses in the liver which could represent metastatic disease. Further evaluation recommended. Uterine leiomyomas. Two periumbilical hernias containing fat. Degenerative disease throughout the lumbar spine. May consider IR liver biopsy if GI recommends Chronic diarrhea C-diff negative; Stop po Vancomycin Start cefepime 2 gm IV q 8h per ID Continue flagyl IV- per ID ID following GI following and managing History of Hypertension Continue to monitor BP Continue to hold antihypertensive medicine History of Depression Resume Cymbalta 60 mg daily- previously held antidepressant due to NPO status Hyponatremia hypovolemia-resolved Treated with IVF Hypokalemia- resolved Repleted Potassium this a.m. 4.0 Monitor electrolytes History of Hypothyroidism/Graves: TSH 0.57, Free T4 1.90 slightly elevated Continue Synthroid 125mcg daily Severe Malnutrition Albumin 2.2 Continuing Education Instructor consult dependant Morbid obesity, bmi 43.5 Lifestyle modifications discussed Benefit from outpatient weight management program History Interval history: Pt is seen today in ICU. Pt became hypotensive during the night and was started back on Levopheh gtt. She was weaned off levophed gtt this morning. Hospitalist Physical - Physical exam Narrative exam: General appearance: Present: no acute distress, well-nourished - EENT Eyes: Present: PERRL, EOM intact ENT: hearing intact, clear oral mucosa - Neck Neck: Present: supple, normal ROM - Respiratory Respiratory effort: normal Respiratory: bilateral: diminished (bases) - Cardiovascular Heart rate: 84 (beats per minute) Rhythm: regular Heart Sounds: Present: S1 & S2. Absent: rub, click - Extremities Extremities: pulses intact, pulses symmetrical, normal temperature Extremity abnormal: edema - Peripheral Assessment Lower Extremity Edema Degree: 2+ Capillary Refill: < 3 seconds Skin Temperature: Warm - Abdominal General gastrointestinal: soft, non-tender, normal bowel sounds - Integumentary Integumentary: Present: warm, dry - Psychiatric Psychiatric: appropriate mood/affect, cooperative - Neurologic Neurologic: CNII-XII intact - Constitutional Vitals: Temp Pulse Resp BP Pulse Ox 97.5 F L 77 15 91/52 95 08/28/18 08:00 08/28/18 10:31 08/28/18 10:31 08/28/18 10:31 08/28/18 10:31 General appearance: Present: no acute distress, well-nourished Results - Labs CBC & Chem 7: 08/28/18 06:00 08/27/18 04:34 Labs: Laboratory Last Values WBC 5.2 K/mm3 (4.5-11.0) 08/27/18 04:34 RBC 3.48 M/mm3 (3.65-5.03) L 08/27/18 04:34 Hgb 8.8 gm/dl (10.1-14.3) L 08/28/18 06:00 Hct 25.9 % (30.3-42.9) L 08/28/18 06:00 MCV 83 fl (79-97) 08/27/18 04:34 MCH 28 pg (28-32) 08/27/18 04:34 MCHC 34 % (30-34) 08/27/18 04:34 RDW 17.4 % (13.2-15.2) H 08/27/18 04:34 Plt Count 382 K/mm3 (140-440) 08/27/18 04:34 Lymph % (Auto) 15.1 % (13.4-35.0) 08/25/18 03:45 [place] % (Auto) 13.4 % (0.0-7.3) H 08/25/18 03:45 Eos % (Auto) 0.4 % (0.0-4.3) 08/25/18 03:45 Baso % (Auto) 0.2 % (0.0-1.8) 08/25/18 03:45 Lymph # 1.1 K/mm3 (1.2-5.4) L 08/25/18 03:45 [place] # 1.0 K/mm3 (0.0-0.8) H 08/25/18 03:45 Eos # 0.0 K/mm3 (0.0-0.4) 08/25/18 03:45 Baso # 0.0 K/mm3 (0.0-0.1) 08/25/18 03:45 Seg Neutrophils % 70.9 % (40.0-70.0) H 08/25/18 03:45 Seg Neutrophils # 5.3 K/mm3 (1.8-7.7) 08/25/18 03:45 PT 14.1 Sec. (12.2-14.9) 08/23/18 15:36 INR 1.03 (0.87-1.13) 08/23/18 15:36 APTT 32.0 Sec. (24.2-36.6) 08/23/18 15:36 Sodium 143 mmol/L (137-145) 08/27/18 04:34 Potassium 4.0 mmol/L (3.6-5.0) D 08/27/18 04:34 Chloride 109.8 mmol/L (98-107) H 08/27/18 04:34 Carbon Dioxide 23 mmol/L (22-30) 08/27/18 04:34 Anion Gap 14 mmol/L 08/27/18 04:34 BUN 9 mg/dL (7-17) 08/27/18 04:34 Creatinine 0.9 mg/dL (0.7-1.2) 08/27/18 04:34 Estimated GFR > 60 ml/min 08/27/18 04:34 BUN/Creatinine Ratio 10 % 08/27/18 04:34 Glucose 87 mg/dL (65-100) 08/27/18 04:34 POC Glucose 127 (70-105) H 08/24/18 23:14 Hemoglobin A1c 5.3 % (4-6) 08/24/18 00:08 Calcium 7.7 mg/dL (8.4-10.2) L 08/27/18 04:34 Magnesium 1.80 mg/dL (1.7-2.3) 08/27/18 04:34 Total Bilirubin 0.30 mg/dL (0.1-1.2) 08/27/18 04:34 AST 17 units/L (5-40) 08/27/18 04:34 ALT 15 units/L (7-56) 08/27/18 04:34 Alkaline Phosphatase 58 units/L (35-129) 08/27/18 04:34 C-Reactive Protein 6.60 mg/dL (0.00-1.30) H 08/27/18 18:30 Total Protein 5.0 g/dL (6.3-8.2) L 08/27/18 04:34 Albumin 2.1 g/dL (3.9-5) L 08/27/18 04:34 Albumin/Globulin Ratio 0.7 % 08/27/18 04:34 Lipase 5 units/L (13-60) L 08/23/18 15:29 TSH 0.482 mlU/mL (0.270-4.200) 08/28/18 09:00 Free T4 1.90 ng/dL (0.76-1.46) H 08/24/18 Unknown Urine Color Yellow (Yellow) 08/23/18 17:45 Urine Turbidity Clear (Clear) 08/23/18 17:45 Urine pH 5.0 (5.0-7.0) 08/23/18 17:45 Ur Specific [place] 1.008 (1.003-1.030) 08/23/18 17:45 Urine Protein <15 mg/dl mg/dL (Negative) 08/23/18 17:45 Urine Glucose (UA) Neg mg/dL (Negative) 08/23/18 17:45 Urine Ketones Neg mg/dL (Negative) 08/23/18 17:45 Urine Blood Sm (Negative) 08/23/18 17:45 Urine Nitrite Neg (Negative) 08/23/18 17:45 Urine Bilirubin Neg (Negative) 08/23/18 17:45 Urine Urobilinogen < 2.0 mg/dL (<2.0) 08/23/18 17:45 Ur Leukocyte Esterase Neg (Negative) 08/23/18 17:45 Urine WBC (Auto) 1.0 /HPF (0.0-6.0) 08/23/18 17:45 Urine RBC (Auto) 1.0 /HPF (0.0-6.0) 08/23/18 17:45 U Epithel Cells (Auto) 2.0 /HPF (0-13.0) 08/23/18 17:45 Urine Bacteria (Auto) 2+ /HPF (Negative) 08/23/18 17:45 RPR Nonreactive (Nonreactive) 08/25/18 03:45 C. difficile Tox (PCR) Negative (Negative) 08/24/18 06:40 Blood Type O NEGATIVE 08/23/18 15:29 Antibody Screen Negative 08/23/18 15:29 Crossmatch See Detail 08/23/18 15:29 Active Medications - Current Medications Current Medications: Generic Name Dose Route Start Last Admin Trade Name Freq PRN Reason Stop Dose Admin Acetaminophen 650 mg 08/24/18 00:56 08/27/18 18:17 Tylenol PO 650 mg Q4H PRN Administration Pain MILD(1-3)/Fever >100.5/VILLARREAL Duloxetine HCl 60 mg 08/27/18 16:00 08/28/18 10:21 Cymbalta PO 60 mg DAILY LAZARO Administration Metronidazole 500 mg in 100 mls @ 100 mls/hr 08/24/18 06:00 08/28/18 05:45 Flagyl 500 Mg/100 Ml IV 100 mls/hr Q8HR LAZARO Administration Protocol Cefepime HCl 2 gm in 100 mls @ 200 mls/hr 08/28/18 09:00 Maxipime/Ns 2 Gm/100 Ml IV Q8HR LAZARO Protocol Levothyroxine Sodium 125 mcg 08/27/18 16:00 08/28/18 10:21 Synthroid PO 125 mcg DAILY LAZARO Administration Midodrine 10 mg 08/28/18 09:00 08/28/18 08:12 Proamatine PO 10 mg TID LAZARO Administration Multivitamins/Minerals 1 each 08/24/18 10:00 08/28/18 10:21 Theragran-M Tab PO 1 each QDAY LAZARO Administration Ondansetron HCl 4 mg 08/24/18 00:56 Zofran IV Q8H PRN Nausea And Vomiting Pantoprazole Sodium 40 mg 08/24/18 10:00 08/28/18 10:21 Protonix PO 40 mg QDAY LAZARO Administration Polyethylene Glycol 17 gm 08/24/18 10:00 08/28/18 10:22 Miralax 3350 PO 17 gm BID LAZARO Administration Senna/Docusate Sodium 2 tab 08/24/18 09:39 08/24/18 19:09 Senokot S PO 2 tab Q12H PRN Administration Laxative Effect Sodium Chloride 10 ml 08/24/18 10:00 08/28/18 10:22 Sodium Chloride Flush Syringe 10 Ml IV 10 ml BID LAZARO Administration Sodium Chloride 10 ml 08/24/18 00:56 Sodium Chloride Flush Syringe 10 Ml IV PRN PRN LINE FLUSH Temazepam 15 mg 08/27/18 22:00 Restoril PO QHS LAZARO Tizanidine HCl 4 mg 08/27/18 16:00 08/28/18 10:22 Zanaflex PO 4 mg BID LAZARO Administration Nutrition/Malnutrition Assess - Dietary Evaluation Nutrition/Malnutrition Findings: Nutrition Notes Start: 08/27/18 13:40 Freq: Status: Active Protocol: Document 08/27/18 13:40 EB (Rec: 08/27/18 14:03 EB [id number]) Co-Sign 08/27/18 13:40 RM Nutrition Notes Need for Assessment generated from: pattern developer,MST Initial or Follow up Assessment Other Pertinent Diagnosis Hypotension, colitis Current Diet Cl liq Labs/Tests Reviewed Pertinent Medications Levophed, Protonix Height 5 ft 1 in Weight 104.33 kg [place] Body Weight (kg) 47.72 BMI 43.4 Weight Status Obese Subjective/Other Information Pt screened for skin risk, MST , and difficulty chewing. Pt sitting up in chair at bedside at time of visit. Pt on cl liq diet and consumed about 25% of meal this am. Pt complains of consistent diarrhea, and mentioned she is trying to drink as much as she can of the cl liq diet. Pt stated she was not interested in Ensure Clear to supplement her diet. Percent of energy/protein needs met: 8%/4% Burn Absent Trauma Absent GI Symptoms Diarrhea Current % PO Poor (25-49%) #1 Nutrition Diagnosis Inadequate oral intake Etiology colitis As Evidenced by Signs and Symptoms on cl liq diet Is patient on ventilator? No Is Patient Ambulatory and/or Out of Bed Yes REE-([facility]-ambulatory/OOB) [ 1924.884 NUTR.MSJOOB] Kcal/Kg value to use for calculation 14 Approximate Energy Requirements Using 1461 kcal/Kg Calculation Used for Recommendations Kcal/kg Additional Notes PRO: 2.5 g/kg IBW of 47.72 kg (119 g/day) Fluid: 1 mL/kcal Nutrition Intervention Change Diet Order: advance when medically feasible Goal #1 advance diet when medically feasible Anticipated Discharge Needs: unable to determine at this time Follow-Up By: 08/29/18 Additional Comments F/u: PO intake and diet advancement <NICHOLAS WOOD M - Last Filed: 08/31/18 18:37> Assessment and Plan Assessment and plan: I saw and evaluated the patient. I agree with the findings and the plan of care as documented in the Nurse Practitioner's~note, with the following corrections and additions. - plan to give gentle diuresis when BP is improved -wean off presors, cont midodrine CCT 44 minutes History Interval history: LE edema is improved denies CP, dizzyness, admits to Generalized weakness, no diarrhea, no vomiting Hospitalist Physical - Constitutional Vitals: Temp Pulse Resp BP Pulse Ox 98.2 F 58 L 20 127/69 98 08/31/18 13:34 08/31/18 13:34 08/31/18 13:34 08/31/18 13:34 08/31/18 13:34 Results - Labs CBC & Chem 7: 08/31/18 15:38 08/31/18 15:38 Labs: Laboratory Last Values WBC 7.6 K/mm3 (4.5-11.0) 08/31/18 15:38 RBC 3.51 M/mm3 (3.65-5.03) L 08/31/18 15:38 Hgb 9.8 gm/dl (10.1-14.3) L 08/31/18 15:38 Hct 29.2 % (30.3-42.9) L 08/31/18 15:38 MCV 83 fl (79-97) 08/31/18 15:38 MCH 28 pg (28-32) 08/31/18 15:38 MCHC 34 % (30-34) 08/31/18 15:38 RDW 18.9 % (13.2-15.2) H 08/31/18 15:38 Plt Count 266 K/mm3 (140-440) 08/31/18 15:38 Lymph % (Auto) 11.9 % (13.4-35.0) L 08/31/18 15:38 [place] % (Auto) 5.3 % (0.0-7.3) 08/31/18 15:38 Eos % (Auto) 0.5 % (0.0-4.3) 08/31/18 15:38 Baso % (Auto) 0.2 % (0.0-1.8) 08/31/18 15:38 Lymph # 0.9 K/mm3 (1.2-5.4) L 08/31/18 15:38 [place] # 0.4 K/mm3 (0.0-0.8) 08/31/18 15:38 Eos # 0.0 K/mm3 (0.0-0.4) 08/31/18 15:38 Baso # 0.0 K/mm3 (0.0-0.1) 08/31/18 15:38 Seg Neutrophils % 82.1 % (40.0-70.0) H 08/31/18 15:38 Seg Neutrophils # 6.2 K/mm3 (1.8-7.7) 08/31/18 15:38 PT 14.1 Sec. (12.2-14.9) 08/23/18 15:36 INR 1.03 (0.87-1.13) 08/23/18 15:36 APTT 32.0 Sec. (24.2-36.6) 08/23/18 15:36 Sodium 139 mmol/L (137-145) 08/31/18 15:38 Potassium 3.7 mmol/L (3.6-5.0) 08/31/18 15:38 Chloride 109.2 mmol/L (98-107) H 08/31/18 15:38 Carbon Dioxide 19 mmol/L (22-30) L 08/31/18 15:38 Anion Gap 15 mmol/L 08/31/18 15:38 BUN 13 mg/dL (7-17) 08/31/18 15:38 Creatinine 0.9 mg/dL (0.7-1.2) 08/31/18 15:38 Estimated GFR > 60 ml/min 08/31/18 15:38 BUN/Creatinine Ratio 14 % 08/31/18 15:38 Glucose 135 mg/dL (65-100) H 08/31/18 15:38 POC Glucose 127 (70-105) H 08/24/18 23:14 Hemoglobin A1c 5.3 % (4-6) 08/24/18 00:08 Calcium 7.3 mg/dL (8.4-10.2) L 08/31/18 15:38 Phosphorus 2.40 mg/dL (2.5-4.5) L 08/31/18 15:38 Magnesium 1.60 mg/dL (1.7-2.3) L 08/31/18 15:38 Total Bilirubin 0.20 mg/dL (0.1-1.2) 08/31/18 15:38 Direct Bilirubin < 0.2 mg/dL (0-0.2) 08/31/18 15:38 AST 13 units/L (5-40) 08/31/18 15:38 ALT 10 units/L (7-56) 08/31/18 15:38 Alkaline Phosphatase 63 units/L (35-129) 08/31/18 15:38 C-Reactive Protein 6.60 mg/dL (0.00-1.30) H 08/27/18 18:30 Total Protein 4.8 g/dL (6.3-8.2) L 08/31/18 15:38 Albumin 1.8 g/dL (3.9-5) L 08/31/18 15:38 Albumin/Globulin Ratio 0.6 % 08/31/18 15:38 Lipase 5 units/L (13-60) L 08/23/18 15:29 TSH 0.482 mlU/mL (0.270-4.200) 08/28/18 09:00 Free T4 1.90 ng/dL (0.76-1.46) H 08/24/18 Unknown Thyroxine (T4) 5.7 ug/dL (4.0-12.0) 08/29/18 13:15 Urine Color Yellow (Yellow) 08/23/18 17:45 Urine Turbidity Clear (Clear) 08/23/18 17:45 Urine pH 5.0 (5.0-7.0) 08/23/18 17:45 Ur Specific [place] 1.008 (1.003-1.030) 08/23/18 17:45 Urine Protein <15 mg/dl mg/dL (Negative) 08/23/18 17:45 Urine Glucose (UA) Neg mg/dL (Negative) 08/23/18 17:45 Urine Ketones Neg mg/dL (Negative) 08/23/18 17:45 Urine Blood Sm (Negative) 08/23/18 17:45 Urine Nitrite Neg (Negative) 08/23/18 17:45 Urine Bilirubin Neg (Negative) 08/23/18 17:45 Urine Urobilinogen < 2.0 mg/dL (<2.0) 08/23/18 17:45 Ur Leukocyte Esterase Neg (Negative) 08/23/18 17:45 Urine WBC (Auto) 1.0 /HPF (0.0-6.0) 08/23/18 17:45 Urine RBC (Auto) 1.0 /HPF (0.0-6.0) 08/23/18 17:45 U Epithel Cells (Auto) 2.0 /HPF (0-13.0) 08/23/18 17:45 Urine Bacteria (Auto) 2+ /HPF (Negative) 08/23/18 17:45 RPR Nonreactive (Nonreactive) 08/25/18 03:45 C. difficile Tox (PCR) Negative (Negative) 08/24/18 06:40 Miscellaneous Test Flexitest 1 08/28/18 09:00 Blood Type O NEGATIVE 08/23/18 15:29 Antibody Screen Negative 08/23/18 15:29 Crossmatch See Detail 08/23/18 15:29 Active Medications - Current Medications Current Medications: Generic Name Dose Route Start Last Admin Trade Name Freq PRN Reason Stop Dose Admin Acetaminophen 650 mg 08/24/18 00:56 08/27/18 18:17 Tylenol PO 650 mg Q4H PRN Administration Pain MILD(1-3)/Fever >100.5/VILLARREAL Duloxetine HCl 60 mg 08/27/18 16:00 08/31/18 10:06 Cymbalta PO 60 mg DAILY LAZARO Administration Hydrocortisone Acetate 20 mg 08/30/18 11:00 08/31/18 10:55 Cortef PO 20 mg QDAY LAZARO Administration Cefepime HCl 2 gm in 100 mls @ 200 mls/hr 08/28/18 09:00 08/31/18 13:45 Maxipime/Ns 2 Gm/100 Ml IV 200 mls/hr Q8HR LAZARO Administration Protocol Metronidazole 500 mg in 100 mls @ 100 mls/hr 08/30/18 14:00 08/31/18 13:46 Flagyl 500 Mg/100 Ml IV 100 mls/hr Q8HR LAZARO Administration Protocol Magnesium Sulfate 2 gm in 50 mls @ 25 mls/hr 08/31/18 19:00 Magnesium Sulfate 2gm/50ml IV 08/31/18 20:59 ONCE ONE Levothyroxine Sodium 125 mcg 08/27/18 16:00 08/31/18 10:55 Synthroid PO 125 mcg DAILY LAZARO Administration Lorazepam 2 mg 08/31/18 11:45 Ativan IV 08/31/18 23:59 RICE MILLING SUPERVISOR NR Midodrine 10 mg 08/28/18 09:00 08/31/18 13:46 Proamatine PO 10 mg TID LAZARO Administration Morphine Sulfate 2 mg 08/31/18 11:36 Morphine IV Q24H PRN for MRI Multivitamins/Minerals 1 each 08/24/18 10:00 08/31/18 10:06 Theragran-M Tab PO 1 each QDAY LAZARO Administration Ondansetron HCl 4 mg 08/24/18 00:56 Zofran IV Q8H PRN Nausea And Vomiting Pantoprazole Sodium 40 mg 08/24/18 10:00 08/31/18 10:06 Protonix PO 40 mg QDAY LAZARO Administration Polyethylene Glycol 17 gm 08/24/18 10:00 08/31/18 10:06 Miralax 3350 PO Not Given BID LAZARO Senna/Docusate Sodium 2 tab 08/24/18 09:39 08/24/18 19:09 Senokot S PO 2 tab Q12H PRN Administration Laxative Effect Sodium Chloride 10 ml 08/24/18 10:00 08/31/18 10:07 Sodium Chloride Flush Syringe 10 Ml IV 10 ml BID LAZARO Administration Sodium Chloride 10 ml 08/24/18 00:56 Sodium Chloride Flush Syringe 10 Ml IV PRN PRN LINE FLUSH Temazepam 15 mg 08/27/18 22:00 08/31/18 01:28 Restoril PO 15 mg QHS LAZARO Administration Tizanidine HCl 4 mg 08/27/18 16:00 08/31/18 10:06 Zanaflex PO 4 mg BID LAZARO Administration Nutrition/Malnutrition Assess - Dietary Evaluation Nutrition/Malnutrition Findings: Nutrition Notes Start: 08/27/18 13:40 Freq: Status: Active Protocol: Document 08/29/18 10:35 EB (Rec: 08/29/18 10:41 EB [id number]) Co-Sign 08/29/18 10:35 LP Nutrition Notes Need for Assessment generated from: pattern developer,MST Initial or Follow up Reassessment Other Pertinent Diagnosis Hypotension, colitis Current Diet GI soft diet Labs/Tests Reviewed Pertinent Medications Levophed, Protonix Height 5 ft 1 in Weight 104.33 kg [place] Body Weight (kg) 47.72 BMI 43.4 Weight Status Obese Subjective/Other Information Following for diet advancement and tolerance. Pt consumed about 50% of new gi soft diet this am and for dinner last night and continues to report consistent diarrhea that occurs about 15 minutes after eating foods. Percent of energy/protein needs met: 71%/34% Burn Absent Trauma Absent GI Symptoms Diarrhea Current % PO Fair (50-74%) #1 Nutrition Diagnosis Inadequate oral intake As Evidenced by Signs and Symptoms diet advanced to gi soft and meeting 71% and 34% of axel and pro needs respectively Diagnosis Progress(for reassessment Improved documentation) Is patient on ventilator? No Is Patient Ambulatory and/or Out of Bed Yes REE-([facility]-ambulatory/OOB) [ 1924.884 NUTR.MSJOOB] Kcal/Kg value to use for calculation 14 Approximate Energy Requirements Using 1461 kcal/Kg Calculation Used for Recommendations Kcal/kg Additional Notes PRO: 2.5 g/kg IBW of 47.72 kg (119 g/day) Fluid: 1 mL/kcal Nutrition Intervention Change Diet Order: advance when medically feasible Goal #1 advance diet when medically feasible Goal #2 meet at least 75% axel and pro needs Anticipated Discharge Needs: unable to determine at this time Follow-Up By: 09/03/18 Additional Comments F/u: PO intake and diet advancement
[2018-08-28] MEDS: MAXIPIME/NS 2 GM/100 ML 2 GM/100 ML BAG IV SCH ×3 (11:36→22:19)
--- NOTE | 2018-08-28 14:26 | Gastroenterology Progress Note ---
Assessment and Plan 1. Colitis -afebrile -WBC WNL -stool + for WBCs -stool culture and C-diff pending -H/H stable -s/p EGD with negative results -s/p flex sig (incomplete colonoscopy) with severe proctitis -bx result indeterminate -etiology unclear- stercoral vs ischemic vs infection vs IBD -clinically, patient's diarrhea has now improved. No BM this am or signs of bleeding. Denies abd pain or N/V. Tolerating clears. -start on GI soft diet-advance as tolerated -continue empiric antibiotics and supportive care -recommend outpatient colonoscopy in 4-6 weeks once acute colitis has resolved -patient is okay to be d/c per GI standpoint on antibiotics with f/u in clinic in ~ 2 weeks to schedule colonoscopy as above -will sign off, please call if needed Subjective Date of service: 08/28/18 Principal diagnosis: GI Bleed Interval history: Patient w/o acute distress. BP now improved. Reports diarrhea significantly improved with no BM so for this am. No active signs of bleeding per nursing. Denies abd pain or N/v. Tolerating clears. Objective - Constitutional Vitals: Temp Pulse Resp BP Pulse Ox 97.2 F L 48 L 15 105/52 95 08/28/18 12:00 08/28/18 13:00 08/28/18 13:00 08/28/18 13:00 08/28/18 13:00 General appearance: no acute distress, obese - Respiratory Respiratory: bilateral: CTA - Cardiovascular Rhythm: other (bradycardia) - Gastrointestinal General gastrointestinal: Present: soft, non-tender, non-distended, normal bowel sounds - Neurologic Neurological: alert and oriented x3 - Labs CBC & Chem 7: 08/28/18 06:00 08/27/18 04:34 Labs: Laboratory Results - last 24 hr 08/24/18 08/27/18 08/27/18 06:40 18:30 20:20 Hgb 8.4 L Hct 24.6 L C-Reactive Protein 6.60 H TSH C. difficile Tox (PCR) Negative 08/28/18 08/28/18 08/28/18 00:40 06:00 09:00 Hgb 9.0 L 8.8 L Hct 26.7 L 25.9 L C-Reactive Protein TSH 0.482 C. difficile Tox (PCR)
[2018-08-28] MEDS: RESTORIL PO SCH ×2 (22:18→22:22)
[2018-08-29] MEDS: FLAGYL 500 MG/100 ML 500 MG/100 ML BAG IV SCH ×3 (05:57→21:11)
[2018-08-29] MEDS: MAXIPIME/NS 2 GM/100 ML 2 GM/100 ML BAG IV SCH ×2 (05:58→15:47)
[2018-08-29] MEDS: CYMBALTA PO SCH (10:37)
[2018-08-29] MEDS: PROTONIX PO SCH (10:38)
[2018-08-29] MEDS: SYNTHROID PO SCH (10:38)
[2018-08-29] MEDS: PROAMATINE PO SCH ×3 (10:38→21:13)
[2018-08-29] MEDS: ZANAFLEX PO SCH ×2 (10:39→21:16)
[2018-08-29] MEDS: THERAGRAN-M Tab PO SCH (10:39)
[2018-08-29] MEDS ORDERED: NACL 0.9% 500 ML 500 ML IV ONE (11:28)
--- NOTE | 2018-08-29 11:36 | Progress Note ---
<MATTIE MANDEL - Last Filed: 08/29/18 16:17> Assessment and Plan Assessment and plan: 73 yo -Filipino woman with a history of chronic pain syndome due to OA/LBP, Graves disease then hypothyroidism, depression, OA and hypertension who presented to [facility] ED with n/v/d/bloody stools and weakness. She was admitted to the ICU. She was on Levophed gtt, and weand off drip on 08/28. She is on po Midodrine to help maintain bp. On 08/27 CT Abd/ Pelvis Pt indeterminate focal masses in the liver which could represent metastatic disease. She was transferred to IMCU on 08/29. Hypotension-resolving Weaned off Levophed gtt on 08/20; then placed back on gtt overnight; weaned off again this am Continue by mouth Midodrine Normocytic Anemia with BRBPR/rectal bleeding with severe Colitis, proctitis Hemoglobin on admission 7.6 Transfused 2 units of PRBC Hemoglobin this a.m. 8.8 S/P flex sig (incomplete colonoscopy) with severe proctitis- per GI if patient continues to improve may delay colonoscopy for several weeks stool culture positive for WBCs C-diff negative; Stop po Vancomycin Start cefepime 2 gm IV q 8h per ID Continue flagyl IV- per ID GI following and managing Abnormal CT Abd/Pelvis CT Abd/Pelvis on 08/27 revealed: indeterminate focal masses in the liver which could represent metastatic disease. Further evaluation recommended. Uterine leiomyomas. Two periumbilical hernias containing fat. Degenerative disease throughout the lumbar spine. Per GI abdominal MRI pending Chronic diarrhea Improving C-diff negative; discontinue po Vancomycin Start cefepime 2 gm IV q 8h per ID Continue flagyl IV- per ID ID following GI following and managing- recommends outpatient colonoscopy in 4-6 weeks once acute colitis has resolved History of Hypertension Continue to monitor BP Continue to hold antihypertensive medicine Hypomagnesemia Replete Monitor labs History of Depression Resume Cymbalta 60 mg daily- previously held antidepressant due to NPO status Hyponatremia hypovolemia-resolved Treated with IVF Hypokalemia- resolved Repleted Monitor electrolytes History of Hypothyroidism/Graves: TSH 0.57, Free T4 1.90 slightly elevated Continue Synthroid 125mcg daily Severe Malnutrition Albumin 2.2 On soft diet Wheel [employer] Super[employer] consult pending Morbid obesity, bmi 43.5 Lifestyle modifications discussed Benefit from outpatient weight management program History Interval history: Pt is seen today in the [facility]. Her blood pressure has remained stable since being weaned off of Levothroid drip and placed on by mouth midodrine. She has tolerated her soft diet. Her diarrhea has now improved. She did not have a bowel movement this morning, and there are no signs of bleeding. Denies dyspnea, nausea, vomiting, pain, headache. Hospitalist Physical - Physical exam Narrative exam: General appearance: Present: no acute distress, well-nourished - EENT Eyes: Present: PERRL, EOM intact ENT: hearing intact, clear oral mucosa - Neck Neck: Present: supple, normal ROM - Respiratory Respiratory effort: normal Respiratory: bilateral: diminished (bases) - Cardiovascular Heart rate: 84 (beats per minute) Rhythm: regular Heart Sounds: Present: S1 & S2. Absent: rub, click - Extremities Extremities: pulses intact, pulses symmetrical, normal temperature Extremity abnormal: edema - Peripheral Assessment Lower Extremity Edema Degree: 2+ Capillary Refill: < 3 seconds Skin Temperature: Warm - Abdominal General gastrointestinal: soft, non-tender, normal bowel sounds - Integumentary Integumentary: Present: warm, dry - Psychiatric Psychiatric: appropriate mood/affect, cooperative - Neurologic Neurologic: CNII-XII intact - Constitutional Vitals: Temp Pulse Resp BP Pulse Ox 98.0 F 69 12 104/54 97 08/29/18 08:00 08/29/18 08:30 08/29/18 08:30 08/29/18 08:30 08/29/18 08:30 General appearance: Present: no acute distress, well-nourished Results - Labs CBC & Chem 7: 08/29/18 13:15 08/29/18 13:15 Labs: Laboratory Last Values WBC 5.2 K/mm3 (4.5-11.0) 08/27/18 04:34 RBC 3.48 M/mm3 (3.65-5.03) L 08/27/18 04:34 Hgb 8.8 gm/dl (10.1-14.3) L 08/28/18 06:00 Hct 25.9 % (30.3-42.9) L 08/28/18 06:00 MCV 83 fl (79-97) 08/27/18 04:34 MCH 28 pg (28-32) 08/27/18 04:34 MCHC 34 % (30-34) 08/27/18 04:34 RDW 17.4 % (13.2-15.2) H 08/27/18 04:34 Plt Count 382 K/mm3 (140-440) 08/27/18 04:34 Lymph % (Auto) 15.1 % (13.4-35.0) 08/25/18 03:45 [place] % (Auto) 13.4 % (0.0-7.3) H 08/25/18 03:45 Eos % (Auto) 0.4 % (0.0-4.3) 08/25/18 03:45 Baso % (Auto) 0.2 % (0.0-1.8) 08/25/18 03:45 Lymph # 1.1 K/mm3 (1.2-5.4) L 08/25/18 03:45 [place] # 1.0 K/mm3 (0.0-0.8) H 08/25/18 03:45 Eos # 0.0 K/mm3 (0.0-0.4) 08/25/18 03:45 Baso # 0.0 K/mm3 (0.0-0.1) 08/25/18 03:45 Seg Neutrophils % 70.9 % (40.0-70.0) H 08/25/18 03:45 Seg Neutrophils # 5.3 K/mm3 (1.8-7.7) 08/25/18 03:45 PT 14.1 Sec. (12.2-14.9) 08/23/18 15:36 INR 1.03 (0.87-1.13) 08/23/18 15:36 APTT 32.0 Sec. (24.2-36.6) 08/23/18 15:36 Sodium 143 mmol/L (137-145) 08/27/18 04:34 Potassium 4.0 mmol/L (3.6-5.0) D 08/27/18 04:34 Chloride 109.8 mmol/L (98-107) H 08/27/18 04:34 Carbon Dioxide 23 mmol/L (22-30) 08/27/18 04:34 Anion Gap 14 mmol/L 08/27/18 04:34 BUN 9 mg/dL (7-17) 08/27/18 04:34 Creatinine 0.9 mg/dL (0.7-1.2) 08/27/18 04:34 Estimated GFR > 60 ml/min 08/27/18 04:34 BUN/Creatinine Ratio 10 % 08/27/18 04:34 Glucose 87 mg/dL (65-100) 08/27/18 04:34 POC Glucose 127 (70-105) H 08/24/18 23:14 Hemoglobin A1c 5.3 % (4-6) 08/24/18 00:08 Calcium 7.7 mg/dL (8.4-10.2) L 08/27/18 04:34 Magnesium 1.80 mg/dL (1.7-2.3) 08/27/18 04:34 Total Bilirubin 0.30 mg/dL (0.1-1.2) 08/27/18 04:34 AST 17 units/L (5-40) 08/27/18 04:34 ALT 15 units/L (7-56) 08/27/18 04:34 Alkaline Phosphatase 58 units/L (35-129) 08/27/18 04:34 C-Reactive Protein 6.60 mg/dL (0.00-1.30) H 08/27/18 18:30 Total Protein 5.0 g/dL (6.3-8.2) L 08/27/18 04:34 Albumin 2.1 g/dL (3.9-5) L 08/27/18 04:34 Albumin/Globulin Ratio 0.7 % 08/27/18 04:34 Lipase 5 units/L (13-60) L 08/23/18 15:29 TSH 0.482 mlU/mL (0.270-4.200) 08/28/18 09:00 Free T4 1.90 ng/dL (0.76-1.46) H 08/24/18 Unknown Urine Color Yellow (Yellow) 08/23/18 17:45 Urine Turbidity Clear (Clear) 08/23/18 17:45 Urine pH 5.0 (5.0-7.0) 08/23/18 17:45 Ur Specific [place] 1.008 (1.003-1.030) 08/23/18 17:45 Urine Protein <15 mg/dl mg/dL (Negative) 08/23/18 17:45 Urine Glucose (UA) Neg mg/dL (Negative) 08/23/18 17:45 Urine Ketones Neg mg/dL (Negative) 08/23/18 17:45 Urine Blood Sm (Negative) 08/23/18 17:45 Urine Nitrite Neg (Negative) 08/23/18 17:45 Urine Bilirubin Neg (Negative) 08/23/18 17:45 Urine Urobilinogen < 2.0 mg/dL (<2.0) 08/23/18 17:45 Ur Leukocyte Esterase Neg (Negative) 08/23/18 17:45 Urine WBC (Auto) 1.0 /HPF (0.0-6.0) 08/23/18 17:45 Urine RBC (Auto) 1.0 /HPF (0.0-6.0) 08/23/18 17:45 U Epithel Cells (Auto) 2.0 /HPF (0-13.0) 08/23/18 17:45 Urine Bacteria (Auto) 2+ /HPF (Negative) 08/23/18 17:45 RPR Nonreactive (Nonreactive) 08/25/18 03:45 C. difficile Tox (PCR) Negative (Negative) 08/24/18 06:40 Blood Type O NEGATIVE 08/23/18 15:29 Antibody Screen Negative 08/23/18 15:29 Crossmatch See Detail 08/23/18 15:29 Active Medications - Current Medications Current Medications: Generic Name Dose Route Start Last Admin Trade Name Freq PRN Reason Stop Dose Admin Acetaminophen 650 mg 08/24/18 00:56 08/27/18 18:17 Tylenol PO 650 mg Q4H PRN Administration Pain MILD(1-3)/Fever >100.5/VILLARREAL Duloxetine HCl 60 mg 08/27/18 16:00 08/29/18 10:37 Cymbalta PO 60 mg DAILY LAZARO Administration Metronidazole 500 mg in 100 mls @ 100 mls/hr 08/24/18 06:00 08/29/18 05:57 Flagyl 500 Mg/100 Ml IV 100 mls/hr Q8HR LAZARO Administration Protocol Cefepime HCl 2 gm in 100 mls @ 200 mls/hr 08/28/18 09:00 08/29/18 05:58 Maxipime/Ns 2 Gm/100 Ml IV 200 mls/hr Q8HR LAZARO Administration Protocol Sodium Chloride 1,000 mls @ 75 mls/hr 08/29/18 12:00 Nacl 0.9% 1000 Ml IV DIRECT LAZARO Sodium Chloride 500 mls @ 999 mls/hr 08/29/18 11:28 Nacl 0.9% 500 Ml IV 08/29/18 11:58 ONCE ONE Levothyroxine Sodium 125 mcg 08/27/18 16:00 08/29/18 10:38 Synthroid PO 125 mcg DAILY LAZARO Administration Midodrine 10 mg 08/28/18 09:00 08/29/18 10:38 Proamatine PO 10 mg TID LAZARO Administration Multivitamins/Minerals 1 each 08/24/18 10:00 08/29/18 10:39 Theragran-M Tab PO 1 each QDAY LAZARO Administration Ondansetron HCl 4 mg 08/24/18 00:56 Zofran IV Q8H PRN Nausea And Vomiting Pantoprazole Sodium 40 mg 08/24/18 10:00 08/29/18 10:38 Protonix PO 40 mg QDAY LAZARO Administration Polyethylene Glycol 17 gm 08/24/18 10:00 08/28/18 22:33 Miralax 3350 PO Not Given BID LAZARO Senna/Docusate Sodium 2 tab 08/24/18 09:39 08/24/18 19:09 Senokot S PO 2 tab Q12H PRN Administration Laxative Effect Sodium Chloride 10 ml 08/24/18 10:00 08/28/18 22:20 Sodium Chloride Flush Syringe 10 Ml IV 10 ml BID LAZARO Administration Sodium Chloride 10 ml 08/24/18 00:56 Sodium Chloride Flush Syringe 10 Ml IV PRN PRN LINE FLUSH Temazepam 15 mg 08/27/18 22:00 08/28/18 22:22 Restoril PO 15 mg QHS LAZARO Administration Tizanidine HCl 4 mg 08/27/18 16:00 08/29/18 10:39 Zanaflex PO 4 mg BID LAZARO Administration Nutrition/Malnutrition Assess - Dietary Evaluation Nutrition/Malnutrition Findings: Nutrition Notes Start: 08/27/18 13:40 Freq: Status: Active Protocol: Document 08/29/18 10:35 EB (Rec: 08/29/18 10:41 EB [id number]) Co-Sign 08/29/18 10:35 LP Nutrition Notes Need for Assessment generated from: production material handler,MST Initial or Follow up Reassessment Other Pertinent Diagnosis Hypotension, colitis Current Diet GI soft diet Labs/Tests Reviewed Pertinent Medications Levophed, Protonix Height 5 ft 1 in Weight 104.33 kg [place] Body Weight (kg) 47.72 BMI 43.4 Weight Status Obese Subjective/Other Information Following for diet advancement and tolerance. Pt consumed about 50% of new gi soft diet this am and for dinner last night and continues to report consistent diarrhea that occurs about 15 minutes after eating foods. Percent of energy/protein needs met: 71%/34% Burn Absent Trauma Absent GI Symptoms Diarrhea Current % PO Fair (50-74%) #1 Nutrition Diagnosis Inadequate oral intake As Evidenced by Signs and Symptoms diet advanced to gi soft and meeting 71% and 34% of axel and pro needs respectively Diagnosis Progress(for reassessment Improved documentation) Is patient on ventilator? No Is Patient Ambulatory and/or Out of Bed Yes REE-([facility]-ambulatory/OOB) [ 1924.884 NUTR.MSJOOB] Kcal/Kg value to use for calculation 14 Approximate Energy Requirements Using 1461 kcal/Kg Calculation Used for Recommendations Kcal/kg Additional Notes PRO: 2.5 g/kg IBW of 47.72 kg (119 g/day) Fluid: 1 mL/kcal Nutrition Intervention Change Diet Order: advance when medically feasible Goal #1 advance diet when medically feasible Goal #2 meet at least 75% axel and pro needs Anticipated Discharge Needs: unable to determine at this time Follow-Up By: 09/03/18 Additional Comments F/u: PO intake and diet advancement <NICHOLAS WOOD M - Last Filed: 08/31/18 19:22> Assessment and Plan Assessment and plan: I saw and evaluated the patient. I agree with the findings and the plan of care as documented in the Nurse Practitioner's~note, Hospitalist Physical - Constitutional Vitals: Temp Pulse Resp BP Pulse Ox 98.2 F 58 L 20 127/69 98 08/31/18 13:34 08/31/18 13:34 08/31/18 13:34 08/31/18 13:34 08/31/18 13:34 Results - Labs CBC & Chem 7: 08/31/18 15:38 08/31/18 15:38 Labs: Laboratory Last Values WBC 7.6 K/mm3 (4.5-11.0) 08/31/18 15:38 RBC 3.51 M/mm3 (3.65-5.03) L 08/31/18 15:38 Hgb 9.8 gm/dl (10.1-14.3) L 08/31/18 15:38 Hct 29.2 % (30.3-42.9) L 08/31/18 15:38 MCV 83 fl (79-97) 08/31/18 15:38 MCH 28 pg (28-32) 08/31/18 15:38 MCHC 34 % (30-34) 08/31/18 15:38 RDW 18.9 % (13.2-15.2) H 08/31/18 15:38 Plt Count 266 K/mm3 (140-440) 08/31/18 15:38 Lymph % (Auto) 11.9 % (13.4-35.0) L 08/31/18 15:38 [place] % (Auto) 5.3 % (0.0-7.3) 08/31/18 15:38 Eos % (Auto) 0.5 % (0.0-4.3) 08/31/18 15:38 Baso % (Auto) 0.2 % (0.0-1.8) 08/31/18 15:38 Lymph # 0.9 K/mm3 (1.2-5.4) L 08/31/18 15:38 [place] # 0.4 K/mm3 (0.0-0.8) 08/31/18 15:38 Eos # 0.0 K/mm3 (0.0-0.4) 08/31/18 15:38 Baso # 0.0 K/mm3 (0.0-0.1) 08/31/18 15:38 Seg Neutrophils % 82.1 % (40.0-70.0) H 08/31/18 15:38 Seg Neutrophils # 6.2 K/mm3 (1.8-7.7) 08/31/18 15:38 PT 14.1 Sec. (12.2-14.9) 08/23/18 15:36 INR 1.03 (0.87-1.13) 08/23/18 15:36 APTT 32.0 Sec. (24.2-36.6) 08/23/18 15:36 Sodium 139 mmol/L (137-145) 08/31/18 15:38 Potassium 3.7 mmol/L (3.6-5.0) 08/31/18 15:38 Chloride 109.2 mmol/L (98-107) H 08/31/18 15:38 Carbon Dioxide 19 mmol/L (22-30) L 08/31/18 15:38 Anion Gap 15 mmol/L 08/31/18 15:38 BUN 13 mg/dL (7-17) 08/31/18 15:38 Creatinine 0.9 mg/dL (0.7-1.2) 08/31/18 15:38 Estimated GFR > 60 ml/min 08/31/18 15:38 BUN/Creatinine Ratio 14 % 08/31/18 15:38 Glucose 135 mg/dL (65-100) H 08/31/18 15:38 POC Glucose 127 (70-105) H 08/24/18 23:14 Hemoglobin A1c 5.3 % (4-6) 08/24/18 00:08 Calcium 7.3 mg/dL (8.4-10.2) L 08/31/18 15:38 Phosphorus 2.40 mg/dL (2.5-4.5) L 08/31/18 15:38 Magnesium 1.60 mg/dL (1.7-2.3) L 08/31/18 15:38 Total Bilirubin 0.20 mg/dL (0.1-1.2) 08/31/18 15:38 Direct Bilirubin < 0.2 mg/dL (0-0.2) 08/31/18 15:38 AST 13 units/L (5-40) 08/31/18 15:38 ALT 10 units/L (7-56) 08/31/18 15:38 Alkaline Phosphatase 63 units/L (35-129) 08/31/18 15:38 C-Reactive Protein 6.60 mg/dL (0.00-1.30) H 08/27/18 18:30 Total Protein 4.8 g/dL (6.3-8.2) L 08/31/18 15:38 Albumin 1.8 g/dL (3.9-5) L 08/31/18 15:38 Albumin/Globulin Ratio 0.6 % 08/31/18 15:38 Lipase 5 units/L (13-60) L 08/23/18 15:29 TSH 0.482 mlU/mL (0.270-4.200) 08/28/18 09:00 Free T4 1.90 ng/dL (0.76-1.46) H 08/24/18 Unknown Thyroxine (T4) 5.7 ug/dL (4.0-12.0) 08/29/18 13:15 Urine Color Yellow (Yellow) 08/23/18 17:45 Urine Turbidity Clear (Clear) 08/23/18 17:45 Urine pH 5.0 (5.0-7.0) 08/23/18 17:45 Ur Specific [place] 1.008 (1.003-1.030) 08/23/18 17:45 Urine Protein <15 mg/dl mg/dL (Negative) 08/23/18 17:45 Urine Glucose (UA) Neg mg/dL (Negative) 08/23/18 17:45 Urine Ketones Neg mg/dL (Negative) 08/23/18 17:45 Urine Blood Sm (Negative) 08/23/18 17:45 Urine Nitrite Neg (Negative) 08/23/18 17:45 Urine Bilirubin Neg (Negative) 08/23/18 17:45 Urine Urobilinogen < 2.0 mg/dL (<2.0) 08/23/18 17:45 Ur Leukocyte Esterase Neg (Negative) 08/23/18 17:45 Urine WBC (Auto) 1.0 /HPF (0.0-6.0) 08/23/18 17:45 Urine RBC (Auto) 1.0 /HPF (0.0-6.0) 08/23/18 17:45 U Epithel Cells (Auto) 2.0 /HPF (0-13.0) 08/23/18 17:45 Urine Bacteria (Auto) 2+ /HPF (Negative) 08/23/18 17:45 RPR Nonreactive (Nonreactive) 08/25/18 03:45 C. difficile Tox (PCR) Negative (Negative) 08/24/18 06:40 Miscellaneous Test Flexitest 1 08/28/18 09:00 Blood Type O NEGATIVE 08/23/18 15:29 Antibody Screen Negative 08/23/18 15:29 Crossmatch See Detail 08/23/18 15:29 Active Medications - Current Medications Current Medications: Generic Name Dose Route Start Last Admin Trade Name Freq PRN Reason Stop Dose Admin Acetaminophen 650 mg 08/24/18 00:56 08/27/18 18:17 Tylenol PO 650 mg Q4H PRN Administration Pain MILD(1-3)/Fever >100.5/VILLARREAL Duloxetine HCl 60 mg 08/27/18 16:00 08/31/18 10:06 Cymbalta PO 60 mg DAILY LAZARO Administration Hydrocortisone Acetate 20 mg 08/30/18 11:00 08/31/18 10:55 Cortef PO 20 mg QDAY LAZARO Administration Cefepime HCl 2 gm in 100 mls @ 200 mls/hr 08/28/18 09:00 08/31/18 13:45 Maxipime/Ns 2 Gm/100 Ml IV 200 mls/hr Q8HR LAZARO Administration Protocol Metronidazole 500 mg in 100 mls @ 100 mls/hr 08/30/18 14:00 08/31/18 13:46 Flagyl 500 Mg/100 Ml IV 100 mls/hr Q8HR LAZARO Administration Protocol Magnesium Sulfate 2 gm in 50 mls @ 25 mls/hr 08/31/18 19:00 Magnesium Sulfate 2gm/50ml IV 08/31/18 20:59 ONCE ONE Levothyroxine Sodium 125 mcg 08/27/18 16:00 08/31/18 10:55 Synthroid PO 125 mcg DAILY LAZARO Administration Lorazepam 2 mg 08/31/18 11:45 Ativan IV 08/31/18 23:59 DECORATING SUPERVISOR NR Midodrine 10 mg 08/28/18 09:00 08/31/18 13:46 Proamatine PO 10 mg TID LAZARO Administration Morphine Sulfate 2 mg 08/31/18 11:36 Morphine IV Q24H PRN for MRI Multivitamins/Minerals 1 each 08/24/18 10:00 08/31/18 10:06 Theragran-M Tab PO 1 each QDAY LAZARO Administration Ondansetron HCl 4 mg 08/24/18 00:56 Zofran IV Q8H PRN Nausea And Vomiting Pantoprazole Sodium 40 mg 08/24/18 10:00 08/31/18 10:06 Protonix PO 40 mg QDAY LAZARO Administration Polyethylene Glycol 17 gm 08/24/18 10:00 08/31/18 10:06 Miralax 3350 PO Not Given BID LAZARO Senna/Docusate Sodium 2 tab 08/24/18 09:39 08/24/18 19:09 Senokot S PO 2 tab Q12H PRN Administration Laxative Effect Sodium Chloride 10 ml 08/24/18 10:00 08/31/18 10:07 Sodium Chloride Flush Syringe 10 Ml IV 10 ml BID LAZARO Administration Sodium Chloride 10 ml 08/24/18 00:56 Sodium Chloride Flush Syringe 10 Ml IV PRN PRN LINE FLUSH Temazepam 15 mg 08/27/18 22:00 08/31/18 01:28 Restoril PO 15 mg QHS LAZARO Administration Tizanidine HCl 4 mg 08/27/18 16:00 08/31/18 10:06 Zanaflex PO 4 mg BID LAZARO Administration Nutrition/Malnutrition Assess - Dietary Evaluation Nutrition/Malnutrition Findings: Nutrition Notes Start: 08/27/18 13:40 Freq: Status: Active Protocol: Document 08/29/18 10:35 EB (Rec: 08/29/18 10:41 EB [id number]) Co-Sign 08/29/18 10:35 LP Nutrition Notes Need for Assessment generated from: production material handler,MST Initial or Follow up Reassessment Other Pertinent Diagnosis Hypotension, colitis Current Diet GI soft diet Labs/Tests Reviewed Pertinent Medications Levophed, Protonix Height 5 ft 1 in Weight 104.33 kg [place] Body Weight (kg) 47.72 BMI 43.4 Weight Status Obese Subjective/Other Information Following for diet advancement and tolerance. Pt consumed about 50% of new gi soft diet this am and for dinner last night and continues to report consistent diarrhea that occurs about 15 minutes after eating foods. Percent of energy/protein needs met: 71%/34% Burn Absent Trauma Absent GI Symptoms Diarrhea Current % PO Fair (50-74%) #1 Nutrition Diagnosis Inadequate oral intake As Evidenced by Signs and Symptoms diet advanced to gi soft and meeting 71% and 34% of axel and pro needs respectively Diagnosis Progress(for reassessment Improved documentation) Is patient on ventilator? No Is Patient Ambulatory and/or Out of Bed Yes REE-([facility]-ambulatory/OOB) [ 1924.884 NUTR.MSJOOB] Kcal/Kg value to use for calculation 14 Approximate Energy Requirements Using 1461 kcal/Kg Calculation Used for Recommendations Kcal/kg Additional Notes PRO: 2.5 g/kg IBW of 47.72 kg (119 g/day) Fluid: 1 mL/kcal Nutrition Intervention Change Diet Order: advance when medically feasible Goal #1 advance diet when medically feasible Goal #2 meet at least 75% axel and pro needs Anticipated Discharge Needs: unable to determine at this time Follow-Up By: 09/03/18 Additional Comments F/u: PO intake and diet advancement
[2018-08-29] MEDS ORDERED: NACL 0.9% 1000 ML 1,000 ML IV SCH (12:00)
[2018-08-29] MEDS: MIRALAX 3350 PO SCH ×2 (12:22→21:15)
[2018-08-29] MEDS ORDERED: NACL 0.9% 1000 ML 1,000 ML ONE (12:50)
[2018-08-29] MEDS: SODIUM CHLORIDE FLUSH SYRINGE 10 ML IV SCH ×2 (13:36→21:16)
[2018-08-29 13:37] LABS: Basophils % (Auto) 0.2 % (0.0-1.8); Eosinophils # (Auto) 0.1 K/mm3 (0.0-0.4); Eosinophils % (Auto) 1.1 % (0.0-4.3); Hematocrit 25.9 % (30.3-42.9); Hemoglobin 8.7 gm/dl (10.1-14.3); Lymphocytes # (Auto) 0.8 K/mm3 (1.2-5.4); Lymphocytes % (Auto) 11.9 % (13.4-35.0); Mean Corpuscular HGB Conc 34 % (30-34); Mean Corpuscular Volume 84 fl (79-97); Monocytes # (Auto) 0.8 K/mm3 (0.0-0.8); Monocytes % (Auto) 11.3 % (0.0-7.3); Platelet Count 279 K/mm3 (140-440); Red Blood Count 3.09 M/mm3 (3.65-5.03); Red Cell Distribution Width 18.5 % (13.2-15.2)
[2018-08-29 14:03] LABS: BUN/Creatinine Ratio 11; Blood Urea Nitrogen 11 mg/dL (7-17); Calcium 7.2 mg/dL (8.4-10.2); Hemolysis Index 2
--- NOTE | 2018-08-29 14:37 | Gastroenterology Progress Note ---
<FERNANDAKARLA Abiola - Last Filed: 08/29/18 14:37> Assessment and Plan 1. Colitis -afebrile -WBC WNL -stool + for WBCs -stool culture negative -H/H stable -s/p EGD with negative results -s/p flex sig (incomplete colonoscopy) with severe proctitis -bx result indeterminate -etiology unclear- stercoral vs ischemic vs infection vs IBD -clinically, patient's diarrhea is improved. No active signs of bleeding. Denies abd pain or N/V. Tolerating diet. -continue miralax and antibiotics per ID recommendations -continue supportive careand supportive care -recommend outpatient colonoscopy in 4-6 weeks once acute colitis has resolved 2.liver mass seen on CT -LFTs WNL -will order MRI for further evaluation -will follow Subjective Date of service: 08/29/18 Principal diagnosis: GI Bleed Interval history: Patient w/o acute distress. Episode of diarrhea this am per pt but frequency improved from prior. No active signs of bleeding, abd pain, or N/v. Tolerating diet. Objective - Constitutional Vitals: Temp Pulse Resp BP Pulse Ox 98.0 F 54 L 17 114/55 97 08/29/18 08:00 08/29/18 14:00 08/29/18 14:00 08/29/18 14:00 08/29/18 14:00 General appearance: no acute distress - Respiratory Respiratory: bilateral: CTA - Cardiovascular Rhythm: other (bradycardia) - Gastrointestinal General gastrointestinal: Present: soft, non-tender, non-distended, normal bowel sounds - Neurologic Neurological: alert and oriented x3 - Labs CBC & Chem 7: 08/29/18 13:15 08/29/18 13:15 Labs: Laboratory Results - last 24 hr 08/29/18 08/29/18 08/29/18 13:15 13:15 13:15 WBC 6.7 RBC 3.09 L Hgb 8.7 L Hct 25.9 L MCV 84 MCH 28 MCHC 34 RDW 18.5 H Plt Count 279 Lymph % (Auto) 11.9 L [place] % (Auto) 11.3 H Eos % (Auto) 1.1 Baso % (Auto) 0.2 Lymph # 0.8 L [place] # 0.8 Eos # 0.1 Baso # 0.0 Seg Neutrophils % 75.5 H Seg Neutrophils # 5.1 Sodium 141 Potassium 3.6 Chloride 111.0 H Carbon Dioxide 23 Anion Gap 11 BUN 11 Creatinine 1.0 Estimated GFR > 60 BUN/Creatinine Ratio 11 Glucose 115 H Calcium 7.2 L Phosphorus 2.70 Magnesium 1.60 L Thyroxine (T4) 5.7 <GARCÍA COLBERT R - Last Filed: 08/30/18 13:51> Assessment and Plan Pt seen on 08/29. Discussed liver findings, after reviewing CT with Radiology. Plan as noted. Objective - Constitutional Vitals: Temp Pulse Resp BP Pulse Ox 98.0 F 59 L 14 100/45 98 08/30/18 12:00 08/30/18 08:00 08/30/18 08:00 08/30/18 08:00 08/30/18 08:00 - Labs CBC & Chem 7: 08/29/18 13:15 08/29/18 13:15 Labs: Laboratory Results - last 24 hr 08/29/18 08/29/18 13:15 13:15 Sodium 141 Potassium 3.6 Chloride 111.0 H Carbon Dioxide 23 Anion Gap 11 BUN 11 Creatinine 1.0 Estimated GFR > 60 BUN/Creatinine Ratio 11 Glucose 115 H Calcium 7.2 L Phosphorus 2.70 Magnesium 1.60 L Thyroxine (T4) 5.7
[2018-08-29] MEDS ORDERED: MAGNESIUM SULFATE 2GM/50ML 2 GM/50 ML BAG IV ONE (16:02)
[2018-08-29] MEDS: RESTORIL PO SCH (21:14)
--- NOTE | 2018-08-29 21:48 | Progress Note ---
Assessment and Plan Cultures: Blood culture 08/26/2018 no growth today C diff 08/24/2018 negative Assessment: 73 y/o female with history of chronic lower back pain syndrome, Graves disease, depression, OA and hypertension; admitted on due to 2-month history of bloody diarrhea, most recently associated with nausea, worsening bloody stools, generalized weakness and dizziness for 48 hours: 1) Shock ?hemorrhagic v/s septic: back on pressors this morning. Etiology most likely GI bleed +/- colitis +/- liver lesions. Blood cultures negative. UA negative. CXR negative. Should r/o hypothyroidism, low cortisol. 2) GI bleed: unclear etiology, likely colitis. EGD negative. C diff negative. Stool WBC many. CRP 6.6. Underwent flex sigmoidoscopy with severe proctitis, showed marked colitis with ulceration, atypia with focal dysplasia no granuloma, no malignancy. EGD with negative results. Colitis DDx. inflammatory (IBD) v/s infectious. 3) Anemia: s/p transfusion 4) Bilateral leg edema. 5) Liver lesions: ?unclear etiology -likely metastasis per radiology, should r/o abscesses. Recommendations: - follow-up blood cultures, procalcitonin - Appreciate GI input - doubt liver abscesses, requesting liver MRI. - consider IR liver biopsy please 2 specimen for path and cultures - continue cefepime 2 gm IV q 8h - continue flagyl IV - f/u TSH - agree with colonscopy when stable Will follow. Audrey Fritz MD Infectious Diseases [employer] [facility] ([facility]) M [phone] O [phone] Subjective Date of service: 08/29/18 Principal diagnosis: GI Bleed Interval history: Feels better, off levopehd. No fever, diarrhea better, no bloody stools. Objective - Exam Narrative Exam: General appearance: Alert in NAD, conversant, obese Eyes: anicteric sclerae, moist conjunctivae; no lid-lag; PERRLA HENT: Atraumatic; oropharynx clear with moist mucous membranes and no mucosal ulcerations/no oral thrush; normal hard and soft palate. Normal external ears. Neck: Trachea midline; supple, no thyromegaly or lymphadenopathy Lungs: CTA CV: RRR Abdomen: Soft, obese, mild tenderness Extremities: bilateral marked bilateral leg edema Skin: Normal temperature, turgor and texture; no rash, ulcers or subcutaneous nodules Psych: Appropriate affect, alert and oriented to person, place and time. Neuro: alert and oriented x 3. Moving all extermities - Constitutional Vitals: Vital Signs Temp Pulse Resp BP Pulse Ox 98.0 F 58 L 17 107/48 99 08/29/18 20:00 08/29/18 20:30 08/29/18 20:30 08/29/18 20:30 08/29/18 20:30 Temperature -Last 24 Hours Temperature 98.0 F Temperature 97.8 F Temperature 97.9 F Temperature 98.0 F Temperature 98.8 F Temperature 98.1 F - Labs CBC & Chem 7: 08/29/18 13:15 08/29/18 13:15 Labs: Abnormal lab results 08/29/18 08/29/18 Range/Units 13:15 13:15 RBC 3.09 L (3.65-5.03) M/mm3 Hgb 8.7 L (10.1-14.3) gm/dl Hct 25.9 L (30.3-42.9) % RDW 18.5 H (13.2-15.2) % Lymph % (Auto) 11.9 L (13.4-35.0) % [place] % (Auto) 11.3 H (0.0-7.3) % Lymph # 0.8 L (1.2-5.4) K/mm3 Seg Neutrophils % 75.5 H (40.0-70.0) % Chloride 111.0 H (98-107) mmol/L Glucose 115 H (65-100) mg/dL Calcium 7.2 L (8.4-10.2) mg/dL Magnesium 1.60 L (1.7-2.3) mg/dL
[2018-08-30] MEDS: MAXIPIME/NS 2 GM/100 ML 2 GM/100 ML BAG IV SCH ×4 (01:51→22:00)
[2018-08-30] MEDS: PROAMATINE PO SCH ×2 (08:42→13:29)
--- NOTE | 2018-08-30 09:16 | Progress Note ---
Assessment and Plan Suspected lower GI bleeding, severe colitis. Could not get follow-up colonoscopy. Liver mets suggested on Abd pelvic CT Hypotension .Improved but still needing intervention with pressors. Diarrhea at least partially active H/H adequate. Anemia Afib Sepsis? Recommendations Add Midodrine, BP monitoring I don't see a lot by mouth fluid intake, so we going to start her on normal saline infusion between 75-125 mL per hour and bolus if necessary Off Levophed. Bedside avaluation fails to show any orthostatism Sx's,pt seating up, using commode Appreciate ID input GI f/u of possible liver metastases workup. Another interesting question is where her diarrhea may be vasoactive Monitor UO, keep > 30 cc/ hr Could be moved out with monitoring,if VS stable , off support drips Discussed with patient detail. All questions answered. Critical care time was 31 minutes of [id number] evaluation and coordination of care Subjective Date of service: 08/29/18 Principal diagnosis: GI Bleed, colitis, hypotension, rule out liver metastases Interval history: Reports multiple episodes of's watery stools in the last 24 hours. No thirsty. Diarrhea appears not to be large but is repeated Objective Vital Signs - 12hr 08/29/18 08/29/18 08/29/18 21:30 22:00 22:30 Temperature Pulse Rate 54 L 56 L 51 L Pulse Rate [ From Monitor] Respiratory 13 14 14 Rate Blood Pressure 98/48 112/53 112/53 O2 Sat by Pulse 100 97 98 Oximetry 08/29/18 08/29/18 08/29/18 22:32 23:00 23:30 Temperature Pulse Rate 50 L 51 L 55 L Pulse Rate [ From Monitor] Respiratory 13 13 13 Rate Blood Pressure 112/53 113/54 113/54 O2 Sat by Pulse 98 98 99 Oximetry 08/30/18 08/30/18 08/30/18 00:00 00:30 01:00 Temperature 97.1 F L Pulse Rate 49 L 48 L 47 L Pulse Rate [ 51 L From Monitor] Respiratory 12 12 12 Rate Blood Pressure 106/50 106/50 97/51 O2 Sat by Pulse 98 98 97 Oximetry 08/30/18 08/30/18 08/30/18 01:30 02:00 02:30 Temperature Pulse Rate 90 55 L 45 L Pulse Rate [ From Monitor] Respiratory 16 18 12 Rate Blood Pressure 97/51 103/52 103/52 O2 Sat by Pulse 99 100 99 Oximetry 08/30/18 08/30/18 08/30/18 03:00 03:30 04:00 Temperature 98.7 F Pulse Rate 46 L 49 L 51 L Pulse Rate [ 70 From Monitor] Respiratory 12 12 13 Rate Blood Pressure 109/48 109/48 108/56 O2 Sat by Pulse 98 99 99 Oximetry 08/30/18 08/30/18 08/30/18 04:30 05:00 05:30 Temperature Pulse Rate 51 L 49 L 47 L Pulse Rate [ From Monitor] Respiratory 11 L 12 13 Rate Blood Pressure 108/56 116/54 108/56 O2 Sat by Pulse 98 98 99 Oximetry 08/30/18 08/30/18 08/30/18 06:00 06:30 07:00 Temperature Pulse Rate 52 L 58 L 50 L Pulse Rate [ From Monitor] Respiratory 12 16 12 Rate Blood Pressure 117/54 117/54 105/53 O2 Sat by Pulse 99 99 98 Oximetry 08/30/18 08/30/18 07:30 08:00 Temperature 97.5 F L Pulse Rate 50 L 52 L Pulse Rate [ 59 L From Monitor] Respiratory 13 11 L Rate Blood Pressure 105/53 100/45 O2 Sat by Pulse 99 99 Oximetry Constitutional: no acute distress, appears uncomfortable, other (obese) Eyes: non-icteric ENT: oropharynx moist Neck: supple, no JVD Ascultation: Bilateral: clear, diminished breath sounds Cardiovascular: regular rate and rhythm Gastrointestinal: normoactive bowel sounds, non-tender, non-distended Integumentary: normal Extremities: no cyanosis, no cyanosis, no cyanosis Neurologic: normal mental status, non-focal exam, pupils equal and round, CN II- XII normal CBC and BMP: 08/29/18 13:15 08/29/18 13:15 ABG, PT/INR, D-dimer: PT/INR, D-dimer PT 14.1 Sec. (12.2-14.9) 08/23/18 15:36 INR 1.03 (0.87-1.13) 08/23/18 15:36 Abnormal lab findings: Abnormal Labs 08/23/18 08/23/18 08/23/18 15:29 15:29 15:29 RBC 2.74 L Hgb 7.6 L Hct 22.3 L MCHC RDW 16.8 H Lymph % (Auto) [place] % (Auto) 11.6 H Lymph # [place] # 1.1 H Seg Neutrophils % 72.5 H Sodium 133 L Potassium 3.3 L Chloride 96.4 L BUN 32 H Creatinine 2.4 H Glucose POC Glucose Calcium 7.7 L Magnesium C-Reactive Protein Total Protein 5.7 L Albumin 2.2 L Lipase 5 L Free T4 Crossmatch See Detail 08/24/18 08/24/18 08/24/18 00:08 01:31 07:07 RBC 2.88 L Hgb 8.5 L 8.8 L 8.8 L Hct 23.5 L 24.4 L 25.4 L MCHC 36 H RDW 16.7 H Lymph % (Auto) 13.3 L [place] % (Auto) 11.4 H Lymph # [place] # 1.1 H Seg Neutrophils % 71.3 H Sodium Potassium Chloride BUN Creatinine Glucose POC Glucose Calcium Magnesium C-Reactive Protein Total Protein Albumin Lipase Free T4 Crossmatch 08/24/18 08/24/18 08/25/18 23:14 Unknown 03:45 RBC Hgb Hct MCHC RDW Lymph % (Auto) [place] % (Auto) Lymph # [place] # Seg Neutrophils % Sodium Potassium 3.0 L Chloride BUN 18 H Creatinine Glucose 141 H POC Glucose 127 H Calcium 7.6 L Magnesium C-Reactive Protein Total Protein 5.1 L Albumin 2.0 L Lipase Free T4 1.90 H Crossmatch 08/25/18 08/25/18 08/26/18 03:45 13:53 04:45 RBC 3.56 L 3.29 L Hgb 10.0 L 9.4 L Hct 29.3 L 27.2 L MCHC 35 H RDW 16.9 H 17.2 H Lymph % (Auto) [place] % (Auto) 13.4 H Lymph # 1.1 L [place] # 1.0 H Seg Neutrophils % 70.9 H Sodium Potassium Chloride BUN Creatinine Glucose POC Glucose Calcium Magnesium 1.60 L C-Reactive Protein Total Protein Albumin Lipase Free T4 Crossmatch 08/26/18 08/27/18 08/27/18 04:45 04:34 04:34 RBC 3.48 L Hgb 9.9 L Hct 29.0 L MCHC RDW 17.4 H Lymph % (Auto) [place] % (Auto) Lymph # [place] # Seg Neutrophils % Sodium Potassium 3.1 L Chloride 109.8 H 109.8 H BUN Creatinine Glucose 119 H POC Glucose Calcium 7.0 L 7.7 L Magnesium C-Reactive Protein Total Protein 5.0 L Albumin 2.1 L Lipase Free T4 Crossmatch 08/27/18 08/27/18 08/28/18 18:30 20:20 00:40 RBC Hgb 8.4 L 9.0 L Hct 24.6 L 26.7 L MCHC RDW Lymph % (Auto) [place] % (Auto) Lymph # [place] # Seg Neutrophils % Sodium Potassium Chloride BUN Creatinine Glucose POC Glucose Calcium Magnesium C-Reactive Protein 6.60 H Total Protein Albumin Lipase Free T4 Crossmatch 08/28/18 08/29/18 08/29/18 06:00 13:15 13:15 RBC 3.09 L Hgb 8.8 L 8.7 L Hct 25.9 L 25.9 L MCHC RDW 18.5 H Lymph % (Auto) 11.9 L [place] % (Auto) 11.3 H Lymph # 0.8 L [place] # Seg Neutrophils % 75.5 H Sodium Potassium Chloride 111.0 H BUN Creatinine Glucose 115 H POC Glucose Calcium 7.2 L Magnesium 1.60 L C-Reactive Protein Total Protein Albumin Lipase Free T4 Crossmatch
--- NOTE | 2018-08-30 09:18 | Progress Note ---
Assessment and Plan Suspected lower GI bleeding, severe colitis. Per further events Liver mets suggested on Abd pelvic CT. Being evaluated by GI. Refused MRI this morning Hypotension .controlled after increased fluids and by mouth midodrine Anemia. No active bleeding Afib Sepsis? Recommendations PCP to review her MRI status with patient. May need anxiolytics, gentle sedation Incentive spirometry out of bed as tolerated DVT prophylaxis Monitor intake and output, fluid balance Discussed with patient detail. All questions answered. Subjective Date of service: 08/30/18 Principal diagnosis: GI Bleed, colitis, hypotension, rule out liver metastases Interval history: Reports less diarrhea this morning. She refuses MRI due to claustrophobia Objective Vital Signs - 12hr 08/29/18 08/29/18 08/29/18 21:30 22:00 22:30 Temperature Pulse Rate 54 L 56 L 51 L Pulse Rate [ From Monitor] Respiratory 13 14 14 Rate Blood Pressure 98/48 112/53 112/53 O2 Sat by Pulse 100 97 98 Oximetry 08/29/18 08/29/18 08/29/18 22:32 23:00 23:30 Temperature Pulse Rate 50 L 51 L 55 L Pulse Rate [ From Monitor] Respiratory 13 13 13 Rate Blood Pressure 112/53 113/54 113/54 O2 Sat by Pulse 98 98 99 Oximetry 08/30/18 08/30/18 08/30/18 00:00 00:30 01:00 Temperature 97.1 F L Pulse Rate 49 L 48 L 47 L Pulse Rate [ 51 L From Monitor] Respiratory 12 12 12 Rate Blood Pressure 106/50 106/50 97/51 O2 Sat by Pulse 98 98 97 Oximetry 08/30/18 08/30/18 08/30/18 01:30 02:00 02:30 Temperature Pulse Rate 90 55 L 45 L Pulse Rate [ From Monitor] Respiratory 16 18 12 Rate Blood Pressure 97/51 103/52 103/52 O2 Sat by Pulse 99 100 99 Oximetry 08/30/18 08/30/18 08/30/18 03:00 03:30 04:00 Temperature 98.7 F Pulse Rate 46 L 49 L 51 L Pulse Rate [ 70 From Monitor] Respiratory 12 12 13 Rate Blood Pressure 109/48 109/48 108/56 O2 Sat by Pulse 98 99 99 Oximetry 08/30/18 08/30/18 08/30/18 04:30 05:00 05:30 Temperature Pulse Rate 51 L 49 L 47 L Pulse Rate [ From Monitor] Respiratory 11 L 12 13 Rate Blood Pressure 108/56 116/54 108/56 O2 Sat by Pulse 98 98 99 Oximetry 08/30/18 08/30/18 08/30/18 06:00 06:30 07:00 Temperature Pulse Rate 52 L 58 L 50 L Pulse Rate [ From Monitor] Respiratory 12 16 12 Rate Blood Pressure 117/54 117/54 105/53 O2 Sat by Pulse 99 99 98 Oximetry 08/30/18 08/30/18 07:30 08:00 Temperature 97.5 F L Pulse Rate 50 L 52 L Pulse Rate [ 59 L From Monitor] Respiratory 13 11 L Rate Blood Pressure 105/53 100/45 O2 Sat by Pulse 99 99 Oximetry Constitutional: no acute distress, alert Eyes: non-icteric ENT: oropharynx moist Neck: supple, no JVD, other (left IJ) Ascultation: Bilateral: clear, diminished breath sounds Cardiovascular: regular rate and rhythm Gastrointestinal: normoactive bowel sounds, non-tender, non-distended Integumentary: normal Extremities: no cyanosis, no cyanosis, no cyanosis Neurologic: normal mental status, non-focal exam, pupils equal and round, CN II- XII normal CBC and BMP: 08/29/18 13:15 08/29/18 13:15 ABG, PT/INR, D-dimer: PT/INR, D-dimer PT 14.1 Sec. (12.2-14.9) 08/23/18 15:36 INR 1.03 (0.87-1.13) 08/23/18 15:36 Abnormal lab findings: Abnormal Labs 08/23/18 08/23/18 08/23/18 15:29 15:29 15:29 RBC 2.74 L Hgb 7.6 L Hct 22.3 L MCHC RDW 16.8 H Lymph % (Auto) [place] % (Auto) 11.6 H Lymph # [place] # 1.1 H Seg Neutrophils % 72.5 H Sodium 133 L Potassium 3.3 L Chloride 96.4 L BUN 32 H Creatinine 2.4 H Glucose POC Glucose Calcium 7.7 L Magnesium C-Reactive Protein Total Protein 5.7 L Albumin 2.2 L Lipase 5 L Free T4 Crossmatch See Detail 08/24/18 08/24/18 08/24/18 00:08 01:31 07:07 RBC 2.88 L Hgb 8.5 L 8.8 L 8.8 L Hct 23.5 L 24.4 L 25.4 L MCHC 36 H RDW 16.7 H Lymph % (Auto) 13.3 L [place] % (Auto) 11.4 H Lymph # [place] # 1.1 H Seg Neutrophils % 71.3 H Sodium Potassium Chloride BUN Creatinine Glucose POC Glucose Calcium Magnesium C-Reactive Protein Total Protein Albumin Lipase Free T4 Crossmatch 08/24/18 08/24/18 08/25/18 23:14 Unknown 03:45 RBC Hgb Hct MCHC RDW Lymph % (Auto) [place] % (Auto) Lymph # [place] # Seg Neutrophils % Sodium Potassium 3.0 L Chloride BUN 18 H Creatinine Glucose 141 H POC Glucose 127 H Calcium 7.6 L Magnesium C-Reactive Protein Total Protein 5.1 L Albumin 2.0 L Lipase Free T4 1.90 H Crossmatch 08/25/18 08/25/18 08/26/18 03:45 13:53 04:45 RBC 3.56 L 3.29 L Hgb 10.0 L 9.4 L Hct 29.3 L 27.2 L MCHC 35 H RDW 16.9 H 17.2 H Lymph % (Auto) [place] % (Auto) 13.4 H Lymph # 1.1 L [place] # 1.0 H Seg Neutrophils % 70.9 H Sodium Potassium Chloride BUN Creatinine Glucose POC Glucose Calcium Magnesium 1.60 L C-Reactive Protein Total Protein Albumin Lipase Free T4 Crossmatch 08/26/18 08/27/18 08/27/18 04:45 04:34 04:34 RBC 3.48 L Hgb 9.9 L Hct 29.0 L MCHC RDW 17.4 H Lymph % (Auto) [place] % (Auto) Lymph # [place] # Seg Neutrophils % Sodium Potassium 3.1 L Chloride 109.8 H 109.8 H BUN Creatinine Glucose 119 H POC Glucose Calcium 7.0 L 7.7 L Magnesium C-Reactive Protein Total Protein 5.0 L Albumin 2.1 L Lipase Free T4 Crossmatch 08/27/18 08/27/18 08/28/18 18:30 20:20 00:40 RBC Hgb 8.4 L 9.0 L Hct 24.6 L 26.7 L MCHC RDW Lymph % (Auto) [place] % (Auto) Lymph # [place] # Seg Neutrophils % Sodium Potassium Chloride BUN Creatinine Glucose POC Glucose Calcium Magnesium C-Reactive Protein 6.60 H Total Protein Albumin Lipase Free T4 Crossmatch 08/28/18 08/29/18 08/29/18 06:00 13:15 13:15 RBC 3.09 L Hgb 8.8 L 8.7 L Hct 25.9 L 25.9 L MCHC RDW 18.5 H Lymph % (Auto) 11.9 L [place] % (Auto) 11.3 H Lymph # 0.8 L [place] # Seg Neutrophils % 75.5 H Sodium Potassium Chloride 111.0 H BUN Creatinine Glucose 115 H POC Glucose Calcium 7.2 L Magnesium 1.60 L C-Reactive Protein Total Protein Albumin Lipase Free T4 Crossmatch
--- NOTE | 2018-08-30 10:16 | Progress Note ---
<MATTIE MANDEL - Last Filed: 08/30/18 13:21> Assessment and Plan Assessment and plan: 73 yo -[place] woman with a history of chronic pain syndome due to OA/LBP, Graves disease then hypothyroidism, depression, OA and hypertension who presented to [facility] ED with n/v/d/bloody stools and weakness. She was admitted to the ICU. She was on Levophed gtt, and weand off drip on 08/28. She is on po Midodrine to help maintain bp. On 08/27 CT Abd/ Pelvis Pt indeterminate focal masses in the liver which could represent metastatic disease. She was transferred to IMCU on 08/29. Pending Hypotension-resolving Weaned off Levophed gtt on 08/20; then placed back on gtt overnight; weaned off again this am Continue by mouth Midodrine Normocytic Anemia with BRBPR/rectal bleeding with severe Colitis, proctitis Hemoglobin on admission 7.6 Transfused 2 units of PRBC Hemoglobin this a.m. 8.8 S/P flex sig (incomplete colonoscopy) with severe proctitis- per GI if patient continues to improve may delay colonoscopy for several weeks stool culture positive for WBCs C-diff negative; Stop po Vancomycin Start cefepime 2 gm IV q 8h per ID Continue flagyl IV- per ID GI following and managing Abnormal CT Abd/Pelvis CT Abd/Pelvis on 08/27 revealed: indeterminate focal masses in the liver which could represent metastatic disease. Further evaluation recommended. Uterine leiomyomas. Two periumbilical hernias containing fat. Degenerative disease throughout the lumbar spine. Per GI abdominal MRI pending Chronic diarrhea Improving C-diff negative; discontinue po Vancomycin Continue cefepime 2 gm IV q 8h per ID Continue flagyl IV- per ID ID following GI following and managing- recommends outpatient colonoscopy in 4-6 weeks once acute colitis has resolved History of Hypertension Continue to monitor BP Continue to hold antihypertensive medicine Hypomagnesemia Replete Monitor labs History of Depression Resume Cymbalta 60 mg daily- previously held antidepressant due to NPO status Hyponatremia hypovolemia-resolved Treated with IVF Hypokalemia- resolved Repleted Monitor electrolytes History of Hypothyroidism/Graves: TSH 0.57, Free T4 1.90 slightly elevated Continue Synthroid 125mcg daily Severe Malnutrition Albumin 2.2 On soft diet Director Of [employer] consult pending Morbid obesity, bmi 43.5 Lifestyle modifications discussed Benefit from outpatient weight management program History Interval history: Pt is seen today in the IMCU. Her blood pressure has remained stable since being weaned off of Levophed drip and placed on by mouth midodrine. She continues to tolerated a soft diet. Her diarrhea has now improved. Pt refused MRI abd/pelvis this morning because of back discomfort and anxiety issues. Pt was offered anti-anxiety and pain meds to help make her more comfortable for MRI. She is agreeable and will re-attempt MRI with meds. Pt will be transferred to the [facility] unit sometime today. Denies dyspnea, nausea, vomiting, pain, headache. Hospitalist Physical - Physical exam Narrative exam: General appearance: Present: no acute distress, well-nourished - EENT Eyes: Present: PERRL, EOM intact ENT: hearing intact, clear oral mucosa - Neck Neck: Present: supple, normal ROM - Respiratory Respiratory effort: normal Respiratory: bilateral: diminished (bases) - Cardiovascular Heart rate: 84 (beats per minute) Rhythm: regular Heart Sounds: Present: S1 & S2. Absent: rub, click - Extremities Extremities: pulses intact, pulses symmetrical, normal temperature Extremity abnormal: edema - Peripheral Assessment Lower Extremity Edema Degree: 2+ Capillary Refill: < 3 seconds Skin Temperature: Warm - Abdominal General gastrointestinal: soft, non-tender, normal bowel sounds - Integumentary Integumentary: Present: warm, dry - Psychiatric Psychiatric: appropriate mood/affect, cooperative - Neurologic Neurologic: CNII-XII intact - Constitutional Vitals: Temp Pulse Resp BP Pulse Ox 97.5 F L 59 L 14 100/45 98 08/30/18 08:00 08/30/18 08:00 08/30/18 08:00 08/30/18 08:00 08/30/18 08:00 General appearance: Present: no acute distress, well-nourished Results - Labs CBC & Chem 7: 08/29/18 13:15 08/29/18 13:15 Labs: Laboratory Last Values WBC 6.7 K/mm3 (4.5-11.0) 08/29/18 13:15 RBC 3.09 M/mm3 (3.65-5.03) L 08/29/18 13:15 Hgb 8.7 gm/dl (10.1-14.3) L 08/29/18 13:15 Hct 25.9 % (30.3-42.9) L 08/29/18 13:15 MCV 84 fl (79-97) 08/29/18 13:15 MCH 28 pg (28-32) 08/29/18 13:15 MCHC 34 % (30-34) 08/29/18 13:15 RDW 18.5 % (13.2-15.2) H 08/29/18 13:15 Plt Count 279 K/mm3 (140-440) 08/29/18 13:15 Lymph % (Auto) 11.9 % (13.4-35.0) L 08/29/18 13:15 [place] % (Auto) 11.3 % (0.0-7.3) H 08/29/18 13:15 Eos % (Auto) 1.1 % (0.0-4.3) 08/29/18 13:15 Baso % (Auto) 0.2 % (0.0-1.8) 08/29/18 13:15 Lymph # 0.8 K/mm3 (1.2-5.4) L 08/29/18 13:15 [place] # 0.8 K/mm3 (0.0-0.8) 08/29/18 13:15 Eos # 0.1 K/mm3 (0.0-0.4) 08/29/18 13:15 Baso # 0.0 K/mm3 (0.0-0.1) 08/29/18 13:15 Seg Neutrophils % 75.5 % (40.0-70.0) H 08/29/18 13:15 Seg Neutrophils # 5.1 K/mm3 (1.8-7.7) 08/29/18 13:15 PT 14.1 Sec. (12.2-14.9) 08/23/18 15:36 INR 1.03 (0.87-1.13) 08/23/18 15:36 APTT 32.0 Sec. (24.2-36.6) 08/23/18 15:36 Sodium 141 mmol/L (137-145) 08/29/18 13:15 Potassium 3.6 mmol/L (3.6-5.0) 08/29/18 13:15 Chloride 111.0 mmol/L (98-107) H 08/29/18 13:15 Carbon Dioxide 23 mmol/L (22-30) 08/29/18 13:15 Anion Gap 11 mmol/L 08/29/18 13:15 BUN 11 mg/dL (7-17) 08/29/18 13:15 Creatinine 1.0 mg/dL (0.7-1.2) 08/29/18 13:15 Estimated GFR > 60 ml/min 08/29/18 13:15 BUN/Creatinine Ratio 11 % 08/29/18 13:15 Glucose 115 mg/dL (65-100) H 08/29/18 13:15 POC Glucose 127 (70-105) H 08/24/18 23:14 Hemoglobin A1c 5.3 % (4-6) 08/24/18 00:08 Calcium 7.2 mg/dL (8.4-10.2) L 08/29/18 13:15 Phosphorus 2.70 mg/dL (2.5-4.5) 08/29/18 13:15 Magnesium 1.60 mg/dL (1.7-2.3) L 08/29/18 13:15 Total Bilirubin 0.30 mg/dL (0.1-1.2) 08/27/18 04:34 AST 17 units/L (5-40) 08/27/18 04:34 ALT 15 units/L (7-56) 08/27/18 04:34 Alkaline Phosphatase 58 units/L (35-129) 08/27/18 04:34 C-Reactive Protein 6.60 mg/dL (0.00-1.30) H 08/27/18 18:30 Total Protein 5.0 g/dL (6.3-8.2) L 08/27/18 04:34 Albumin 2.1 g/dL (3.9-5) L 08/27/18 04:34 Albumin/Globulin Ratio 0.7 % 08/27/18 04:34 Lipase 5 units/L (13-60) L 08/23/18 15:29 TSH 0.482 mlU/mL (0.270-4.200) 08/28/18 09:00 Free T4 1.90 ng/dL (0.76-1.46) H 08/24/18 Unknown Thyroxine (T4) 5.7 ug/dL (4.0-12.0) 08/29/18 13:15 Urine Color Yellow (Yellow) 08/23/18 17:45 Urine Turbidity Clear (Clear) 08/23/18 17:45 Urine pH 5.0 (5.0-7.0) 08/23/18 17:45 Ur Specific [place] 1.008 (1.003-1.030) 08/23/18 17:45 Urine Protein <15 mg/dl mg/dL (Negative) 08/23/18 17:45 Urine Glucose (UA) Neg mg/dL (Negative) 08/23/18 17:45 Urine Ketones Neg mg/dL (Negative) 08/23/18 17:45 Urine Blood Sm (Negative) 08/23/18 17:45 Urine Nitrite Neg (Negative) 08/23/18 17:45 Urine Bilirubin Neg (Negative) 08/23/18 17:45 Urine Urobilinogen < 2.0 mg/dL (<2.0) 08/23/18 17:45 Ur Leukocyte Esterase Neg (Negative) 08/23/18 17:45 Urine WBC (Auto) 1.0 /HPF (0.0-6.0) 08/23/18 17:45 Urine RBC (Auto) 1.0 /HPF (0.0-6.0) 08/23/18 17:45 U Epithel Cells (Auto) 2.0 /HPF (0-13.0) 08/23/18 17:45 Urine Bacteria (Auto) 2+ /HPF (Negative) 08/23/18 17:45 RPR Nonreactive (Nonreactive) 08/25/18 03:45 C. difficile Tox (PCR) Negative (Negative) 08/24/18 06:40 Blood Type O NEGATIVE 08/23/18 15:29 Antibody Screen Negative 08/23/18 15:29 Crossmatch See Detail 08/23/18 15:29 Active Medications - Current Medications Current Medications: Generic Name Dose Route Start Last Admin Trade Name Freq PRN Reason Stop Dose Admin Acetaminophen 650 mg 08/24/18 00:56 08/27/18 18:17 Tylenol PO 650 mg Q4H PRN Administration Pain MILD(1-3)/Fever >100.5/VILLARREAL Duloxetine HCl 60 mg 08/27/18 16:00 08/29/18 10:37 Cymbalta PO 60 mg DAILY LAZARO Administration Hydrocortisone Acetate 20 mg 08/30/18 11:00 Cortef PO QDAY LAZARO Cefepime HCl 2 gm in 100 mls @ 200 mls/hr 08/28/18 09:00 08/30/18 07:53 Maxipime/Ns 2 Gm/100 Ml IV 200 mls/hr Q8HR LAZARO Administration Protocol Levothyroxine Sodium 125 mcg 08/27/18 16:00 08/29/18 10:38 Synthroid PO 125 mcg DAILY LAZARO Administration Midodrine 10 mg 08/28/18 09:00 08/30/18 08:42 Proamatine PO 10 mg TID LAZARO Administration Multivitamins/Minerals 1 each 08/24/18 10:00 08/29/18 10:39 Theragran-M Tab PO 1 each QDAY LAZARO Administration Ondansetron HCl 4 mg 08/24/18 00:56 Zofran IV Q8H PRN Nausea And Vomiting Pantoprazole Sodium 40 mg 08/24/18 10:00 08/29/18 10:38 Protonix PO 40 mg QDAY LAZARO Administration Polyethylene Glycol 17 gm 08/24/18 10:00 08/29/18 21:15 Miralax 3350 PO Not Given BID LAZARO Senna/Docusate Sodium 2 tab 08/24/18 09:39 08/24/18 19:09 Senokot S PO 2 tab Q12H PRN Administration Laxative Effect Sodium Chloride 10 ml 08/24/18 10:00 08/29/18 21:16 Sodium Chloride Flush Syringe 10 Ml IV 10 ml BID LAZARO Administration Sodium Chloride 10 ml 08/24/18 00:56 Sodium Chloride Flush Syringe 10 Ml IV PRN PRN LINE FLUSH Temazepam 15 mg 08/27/18 22:00 08/29/18 21:14 Restoril PO 15 mg QHS LAZARO Administration Tizanidine HCl 4 mg 08/27/18 16:00 08/29/18 21:16 Zanaflex PO 4 mg BID LAZARO Administration Nutrition/Malnutrition Assess - Dietary Evaluation Nutrition/Malnutrition Findings: Nutrition Notes Start: 08/27/18 13:40 Freq: Status: Active Protocol: Document 08/29/18 10:35 EB (Rec: 08/29/18 10:41 EB [id number]) Co-Sign 08/29/18 10:35 LP Nutrition Notes Need for Assessment generated from: hazard mitigation officer,MST Initial or Follow up Reassessment Other Pertinent Diagnosis Hypotension, colitis Current Diet GI soft diet Labs/Tests Reviewed Pertinent Medications Levophed, Protonix Height 5 ft 1 in Weight 104.33 kg [place] Body Weight (kg) 47.72 BMI 43.4 Weight Status Obese Subjective/Other Information Following for diet advancement and tolerance. Pt consumed about 50% of new gi soft diet this am and for dinner last night and continues to report consistent diarrhea that occurs about 15 minutes after eating foods. Percent of energy/protein needs met: 71%/34% Burn Absent Trauma Absent GI Symptoms Diarrhea Current % PO Fair (50-74%) #1 Nutrition Diagnosis Inadequate oral intake As Evidenced by Signs and Symptoms diet advanced to gi soft and meeting 71% and 34% of axel and pro needs respectively Diagnosis Progress(for reassessment Improved documentation) Is patient on ventilator? No Is Patient Ambulatory and/or Out of Bed Yes REE-([facility]-ambulatory/OOB) [ 1924.884 NUTR.MSJOOB] Kcal/Kg value to use for calculation 14 Approximate Energy Requirements Using 1461 kcal/Kg Calculation Used for Recommendations Kcal/kg Additional Notes PRO: 2.5 g/kg IBW of 47.72 kg (119 g/day) Fluid: 1 mL/kcal Nutrition Intervention Change Diet Order: advance when medically feasible Goal #1 advance diet when medically feasible Goal #2 meet at least 75% axel and pro needs Anticipated Discharge Needs: unable to determine at this time Follow-Up By: 09/03/18 Additional Comments F/u: PO intake and diet advancement <NICHOLAS WOOD M - Last Filed: 09/01/18 22:36> Assessment and Plan Assessment and plan: I saw and evaluated the patient. I agree with the findings and the plan of care as documented in the Nurse Practitioner's~note, with the following corrections and additions. suspect adrenal insufficiency, started hydrocortisone cont abx per ID Hospitalist Physical - Constitutional Vitals: Temp Pulse Resp BP Pulse Ox 99.1 F 69 20 121/60 100 09/01/18 20:34 09/01/18 20:34 09/01/18 20:34 09/01/18 20:34 09/01/18 20:34 Results - Labs CBC & Chem 7: 09/01/18 04:19 09/01/18 04:19 Labs: Laboratory Last Values WBC 5.7 K/mm3 (4.5-11.0) 09/01/18 04:19 RBC 3.26 M/mm3 (3.65-5.03) L 09/01/18 04:19 Hgb 9.4 gm/dl (10.1-14.3) L 09/01/18 04:19 Hct 27.1 % (30.3-42.9) L 09/01/18 04:19 MCV 83 fl (79-97) 09/01/18 04:19 MCH 29 pg (28-32) 09/01/18 04:19 MCHC 35 % (30-34) H 09/01/18 04:19 RDW 19.2 % (13.2-15.2) H 09/01/18 04:19 Plt Count 215 K/mm3 (140-440) 09/01/18 04:19 Lymph % (Auto) 21.3 % (13.4-35.0) 09/01/18 04:19 Coles % (Auto) 11.7 % (0.0-7.3) H 09/01/18 04:19 Eos % (Auto) 1.8 % (0.0-4.3) 09/01/18 04:19 Baso % (Auto) 0.2 % (0.0-1.8) 09/01/18 04:19 Lymph # 1.2 K/mm3 (1.2-5.4) 09/01/18 04:19 [place] # 0.7 K/mm3 (0.0-0.8) 09/01/18 04:19 Eos # 0.1 K/mm3 (0.0-0.4) 09/01/18 04:19 Baso # 0.0 K/mm3 (0.0-0.1) 09/01/18 04:19 Seg Neutrophils % 65.0 % (40.0-70.0) 09/01/18 04:19 Seg Neutrophils # 3.7 K/mm3 (1.8-7.7) 09/01/18 04:19 PT 14.1 Sec. (12.2-14.9) 08/23/18 15:36 INR 1.03 (0.87-1.13) 08/23/18 15:36 APTT 32.0 Sec. (24.2-36.6) 08/23/18 15:36 Sodium 139 mmol/L (137-145) 09/01/18 04:19 Potassium 3.4 mmol/L (3.6-5.0) L 09/01/18 04:19 Chloride 109.6 mmol/L (98-107) H 09/01/18 04:19 Carbon Dioxide 20 mmol/L (22-30) L 09/01/18 04:19 Anion Gap 13 mmol/L 09/01/18 04:19 BUN 11 mg/dL (7-17) 09/01/18 04:19 Creatinine 0.9 mg/dL (0.7-1.2) 09/01/18 04:19 Estimated GFR > 60 ml/min 09/01/18 04:19 BUN/Creatinine Ratio 12 % 09/01/18 04:19 Glucose 96 mg/dL (65-100) 09/01/18 04:19 POC Glucose 113 (70-105) H 09/01/18 21:29 Hemoglobin A1c 5.3 % (4-6) 08/24/18 00:08 Calcium 7.4 mg/dL (8.4-10.2) L 09/01/18 04:19 Phosphorus 2.40 mg/dL (2.5-4.5) L 08/31/18 15:38 Magnesium 1.70 mg/dL (1.7-2.3) 09/01/18 04:19 Total Bilirubin 0.20 mg/dL (0.1-1.2) 08/31/18 15:38 Direct Bilirubin < 0.2 mg/dL (0-0.2) 08/31/18 15:38 AST 13 units/L (5-40) 08/31/18 15:38 ALT 10 units/L (7-56) 08/31/18 15:38 Alkaline Phosphatase 63 units/L (35-129) 08/31/18 15:38 C-Reactive Protein 6.60 mg/dL (0.00-1.30) H 08/27/18 18:30 Total Protein 4.8 g/dL (6.3-8.2) L 08/31/18 15:38 Albumin 1.8 g/dL (3.9-5) L 08/31/18 15:38 Albumin/Globulin Ratio 0.6 % 08/31/18 15:38 Lipase 5 units/L (13-60) L 08/23/18 15:29 TSH 0.482 mlU/mL (0.270-4.200) 08/28/18 09:00 Free T4 1.90 ng/dL (0.76-1.46) H 08/24/18 Unknown Thyroxine (T4) 5.7 ug/dL (4.0-12.0) 08/29/18 13:15 Total Cortisol 29.8 mcg/dL () 08/28/18 09:00 Urine Color Yellow (Yellow) 08/23/18 17:45 Urine Turbidity Clear (Clear) 08/23/18 17:45 Urine pH 5.0 (5.0-7.0) 08/23/18 17:45 Ur Specific [place] 1.008 (1.003-1.030) 08/23/18 17:45 Urine Protein <15 mg/dl mg/dL (Negative) 08/23/18 17:45 Urine Glucose (UA) Neg mg/dL (Negative) 08/23/18 17:45 Urine Ketones Neg mg/dL (Negative) 08/23/18 17:45 Urine Blood Sm (Negative) 08/23/18 17:45 Urine Nitrite Neg (Negative) 08/23/18 17:45 Urine Bilirubin Neg (Negative) 08/23/18 17:45 Urine Urobilinogen < 2.0 mg/dL (<2.0) 08/23/18 17:45 Ur Leukocyte Esterase Neg (Negative) 08/23/18 17:45 Urine WBC (Auto) 1.0 /HPF (0.0-6.0) 08/23/18 17:45 Urine RBC (Auto) 1.0 /HPF (0.0-6.0) 08/23/18 17:45 U Epithel Cells (Auto) 2.0 /HPF (0-13.0) 08/23/18 17:45 Urine Bacteria (Auto) 2+ /HPF (Negative) 08/23/18 17:45 RPR Nonreactive (Nonreactive) 08/25/18 03:45 C. difficile Tox (PCR) Negative (Negative) 08/24/18 06:40 Miscellaneous Test Flexitest 1 08/28/18 09:00 Blood Type O NEGATIVE 08/23/18 15:29 Antibody Screen Negative 08/23/18 15:29 Crossmatch See Detail 08/23/18 15:29 Active Medications - Current Medications Current Medications: Generic Name Dose Route Start Last Admin Trade Name Freq PRN Reason Stop Dose Admin Acetaminophen 650 mg 08/24/18 00:56 08/27/18 18:17 Tylenol PO 650 mg Q4H PRN Administration Pain MILD(1-3)/Fever >100.5/VILLARREAL Cholestyramine Resin 4 gm 09/01/18 15:00 09/01/18 22:02 Questran PO Not Given BID LAZARO Duloxetine HCl 60 mg 08/27/18 16:00 09/01/18 10:43 Cymbalta PO 60 mg DAILY LAZARO Administration Hydrocortisone Acetate 20 mg 08/30/18 11:00 09/01/18 10:44 Cortef PO 20 mg QDAY LAZARO Administration Cefepime HCl 2 gm in 100 mls @ 200 mls/hr 08/28/18 09:00 09/01/18 22:02 Maxipime/Ns 2 Gm/100 Ml IV 200 mls/hr Q8HR LAZARO Administration Protocol Metronidazole 500 mg in 100 mls @ 100 mls/hr 08/30/18 14:00 09/01/18 22:02 Flagyl 500 Mg/100 Ml IV 100 mls/hr Q8HR LAZARO Administration Protocol Levothyroxine Sodium 125 mcg 08/27/18 16:00 09/01/18 10:43 Synthroid PO 125 mcg DAILY LAZARO Administration Midodrine 10 mg 08/28/18 09:00 09/01/18 22:03 Proamatine PO Not Given TID LAZARO Morphine Sulfate 2 mg 08/31/18 11:36 Morphine IV Q24H PRN for MRI Multivitamins/Minerals 1 each 08/24/18 10:00 09/01/18 10:43 Theragran-M Tab PO 1 each QDAY LAZARO Administration Ondansetron HCl 4 mg 08/24/18 00:56 Zofran IV Q8H PRN Nausea And Vomiting Pantoprazole Sodium 40 mg 08/24/18 10:00 09/01/18 10:43 Protonix PO 40 mg QDAY LAZARO Administration Polyethylene Glycol 17 gm 08/24/18 10:00 09/01/18 22:03 Miralax 3350 PO Not Given BID LAZARO Senna/Docusate Sodium 2 tab 08/24/18 09:39 08/24/18 19:09 Senokot S PO 2 tab Q12H PRN Administration Laxative Effect Sodium Chloride 10 ml 08/24/18 10:00 09/01/18 22:04 Sodium Chloride Flush Syringe 10 Ml IV 10 ml BID LAZARO Administration Sodium Chloride 10 ml 08/24/18 00:56 Sodium Chloride Flush Syringe 10 Ml IV PRN PRN LINE FLUSH Temazepam 15 mg 08/27/18 22:00 09/01/18 22:01 Restoril PO 15 mg QHS LAZARO Administration Tizanidine HCl 4 mg 08/27/18 16:00 09/01/18 22:04 Zanaflex PO 4 mg BID LAZARO Administration Nutrition/Malnutrition Assess - Dietary Evaluation Nutrition/Malnutrition Findings: Nutrition Notes Start: 08/27/18 13:40 Freq: Status: Active Protocol: Document 08/29/18 10:35 EB (Rec: 08/29/18 10:41 EB [id number]) Co-Sign 08/29/18 10:35 LP Nutrition Notes Need for Assessment generated from: hazard mitigation officer,MST Initial or Follow up Reassessment Other Pertinent Diagnosis Hypotension, colitis Current Diet GI soft diet Labs/Tests Reviewed Pertinent Medications Levophed, Protonix Height 5 ft 1 in Weight 104.33 kg [place] Body Weight (kg) 47.72 BMI 43.4 Weight Status Obese Subjective/Other Information Following for diet advancement and tolerance. Pt consumed about 50% of new gi soft diet this am and for dinner last night and continues to report consistent diarrhea that occurs about 15 minutes after eating foods. Percent of energy/protein needs met: 71%/34% Burn Absent Trauma Absent GI Symptoms Diarrhea Current % PO Fair (50-74%) #1 Nutrition Diagnosis Inadequate oral intake As Evidenced by Signs and Symptoms diet advanced to gi soft and meeting 71% and 34% of axel and pro needs respectively Diagnosis Progress(for reassessment Improved documentation) Is patient on ventilator? No Is Patient Ambulatory and/or Out of Bed Yes REE-([place]-ambulatory/OOB) [ 1924.884 NUTR.MSJOOB] Kcal/Kg value to use for calculation 14 Approximate Energy Requirements Using 1461 kcal/Kg Calculation Used for Recommendations Kcal/kg Additional Notes PRO: 2.5 g/kg IBW of 47.72 kg (119 g/day) Fluid: 1 mL/kcal Nutrition Intervention Change Diet Order: advance when medically feasible Goal #1 advance diet when medically feasible Goal #2 meet at least 75% axel and pro needs Anticipated Discharge Needs: unable to determine at this time Follow-Up By: 09/03/18 Additional Comments F/u: PO intake and diet advancement
[2018-08-30] MEDS: MIRALAX 3350 PO SCH (10:41)
[2018-08-30] MEDS: CYMBALTA PO SCH (10:41)
[2018-08-30] MEDS: SYNTHROID PO SCH (10:42)
[2018-08-30] MEDS: SODIUM CHLORIDE FLUSH SYRINGE 10 ML IV SCH (10:42)
[2018-08-30] MEDS: THERAGRAN-M Tab PO SCH (10:42)
[2018-08-30] MEDS: ZANAFLEX PO SCH (10:42)
[2018-08-30] MEDS: PROTONIX PO SCH (10:42)
--- NOTE | 2018-08-30 10:58 | Progress Note ---
Assessment and Plan ultures: Blood culture 08/26/2018 no growth today C diff 08/24/2018 negative Assessment: 73 y/o female with history of chronic lower back pain syndrome, Graves disease, depression, OA and hypertension; admitted on due to 2-month history of bloody diarrhea, most recently associated with nausea, worsening bloody stools, generalized weakness and dizziness for 48 hours: 1) Shock ?hemorrhagic v/s septic: Off pressors, Improved. Etiology most likely GI bleed +/- colitis +/- liver lesions. Blood cultures negative. UA negative. CXR negative. Should r/o hypothyroidism, low cortisol. TSH negative. 2) GI bleed: unclear etiology, likely colitis. EGD negative. C diff negative. Stool WBC many. CRP 6.6. Underwent flex sigmoidoscopy with severe proctitis, showed marked colitis with ulceration, atypia with focal dysplasia no granuloma, no malignancy. EGD with negative results. Colitis DDx. inflammatory (IBD) v/s infectious. 3) Anemia: s/p transfusion 4) Bilateral leg edema. 5) Liver lesions: ?unclear etiology -likely metastasis per radiology, should r/o abscesses. Recommendations: - follow-up blood cultures, procalcitonin - Appreciate GI input - doubt liver abscesses - consider IR liver biopsy please 2 specimen for path and cultures - continue cefepime 2 gm IV q 8h, D3 - last dose today - continue flagyl IV, D7 - last dose today - agree with colonscopy when stable Dr. Sr will be circulation crew leader this weekend. Please call [phone] for questions. Will follow on Sunday [facility] M: [phone] O:[phone] Subjective Date of service: 08/30/18 Principal diagnosis: GI Bleed, colitis, hypotension, rule out liver metastases Interval history: Patient seen and examined. Sitting up in bed. Complained of stomach pain, diarrhea and generalized weakness. No fevers. Objective - Exam Narrative Exam: General appearance: Alert in NAD, conversant, obese Eyes: anicteric sclerae, moist conjunctivae; no lid-lag; PERRLA HENT: Atraumatic; oropharynx clear with moist mucous membranes and no mucosal ulcerations/no oral thrush; normal hard and soft palate. Normal external ears. Neck: Trachea midline; supple, no thyromegaly or lymphadenopathy Lungs: CTA CV: RRR Abdomen: Soft, obese, mild tenderness Extremities: bilateral marked bilateral leg edema Skin: Normal temperature, turgor and texture; no rash, ulcers or subcutaneous nodules Psych: Appropriate affect, alert and oriented to person, place and time. Neuro: alert and oriented x 3. Moving all extermities - Constitutional Vitals: Vital Signs Temp Pulse Resp BP Pulse Ox 97.5 F L 59 L 14 100/45 98 08/30/18 08:00 08/30/18 08:00 08/30/18 08:00 08/30/18 08:00 08/30/18 08:00 Temperature -Last 24 Hours Temperature 97.5 F Temperature 98.7 F Temperature 97.1 F Temperature 97.3 F Temperature 94.5 F Temperature 98.0 F Temperature 97.8 F Temperature 97.9 F - Labs CBC & Chem 7: 08/29/18 13:15 08/29/18 13:15 Labs: Abnormal lab results 08/29/18 08/29/18 Range/Units 13:15 13:15 RBC 3.09 L (3.65-5.03) M/mm3 Hgb 8.7 L (10.1-14.3) gm/dl Hct 25.9 L (30.3-42.9) % RDW 18.5 H (13.2-15.2) % Lymph % (Auto) 11.9 L (13.4-35.0) % [place] % (Auto) 11.3 H (0.0-7.3) % Lymph # 0.8 L (1.2-5.4) K/mm3 Seg Neutrophils % 75.5 H (40.0-70.0) % Chloride 111.0 H (98-107) mmol/L Glucose 115 H (65-100) mg/dL Calcium 7.2 L (8.4-10.2) mg/dL Magnesium 1.60 L (1.7-2.3) mg/dL
[2018-08-30] MEDS ORDERED: MORPHINE IV ONE (12:40)
[2018-08-30] MEDS ORDERED: ATIVAN IV ONE (12:41)
[2018-08-30] MEDS: FLAGYL 500 MG/100 ML 500 MG/100 ML BAG IV SCH ×2 (13:29→22:50)
[2018-08-30] MEDS: CORTEF PO SCH (13:43)
--- NOTE | 2018-08-30 14:13 | Gastroenterology Progress Note ---
<KARLA MICHAEL - Last Filed: 08/30/18 14:08> Assessment and Plan 1. Colitis -afebrile -WBC WNL -stool + for WBCs -stool culture negative -H/H stable -s/p EGD with negative results -s/p flex sig (incomplete colonoscopy) with severe proctitis -bx result indeterminate -etiology unclear- stercoral vs ischemic vs infection vs IBD -clinically, patient's diarrhea is improved. No active signs of bleeding. Denies abd pain or N/V. Tolerating diet. -continue miralax and antibiotics per ID recommendations -continue supportive careand supportive care -recommend outpatient colonoscopy in 4-6 weeks once acute colitis has resolved 2.liver mass seen on CT -LFTs WNL -MRI pending for today for further evaluation -will follow Subjective Date of service: 08/30/18 Principal diagnosis: colitis, liver mass Interval history: Patient w/o acute distress. BMs x 2 this am per nursing with blood tinged liquid stool. Denies abd pain or N/V. Objective - Constitutional Vitals: Temp Pulse Resp BP Pulse Ox 98.0 F 59 L 14 100/45 98 08/30/18 12:00 08/30/18 08:00 08/30/18 08:00 08/30/18 08:00 08/30/18 08:00 General appearance: no acute distress - Respiratory Respiratory: bilateral: CTA - Cardiovascular Rhythm: regular - Gastrointestinal General gastrointestinal: Present: soft, non-tender, non-distended, normal bowel sounds - Neurologic Neurological: alert and oriented x3 - Labs CBC & Chem 7: 08/29/18 13:15 08/29/18 13:15 Labs: Laboratory Results - last 24 hr 08/29/18 13:15 Thyroxine (T4) 5.7 <GARCÍA COLBERT - Last Filed: 08/30/18 14:45> Assessment and Plan Pt could not get MRI due to back pain and anxiety. On midodrine for low BP. Will order Ativan, 0.5 mg, and Morphine, 1 mg, to try and make pt comfortable for MRI. If not, will get triple phase CT. Objective - Constitutional Vitals: Temp Pulse Resp BP Pulse Ox 98.0 F 50 L 13 119/64 100 08/30/18 12:00 08/30/18 14:00 08/30/18 14:00 08/30/18 14:00 08/30/18 14:00 - Labs CBC & Chem 7: 08/29/18 13:15 08/29/18 13:15
[2018-08-30] MEDS ORDERED: MORPHINE IV SCH (14:46)
[2018-08-30] MEDS ORDERED: ATIVAN IV NR (15:00)
[2018-08-31] MEDS: RESTORIL PO SCH ×2 (01:28→21:39)
[2018-08-31] MEDS: ZANAFLEX PO SCH ×3 (01:29→21:40)
[2018-08-31] MEDS: SODIUM CHLORIDE FLUSH SYRINGE 10 ML IV SCH ×3 (02:39→21:40)
[2018-08-31] MEDS: MIRALAX 3350 PO SCH ×3 (02:39→21:34)
[2018-08-31] MEDS: PROAMATINE PO SCH ×4 (02:42→21:39)
[2018-08-31] MEDS: MAXIPIME/NS 2 GM/100 ML 2 GM/100 ML BAG IV SCH ×3 (05:47→21:39)
[2018-08-31] MEDS: FLAGYL 500 MG/100 ML 500 MG/100 ML BAG IV SCH ×3 (05:47→21:38)
[2018-08-31] MEDS: CYMBALTA PO SCH (10:06)
[2018-08-31] MEDS: THERAGRAN-M Tab PO SCH (10:06)
[2018-08-31] MEDS: PROTONIX PO SCH (10:06)
--- NOTE | 2018-08-31 10:18 | Progress Note ---
Assessment and Plan Assessment and plan: 73 yo -[place] woman with a history of chronic pain syndome due to OA/LBP, Graves disease then hypothyroidism, depression, OA and hypertension who presented to [facility] ED with n/v/d/bloody stools and weakness. She was admitted to the ICU. She was on Levophed gtt, and weand off drip on 08/28. She is on po Midodrine to help maintain bp. On 08/27 CT Abd/ Pelvis Pt indeterminate focal masses in the liver which could represent metastatic disease. She was transferred to [facility] on 08/29. Pending Hypotension-resolving; septic shock and adrenal insufficiency weaned off pressors, on midodrine, and hydrocortisone (wean steroid dose q5 days) Acute blood loss anemia due to GI bleed from colitis and proctitisNormocytic Anemia with BRBPR/rectal bleeding with severe Colitis, proctitis sp 2 units prbc Severe colitis -has completed abx per ID, S/P flex sig (incomplete colonoscopy) with severe proctitis- per GI will need c scope when improved in a few weeks C-diff negative; started on questran on 08/[address] a/p awaiting liver MRI History of Hypertension cont bp meds Hypomagnesemia Repleted History of Depression Resume Cymbalta 60 mg daily- previously held antidepressant due to NPO status Hyponatremia hypovolemia-resolved Treated with IVF Hypokalemia- resolved Repleted History of Hypothyroidism/Graves: TSH 0.57, Free T4 1.90 slightly elevated, Continue Synthroid 125mcg daily Severe Malnutrition Albumin 2.2, On soft diet, Mr Teacher consult pending Morbid obesity, bmi 43.5 Lifestyle modifications discussed, Benefit from outpatient weight management program History Interval history: LE edema is improved, no chest pain denies CP, dizzyness, admits to Generalized weakness,, no vomiting RN states that she is having blood diarrhea Hospitalist Physical - Physical exam Narrative exam: General.: Appears well, no distress, nontoxic HEENT: Moist mucous membranes, extraocular muscles intact, no lymphadenopathy Neck: supple Cardiac: S1-S2 heard Lungs: clear to auscultation bilaterally Abdomen: soft , nontender, nondistended, bowel sounds positive Extremities: 2 plus bipedal pitting edema Skin: no rash or lesions Neurologic: no gross focal deficits Psych: calm, and cooperative - Constitutional Vitals: Temp Pulse Resp BP Pulse Ox 98.2 F 58 L 20 110/58 98 08/31/18 07:21 08/31/18 07:21 08/31/18 07:21 08/31/18 07:21 08/31/18 07:21 General appearance: Present: no acute distress, well-nourished Results - Labs CBC & Chem 7: 09/03/18 08:10 09/02/18 02:38 Labs: Laboratory Last Values WBC 6.7 K/mm3 (4.5-11.0) 08/29/18 13:15 RBC 3.09 M/mm3 (3.65-5.03) L 08/29/18 13:15 Hgb 8.7 gm/dl (10.1-14.3) L 08/29/18 13:15 Hct 25.9 % (30.3-42.9) L 08/29/18 13:15 MCV 84 fl (79-97) 08/29/18 13:15 MCH 28 pg (28-32) 08/29/18 13:15 MCHC 34 % (30-34) 08/29/18 13:15 RDW 18.5 % (13.2-15.2) H 08/29/18 13:15 Plt Count 279 K/mm3 (140-440) 08/29/18 13:15 Lymph % (Auto) 11.9 % (13.4-35.0) L 08/29/18 13:15 [place] % (Auto) 11.3 % (0.0-7.3) H 08/29/18 13:15 Eos % (Auto) 1.1 % (0.0-4.3) 08/29/18 13:15 Baso % (Auto) 0.2 % (0.0-1.8) 08/29/18 13:15 Lymph # 0.8 K/mm3 (1.2-5.4) L 08/29/18 13:15 [place] # 0.8 K/mm3 (0.0-0.8) 08/29/18 13:15 Eos # 0.1 K/mm3 (0.0-0.4) 08/29/18 13:15 Baso # 0.0 K/mm3 (0.0-0.1) 08/29/18 13:15 Seg Neutrophils % 75.5 % (40.0-70.0) H 08/29/18 13:15 Seg Neutrophils # 5.1 K/mm3 (1.8-7.7) 08/29/18 13:15 PT 14.1 Sec. (12.2-14.9) 08/23/18 15:36 INR 1.03 (0.87-1.13) 08/23/18 15:36 APTT 32.0 Sec. (24.2-36.6) 08/23/18 15:36 Sodium 141 mmol/L (137-145) 08/29/18 13:15 Potassium 3.6 mmol/L (3.6-5.0) 08/29/18 13:15 Chloride 111.0 mmol/L (98-107) H 08/29/18 13:15 Carbon Dioxide 23 mmol/L (22-30) 08/29/18 13:15 Anion Gap 11 mmol/L 08/29/18 13:15 BUN 11 mg/dL (7-17) 08/29/18 13:15 Creatinine 1.0 mg/dL (0.7-1.2) 08/29/18 13:15 Estimated GFR > 60 ml/min 08/29/18 13:15 BUN/Creatinine Ratio 11 % 08/29/18 13:15 Glucose 115 mg/dL (65-100) H 08/29/18 13:15 POC Glucose 127 (70-105) H 08/24/18 23:14 Hemoglobin A1c 5.3 % (4-6) 08/24/18 00:08 Calcium 7.2 mg/dL (8.4-10.2) L 08/29/18 13:15 Phosphorus 2.70 mg/dL (2.5-4.5) 08/29/18 13:15 Magnesium 1.60 mg/dL (1.7-2.3) L 08/29/18 13:15 Total Bilirubin 0.30 mg/dL (0.1-1.2) 08/27/18 04:34 AST 17 units/L (5-40) 08/27/18 04:34 ALT 15 units/L (7-56) 08/27/18 04:34 Alkaline Phosphatase 58 units/L (35-129) 08/27/18 04:34 C-Reactive Protein 6.60 mg/dL (0.00-1.30) H 08/27/18 18:30 Total Protein 5.0 g/dL (6.3-8.2) L 08/27/18 04:34 Albumin 2.1 g/dL (3.9-5) L 08/27/18 04:34 Albumin/Globulin Ratio 0.7 % 08/27/18 04:34 Lipase 5 units/L (13-60) L 08/23/18 15:29 TSH 0.482 mlU/mL (0.270-4.200) 08/28/18 09:00 Free T4 1.90 ng/dL (0.76-1.46) H 08/24/18 Unknown Thyroxine (T4) 5.7 ug/dL (4.0-12.0) 08/29/18 13:15 Urine Color Yellow (Yellow) 08/23/18 17:45 Urine Turbidity Clear (Clear) 08/23/18 17:45 Urine pH 5.0 (5.0-7.0) 08/23/18 17:45 Ur Specific [place] 1.008 (1.003-1.030) 08/23/18 17:45 Urine Protein <15 mg/dl mg/dL (Negative) 08/23/18 17:45 Urine Glucose (UA) Neg mg/dL (Negative) 08/23/18 17:45 Urine Ketones Neg mg/dL (Negative) 08/23/18 17:45 Urine Blood Sm (Negative) 08/23/18 17:45 Urine Nitrite Neg (Negative) 08/23/18 17:45 Urine Bilirubin Neg (Negative) 08/23/18 17:45 Urine Urobilinogen < 2.0 mg/dL (<2.0) 08/23/18 17:45 Ur Leukocyte Esterase Neg (Negative) 08/23/18 17:45 Urine WBC (Auto) 1.0 /HPF (0.0-6.0) 08/23/18 17:45 Urine RBC (Auto) 1.0 /HPF (0.0-6.0) 08/23/18 17:45 U Epithel Cells (Auto) 2.0 /HPF (0-13.0) 08/23/18 17:45 Urine Bacteria (Auto) 2+ /HPF (Negative) 08/23/18 17:45 RPR Nonreactive (Nonreactive) 08/25/18 03:45 C. difficile Tox (PCR) Negative (Negative) 08/24/18 06:40 Miscellaneous Test Flexitest 1 08/28/18 09:00 Blood Type O NEGATIVE 08/23/18 15:29 Antibody Screen Negative 08/23/18 15:29 Crossmatch See Detail 08/23/18 15:29 Active Medications - Current Medications Current Medications: Generic Name Dose Route Start Last Admin Trade Name Freq PRN Reason Stop Dose Admin Acetaminophen 650 mg 08/24/18 00:56 08/27/18 18:17 Tylenol PO 650 mg Q4H PRN Administration Pain MILD(1-3)/Fever >100.5/VILLARREAL Duloxetine HCl 60 mg 08/27/18 16:00 08/31/18 10:06 Cymbalta PO 60 mg DAILY LAZARO Administration Hydrocortisone Acetate 20 mg 08/30/18 11:00 08/30/18 13:43 Cortef PO 20 mg QDAY LAZARO Administration Cefepime HCl 2 gm in 100 mls @ 200 mls/hr 08/28/18 09:00 08/31/18 05:47 Maxipime/Ns 2 Gm/100 Ml IV 200 mls/hr Q8HR LAZARO Administration Protocol Metronidazole 500 mg in 100 mls @ 100 mls/hr 08/30/18 14:00 08/31/18 05:47 Flagyl 500 Mg/100 Ml IV 100 mls/hr Q8HR LAZARO Administration Protocol Levothyroxine Sodium 125 mcg 08/27/18 16:00 08/30/18 10:42 Synthroid PO 125 mcg DAILY LAZARO Administration Midodrine 10 mg 08/28/18 09:00 08/31/18 10:06 Proamatine PO 10 mg TID LAZARO Administration Multivitamins/Minerals 1 each 08/24/18 10:00 08/31/18 10:06 Theragran-M Tab PO 1 each QDAY LAZARO Administration Ondansetron HCl 4 mg 08/24/18 00:56 Zofran IV Q8H PRN Nausea And Vomiting Pantoprazole Sodium 40 mg 08/24/18 10:00 08/31/18 10:06 Protonix PO 40 mg QDAY LAZARO Administration Polyethylene Glycol 17 gm 08/24/18 10:00 08/31/18 10:06 Miralax 3350 PO 17 gm BID LAZARO Administration Senna/Docusate Sodium 2 tab 08/24/18 09:39 08/24/18 19:09 Senokot S PO 2 tab Q12H PRN Administration Laxative Effect Sodium Chloride 10 ml 08/24/18 10:00 08/31/18 10:07 Sodium Chloride Flush Syringe 10 Ml IV 10 ml BID LAZARO Administration Sodium Chloride 10 ml 08/24/18 00:56 Sodium Chloride Flush Syringe 10 Ml IV PRN PRN LINE FLUSH Temazepam 15 mg 08/27/18 22:00 08/31/18 01:28 Restoril PO 15 mg QHS LAZARO Administration Tizanidine HCl 4 mg 08/27/18 16:00 08/31/18 10:06 Zanaflex PO 4 mg BID LAZARO Administration Nutrition/Malnutrition Assess - Dietary Evaluation Nutrition/Malnutrition Findings: Nutrition Notes Start: 08/27/18 13:40 Freq: Status: Active Protocol: Document 08/29/18 10:35 EB (Rec: 08/29/18 10:41 EB [id number]) Co-Sign 08/29/18 10:35 LP Nutrition Notes 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 Pt consumed about 50% of new gi soft diet this am and for dinner last night and continues to report consistent diarrhea that occurs about 15 minutes after eating foods. Percent of energy/protein needs met: 71%/34% Burn Absent Trauma Absent GI Symptoms Diarrhea Current % PO Fair (50-74%) #1 Nutrition Diagnosis Inadequate oral intake As Evidenced by Signs and Symptoms diet advanced to gi soft and meeting 71% and 34% of axel and pro needs respectively Diagnosis Progress(for reassessment Improved documentation) Is patient on ventilator? No Is Patient Ambulatory and/or Out of Bed Yes REE-([place]-ambulatory/OOB) [ 1924.884 NUTR.MSJOOB] Kcal/Kg value to use for calculation 14 Approximate Energy Requirements Using 1461 kcal/Kg Calculation Used for Recommendations Kcal/kg Additional Notes PRO: 2.5 g/kg IBW of 47.72 kg (119 g/day) Fluid: 1 mL/kcal Nutrition Intervention Change Diet Order: advance when medically feasible Goal #1 advance diet when medically feasible Goal #2 meet at least 75% axel and pro needs Anticipated Discharge Needs: unable to determine at this time Follow-Up By: 09/03/18 Additional Comments F/u: PO intake and diet advancement
--- NOTE | 2018-08-31 10:33 | Progress Note ---
Assessment and Plan - Patient Problems (1) Acute blood loss anemia Current Visit: Yes Status: Acute (2) Acute renal failure Current Visit: Yes Status: Acute (3) Colitis Current Visit: Yes Status: Acute (4) GI bleed Current Visit: Yes Status: Acute Subjective Principal diagnosis: GI Bleed, colitis, hypotension, rule out liver metastases Interval history: No sob tobay Objective Vital Signs - 12hr 08/31/18 08/31/18 08/31/18 01:00 01:53 01:57 Temperature 98.9 F 98.6 F Pulse Rate 72 Respiratory 20 20 Rate Blood Pressure 118/63 157/70 O2 Sat by Pulse Oximetry 08/31/18 08/31/18 02:33 07:21 Temperature 98.8 F 98.2 F Pulse Rate 54 L 58 L Respiratory 20 20 Rate Blood Pressure 119/63 110/58 O2 Sat by Pulse 96 98 Oximetry Constitutional: no acute distress, alert Eyes: non-icteric ENT: oropharynx moist Neck: supple, no JVD, other (left IJ) Ascultation: Bilateral: clear, diminished breath sounds Cardiovascular: regular rate and rhythm Gastrointestinal: normoactive bowel sounds, non-tender, non-distended, other (obese, rt groin dressing in place) Integumentary: normal Extremities: no cyanosis, no cyanosis, no cyanosis Neurologic: normal mental status, non-focal exam, pupils equal and round, CN II- XII normal CBC and BMP: 08/29/18 13:15 08/29/18 13:15 ABG, PT/INR, D-dimer: PT/INR, D-dimer PT 14.1 Sec. (12.2-14.9) 08/23/18 15:36 INR 1.03 (0.87-1.13) 08/23/18 15:36 Abnormal lab findings: Abnormal Labs 08/23/18 08/23/18 08/23/18 15:29 15:29 15:29 RBC 2.74 L Hgb 7.6 L Hct 22.3 L MCHC RDW 16.8 H Lymph % (Auto) [place] % (Auto) 11.6 H Lymph # [place] # 1.1 H Seg Neutrophils % 72.5 H Sodium 133 L Potassium 3.3 L Chloride 96.4 L BUN 32 H Creatinine 2.4 H Glucose POC Glucose Calcium 7.7 L Magnesium C-Reactive Protein Total Protein 5.7 L Albumin 2.2 L Lipase 5 L Free T4 Crossmatch See Detail 08/24/18 08/24/18 08/24/18 00:08 01:31 07:07 RBC 2.88 L Hgb 8.5 L 8.8 L 8.8 L Hct 23.5 L 24.4 L 25.4 L MCHC 36 H RDW 16.7 H Lymph % (Auto) 13.3 L [place] % (Auto) 11.4 H Lymph # [place] # 1.1 H Seg Neutrophils % 71.3 H Sodium Potassium Chloride BUN Creatinine Glucose POC Glucose Calcium Magnesium C-Reactive Protein Total Protein Albumin Lipase Free T4 Crossmatch 08/24/18 08/24/18 08/25/18 23:14 Unknown 03:45 RBC Hgb Hct MCHC RDW Lymph % (Auto) [place] % (Auto) Lymph # [place] # Seg Neutrophils % Sodium Potassium 3.0 L Chloride BUN 18 H Creatinine Glucose 141 H POC Glucose 127 H Calcium 7.6 L Magnesium C-Reactive Protein Total Protein 5.1 L Albumin 2.0 L Lipase Free T4 1.90 H Crossmatch 08/25/18 08/25/18 08/26/18 03:45 13:53 04:45 RBC 3.56 L 3.29 L Hgb 10.0 L 9.4 L Hct 29.3 L 27.2 L MCHC 35 H RDW 16.9 H 17.2 H Lymph % (Auto) [place] % (Auto) 13.4 H Lymph # 1.1 L [place] # 1.0 H Seg Neutrophils % 70.9 H Sodium Potassium Chloride BUN Creatinine Glucose POC Glucose Calcium Magnesium 1.60 L C-Reactive Protein Total Protein Albumin Lipase Free T4 Crossmatch 08/26/18 08/27/18 08/27/18 04:45 04:34 04:34 RBC 3.48 L Hgb 9.9 L Hct 29.0 L MCHC RDW 17.4 H Lymph % (Auto) [place] % (Auto) Lymph # [place] # Seg Neutrophils % Sodium Potassium 3.1 L Chloride 109.8 H 109.8 H BUN Creatinine Glucose 119 H POC Glucose Calcium 7.0 L 7.7 L Magnesium C-Reactive Protein Total Protein 5.0 L Albumin 2.1 L Lipase Free T4 Crossmatch 08/27/18 08/27/18 08/28/18 18:30 20:20 00:40 RBC Hgb 8.4 L 9.0 L Hct 24.6 L 26.7 L MCHC RDW Lymph % (Auto) [place] % (Auto) Lymph # [place] # Seg Neutrophils % Sodium Potassium Chloride BUN Creatinine Glucose POC Glucose Calcium Magnesium C-Reactive Protein 6.60 H Total Protein Albumin Lipase Free T4 Crossmatch 08/28/18 08/29/18 08/29/18 06:00 13:15 13:15 RBC 3.09 L Hgb 8.8 L 8.7 L Hct 25.9 L 25.9 L MCHC RDW 18.5 H Lymph % (Auto) 11.9 L [place] % (Auto) 11.3 H Lymph # 0.8 L [place] # Seg Neutrophils % 75.5 H Sodium Potassium Chloride 111.0 H BUN Creatinine Glucose 115 H POC Glucose Calcium 7.2 L Magnesium 1.60 L C-Reactive Protein Total Protein Albumin Lipase Free T4 Crossmatch
[2018-08-31] MEDS: CORTEF PO SCH (10:55)
[2018-08-31] MEDS: SYNTHROID PO SCH (10:55)
--- NOTE | 2018-08-31 11:35 | Progress Note ---
Hospitalist Physical - Constitutional Vitals: Temp Pulse Resp BP Pulse Ox 98.2 F 58 L 20 110/58 98 08/31/18 07:21 08/31/18 07:21 08/31/18 07:21 08/31/18 07:21 08/31/18 07:21 General appearance: Present: no acute distress, well-nourished Results - Labs CBC & Chem 7: 08/29/18 13:15 08/29/18 13:15 Labs: Laboratory Last Values WBC 6.7 K/mm3 (4.5-11.0) 08/29/18 13:15 RBC 3.09 M/mm3 (3.65-5.03) L 08/29/18 13:15 Hgb 8.7 gm/dl (10.1-14.3) L 08/29/18 13:15 Hct 25.9 % (30.3-42.9) L 08/29/18 13:15 MCV 84 fl (79-97) 08/29/18 13:15 MCH 28 pg (28-32) 08/29/18 13:15 MCHC 34 % (30-34) 08/29/18 13:15 RDW 18.5 % (13.2-15.2) H 08/29/18 13:15 Plt Count 279 K/mm3 (140-440) 08/29/18 13:15 Lymph % (Auto) 11.9 % (13.4-35.0) L 08/29/18 13:15 [place] % (Auto) 11.3 % (0.0-7.3) H 08/29/18 13:15 Eos % (Auto) 1.1 % (0.0-4.3) 08/29/18 13:15 Baso % (Auto) 0.2 % (0.0-1.8) 08/29/18 13:15 Lymph # 0.8 K/mm3 (1.2-5.4) L 08/29/18 13:15 [place] # 0.8 K/mm3 (0.0-0.8) 08/29/18 13:15 Eos # 0.1 K/mm3 (0.0-0.4) 08/29/18 13:15 Baso # 0.0 K/mm3 (0.0-0.1) 08/29/18 13:15 Seg Neutrophils % 75.5 % (40.0-70.0) H 08/29/18 13:15 Seg Neutrophils # 5.1 K/mm3 (1.8-7.7) 08/29/18 13:15 PT 14.1 Sec. (12.2-14.9) 08/23/18 15:36 INR 1.03 (0.87-1.13) 08/23/18 15:36 APTT 32.0 Sec. (24.2-36.6) 08/23/18 15:36 Sodium 141 mmol/L (137-145) 08/29/18 13:15 Potassium 3.6 mmol/L (3.6-5.0) 08/29/18 13:15 Chloride 111.0 mmol/L (98-107) H 08/29/18 13:15 Carbon Dioxide 23 mmol/L (22-30) 08/29/18 13:15 Anion Gap 11 mmol/L 08/29/18 13:15 BUN 11 mg/dL (7-17) 08/29/18 13:15 Creatinine 1.0 mg/dL (0.7-1.2) 08/29/18 13:15 Estimated GFR > 60 ml/min 08/29/18 13:15 BUN/Creatinine Ratio 11 % 08/29/18 13:15 Glucose 115 mg/dL (65-100) H 08/29/18 13:15 POC Glucose 127 (70-105) H 08/24/18 23:14 Hemoglobin A1c 5.3 % (4-6) 08/24/18 00:08 Calcium 7.2 mg/dL (8.4-10.2) L 08/29/18 13:15 Phosphorus 2.70 mg/dL (2.5-4.5) 08/29/18 13:15 Magnesium 1.60 mg/dL (1.7-2.3) L 08/29/18 13:15 Total Bilirubin 0.30 mg/dL (0.1-1.2) 08/27/18 04:34 AST 17 units/L (5-40) 08/27/18 04:34 ALT 15 units/L (7-56) 08/27/18 04:34 Alkaline Phosphatase 58 units/L (35-129) 08/27/18 04:34 C-Reactive Protein 6.60 mg/dL (0.00-1.30) H 08/27/18 18:30 Total Protein 5.0 g/dL (6.3-8.2) L 08/27/18 04:34 Albumin 2.1 g/dL (3.9-5) L 08/27/18 04:34 Albumin/Globulin Ratio 0.7 % 08/27/18 04:34 Lipase 5 units/L (13-60) L 08/23/18 15:29 TSH 0.482 mlU/mL (0.270-4.200) 08/28/18 09:00 Free T4 1.90 ng/dL (0.76-1.46) H 08/24/18 Unknown Thyroxine (T4) 5.7 ug/dL (4.0-12.0) 08/29/18 13:15 Urine Color Yellow (Yellow) 08/23/18 17:45 Urine Turbidity Clear (Clear) 08/23/18 17:45 Urine pH 5.0 (5.0-7.0) 08/23/18 17:45 Ur Specific [place] 1.008 (1.003-1.030) 08/23/18 17:45 Urine Protein <15 mg/dl mg/dL (Negative) 08/23/18 17:45 Urine Glucose (UA) Neg mg/dL (Negative) 08/23/18 17:45 Urine Ketones Neg mg/dL (Negative) 08/23/18 17:45 Urine Blood Sm (Negative) 08/23/18 17:45 Urine Nitrite Neg (Negative) 08/23/18 17:45 Urine Bilirubin Neg (Negative) 08/23/18 17:45 Urine Urobilinogen < 2.0 mg/dL (<2.0) 08/23/18 17:45 Ur Leukocyte Esterase Neg (Negative) 08/23/18 17:45 Urine WBC (Auto) 1.0 /HPF (0.0-6.0) 08/23/18 17:45 Urine RBC (Auto) 1.0 /HPF (0.0-6.0) 08/23/18 17:45 U Epithel Cells (Auto) 2.0 /HPF (0-13.0) 08/23/18 17:45 Urine Bacteria (Auto) 2+ /HPF (Negative) 08/23/18 17:45 RPR Nonreactive (Nonreactive) 08/25/18 03:45 C. difficile Tox (PCR) Negative (Negative) 08/24/18 06:40 Miscellaneous Test Flexitest 1 08/28/18 09:00 Blood Type O NEGATIVE 08/23/18 15:29 Antibody Screen Negative 08/23/18 15:29 Crossmatch See Detail 08/23/18 15:29 Active Medications - Current Medications Current Medications: Generic Name Dose Route Start Last Admin Trade Name Freq PRN Reason Stop Dose Admin Acetaminophen 650 mg 08/24/18 00:56 08/27/18 18:17 Tylenol PO 650 mg Q4H PRN Administration Pain MILD(1-3)/Fever >100.5/VILLARREAL Duloxetine HCl 60 mg 08/27/18 16:00 08/31/18 10:06 Cymbalta PO 60 mg DAILY LAZARO Administration Hydrocortisone Acetate 20 mg 08/30/18 11:00 08/31/18 10:55 Cortef PO 20 mg QDAY LAZARO Administration Cefepime HCl 2 gm in 100 mls @ 200 mls/hr 08/28/18 09:00 08/31/18 05:47 Maxipime/Ns 2 Gm/100 Ml IV 200 mls/hr Q8HR LAZARO Administration Protocol Metronidazole 500 mg in 100 mls @ 100 mls/hr 08/30/18 14:00 08/31/18 05:47 Flagyl 500 Mg/100 Ml IV 100 mls/hr Q8HR LAZARO Administration Protocol Levothyroxine Sodium 125 mcg 08/27/18 16:00 08/31/18 10:55 Synthroid PO 125 mcg DAILY LAZARO Administration Midodrine 10 mg 08/28/18 09:00 08/31/18 10:06 Proamatine PO 10 mg TID LAZARO Administration Multivitamins/Minerals 1 each 08/24/18 10:00 08/31/18 10:06 Theragran-M Tab PO 1 each QDAY LAZARO Administration Ondansetron HCl 4 mg 08/24/18 00:56 Zofran IV Q8H PRN Nausea And Vomiting Pantoprazole Sodium 40 mg 08/24/18 10:00 08/31/18 10:06 Protonix PO 40 mg QDAY LAZARO Administration Polyethylene Glycol 17 gm 08/24/18 10:00 08/31/18 10:06 Miralax 3350 PO 17 gm BID LAZARO Administration Senna/Docusate Sodium 2 tab 08/24/18 09:39 08/24/18 19:09 Senokot S PO 2 tab Q12H PRN Administration Laxative Effect Sodium Chloride 10 ml 08/24/18 10:00 08/31/18 10:07 Sodium Chloride Flush Syringe 10 Ml IV 10 ml BID LAZARO Administration Sodium Chloride 10 ml 08/24/18 00:56 Sodium Chloride Flush Syringe 10 Ml IV PRN PRN LINE FLUSH Temazepam 15 mg 08/27/18 22:00 08/31/18 01:28 Restoril PO 15 mg QHS LAZARO Administration Tizanidine HCl 4 mg 08/27/18 16:00 08/31/18 10:06 Zanaflex PO 4 mg BID LAZARO Administration Nutrition/Malnutrition Assess - Dietary Evaluation Nutrition/Malnutrition Findings: Nutrition Notes Start: 08/27/18 13:40 Freq: Status: Active Protocol: Document 08/29/18 10:35 EB (Rec: 08/29/18 10:41 EB [id number]) Co-Sign 08/29/18 10:35 LP Nutrition Notes 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 Pt consumed about 50% of new gi soft diet this am and for dinner last night and continues to report consistent diarrhea that occurs about 15 minutes after eating foods. Percent of energy/protein needs met: 71%/34% Burn Absent Trauma Absent GI Symptoms Diarrhea Current % PO Fair (50-74%) #1 Nutrition Diagnosis Inadequate oral intake As Evidenced by Signs and Symptoms diet advanced to gi soft and meeting 71% and 34% of axel and pro needs respectively Diagnosis Progress(for reassessment Improved documentation) Is patient on ventilator? No Is Patient Ambulatory and/or Out of Bed Yes REE-([facility]-ambulatory/OOB) [ 1924.884 NUTR.[id number]] Kcal/Kg value to use for calculation 14 Approximate Energy Requirements Using 1461 kcal/Kg Calculation Used for Recommendations Kcal/kg Additional Notes PRO: 2.5 g/kg IBW of 47.72 kg (119 g/day) Fluid: 1 mL/kcal Nutrition Intervention Change Diet Order: advance when medically feasible Goal #1 advance diet when medically feasible Goal #2 meet at least 75% axel and pro needs Anticipated Discharge Needs: unable to determine at this time Follow-Up By: 09/03/18 Additional Comments F/u: PO intake and diet advancement
[2018-08-31] MEDS ORDERED: MORPHINE IV PRN (11:36)
--- NOTE | 2018-08-31 11:36 | Event Note ---
Date: 08/31/18 Patient is awaiting liver MRI, had initially refused the test as MRI table was uncomfortable and she was claustrophobic -Medications have been ordered for her to get MRI now RN alerted me that patient is having frequent bloody stools. We'll make nothing by mouth and notify GI Follow up serial CBCs. Transfuse as needed
[2018-08-31] MEDS ORDERED: ATIVAN IV NR (11:45)
--- NOTE | 2018-08-31 15:10 | Progress Note ---
Assessment and Plan 1. Colitis - improving on abx. H/H stable. - continue abx, and monitor for ongoing improvement and monitor H/H - will do colonoscopy as outpatient 2. Liver lesions - awaiting MRI. Subjective Date of service: 08/31/18 Principal diagnosis: GI Bleed, colitis, hypotension, rule out liver metastases Interval history: Pt states she feels well. She states her diarrhea, which had improved to immediately post-prandial, is much better today, though still persists. Per RN, loose mucusy brown stool with BRB in it. Objective - Constitutional Vitals: Vital Signs - 12hr 08/31/18 08/31/18 07:21 13:34 Temperature 98.2 F 98.2 F Pulse Rate 58 L 58 L Respiratory 20 20 Rate Blood Pressure 110/58 127/69 O2 Sat by Pulse 98 98 Oximetry General appearance: Present: no acute distress - EENT Eyes: PERRL, EOM intact ENT: hearing intact - Respiratory Respiratory effort: normal - Gastrointestinal General gastrointestinal: Present: soft, non-tender - Labs CBC & Chem 7: 08/29/18 13:15 08/29/18 13:15 Medications & Allergies - Medications Allergies/Adverse Reactions: Allergies codeine Allergy (Verified 08/23/18 17:07) Unknown Home Medications: Home Medications Medication Instructions Recorded Confirmed Last Taken Type DULoxetine [Cymbalta] 60 mg PO DAILY 08/23/18 08/23/18 Unknown History Levothyroxine [Synthroid] 125 mcg PO DAILY 08/23/18 08/23/18 Unknown History Loperamide [Imodium] 2 mg PO DAILY PRN 08/23/18 08/23/18 Unknown History Losartan/Hydrochlorothiazide 1 each PO DAILY 08/23/18 08/23/18 Unknown History [Losartan-Hctz 100-25 mg Tab] Sulindac 200 mg PO BID 08/23/18 08/23/18 Unknown History tiZANidine [Zanaflex] 4 mg PO BID 08/23/18 08/23/18 Unknown History Active Medications: Generic Name Dose Route Start Last Admin Trade Name Freq PRN Reason Stop Dose Admin Acetaminophen 650 mg 08/24/18 00:56 08/27/18 18:17 Tylenol PO 650 mg Q4H PRN Administration Pain MILD(1-3)/Fever >100.5/VILLARREAL Duloxetine HCl 60 mg 08/27/18 16:00 08/31/18 10:06 Cymbalta PO 60 mg DAILY LAZARO Administration Hydrocortisone Acetate 20 mg 08/30/18 11:00 08/31/18 10:55 Cortef PO 20 mg QDAY LAZARO Administration Cefepime HCl 2 gm in 100 mls @ 200 mls/hr 08/28/18 09:00 08/31/18 13:45 Maxipime/Ns 2 Gm/100 Ml IV 200 mls/hr Q8HR LAZARO Administration Protocol Metronidazole 500 mg in 100 mls @ 100 mls/hr 08/30/18 14:00 08/31/18 13:46 Flagyl 500 Mg/100 Ml IV 100 mls/hr Q8HR LAZARO Administration Protocol Levothyroxine Sodium 125 mcg 08/27/18 16:00 08/31/18 10:55 Synthroid PO 125 mcg DAILY LAZARO Administration Lorazepam 2 mg 08/31/18 11:45 Ativan IV 08/31/18 23:59 GAMBLING DEALER NR Midodrine 10 mg 08/28/18 09:00 08/31/18 13:46 Proamatine PO 10 mg TID LAZARO Administration Morphine Sulfate 2 mg 08/31/18 11:36 Morphine IV Q24H PRN for MRI Multivitamins/Minerals 1 each 08/24/18 10:00 08/31/18 10:06 Theragran-M Tab PO 1 each QDAY LAZARO Administration Ondansetron HCl 4 mg 08/24/18 00:56 Zofran IV Q8H PRN Nausea And Vomiting Pantoprazole Sodium 40 mg 08/24/18 10:00 08/31/18 10:06 Protonix PO 40 mg QDAY LAZARO Administration Polyethylene Glycol 17 gm 08/24/18 10:00 08/31/18 10:06 Miralax 3350 PO 17 gm BID LAZARO Administration Senna/Docusate Sodium 2 tab 08/24/18 09:39 08/24/18 19:09 Senokot S PO 2 tab Q12H PRN Administration Laxative Effect Sodium Chloride 10 ml 08/24/18 10:00 08/31/18 10:07 Sodium Chloride Flush Syringe 10 Ml IV 10 ml BID LAZARO Administration Sodium Chloride 10 ml 08/24/18 00:56 Sodium Chloride Flush Syringe 10 Ml IV PRN PRN LINE FLUSH Temazepam 15 mg 08/27/18 22:00 08/31/18 01:28 Restoril PO 15 mg QHS LAZARO Administration Tizanidine HCl 4 mg 08/27/18 16:00 08/31/18 10:06 Zanaflex PO 4 mg BID LAZARO Administration
[2018-08-31 16:14] LABS: BUN/Creatinine Ratio 14; Blood Urea Nitrogen 13 mg/dL (7-17); Calcium 7.3 mg/dL (8.4-10.2); Hemolysis Index 5
[2018-08-31 16:19] LABS: Alanine Aminotransferase 10 units/L (7-56); Albumin 1.8 g/dL (3.9-5)
[2018-08-31 16:37] LABS: Bilirubin,Direct < 0.2 mg/dL (0-0.2)
[2018-08-31 16:48] LABS: Basophils % (Auto) 0.2 % (0.0-1.8); Eosinophils % (Auto) 0.5 % (0.0-4.3); Hematocrit 29.2 % (30.3-42.9); Hemoglobin 9.8 gm/dl (10.1-14.3); Lymphocytes # (Auto) 0.9 K/mm3 (1.2-5.4); Lymphocytes % (Auto) 11.9 % (13.4-35.0); Mean Corpuscular HGB Conc 34 % (30-34); Mean Corpuscular Volume 83 fl (79-97); Monocytes # (Auto) 0.4 K/mm3 (0.0-0.8); Monocytes % (Auto) 5.3 % (0.0-7.3); Platelet Count 266 K/mm3 (140-440); Red Blood Count 3.51 M/mm3 (3.65-5.03); Red Cell Distribution Width 18.9 % (13.2-15.2)
[2018-08-31] MEDS ORDERED: MAGNESIUM SULFATE 2GM/50ML 2 GM/50 ML BAG IV ONE (19:00)
[2018-09-01 04:38] LABS: Basophils % (Auto) 0.2 % (0.0-1.8); Eosinophils # (Auto) 0.1 K/mm3 (0.0-0.4); Eosinophils % (Auto) 1.8 % (0.0-4.3); Hematocrit 27.1 % (30.3-42.9); Hemoglobin 9.4 gm/dl (10.1-14.3); Lymphocytes # (Auto) 1.2 K/mm3 (1.2-5.4); Lymphocytes % (Auto) 21.3 % (13.4-35.0); Mean Corpuscular HGB Conc 35 % (30-34); Mean Corpuscular Volume 83 fl (79-97); Monocytes # (Auto) 0.7 K/mm3 (0.0-0.8); Monocytes % (Auto) 11.7 % (0.0-7.3); Platelet Count 215 K/mm3 (140-440); Red Blood Count 3.26 M/mm3 (3.65-5.03); Red Cell Distribution Width 19.2 % (13.2-15.2)
[2018-09-01 04:55] LABS: BUN/Creatinine Ratio 12; Blood Urea Nitrogen 11 mg/dL (7-17); Calcium 7.4 mg/dL (8.4-10.2); Hemolysis Index 6
[2018-09-01] MEDS: MAXIPIME/NS 2 GM/100 ML 2 GM/100 ML BAG IV SCH ×3 (05:11→22:02)
[2018-09-01] MEDS: FLAGYL 500 MG/100 ML 500 MG/100 ML BAG IV SCH ×3 (05:16→22:02)
[2018-09-01] MEDS: PROTONIX PO SCH (10:43)
[2018-09-01] MEDS: ZANAFLEX PO SCH ×2 (10:43→22:04)
[2018-09-01] MEDS: CYMBALTA PO SCH (10:43)
[2018-09-01] MEDS: THERAGRAN-M Tab PO SCH (10:43)
[2018-09-01] MEDS: SYNTHROID PO SCH (10:43)
[2018-09-01] MEDS: PROAMATINE PO SCH ×3 (10:43→22:03)
[2018-09-01] MEDS: CORTEF PO SCH (10:44)
[2018-09-01] MEDS: SODIUM CHLORIDE FLUSH SYRINGE 10 ML IV SCH ×2 (10:44→22:04)
[2018-09-01] MEDS: MIRALAX 3350 PO SCH ×2 (10:45→22:03)
--- NOTE | 2018-09-01 14:47 | Progress Note ---
Assessment and Plan 1. Colitis - improving on abx. H/H stable. Difficult to assess frequency of bowel movements. - continue abx, and monitor for ongoing improvement and monitor H/H - will start Questran, bid for now, and then qd - if still unable to assess properly, may need rectal tube - will do colonoscopy as outpatient unless diarrhea persists - need to get pt out of bed and mobilize her once stable. 2. Liver lesions - still awaiting MRI. Subjective Date of service: 09/01/18 Principal diagnosis: GI Bleed, colitis, hypotension, rule out liver metastases Interval history: Pt states she feels well. She states her diarrhea, which had improved to immediately post-prandial, is better in terms of urgency. Difficult to get precise information from pt, as sometimes she says the stool is just constantly draining from her into her diaper almost nonstop, and then states she has no BMs at night, and only post-prandially. No significant blood. Pt's son in room. Objective - Constitutional Vitals: Vital Signs - 12hr 09/01/18 09/01/18 09/01/18 06:37 07:41 13:37 Temperature 98.2 F 98.4 F Pulse Rate 67 54 L 52 L Pulse Rate [ From Monitor] Respiratory 18 18 Rate Blood Pressure 112/51 133/69 O2 Sat by Pulse 98 97 Oximetry 09/01/18 14:00 Temperature Pulse Rate Pulse Rate [ 52 L From Monitor] Respiratory 19 Rate Blood Pressure O2 Sat by Pulse Oximetry General appearance: Present: no acute distress - EENT Eyes: PERRL, EOM intact ENT: hearing intact - Respiratory Respiratory effort: normal - Gastrointestinal General gastrointestinal: Present: soft, non-tender - Labs CBC & Chem 7: 09/01/18 04:19 09/01/18 04:19 Labs: Abnormal lab results 08/31/18 08/31/18 08/31/18 Range/Units 15:38 15:38 15:38 RBC 3.51 L (3.65-5.03) M/mm3 Hgb 9.8 L (10.1-14.3) gm/dl Hct 29.2 L (30.3-42.9) % MCHC (30-34) % RDW 18.9 H (13.2-15.2) % Lymph % (Auto) 11.9 L (13.4-35.0) % [place] % (Auto) (0.0-7.3) % Lymph # 0.9 L (1.2-5.4) K/mm3 Seg Neutrophils % 82.1 H (40.0-70.0) % Potassium (3.6-5.0) mmol/L Chloride 109.2 H (98-107) mmol/L Carbon Dioxide 19 L (22-30) mmol/L Glucose 135 H (65-100) mg/dL Calcium 7.3 L (8.4-10.2) mg/dL Phosphorus 2.40 L (2.5-4.5) mg/dL Magnesium 1.60 L (1.7-2.3) mg/dL Total Protein 4.8 L (6.3-8.2) g/dL Albumin 1.8 L (3.9-5) g/dL 09/01/18 09/01/18 Range/Units 04:19 04:19 RBC 3.26 L (3.65-5.03) M/mm3 Hgb 9.4 L (10.1-14.3) gm/dl Hct 27.1 L (30.3-42.9) % MCHC 35 H (30-34) % RDW 19.2 H (13.2-15.2) % Lymph % (Auto) (13.4-35.0) % [place] % (Auto) 11.7 H (0.0-7.3) % Lymph # (1.2-5.4) K/mm3 Seg Neutrophils % (40.0-70.0) % Potassium 3.4 L (3.6-5.0) mmol/L Chloride 109.6 H (98-107) mmol/L Carbon Dioxide 20 L (22-30) mmol/L Glucose (65-100) mg/dL Calcium 7.4 L (8.4-10.2) mg/dL Phosphorus (2.5-4.5) mg/dL Magnesium (1.7-2.3) mg/dL Total Protein (6.3-8.2) g/dL Albumin (3.9-5) g/dL Medications & Allergies - Medications Allergies/Adverse Reactions: Allergies codeine Allergy (Verified 08/23/18 17:07) Unknown Home Medications: Home Medications Medication Instructions Recorded Confirmed Last Taken Type DULoxetine [Cymbalta] 60 mg PO DAILY 08/23/18 08/23/18 Unknown History Levothyroxine [Synthroid] 125 mcg PO DAILY 08/23/18 08/23/18 Unknown History Loperamide [Imodium] 2 mg PO DAILY PRN 08/23/18 08/23/18 Unknown History Losartan/Hydrochlorothiazide 1 each PO DAILY 08/23/18 08/23/18 Unknown History [Losartan-Hctz 100-25 mg Tab] Sulindac 200 mg PO BID 08/23/18 08/23/18 Unknown History tiZANidine [Zanaflex] 4 mg PO BID 08/23/18 08/23/18 Unknown History Active Medications: Generic Name Dose Route Start Last Admin Trade Name Freq PRN Reason Stop Dose Admin Acetaminophen 650 mg 08/24/18 00:56 08/27/18 18:17 Tylenol PO 650 mg Q4H PRN Administration Pain MILD(1-3)/Fever >100.5/VILLARREAL Cholestyramine Resin 4 gm 09/01/18 15:00 Questran PO BID LAZARO Duloxetine HCl 60 mg 08/27/18 16:00 09/01/18 10:43 Cymbalta PO 60 mg DAILY LAZARO Administration Hydrocortisone Acetate 20 mg 08/30/18 11:00 09/01/18 10:44 Cortef PO 20 mg QDAY LAZARO Administration Cefepime HCl 2 gm in 100 mls @ 200 mls/hr 08/28/18 09:00 09/01/18 05:11 Maxipime/Ns 2 Gm/100 Ml IV 200 mls/hr Q8HR LAZARO Administration Protocol Metronidazole 500 mg in 100 mls @ 100 mls/hr 08/30/18 14:00 09/01/18 05:16 Flagyl 500 Mg/100 Ml IV 100 mls/hr Q8HR LAZARO Administration Protocol Levothyroxine Sodium 125 mcg 08/27/18 16:00 09/01/18 10:43 Synthroid PO 125 mcg DAILY LAZARO Administration Midodrine 10 mg 08/28/18 09:00 09/01/18 10:43 Proamatine PO 10 mg TID LAZARO Administration Morphine Sulfate 2 mg 08/31/18 11:36 Morphine IV Q24H PRN for MRI Multivitamins/Minerals 1 each 08/24/18 10:00 09/01/18 10:43 Theragran-M Tab PO 1 each QDAY LAZARO Administration Ondansetron HCl 4 mg 08/24/18 00:56 Zofran IV Q8H PRN Nausea And Vomiting Pantoprazole Sodium 40 mg 08/24/18 10:00 09/01/18 10:43 Protonix PO 40 mg QDAY LAZARO Administration Polyethylene Glycol 17 gm 08/24/18 10:00 09/01/18 10:45 Miralax 3350 PO Not Given BID LAZARO Senna/Docusate Sodium 2 tab 08/24/18 09:39 08/24/18 19:09 Senokot S PO 2 tab Q12H PRN Administration Laxative Effect Sodium Chloride 10 ml 08/24/18 10:00 09/01/18 10:44 Sodium Chloride Flush Syringe 10 Ml IV 10 ml BID LAZARO Administration Sodium Chloride 10 ml 08/24/18 00:56 Sodium Chloride Flush Syringe 10 Ml IV PRN PRN LINE FLUSH Temazepam 15 mg 08/27/18 22:00 08/31/18 21:39 Restoril PO 15 mg QHS LAZARO Administration Tizanidine HCl 4 mg 08/27/18 16:00 09/01/18 10:43 Zanaflex PO 4 mg BID LAZARO Administration
--- NOTE | 2018-09-01 14:52 | Progress Note ---
Assessment and Plan Assessment and plan: 73 yo -[place]ish woman with a history of chronic pain syndome due to OA/LBP, Graves disease then hypothyroidism, depression, OA and hypertension who presented to [facility] ED with n/v/d/bloody stools and weakness. She was admitted to the ICU. She was on Levophed gtt, and weand off drip on 08/28. She is on po Midodrine to help maintain bp. On 08/27 CT Abd/ Pelvis Pt indeterminate focal masses in the liver which could represent metastatic disease. She was transferred to [facility] on 08/29. Pending Hypotension-resolving; septic shock and adrenal insufficiency weaned off pressors, on midodrine, and hydrocortisone (wean steroid dose q5 days) Acute blood loss anemia due to GI bleed from colitis and proctitisNormocytic Anemia with BRBPR/rectal bleeding with severe Colitis, proctitis sp 2 units prbc Severe colitis -has completed abx per ID, S/P flex sig (incomplete colonoscopy) with severe proctitis- per GI will need c scope when improved in a few weeks C-diff negative; started on questran on 08/[address] a/p awaiting liver MRI History of Hypertension cont bp meds Hypomagnesemia Repleted History of Depression Resume Cymbalta 60 mg daily- previously held antidepressant due to NPO status Hyponatremia hypovolemia-resolved Treated with IVF Hypokalemia- resolved Repleted History of Hypothyroidism/Graves: TSH 0.57, Free T4 1.90 slightly elevated, Continue Synthroid 125mcg daily Severe Malnutrition Albumin 2.2, On soft diet, Farm [employer] consult pending Morbid obesity, bmi 43.5 Lifestyle modifications discussed, Benefit from outpatient weight management program History Interval history: LE edema is improved, no chest pain denies CP, dizzyness, admits to Generalized weakness,, no vomiting RN states that she is having blood diarrhea Hospitalist Physical - Physical exam Narrative exam: General.: Appears well, no distress, nontoxic HEENT: Moist mucous membranes, extraocular muscles intact, no lymphadenopathy Neck: supple Cardiac: S1-S2 heard Lungs: clear to auscultation bilaterally Abdomen: soft , nontender, nondistended, bowel sounds positive Extremities: 2 plus bipedal pitting edema Skin: no rash or lesions Neurologic: no gross focal deficits Psych: calm, and cooperative - Constitutional Vitals: Temp Pulse Resp BP Pulse Ox 98.4 F 52 L 19 133/69 97 09/01/18 13:37 09/01/18 14:00 09/01/18 14:00 09/01/18 13:37 09/01/18 13:37 General appearance: Present: no acute distress Results - Labs CBC & Chem 7: 09/03/18 08:10 09/03/18 08:10 Labs: Laboratory Last Values WBC 5.7 K/mm3 (4.5-11.0) 09/01/18 04:19 RBC 3.26 M/mm3 (3.65-5.03) L 09/01/18 04:19 Hgb 9.4 gm/dl (10.1-14.3) L 09/01/18 04:19 Hct 27.1 % (30.3-42.9) L 09/01/18 04:19 MCV 83 fl (79-97) 09/01/18 04:19 MCH 29 pg (28-32) 09/01/18 04:19 MCHC 35 % (30-34) H 09/01/18 04:19 RDW 19.2 % (13.2-15.2) H 09/01/18 04:19 Plt Count 215 K/mm3 (140-440) 09/01/18 04:19 Lymph % (Auto) 21.3 % (13.4-35.0) 09/01/18 04:19 [place] % (Auto) 11.7 % (0.0-7.3) H 09/01/18 04:19 Eos % (Auto) 1.8 % (0.0-4.3) 09/01/18 04:19 Baso % (Auto) 0.2 % (0.0-1.8) 09/01/18 04:19 Lymph # 1.2 K/mm3 (1.2-5.4) 09/01/18 04:19 [place] # 0.7 K/mm3 (0.0-0.8) 09/01/18 04:19 Eos # 0.1 K/mm3 (0.0-0.4) 09/01/18 04:19 Baso # 0.0 K/mm3 (0.0-0.1) 09/01/18 04:19 Seg Neutrophils % 65.0 % (40.0-70.0) 09/01/18 04:19 Seg Neutrophils # 3.7 K/mm3 (1.8-7.7) 09/01/18 04:19 PT 14.1 Sec. (12.2-14.9) 08/23/18 15:36 INR 1.03 (0.87-1.13) 08/23/18 15:36 APTT 32.0 Sec. (24.2-36.6) 08/23/18 15:36 Sodium 139 mmol/L (137-145) 09/01/18 04:19 Potassium 3.4 mmol/L (3.6-5.0) L 09/01/18 04:19 Chloride 109.6 mmol/L (98-107) H 09/01/18 04:19 Carbon Dioxide 20 mmol/L (22-30) L 09/01/18 04:19 Anion Gap 13 mmol/L 09/01/18 04:19 BUN 11 mg/dL (7-17) 09/01/18 04:19 Creatinine 0.9 mg/dL (0.7-1.2) 09/01/18 04:19 Estimated GFR > 60 ml/min 09/01/18 04:19 BUN/Creatinine Ratio 12 % 09/01/18 04:19 Glucose 96 mg/dL (65-100) 09/01/18 04:19 POC Glucose 127 (70-105) H 08/24/18 23:14 Hemoglobin A1c 5.3 % (4-6) 08/24/18 00:08 Calcium 7.4 mg/dL (8.4-10.2) L 09/01/18 04:19 Phosphorus 2.40 mg/dL (2.5-4.5) L 08/31/18 15:38 Magnesium 1.70 mg/dL (1.7-2.3) 09/01/18 04:19 Total Bilirubin 0.20 mg/dL (0.1-1.2) 08/31/18 15:38 Direct Bilirubin < 0.2 mg/dL (0-0.2) 08/31/18 15:38 AST 13 units/L (5-40) 08/31/18 15:38 ALT 10 units/L (7-56) 08/31/18 15:38 Alkaline Phosphatase 63 units/L (35-129) 08/31/18 15:38 C-Reactive Protein 6.60 mg/dL (0.00-1.30) H 08/27/18 18:30 Total Protein 4.8 g/dL (6.3-8.2) L 08/31/18 15:38 Albumin 1.8 g/dL (3.9-5) L 08/31/18 15:38 Albumin/Globulin Ratio 0.6 % 08/31/18 15:38 Lipase 5 units/L (13-60) L 08/23/18 15:29 TSH 0.482 mlU/mL (0.270-4.200) 08/28/18 09:00 Free T4 1.90 ng/dL (0.76-1.46) H 08/24/18 Unknown Thyroxine (T4) 5.7 ug/dL (4.0-12.0) 08/29/18 13:15 Total Cortisol 29.8 mcg/dL () 08/28/18 09:00 Urine Color Yellow (Yellow) 08/23/18 17:45 Urine Turbidity Clear (Clear) 08/23/18 17:45 Urine pH 5.0 (5.0-7.0) 08/23/18 17:45 Ur Specific [place] 1.008 (1.003-1.030) 08/23/18 17:45 Urine Protein <15 mg/dl mg/dL (Negative) 08/23/18 17:45 Urine Glucose (UA) Neg mg/dL (Negative) 08/23/18 17:45 Urine Ketones Neg mg/dL (Negative) 08/23/18 17:45 Urine Blood Sm (Negative) 08/23/18 17:45 Urine Nitrite Neg (Negative) 08/23/18 17:45 Urine Bilirubin Neg (Negative) 08/23/18 17:45 Urine Urobilinogen < 2.0 mg/dL (<2.0) 08/23/18 17:45 Ur Leukocyte Esterase Neg (Negative) 08/23/18 17:45 Urine WBC (Auto) 1.0 /HPF (0.0-6.0) 08/23/18 17:45 Urine RBC (Auto) 1.0 /HPF (0.0-6.0) 08/23/18 17:45 U Epithel Cells (Auto) 2.0 /HPF (0-13.0) 08/23/18 17:45 Urine Bacteria (Auto) 2+ /HPF (Negative) 08/23/18 17:45 RPR Nonreactive (Nonreactive) 08/25/18 03:45 C. difficile Tox (PCR) Negative (Negative) 08/24/18 06:40 Miscellaneous Test Flexitest 1 08/28/18 09:00 Blood Type O NEGATIVE 08/23/18 15:29 Antibody Screen Negative 08/23/18 15:29 Crossmatch See Detail 08/23/18 15:29 Active Medications - Current Medications Current Medications: Generic Name Dose Route Start Last Admin Trade Name Freq PRN Reason Stop Dose Admin Acetaminophen 650 mg 08/24/18 00:56 08/27/18 18:17 Tylenol PO 650 mg Q4H PRN Administration Pain MILD(1-3)/Fever >100.5/VILLARREAL Cholestyramine Resin 4 gm 09/01/18 15:00 Questran PO BID LAZARO Duloxetine HCl 60 mg 08/27/18 16:00 09/01/18 10:43 Cymbalta PO 60 mg DAILY LAZARO Administration Hydrocortisone Acetate 20 mg 08/30/18 11:00 09/01/18 10:44 Cortef PO 20 mg QDAY LAZARO Administration Cefepime HCl 2 gm in 100 mls @ 200 mls/hr 08/28/18 09:00 09/01/18 05:11 Maxipime/Ns 2 Gm/100 Ml IV 200 mls/hr Q8HR LAZARO Administration Protocol Metronidazole 500 mg in 100 mls @ 100 mls/hr 08/30/18 14:00 09/01/18 05:16 Flagyl 500 Mg/100 Ml IV 100 mls/hr Q8HR LAZARO Administration Protocol Levothyroxine Sodium 125 mcg 08/27/18 16:00 09/01/18 10:43 Synthroid PO 125 mcg DAILY LAZARO Administration Midodrine 10 mg 08/28/18 09:00 09/01/18 10:43 Proamatine PO 10 mg TID LAZARO Administration Morphine Sulfate 2 mg 08/31/18 11:36 Morphine IV Q24H PRN for MRI Multivitamins/Minerals 1 each 08/24/18 10:00 09/01/18 10:43 Theragran-M Tab PO 1 each QDAY LAZARO Administration Ondansetron HCl 4 mg 08/24/18 00:56 Zofran IV Q8H PRN Nausea And Vomiting Pantoprazole Sodium 40 mg 08/24/18 10:00 09/01/18 10:43 Protonix PO 40 mg QDAY LAZARO Administration Polyethylene Glycol 17 gm 08/24/18 10:00 09/01/18 10:45 Miralax 3350 PO Not Given BID LAZARO Senna/Docusate Sodium 2 tab 08/24/18 09:39 08/24/18 19:09 Senokot S PO 2 tab Q12H PRN Administration Laxative Effect Sodium Chloride 10 ml 08/24/18 10:00 09/01/18 10:44 Sodium Chloride Flush Syringe 10 Ml IV 10 ml BID LAZARO Administration Sodium Chloride 10 ml 08/24/18 00:56 Sodium Chloride Flush Syringe 10 Ml IV PRN PRN LINE FLUSH Temazepam 15 mg 08/27/18 22:00 08/31/18 21:39 Restoril PO 15 mg QHS LAZARO Administration Tizanidine HCl 4 mg 08/27/18 16:00 09/01/18 10:43 Zanaflex PO 4 mg BID LAZARO Administration Nutrition/Malnutrition Assess - Dietary Evaluation Nutrition/Malnutrition Findings: Nutrition Notes Start: 08/27/18 13:40 Freq: Status: Active Protocol: Document 08/29/18 10:35 EB (Rec: 08/29/18 10:41 [id number]) Co-Sign 08/29/18 10:35 LP Nutrition Notes Need for Assessment generated from: spanish translator,MST Initial or Follow up Reassessment Other Pertinent Diagnosis Hypotension, colitis Current Diet GI soft diet Labs/Tests Reviewed Pertinent Medications Levophed, Protonix Height 5 ft 1 in Weight 104.33 kg [place] Body Weight (kg) 47.72 BMI 43.4 Weight Status Obese Subjective/Other Information Following for diet advancement and tolerance. Pt consumed about 50% of new gi soft diet this am and for dinner last night and continues to report consistent diarrhea that occurs about 15 minutes after eating foods. Percent of energy/protein needs met: 71%/34% Burn Absent Trauma Absent GI Symptoms Diarrhea Current % PO Fair (50-74%) #1 Nutrition Diagnosis Inadequate oral intake As Evidenced by Signs and Symptoms diet advanced to gi soft and meeting 71% and 34% of axel and pro needs respectively Diagnosis Progress(for reassessment Improved documentation) Is patient on ventilator? No Is Patient Ambulatory and/or Out of Bed Yes REE-([place]. Jeor-ambulatory/OOB) [ 1924.884 [id number]] Kcal/Kg value to use for calculation 14 Approximate Energy Requirements Using 1461 kcal/Kg Calculation Used for Recommendations Kcal/kg Additional Notes PRO: 2.5 g/kg IBW of 47.72 kg (119 g/day) Fluid: 1 mL/kcal Nutrition Intervention Change Diet Order: advance when medically feasible Goal #1 advance diet when medically feasible Goal #2 meet at least 75% axel and pro needs Anticipated Discharge Needs: unable to determine at this time Follow-Up By: 09/03/18 Additional Comments F/u: PO intake and diet advancement
[2018-09-01] MEDS: RESTORIL PO SCH (22:01)
[2018-09-01] MEDS: QUESTRAN PO SCH (22:02)
[2018-09-02 03:14] LABS: Basophils % (Auto) 0.3 % (0.0-1.8); Eosinophils # (Auto) 0.1 K/mm3 (0.0-0.4); Eosinophils % (Auto) 1.4 % (0.0-4.3); Hematocrit 26.4 % (30.3-42.9); Lymphocytes # (Auto) 1.2 K/mm3 (1.2-5.4); Lymphocytes % (Auto) 25.2 % (13.4-35.0); Mean Corpuscular HGB Conc 34 % (30-34); Mean Corpuscular Volume 83 fl (79-97); Monocytes # (Auto) 0.6 K/mm3 (0.0-0.8); Monocytes % (Auto) 11.2 % (0.0-7.3); Platelet Count 245 K/mm3 (140-440); Red Blood Count 3.17 M/mm3 (3.65-5.03); Red Cell Distribution Width 19.1 % (13.2-15.2)
[2018-09-02 03:35] LABS: BUN/Creatinine Ratio 14; Blood Urea Nitrogen 11 mg/dL (7-17); Calcium 7.3 mg/dL (8.4-10.2); Hemolysis Index 3
[2018-09-02] MEDS: FLAGYL 500 MG/100 ML 500 MG/100 ML BAG IV SCH (06:01)
[2018-09-02] MEDS: MAXIPIME/NS 2 GM/100 ML 2 GM/100 ML BAG IV SCH (06:01)
--- NOTE | 2018-09-02 08:26 | Progress Note ---
Assessment and Plan ultures: Blood culture 08/26/2018 no growth C diff 08/24/2018 negative Assessment: 73 y/o female with history of chronic lower back pain syndrome, Graves disease, depression, OA and hypertension; admitted on due to 2-month history of bloody diarrhea, most recently associated with nausea, worsening bloody stools, generalized weakness and dizziness for 48 hours: 1) Shock ?hemorrhagic v/s septic: Resolved Etiology most likely GI bleed +/- colitis +/- liver lesions. Blood cultures negative. UA negative. CXR negative. TSH negative. Procalcitonin negative 2) GI bleed: unclear etiology, likely colitis. EGD negative. C diff negative. Stool WBC many. CRP 6.6. Underwent flex sigmoidoscopy with severe proctitis, showed marked colitis with ulceration, atypia with focal dysplasia no granuloma, no malignancy. EGD with negative results. Colitis improving. Awaiting MRI- GI following 3) Anemia: s/p transfusion 4) Bilateral leg edema. 5) Liver lesions: ?unclear etiology -likely metastasis per radiology, should r/o abscesses. Awaiting MRI Recommendations: -Monitor off antibiotics,- completed 10 days of antibiotic therapy. Procal results not c/w bacterial infection -agree with colonoscopy when stable ID is signing off [employer] [facility] M: [phone] O:[phone] Subjective Date of service: 09/02/18 Principal diagnosis: GI Bleed, colitis, hypotension, rule out liver metastases Interval history: Patient seen and examined. Sitting up in bed. Decreased abdominal pain. Complains of continuing multiple stools. No fevers. Objective - Exam Narrative Exam: General appearance: Alert in NAD, conversant, obese Eyes: anicteric sclerae, moist conjunctivae; no lid-lag; PERRLA HENT: Atraumatic; oropharynx clear with moist mucous membranes and no mucosal ulcerations/no oral thrush; normal hard and soft palate. Normal external ears. Neck: Trachea midline; supple, no thyromegaly or lymphadenopathy Lungs: CTA CV: RRR Abdomen: Soft, obese, mild tenderness Extremities: bilateral marked bilateral leg edema Skin: Normal temperature, turgor and texture; no rash, ulcers or subcutaneous nodules Psych: Appropriate affect, alert and oriented to person, place and time. Neuro: alert and oriented x 3. Moving all extermities - Constitutional Vitals: Vital Signs Temp Pulse Resp BP Pulse Ox 98.8 F 62 20 125/61 97 09/02/18 03:18 09/02/18 03:18 09/02/18 03:18 09/02/18 03:18 09/02/18 03:18 Temperature -Last 24 Hours Temperature 98.8 F Temperature 99.1 F Temperature 98.4 F - Labs CBC & Chem 7: 09/02/18 02:38 09/02/18 02:38 Labs: Abnormal lab results 09/01/18 09/02/18 09/02/18 Range/Units 21:29 02:38 02:38 RBC 3.17 L (3.65-5.03) M/mm3 Hgb 9.0 L (10.1-14.3) gm/dl Hct 26.4 L (30.3-42.9) % RDW 19.1 H (13.2-15.2) % [place] % (Auto) 11.2 H (0.0-7.3) % Potassium 3.5 L (3.6-5.0) mmol/L Chloride 112.7 H (98-107) mmol/L Carbon Dioxide 21 L (22-30) mmol/L Glucose 105 H (65-100) mg/dL POC Glucose 113 H (70-105) Calcium 7.3 L (8.4-10.2) mg/dL
[2018-09-02] MEDS: CYMBALTA PO SCH (09:29)
[2018-09-02] MEDS: THERAGRAN-M Tab PO SCH (09:29)
[2018-09-02] MEDS: PROTONIX PO SCH (09:30)
[2018-09-02] MEDS: QUESTRAN PO SCH ×3 (09:30→21:04)
[2018-09-02] MEDS: ZANAFLEX PO SCH ×2 (09:30→21:03)
--- NOTE | 2018-09-02 09:49 | Gastroenterology Progress Note ---
Assessment and Plan 1. Colitis -afebrile -WBC WNL -stool + for WBCs -stool culture negative -H/H stable -s/p EGD with negative results -s/p flex sig (incomplete colonoscopy) with severe proctitis -bx result indeterminate -etiology unclear- stercoral vs ischemic vs infection vs IBD -clinically imporvin on abx however difficult to assess frequency of bowel movements. Denies abd pain or N/V. Tolerating diet. -continue miralax, antibiotics per ID recommendations, and Questran -consider rectal tube if unable to assess diarrhea properly -colonoscopy as outpatient unless diarrhea persists -continue supportive -encourage OOB 2.liver mass seen on CT -LFTs WNL (08/31) -awaiting MRI for further evaluation -will follow Subjective Date of service: 09/02/18 Principal diagnosis: colitis, liver mass Interval history: Patient sitting up in bed this am w/o acute distress finishing breakfast. Denies abd pain, N/V, or signs of bleeding. Reports multiple BMs (~5) this am, however nursing reports on BM so far this am and when asked about improvement with Questran patient states she can tell a difference and feels like it has helped. Objective - Constitutional Vitals: Temp Pulse Resp BP Pulse Ox 98.5 F 82 20 111/58 98 09/02/18 08:08 09/02/18 08:08 09/02/18 08:08 09/02/18 08:08 09/02/18 08:08 General appearance: no acute distress, obese - Respiratory Respiratory: bilateral: CTA - Cardiovascular Rhythm: regular Heart Sounds: Present: S1 & S2 - Gastrointestinal General gastrointestinal: Present: soft, non-tender, non-distended, normal bowel sounds, other (obese) - Neurologic Neurological: alert and oriented x3 - Labs CBC & Chem 7: 09/02/18 02:38 09/02/18 02:38 Labs: Laboratory Results - last 24 hr 08/28/18 09/01/18 09/02/18 09:00 21:29 02:38 WBC 4.9 RBC 3.17 L Hgb 9.0 L Hct 26.4 L MCV 83 MCH 28 MCHC 34 RDW 19.1 H Plt Count 245 Lymph % (Auto) 25.2 [place] % (Auto) 11.2 H Eos % (Auto) 1.4 Baso % (Auto) 0.3 Lymph # 1.2 [place] # 0.6 Eos # 0.1 Baso # 0.0 Seg Neutrophils % 61.9 Seg Neutrophils # 3.0 Sodium Potassium Chloride Carbon Dioxide Anion Gap BUN Creatinine Estimated GFR BUN/Creatinine Ratio Glucose POC Glucose 113 H Calcium Total Cortisol 29.8 09/02/18 02:38 WBC RBC Hgb Hct MCV MCH MCHC RDW Plt Count Lymph % (Auto) [place] % (Auto) Eos % (Auto) Baso % (Auto) Lymph # [place] # Eos # Baso # Seg Neutrophils % Seg Neutrophils # Sodium 142 Potassium 3.5 L Chloride 112.7 H Carbon Dioxide 21 L Anion Gap 12 BUN 11 Creatinine 0.8 Estimated GFR > 60 BUN/Creatinine Ratio 14 Glucose 105 H POC Glucose Calcium 7.3 L Total Cortisol
[2018-09-02] MEDS: PROAMATINE PO SCH ×3 (10:51→20:47)
[2018-09-02] MEDS: SYNTHROID PO SCH ×2 (12:34→23:06)
[2018-09-02] MEDS: MIRALAX 3350 PO SCH ×2 (12:41→21:03)
[2018-09-02] MEDS: SODIUM CHLORIDE FLUSH SYRINGE 10 ML IV SCH ×2 (12:42→21:03)
[2018-09-02] MEDS: CORTEF PO SCH (12:44)
[2018-09-02] MEDS: RESTORIL PO SCH (21:02)
--- NOTE | 2018-09-02 21:52 | Progress Note ---
Assessment and Plan Assessment and plan: 73 yo -[place] woman with a history of chronic pain syndome due to OA/LBP, Graves disease then hypothyroidism, depression, OA and hypertension who presented to [facility] ED with n/v/d/bloody stools and weakness. She was admitted to the ICU. She was on Levophed gtt, and weand off drip on 08/28. She is on po Midodrine to help maintain bp. On 08/27 CT Abd/ Pelvis Pt indeterminate focal masses in the liver which could represent metastatic disease. [facility] was transferred [facility] on 08/29. Pending Hypotension-resolving; septic shock and adrenal insufficiency weaned off pressors, on midodrine, and hydrocortisone (wean steroid dose q5 days) Acute blood loss anemia due to GI bleed from colitis and proctitisNormocytic Anemia with BRBPR/rectal bleeding with severe Colitis, proctitis sp 2 units prbc Severe colitis -has completed abx per ID, S/P flex sig (incomplete colonoscopy) with severe proctitis- per GI will need c scope when improved in a few weeks C-diff negative; started on questran on 08/[address] a/p awaiting liver MRI History of Hypertension cont bp meds Hypomagnesemia Repleted History of Depression Resume Cymbalta 60 mg daily- previously held antidepressant due to NPO status Hyponatremia hypovolemia-resolved Treated with IVF Hypokalemia- resolved Repleted History of Hypothyroidism/Graves: TSH 0.57, Free T4 1.90 slightly elevated, Continue Synthroid 125mcg daily Severe Malnutrition Albumin 2.2, On soft diet, Glove Cutter consult pending Morbid obesity, bmi 43.5 Lifestyle modifications discussed, Benefit from outpatient weight management program History Interval history: LE edema is improved, no chest pain denies CP, dizzyness, admits to Generalized weakness,, no vomiting RN states that she is having blood diarrhea Hospitalist Physical - Physical exam Narrative exam: General.: Appears well, no distress, nontoxic HEENT: Moist mucous membranes, extraocular muscles intact, no lymphadenopathy Neck: supple Cardiac: S1-S2 heard Lungs: clear to auscultation bilaterally Abdomen: soft , nontender, nondistended, bowel sounds positive Extremities: 2 plus bipedal pitting edema Skin: no rash or lesions Neurologic: no gross focal deficits Psych: calm, and cooperative - Constitutional Vitals: Temp Pulse Resp BP Pulse Ox 98.9 F 78 20 127/65 99 09/02/18 20:46 09/02/18 20:47 09/02/18 20:46 09/02/18 20:46 09/02/18 20:47 General appearance: Present: no acute distress Results - Labs CBC & Chem 7: 09/03/18 08:10 09/03/18 08:10 Labs: Laboratory Last Values WBC 4.9 K/mm3 (4.5-11.0) 09/02/18 02:38 RBC 3.17 M/mm3 (3.65-5.03) L 09/02/18 02:38 Hgb 9.0 gm/dl (10.1-14.3) L 09/02/18 02:38 Hct 26.4 % (30.3-42.9) L 09/02/18 02:38 MCV 83 fl (79-97) 09/02/18 02:38 MCH 28 pg (28-32) 09/02/18 02:38 MCHC 34 % (30-34) 09/02/18 02:38 RDW 19.1 % (13.2-15.2) H 09/02/18 02:38 Plt Count 245 K/mm3 (140-440) 09/02/18 02:38 Lymph % (Auto) 25.2 % (13.4-35.0) 09/02/18 02:38 [place] % (Auto) 11.2 % (0.0-7.3) H 09/02/18 02:38 Eos % (Auto) 1.4 % (0.0-4.3) 09/02/18 02:38 Baso % (Auto) 0.3 % (0.0-1.8) 09/02/18 02:38 Lymph # 1.2 K/mm3 (1.2-5.4) 09/02/18 02:38 [place] # 0.6 K/mm3 (0.0-0.8) 09/02/18 02:38 Eos # 0.1 K/mm3 (0.0-0.4) 09/02/18 02:38 Baso # 0.0 K/mm3 (0.0-0.1) 09/02/18 02:38 Seg Neutrophils % 61.9 % (40.0-70.0) 09/02/18 02:38 Seg Neutrophils # 3.0 K/mm3 (1.8-7.7) 09/02/18 02:38 PT 14.1 Sec. (12.2-14.9) 08/23/18 15:36 INR 1.03 (0.87-1.13) 08/23/18 15:36 APTT 32.0 Sec. (24.2-36.6) 08/23/18 15:36 Sodium 142 mmol/L (137-145) 09/02/18 02:38 Potassium 3.5 mmol/L (3.6-5.0) L 09/02/18 02:38 Chloride 112.7 mmol/L (98-107) H 09/02/18 02:38 Carbon Dioxide 21 mmol/L (22-30) L 09/02/18 02:38 Anion Gap 12 mmol/L 09/02/18 02:38 BUN 11 mg/dL (7-17) 09/02/18 02:38 Creatinine 0.8 mg/dL (0.7-1.2) 09/02/18 02:38 Estimated GFR > 60 ml/min 09/02/18 02:38 BUN/Creatinine Ratio 14 % 09/02/18 02:38 Glucose 105 mg/dL (65-100) H 09/02/18 02:38 POC Glucose 113 (70-105) H 09/01/18 21:29 Hemoglobin A1c 5.3 % (4-6) 08/24/18 00:08 Calcium 7.3 mg/dL (8.4-10.2) L 09/02/18 02:38 Phosphorus 2.40 mg/dL (2.5-4.5) L 08/31/18 15:38 Magnesium 1.70 mg/dL (1.7-2.3) 09/01/18 04:19 Total Bilirubin 0.20 mg/dL (0.1-1.2) 08/31/18 15:38 Direct Bilirubin < 0.2 mg/dL (0-0.2) 08/31/18 15:38 AST 13 units/L (5-40) 08/31/18 15:38 ALT 10 units/L (7-56) 08/31/18 15:38 Alkaline Phosphatase 63 units/L (35-129) 08/31/18 15:38 C-Reactive Protein 6.60 mg/dL (0.00-1.30) H 08/27/18 18:30 Total Protein 4.8 g/dL (6.3-8.2) L 08/31/18 15:38 Albumin 1.8 g/dL (3.9-5) L 08/31/18 15:38 Albumin/Globulin Ratio 0.6 % 08/31/18 15:38 Lipase 5 units/L (13-60) L 08/23/18 15:29 TSH 0.482 mlU/mL (0.270-4.200) 08/28/18 09:00 Free T4 1.90 ng/dL (0.76-1.46) H 08/24/18 Unknown Thyroxine (T4) 5.7 ug/dL (4.0-12.0) 08/29/18 13:15 Total Cortisol 29.8 mcg/dL () 08/28/18 09:00 Urine Color Yellow (Yellow) 08/23/18 17:45 Urine Turbidity Clear (Clear) 08/23/18 17:45 Urine pH 5.0 (5.0-7.0) 08/23/18 17:45 Ur Specific [place] 1.008 (1.003-1.030) 08/23/18 17:45 Urine Protein <15 mg/dl mg/dL (Negative) 08/23/18 17:45 Urine Glucose (UA) Neg mg/dL (Negative) 08/23/18 17:45 Urine Ketones Neg mg/dL (Negative) 08/23/18 17:45 Urine Blood Sm (Negative) 08/23/18 17:45 Urine Nitrite Neg (Negative) 08/23/18 17:45 Urine Bilirubin Neg (Negative) 08/23/18 17:45 Urine Urobilinogen < 2.0 mg/dL (<2.0) 08/23/18 17:45 Ur Leukocyte Esterase Neg (Negative) 08/23/18 17:45 Urine WBC (Auto) 1.0 /HPF (0.0-6.0) 08/23/18 17:45 Urine RBC (Auto) 1.0 /HPF (0.0-6.0) 08/23/18 17:45 U Epithel Cells (Auto) 2.0 /HPF (0-13.0) 08/23/18 17:45 Urine Bacteria (Auto) 2+ /HPF (Negative) 08/23/18 17:45 RPR Nonreactive (Nonreactive) 08/25/18 03:45 C. difficile Tox (PCR) Negative (Negative) 08/24/18 06:40 Miscellaneous Test Flexitest 1 08/28/18 09:00 Blood Type O NEGATIVE 08/23/18 15:29 Antibody Screen Negative 08/23/18 15:29 Crossmatch See Detail 08/23/18 15:29 Active Medications - Current Medications Current Medications: Generic Name Dose Route Start Last Admin Trade Name Freq PRN Reason Stop Dose Admin Acetaminophen 650 mg 08/24/18 00:56 08/27/18 18:17 Tylenol PO 650 mg Q4H PRN Administration Pain MILD(1-3)/Fever >100.5/VILLARREAL Cholestyramine Resin 4 gm 09/01/18 15:00 09/02/18 21:04 Questran PO Not Given BID LAZARO Duloxetine HCl 60 mg 08/27/18 16:00 09/02/18 09:29 Cymbalta PO 60 mg DAILY LAZARO Administration Hydrocortisone Acetate 20 mg 08/30/18 11:00 09/02/18 12:44 Cortef PO 20 mg QDAY LAZARO Administration Levothyroxine Sodium 125 mcg 09/02/18 11:30 09/02/18 12:34 Synthroid PO 125 mcg 0600 LAZARO Administration Midodrine 10 mg 08/28/18 09:00 09/02/18 20:47 Proamatine PO 10 mg TID LAZARO Administration Morphine Sulfate 2 mg 08/31/18 11:36 Morphine IV Q24H PRN for MRI Multivitamins/Minerals 1 each 08/24/18 10:00 09/02/18 09:29 Theragran-M Tab PO 1 each QDAY LAZARO Administration Ondansetron HCl 4 mg 08/24/18 00:56 Zofran IV Q8H PRN Nausea And Vomiting Pantoprazole Sodium 40 mg 08/24/18 10:00 09/02/18 09:30 Protonix PO 40 mg QDAY LAZARO Administration Polyethylene Glycol 17 gm 08/24/18 10:00 09/02/18 21:03 Miralax 3350 PO 17 gm BID LAZARO Administration Senna/Docusate Sodium 2 tab 08/24/18 09:39 08/24/18 19:09 Senokot S PO 2 tab Q12H PRN Administration Laxative Effect Sodium Chloride 10 ml 08/24/18 10:00 09/02/18 21:03 Sodium Chloride Flush Syringe 10 Ml IV 10 ml BID LAZARO Administration Sodium Chloride 10 ml 08/24/18 00:56 Sodium Chloride Flush Syringe 10 Ml IV PRN PRN LINE FLUSH Temazepam 15 mg 08/27/18 22:00 09/02/18 21:02 Restoril PO 15 mg QHS LAZARO Administration Tizanidine HCl 4 mg 08/27/18 16:00 09/02/18 21:03 Zanaflex PO 4 mg BID LAZARO Administration Nutrition/Malnutrition Assess - Dietary Evaluation Nutrition/Malnutrition Findings: Nutrition Notes Start: 08/27/18 13:40 Freq: Status: Active Protocol: Document 08/29/18 10:35 EB (Rec: 08/29/18 10:41 EB [id number]) Co-Sign 08/29/18 10:35 LP Nutrition Notes Need for Assessment generated from: dining car steward,MST Initial or Follow up Reassessment Other Pertinent Diagnosis Hypotension, colitis Current Diet GI soft diet Labs/Tests Reviewed Pertinent Medications Levophed, Protonix Height 5 ft 1 in Weight 104.33 kg [place] Body Weight (kg) 47.72 BMI 43.4 Weight Status Obese Subjective/Other Information Following for diet advancement and tolerance. Pt consumed about 50% of new gi soft diet this am and for dinner last night and continues to report consistent diarrhea that occurs about 15 minutes after eating foods. Percent of energy/protein needs met: 71%/34% Burn Absent Trauma Absent GI Symptoms Diarrhea Current % PO Fair (50-74%) #1 Nutrition Diagnosis Inadequate oral intake As Evidenced by Signs and Symptoms diet advanced to gi soft and meeting 71% and 34% of axel and pro needs respectively Diagnosis Progress(for reassessment Improved documentation) Is patient on ventilator? No Is Patient Ambulatory and/or Out of Bed Yes REE-([place]-ambulatory/OOB) [ 1924.884 NUTR.[email or web address]] Kcal/Kg value to use for calculation 14 Approximate Energy Requirements Using 1461 kcal/Kg Calculation Used for Recommendations Kcal/kg Additional Notes PRO: 2.5 g/kg IBW of 47.72 kg (119 g/day) Fluid: 1 mL/kcal Nutrition Intervention Change Diet Order: advance when medically feasible Goal #1 advance diet when medically feasible Goal #2 meet at least 75% axel and pro needs Anticipated Discharge Needs: unable to determine at this time Follow-Up By: 09/03/18 Additional Comments F/u: PO intake and diet advancement
[2018-09-03] MEDS: SYNTHROID PO SCH (06:00)
[2018-09-03] MEDS: PROAMATINE PO SCH ×3 (08:00→21:02)
[2018-09-03 08:22] LABS: Basophils % (Auto) 0.7 % (0.0-1.8); Eosinophils # (Auto) 0.1 K/mm3 (0.0-0.4); Hemoglobin 8.5 gm/dl (10.1-14.3); Lymphocytes # (Auto) 1.1 K/mm3 (1.2-5.4); Lymphocytes % (Auto) 23.9 % (13.4-35.0); Mean Corpuscular HGB Conc 34 % (30-34); Mean Corpuscular Volume 83 fl (79-97); Monocytes # (Auto) 0.5 K/mm3 (0.0-0.8); Monocytes % (Auto) 11.4 % (0.0-7.3); Platelet Count 232 K/mm3 (140-440); Red Blood Count 3.02 M/mm3 (3.65-5.03); Red Cell Distribution Width 19.1 % (13.2-15.2)
[2018-09-03 08:43] LABS: BUN/Creatinine Ratio 11; Blood Urea Nitrogen 9 mg/dL (7-17); Hemolysis Index 3
--- NOTE | 2018-09-03 10:45 | Gastroenterology Progress Note ---
Assessment and Plan 1. Colitis -afebrile -WBC WNL -stool + for WBCs -stool culture negative -H/H stable -s/p EGD with negative results -s/p flex sig (incomplete colonoscopy) with severe proctitis -bx result indeterminate -etiology unclear- stercoral vs ischemic vs infection vs IBD -clinically, patient's diarrhea has improved. Denies abd pain or N/V. Tolerating diet. -continue miralax, antibiotics per ID recommendations, and Questran -colonoscopy as outpatient in ~4-6 weeks once colitis has resolved -continue supportive -encourage OOB 2.liver mass seen on CT -LFTs WNL (08/31) -awaiting MRI for further evaluation Subjective Date of service: 09/03/18 Principal diagnosis: GI Bleed, liver mass Interval history: No acute distress. Diarrhea improved but stool remains blood tinged per pt. No abd pain or N/V. Objective - Constitutional Vitals: Temp Pulse Resp BP Pulse Ox 98.8 F 55 L 18 110/50 98 09/03/18 07:57 09/03/18 07:57 09/03/18 07:57 09/03/18 07:57 09/03/18 07:57 General appearance: no acute distress, obese - Respiratory Respiratory: bilateral: CTA - Cardiovascular Rhythm: regular - Gastrointestinal General gastrointestinal: Present: soft, non-tender, non-distended, normal bowel sounds, other (obese) - Neurologic Neurological: alert and oriented x3 - Labs CBC & Chem 7: 09/03/18 08:10 09/03/18 08:10 Labs: Laboratory Results - last 24 hr 09/03/18 09/03/18 08:10 08:10 WBC 4.7 RBC 3.02 L Hgb 8.5 L Hct 25.0 L MCV 83 MCH 28 MCHC 34 RDW 19.1 H Plt Count 232 Lymph % (Auto) 23.9 [place] % (Auto) 11.4 H Eos % (Auto) 2.0 Baso % (Auto) 0.7 Lymph # 1.1 L [place] # 0.5 Eos # 0.1 Baso # 0.0 Seg Neutrophils % 62.0 Seg Neutrophils # 2.9 Sodium 141 Potassium 3.2 L Chloride 110.5 H Carbon Dioxide 23 Anion Gap 11 BUN 9 Creatinine 0.8 Estimated GFR > 60 BUN/Creatinine Ratio 11 Glucose 92 Calcium 7.0 L
--- NOTE | 2018-09-03 11:22 | Progress Note ---
Assessment and Plan Assessment and plan: 73 yo -French woman with a history of chronic pain syndome due to OA/LBP, Graves disease then hypothyroidism, depression, OA and hypertension who presented to [facility] ED with n/v/d/bloody stools and weakness. She was admitted to the ICU. She was on Levophed gtt, and weand off drip on 08/28. She is on po Midodrine to help maintain bp. On 08/27 CT Abd/ Pelvis Pt indeterminate focal masses in the liver which could represent metastatic disease. She was transferred [facility] on 08/29. Pending Hypotension-resolving; septic shock and adrenal insufficiency weaned off pressors, on midodrine, and hydrocortisone (wean steroid dose q5 days) Acute blood loss anemia due to GI bleed from colitis and proctitisNormocytic Anemia with BRBPR/rectal bleeding with severe Colitis, proctitis sp 2 units prbc Hemoglobin stable Severe colitis -has completed abx per ID, S/P flex sig (incomplete colonoscopy) with severe proctitis- per GI will need c scope when improved in a few weeks C-diff negative; started on questran on 08/31 DC the miralax and other stool softener Liver mass on CT a/p -will do liver MRI History of Hypertension cont bp meds Hypomagnesemia Repleted History of Depression Resume Cymbalta 60 mg daily- previously held antidepressant due to NPO status Hyponatremia hypovolemia-resolved Treated with IVF Hypokalemia- resolved Repleted History of Hypothyroidism/Graves: TSH 0.57, Free T4 1.90 slightly elevated, Continue Synthroid 125mcg daily Severe Malnutrition Albumin 2.2, On soft diet, Developer Programmer Analyst consult pending Morbid obesity, bmi 43.5 Lifestyle modifications discussed, Benefit from outpatient weight management program History Interval history: Patient was seen and divided to this morning, patient is complaining 3 episodes of bloody diarrhea. Patient is complaining dizziness which she stand up. Hospitalist Physical - Physical exam Narrative exam: Not in cardiopulmonary distress. The patient is morbidly obese. Vital signs as documented. Head exam is unremarkable. No scleral icterus . Neck is without jugular venous distension, thyromegaly, or carotid bruits. Lungs are clear to auscultation. Cardiac exam reveals regular rate and Rhythm. Abdominal exam reveals normal bowel sounds. Extremities are nonedematous and both femoral and pedal pulses are normal. COCOA ROASTER: Alert and oriented 3. No focal weakness. - Constitutional Vitals: Temp Pulse Resp BP Pulse Ox 98.8 F 55 L 18 110/50 98 09/03/18 07:57 09/03/18 07:57 09/03/18 07:57 09/03/18 07:57 09/03/18 07:57 General appearance: Present: no acute distress Results - Labs CBC & Chem 7: 09/03/18 08:10 09/03/18 08:10 Labs: Laboratory Last Values WBC 4.7 K/mm3 (4.5-11.0) 09/03/18 08:10 RBC 3.02 M/mm3 (3.65-5.03) L 09/03/18 08:10 Hgb 8.5 gm/dl (10.1-14.3) L 09/03/18 08:10 Hct 25.0 % (30.3-42.9) L 09/03/18 08:10 MCV 83 fl (79-97) 09/03/18 08:10 MCH 28 pg (28-32) 09/03/18 08:10 MCHC 34 % (30-34) 09/03/18 08:10 RDW 19.1 % (13.2-15.2) H 09/03/18 08:10 Plt Count 232 K/mm3 (140-440) 09/03/18 08:10 Lymph % (Auto) 23.9 % (13.4-35.0) 09/03/18 08:10 [place] % (Auto) 11.4 % (0.0-7.3) H 09/03/18 08:10 Eos % (Auto) 2.0 % (0.0-4.3) 09/03/18 08:10 Baso % (Auto) 0.7 % (0.0-1.8) 09/03/18 08:10 Lymph # 1.1 K/mm3 (1.2-5.4) L 09/03/18 08:10 [place] # 0.5 K/mm3 (0.0-0.8) 09/03/18 08:10 Eos # 0.1 K/mm3 (0.0-0.4) 09/03/18 08:10 Baso # 0.0 K/mm3 (0.0-0.1) 09/03/18 08:10 Seg Neutrophils % 62.0 % (40.0-70.0) 09/03/18 08:10 Seg Neutrophils # 2.9 K/mm3 (1.8-7.7) 09/03/18 08:10 PT 14.1 Sec. (12.2-14.9) 08/23/18 15:36 INR 1.03 (0.87-1.13) 08/23/18 15:36 APTT 32.0 Sec. (24.2-36.6) 08/23/18 15:36 Sodium 141 mmol/L (137-145) 09/03/18 08:10 Potassium 3.2 mmol/L (3.6-5.0) L 09/03/18 08:10 Chloride 110.5 mmol/L (98-107) H 09/03/18 08:10 Carbon Dioxide 23 mmol/L (22-30) 09/03/18 08:10 11 mmol/L 09/03/18 08:10 BUN 9 mg/dL (7-17) 09/03/18 08:10 0.8 mg/dL (0.7-1.2) 09/03/18 08:10 Estimated GFR > 60 ml/min 09/03/18 08:10 11 % 09/03/18 08:10 Glucose 92 mg/dL (65-100) 09/03/18 08:10 POC Glucose 113 (70-105) H 09/01/18 21:29 5.3 % (4-6) 08/24/18 00:08 Calcium 7.0 mg/dL (8.4-10.2) L 09/03/18 08:10 Phosphorus 2.40 mg/dL (2.5-4.5) L 08/31/18 15:38 Magnesium 1.70 mg/dL (1.7-2.3) 09/01/18 04:19 0.20 mg/dL (0.1-1.2) 08/31/18 15:38 < 0.2 mg/dL (0-0.2) 08/31/18 15:38 AST 13 units/L (5-40) 08/31/18 15:38 ALT 10 units/L (7-56) 08/31/18 15:38 63 units/L (35-129) 08/31/18 15:38 6.60 mg/dL (0.00-1.30) H 08/27/18 18:30 4.8 g/dL (6.3-8.2) L 08/31/18 15:38 1.8 g/dL (3.9-5) L 08/31/18 15:38 0.6 % 08/31/18 15:38 5 units/L (13-60) L 08/23/18 15:29 TSH 0.482 mlU/mL (0.270-4.200) 08/28/18 09:00 Free T4 1.90 ng/dL (0.76-1.46) H 08/24/18 Unknown 5.7 ug/dL (4.0-12.0) 08/29/18 13:15 29.8 mcg/dL () 08/28/18 09:00 Yellow (Yellow) 08/23/18 17:45 Clear (Clear) 08/23/18 17:45 5.0 (5.0-7.0) 08/23/18 17:45 Ur Specific [place] 1.008 (1.003-1.030) 08/23/18 17:45 <15 mg/dl mg/dL (Negative) 08/23/18 17:45 Neg mg/dL (Negative) 08/23/18 17:45 Neg mg/dL (Negative) 08/23/18 17:45 Sm (Negative) 08/23/18 17:45 Neg (Negative) 08/23/18 17:45 Neg (Negative) 08/23/18 17:45 < 2.0 mg/dL (<2.0) 08/23/18 17:45 Ur Leukocyte Esterase Neg (Negative) 08/23/18 17:45 1.0 /HPF (0.0-6.0) 08/23/18 17:45 1.0 /HPF (0.0-6.0) 08/23/18 17:45 U Epithel Cells (Auto) 2.0 /HPF (0-13.0) 08/23/18 17:45 2+ /HPF (Negative) 08/23/18 17:45 RPR Nonreactive (Nonreactive) 08/25/18 03:45 C. difficile Tox (PCR) Negative (Negative) 08/24/18 06:40 Flexitest 1 08/28/18 09:00 Blood Type O NEGATIVE 08/23/18 15:29 Antibody Screen Negative 08/23/18 15:29 Crossmatch See Detail 08/23/18 15:29 Active Medications - Current Medications Current Medications: Generic Name Dose Route Start Last Admin Trade Name Freq PRN Reason Stop Dose Admin Acetaminophen 650 mg 08/24/18 00:56 08/27/18 18:17 Tylenol PO 650 mg Q4H PRN Administration Pain MILD(1-3)/Fever >100.5/VILLARREAL Cholestyramine Resin 4 gm 09/01/18 15:00 09/02/18 21:04 Questran PO Not Given BID LAZARO Duloxetine HCl 60 mg 08/27/18 16:00 09/02/18 09:29 Cymbalta PO 60 mg DAILY LAZARO Administration Hydrocortisone Acetate 20 mg 08/30/18 11:00 09/02/18 12:44 Cortef PO 20 mg QDAY LAZARO Administration Levothyroxine Sodium 125 mcg 09/02/18 11:30 09/03/18 06:00 Synthroid PO 125 mcg 0600 LAZARO Administration Midodrine 10 mg 08/28/18 09:00 09/02/18 20:47 Proamatine PO 10 mg TID LAZARO Administration Morphine Sulfate 2 mg 08/31/18 11:36 Morphine IV Q24H PRN for MRI Multivitamins/Minerals 1 each 08/24/18 10:00 09/02/18 09:29 Theragran-M Tab PO 1 each QDAY LAZARO Administration Ondansetron HCl 4 mg 08/24/18 00:56 Zofran IV Q8H PRN Nausea And Vomiting Pantoprazole Sodium 40 mg 08/24/18 10:00 09/02/18 09:30 Protonix PO 40 mg QDAY LAZARO Administration Sodium Chloride 10 ml 08/24/18 10:00 09/02/18 21:03 Sodium Chloride Flush Syringe 10 Ml IV 10 ml BID LAZARO Administration Sodium Chloride 10 ml 08/24/18 00:56 Sodium Chloride Flush Syringe 10 Ml IV PRN PRN LINE FLUSH Temazepam 15 mg 08/27/18 22:00 09/02/18 21:02 Restoril PO 15 mg QHS LAZARO Administration Tizanidine HCl 4 mg 08/27/18 16:00 09/02/18 21:03 Zanaflex PO 4 mg BID LAZARO Administration Nutrition/Malnutrition Assess - Dietary Evaluation Nutrition/Malnutrition Findings: Nutrition Notes Start: 08/27/18 13:40 Freq: Status: Active Protocol: Document 08/29/18 10:35 EB (Rec: 08/29/18 10:41 EB [id number]) Co-Sign 08/29/18 10:35 LP Nutrition Notes Need for Assessment generated from: aviation electrician,MST Initial or Follow up Reassessment Other Pertinent Diagnosis Hypotension, colitis Current Diet GI soft diet Labs/Tests Reviewed Pertinent Medications Levophed, Protonix Height 5 ft 1 in Weight 104.33 kg [place] Body Weight (kg) 47.72 BMI 43.4 Weight Status Obese Subjective/Other Information Following for diet advancement and tolerance. Pt consumed about 50% of new gi soft diet this am and for dinner last night and continues to report consistent diarrhea that occurs about 15 minutes after eating foods. Percent of energy/protein needs met: 71%/34% Burn Absent Trauma Absent GI Symptoms Diarrhea Current % PO Fair (50-74%) #1 Nutrition Diagnosis Inadequate oral intake As Evidenced by Signs and Symptoms diet advanced to gi soft and meeting 71% and 34% of axel and pro needs respectively Diagnosis Progress(for reassessment Improved documentation) Is patient on ventilator? No Is Patient Ambulatory and/or Out of Bed Yes REE-([place]-ambulatory/OOB) [ 1924.884 [email or web address]] Kcal/Kg value to use for calculation 14 Approximate Energy Requirements Using 1461 kcal/Kg Calculation Used for Recommendations Kcal/kg Additional Notes PRO: 2.5 g/kg IBW of 47.72 kg (119 g/day) Fluid: 1 mL/kcal Nutrition Intervention Change Diet Order: advance when medically feasible Goal #1 advance diet when medically feasible Goal #2 meet at least 75% axel and pro needs Anticipated Discharge Needs: unable to determine at this time Follow-Up By: 09/03/18 Additional Comments F/u: PO intake and diet advancement
[2018-09-03] MEDS ORDERED: K-DUR PO ONE (11:30)
[2018-09-03] MEDS: CORTEF PO SCH (11:47)
[2018-09-03] MEDS: PROTONIX PO SCH (11:48)
[2018-09-03] MEDS: SODIUM CHLORIDE FLUSH SYRINGE 10 ML IV SCH ×2 (11:48→21:57)
[2018-09-03] MEDS: QUESTRAN PO SCH ×2 (11:48→21:45)
[2018-09-03] MEDS: ZANAFLEX PO SCH ×2 (11:48→21:45)
[2018-09-03] MEDS: CYMBALTA PO SCH (11:48)
[2018-09-03] MEDS: THERAGRAN-M Tab PO SCH (11:48)
[2018-09-03] MEDS ORDERED: ATIVAN IV ONE (12:00)
[2018-09-03] MEDS: RESTORIL PO SCH (21:45)
[2018-09-04] MEDS: SYNTHROID PO SCH (05:46)
[2018-09-04 06:24] LABS: Basophils % (Auto) 0.2 % (0.0-1.8); Eosinophils # (Auto) 0.1 K/mm3 (0.0-0.4); Eosinophils % (Auto) 1.5 % (0.0-4.3); Hematocrit 26.2 % (30.3-42.9); Hemoglobin 9.1 gm/dl (10.1-14.3); Lymphocytes # (Auto) 1.4 K/mm3 (1.2-5.4); Lymphocytes % (Auto) 22.1 % (13.4-35.0); Mean Corpuscular HGB Conc 35 % (30-34); Mean Corpuscular Volume 83 fl (79-97); Monocytes # (Auto) 0.6 K/mm3 (0.0-0.8); Monocytes % (Auto) 9.6 % (0.0-7.3); Platelet Count 263 K/mm3 (140-440); Red Blood Count 3.15 M/mm3 (3.65-5.03); Red Cell Distribution Width 19.6 % (13.2-15.2)
[2018-09-04 06:52] LABS: BUN/Creatinine Ratio 11; Blood Urea Nitrogen 8 mg/dL (7-17); Calcium 7.3 mg/dL (8.4-10.2); Hemolysis Index 1
[2018-09-04] MEDS: PROAMATINE PO SCH ×2 (07:51→14:40)
[2018-09-04] MEDS: CYMBALTA PO SCH (09:17)
[2018-09-04] MEDS: PROTONIX PO SCH (09:17)
[2018-09-04] MEDS: THERAGRAN-M Tab PO SCH (09:17)
[2018-09-04] MEDS: QUESTRAN PO SCH (09:18)
[2018-09-04] MEDS: ZANAFLEX PO SCH (09:18)
[2018-09-04] MEDS: CORTEF PO SCH (09:18)
[2018-09-04] MEDS: SODIUM CHLORIDE FLUSH SYRINGE 10 ML IV SCH (09:19)
--- NOTE | 2018-09-04 12:41 | Discharge Summary ---
Providers - Providers Date of Admission: 08/23/18 16:53 Attending physician: DIDI COFFMAN MD 08/23/18 17:16 Consult to Physician [CONS] Urgent Comment: DR SYLVIA DIAZ W/DR CRUZ @ [id number] Consulting Provider: FIDEL CRUZ Physician Instructions: Reason For Exam: symptomatic anemia, GI bleed 08/25/18 10:25 Consult to PICC Line RN [CONS] Routine Reason For Exam: on Levophed Type Line:: PICC 08/27/18 08:42 Consult to Physician [CONS] Routine Comment: Consulting Provider: DIOGO BADILLO Physician Instructions: Reason For Exam: sepsis 08/27/18 08:51 Consult to Physician [CONS] Urgent Comment: Consulting Provider: KYLAH ECHEVERRIA Physician Instructions: Reason For Exam: critical care management 08/27/18 18:43 Physical Therapy Evaluation and Treat [CONS] Routine Comment: Reason For Exam: ataxia 08/29/18 08:37 Consult to Wound/ET Nurse [CONS] Routine Reason For Exam: Rt groin 08/29/18 09:14 Consult to Dietitian/Nutrition [CONS] Routine Physician Instructions: Reason For Exam: Reason for Consult: Malnutrition Hospitalization Reason for admission: Colitis, hypotension, Anemia, Morbid obesity Condition: Fair Hospital course: 73 yo -[place] woman with a history of chronic pain syndome due to OA/LBP, Graves disease then hypothyroidism, depression, OA and hypertension who presented to [facility] ED with n/v/d/bloody stools and weakness. She was admitted to the ICU. She was on Levophed gtt, and weand off drip on 08/28. She is on po Midodrine to help maintain bp. On 08/27 CT Abd/ Pelvis Pt indeterminate focal masses in the liver which could represent metastatic disease. GI recommend MRI but couldn't able to do it because of patient's body habitus and GI will follow the patient as an O/P will do MRI of the abdomen. Hypotension-resolving; septic shock and adrenal insufficiency. On midodrine, and hydrocortisone Acute blood loss anemia due to GI bleed from colitis and proctitis Normocytic Anemia with BRBPR/rectal bleeding with severe Colitis, proctitis. Tarnsfused 2 units of blood. H/H stable. Severe colitis -has completed abx per ID, S/P flex sig (incomplete colonoscopy) with severe proctitis- per GI will need c scope when improved in a few weeks C-diff negative; started on questran on 08/31 and given ascript at discharge. Hypomagnesemia;Repleted History of Depression; Resume Cymbalta 60 mg daily- previously held antidepressant due to NPO status Hyponatremia hypovolemia-resolved; Treated with IVF Hypokalemia- Repleted History of Hypothyroidism; Continue Synthroid 125mcg daily Severe Malnutrition; Albumin 2.2, On soft diet, [employer] consulted Morbid obesity, bmi 43.5; Lifestyle modifications discussed, Benefit from outpatient weight management program. Patient showed some improvement and discharged to personal home care. The plan was to discharge to SNF her insurance/[employer] declined it. GI cleared her for discharge. Disposition: [id number] HOME UNDER [facility] Time spent for discharge: 32 minutes - Discharge Diagnoses (1) Acute blood loss anemia Status: Acute (2) Colitis Status: Acute (3) Dehydration Status: Acute (4) Hypotension Status: Acute Qualifiers: Hypotension type: hypotension due to hypovolemia Qualified Code(s): I95.89 - Other hypotension; E86.1 - Hypovolemia Core Measure Documentation - Palliative Care Palliative Care/ Comfort Measures: Not Applicable - Core Measures Any of the following diagnoses?: none Exam - Physical Exam Narrative exam: Not in cardiopulmonary distress. The patient is morbidly obese. Vital signs as documented. Head exam is unremarkable. No scleral icterus . Neck is without jugular venous distension, thyromegaly, or carotid bruits. Lungs are clear to auscultation. Cardiac exam reveals regular rate and Rhythm. Abdominal exam reveals normal bowel sounds. Extremities are nonedematous and both femoral and pedal pulses are normal. CHURN TENDER: Alert and oriented 3. No focal weakness. - Constitutional Vitals: Temp Pulse Resp BP Pulse Ox 99.0 F 118 H 20 126/61 98 09/04/18 07:33 09/04/18 10:00 09/04/18 10:00 09/04/18 07:33 09/04/18 10:00 Plan Activity: no restrictions Weight Bearing Status: Full Weight Bearing Diet: regular Follow up with: CAT AGUAYO MD [Referring] - 3-5 Days Prescriptions: Hydrocortisone [Cortef TAB] 10 mg PO QDAY #5 tablet Pantoprazole [Protonix TAB] 40 mg PO QDAY #30 tablet Cholestyramine (with Sugar) [Questran] 4 gm PO BID #60 packet
[2018-09-04 14:37] VITALS: BP 90/60
== END 2018-09-04 18:42 | disposition home or self-care (01) | DRG 871 ==
LOC: ED 14:18 → 2B-ACE 16:53 → IMCU 19:42 → CC1 08-24 07:29 → IMCU 08-29 12:25 → 2B-ACE 08-30 15:35
PROVIDERS: ADMIT Internal Medicine; ATTEND Internal Medicine
PROC: 30233N1 Transfusion of Nonautologous Red Blood Cells into Peripheral Vein, Percutaneous Approach (ICD-10-PCS; principal; 2018-08-23)
PROC: 06HY33Z Insertion of Infusion Device into Lower Vein, Percutaneous Approach (ICD-10-PCS; 2018-08-23)
PROC: 03JY3ZZ Inspection of Upper Artery, Percutaneous Approach (ICD-10-PCS; 2018-08-23)
PROC: 0DJ08ZZ Inspection of Upper Intestinal Tract, Via Natural or Artificial Opening Endoscopic (ICD-10-PCS; 2018-08-24)
PROC: 0DBP8ZX Excision of Rectum, Via Natural or Artificial Opening Endoscopic, Diagnostic (ICD-10-PCS; 2018-08-24)
PROC: 02HV33Z Insertion of Infusion Device into Superior Vena Cava, Percutaneous Approach (ICD-10-PCS; 2018-08-25)
DX: A41.9 Sepsis, unspecified organism (principal); N17.0 Acute kidney failure with tubular necrosis; E43 Unspecified severe protein-calorie malnutrition; R65.21 Severe sepsis with septic shock; R57.1 Hypovolemic shock; D62 Acute posthemorrhagic anemia; Z68.41 Body mass index [BMI] 40.0-44.9, adult; E87.1 Hypo-osmolality and hyponatremia; E27.40 Unspecified adrenocortical insufficiency; K52.9 Noninfective gastroenteritis and colitis, unspecified; E03.9 Hypothyroidism, unspecified; K64.9 Unspecified hemorrhoids; G89.4 Chronic pain syndrome; L98.499 Non-pressure chronic ulcer of skin of other sites with unspecified severity; I48.91 Unspecified atrial fibrillation; K76.9 Liver disease, unspecified; K62.89 Other specified diseases of anus and rectum; E87.6 Hypokalemia; F32.9 Major depressive disorder, single episode, unspecified; E88.09 Other disorders of plasma-protein metabolism, not elsewhere classified; I95.89 Other hypotension; E66.01 Morbid (severe) obesity due to excess calories; M54.5 Low back pain; Z87.891 Personal history of nicotine dependence; Z88.5 Allergy status to narcotic agent; Z98.1 Arthrodesis status; Z98.51 Tubal ligation status; Z71.3 Dietary counseling and surveillance
CPT/HCPCS: 36415; 36430; 71045; 74176; 80048; 80053; 80076; 81001; 82270; 82533; 82962; 83036; 83690; 83735; 84100; 84436; 84439; 84443; 85007; 85014; 85018; 85025; 85027; 85610; 85730; 86140; 86592; 86850; 86900; 86901; 86920; 87040; 87045; 87493; 88305; 93005; 93010; 93306; G0378; C9113; J0692; J1956; J2060; J2270; J2405; J2704; J3370; J3475; J3480; J7030; J7040; J7042; P9016